=== PATIENT | male | born 1965 | race Hispanic/Latino ===

== ENCOUNTER 2020-02-21 11:25 | Observation (INO) | payer MEDICARE, OTHER ==
[~2020-02-21] VITALS: Ht 170.2 cm; Wt 97.1 kg
[2020-02-21 12:58] LABS: BASOPHILS % 0.6 % (0.0-1.0); EOSINOPHILS # (AUTO) 0.1 (0.0-0.4); EOSINOPHILS % 1.5 % (0.0-6.0); HEMATOCRIT 39.6 % (38.2-49.6); HEMOGLOBIN 12.9 g/dL (14.0-18.0); LYMPHOCYTES # (AUTO) 0.5 (1.0-3.2); LYMPHOCYTES % 9.6 % (18.0-39.1); MEAN CORPUSCULAR HEMOGLOBIN 29.3 pg (28-32); MEAN CORPUSCULAR HGB CONC 32.6 g/dL (31-35); MONOCYTES # (AUTO) 0.5 (0.2-0.8); MONOCYTES % 10.2 % (4.4-11.3); NEUTROPHILS # (AUTO) 3.8 (2.1-6.9); NEUTROPHILS % 78.1 % (38.7-80.0); PLATELET COUNT 93 x10e3/uL (140-360); RED CELL DISTRIBUTION WIDTH 13.7 % (11.7-14.4)
[2020-02-21 13:11] LABS: INR 1.02; PROTHROMBIN TIME 13.9 seconds (11.9-14.5)
[2020-02-21 13:12] LABS: PARTIAL THROMBOPLASTIN TIME 28.5 seconds (23.8-35.5)
[2020-02-21 13:19] LABS: ALBUMIN 4.1 g/dL (3.5-5.0); ALBUMIN/GLOBULIN RATIO 1.1 (0.8-2.0); ANION GAP 15.6 mmol/L (8-16); CALCIUM 9.2 mg/dL (8.4-10.2); CREATININE, SERUM 5.04 mg/dL (0.72-1.25); POTASSIUM 4.6 mmol/L (3.5-5.1)
[2020-02-21 13:27] LABS: CREATINE KINASE MB 2.2 ng/mL (0-5.0)
[2020-02-21] MEDS ORDERED: SODIUM CHLORIDE 0.9% 50ML 50 ML ONE (13:37)
[2020-02-21] MEDS ORDERED: IOPAMIDOL 370 MG/ML 200 ML INFUS..BTL INJ ONE (13:38)
--- NOTE | 2020-02-21 13:57 | Diagnostic Imaging Report ---
EXAMINATION: CHEST SINGLE (PORTABLE) INDICATION: Abdominal pain, vomiting COMPARISON: None FINDINGS: LINES/TUBES:Right IJ tunneled dialysis catheter terminates in the right atrium. LUNGS:The lung volumes are low. There is perihilar fullness and indistinctness of the pulmonary vasculature. PLEURA:No pleural effusion or pneumothorax. MEDIASTINUM:The cardiomediastinal silhouette appears normal in size and shape. Postoperative findings of prior CABG. BONES/SOFT TISSUES:No acute osseous injury. Sternotomy wires intact. ABDOMEN:No free air under the diaphragm. IMPRESSION: Low lung volumes, central pulmonary vascular congestion, and mild pulmonary interstitial edema. Signed by: Ezio Keating MD on 02/21/2020 1:54 PM
--- NOTE | 2020-02-21 14:39 | Diagnostic Imaging Report ---
EXAM: CT Abdomen and Pelvis WITH intravenous contrast INDICATION: Abdominal pain COMPARISON: Chest radiograph of the same day TECHNIQUE: Abdomen and pelvis were scanned utilizing a multidetector helical scanner from the lung base to the pubic symphysis after administration of IV contrast. Coronal and sagittal reformations were obtained. Routine protocol was performed. Scan was performed during portal venous phase. IV CONTRAST: 100mL of Isovue 370 ORAL CONTRAST: Water RADIATION DOSE: Total DLP: 745 mGy*cm Dose modulation, iterative reconstruction, and/or weight based adjustment of the mA/kV was utilized to reduce the radiation dose to as low as reasonably achievable. FINDINGS: LOWER THORAX: No focal consolidation. Small 3 to 4 mm right lower lobe nodules, mostly subpleural. HEPATOBILIARY: Cirrhotic liver contour. No focal liver lesion. No biliary ductal dilation. Unremarkable gallbladder. SPLEEN: No splenomegaly. PANCREAS: No focal masses or ductal dilatation. ADRENALS: No adrenal nodules. KIDNEYS/URETERS: No hydronephrosis, stones, or solid mass lesions. PELVIC ORGANS/BLADDER: Unremarkable. PERITONEUM / RETROPERITONEUM: Large volume ascites in the abdomen and pelvis. No free air. LYMPH NODES: No lymphadenopathy. VESSELS: Moderate atherosclerotic calcifications of the nonaneurysmal abdominal aorta and major branches. GI TRACT: Mild diverticulosis without CT evidence of diverticulitis. No abnormal bowel thickening. No bowel obstruction. Normal appendix. BONES AND SOFT TISSUES: No acute osseous injury. No suspicious lytic or blastic lesions. IMPRESSION: Hepatic cirrhosis and large volume abdominal and pelvic ascites. Small 3 to 4 mm right lower lobe pulmonary nodules. If the patient is high risk, follow-up chest CT in 12 months is optional. If the patient is low risk, no follow-up imaging is necessary. Mild diverticulosis without CT evidence of diverticulitis. Signed by: Ezio Keating MD on 02/21/2020 2:35 PM
[2020-02-21] MEDS ORDERED: ALBUMIN 25% 12.5GM 50ML 150 ML IV ONE (16:03)
--- NOTE | 2020-02-21 16:27 | Emergency Department Note ---
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 Historian: Patient Arrival Mode: Car Respiratory Therapy Technician Required: No Onset (how long ago): day(s) (2) Location: ABD Quality: DISTENSION, N/V Radiation: Reports non-radiation Severity: moderate Onset quality: gradual Timing of current episode: intermittent Progression: waxing and waning Chronicity: new Context: Denies recent illness Relieving factors: none Exacerbating factors: none Associated symptoms: Reports denies other symptoms Past Medical/Family History Physician Review I have reviewed the patient's past medical and family history. Any updates have been documented here. Past Medical History Recent Fever: No Clinical Suspicion of Infectio: No New/Unexplained Change in Ment: No Past Medical History: Hypertension, Diabetes, Hemodyalisis, Hyperlipedemia, Chronic Kidney Disease Other Medical History: dialysis MWF Social History Smoking Cessation: Never Smoker Counseling Performed: No Alcohol Use: None Any Illegal Drug Use: No TB Exposure/Symptoms: No Physically hurt or threatened: No Family History Family history of heart diseas: No Other Any Pre-Existing Lines (PICC,: No Review of Systems Review of Systems Constitutional: Reports no symptoms EENTM: Reports no symptoms Cardiovascular: Reports no symptoms Respiratory: Reports no symptoms Gastrointestinal: Reports as per HPI Genitourinary: Reports no symptoms Musculoskeletal: Reports no symptoms Integumentary: Reports no symptoms Neurological: Reports no symptoms Psychological: Reports no symptoms Endocrine: Reports no symptoms Hematological/Lymphatic: Reports no symptoms Physical Exam Related Data Allergies: Coded Allergies: No Known Allergies (Unverified , 02/21/20) Triage Vital Signs Vital Signs Date Time Temp Pulse Resp B/P (MAP) Pulse Ox O2 Delivery O2 Flow Rate FiO2 02/21/20 12:00 97.9 70 18 150/78 99 Room Air Vital signs reviewed: Yes Physical Exam CONSTITUTIONAL Constitutional: Present well-developed, Present well-nourished HENT HENT: Present normocephalic, Present atraumatic, Present oropharynx clear/moist, Present nose normal HENT L/R: Present left ext ear normal, Present right ext ear normal EYES Eyes: Reports PERRL, Reports conjunctivae normal NECK Neck: Present ROM normal PULMONARY Pulmonary: Present effort normal, Present breath sounds normal CARDIOVASCULAR Cardiovascular: Present regular rhythm, Present heart sounds normal, Present capillary refill normal, Present normal rate GASTROINTESTINAL Abdominal: Present soft, Present nontender, Present bowel sounds normal, Present distension (MASSIVE DISTENSION WITH FLUID WAVE, NO TENDERNESS) GENITOURINARY Genitourinary: Present exam deferred SKIN Skin: Present warm, Present dry MUSCULOSKELETAL Musculoskeletal: Present ROM normal, Present edema NEUROLOGICAL Neurological: Present alert, Present oriented x 3, Present no gross motor or sensory deficits PSYCHOLOGICAL Psychological: Present mood/affect normal, Present judgement normal Results Laboratory Result Diagram: 02/21/20 1242 02/21/20 1242 Laboratory Laboratory Tests Test 02/21/20 12:42 White Blood Count 4.81 x10e3/uL (4.8-10.8) Red Blood Count 4.40 x10e6/uL (4.3-5.7) Hemoglobin 12.9 g/dL (14.0-18.0) Hematocrit 39.6 % (38.2-49.6) Mean Corpuscular Volume 90.0 fL (81-99) Mean Corpuscular Hemoglobin 29.3 pg (28-32) Mean Corpuscular Hemoglobin Concent 32.6 g/dL (31-35) Red Cell Distribution Width 13.7 % (11.7-14.4) Platelet Count 93 x10e3/uL (140-360) Neutrophils (%) (Auto) 78.1 % (38.7-80.0) Lymphocytes (%) (Auto) 9.6 % (18.0-39.1) Monocytes (%) (Auto) 10.2 % (4.4-11.3) Eosinophils (%) (Auto) 1.5 % (0.0-6.0) Basophils (%) (Auto) 0.6 % (0.0-1.0) Neutrophils # (Auto) 3.8 (2.1-6.9) Lymphocytes # (Auto) 0.5 (1.0-3.2) Monocytes # (Auto) 0.5 (0.2-0.8) Eosinophils # (Auto) 0.1 (0.0-0.4) Basophils # (Auto) 0.0 (0.0-0.1) Absolute Immature Granulocyte (auto 0 x10e3/uL (0-0.1) Prothrombin Time 13.9 seconds (11.9-14.5) Prothromb Time International Ratio 1.02 Activated Partial Thromboplast Time 28.5 seconds (23.8-35.5) Sodium Level 138 mmol/L (136-145) Potassium Level 4.6 mmol/L (3.5-5.1) Chloride Level 102 mmol/L (98-107) Carbon Dioxide Level 25 mmol/L (22-29) Anion Gap 15.6 mmol/L (8-16) Blood Urea Nitrogen 27 mg/dL (7-26) Creatinine 5.04 mg/dL (0.72-1.25) Estimat Glomerular Filtration Rate 12 ML/MIN (60-) BUN/Creatinine Ratio 5 (6-25) Glucose Level 82 mg/dL (74-118) Calcium Level 9.2 mg/dL (8.4-10.2) Total Bilirubin 0.5 mg/dL (0.2-1.2) Aspartate Amino Transf (AST/SGOT) 24 IU/L (5-34) Alanine Aminotransferase (ALT/SGPT) 15 IU/L (0-55) Alkaline Phosphatase 271 IU/L (40-150) Creatine Kinase 63 IU/L (30-200) Creatine Kinase MB 2.20 ng/mL (0-5.0) Troponin I 0.033 ng/mL (0-0.300) B-Type Natriuretic Peptide 1818.1 pg/mL (0-100) Total Protein 8.0 g/dL (6.5-8.1) Albumin 4.1 g/dL (3.5-5.0) Globulin 3.9 g/dL (2.3-3.5) Albumin/Globulin Ratio 1.1 (0.8-2.0) Amylase Level 77 U/L (25-125) Lipase 38 U/L (8-78) Lab results reviewed: Yes Imaging Imaging results reviewed: Yes Assessment & Plan Medical Decision Making MDM H/O ESRD WITH N/V AND MASSIVE ABD DISTENSION - CHECK CBC, CHEM, LIPASE, CXR, CT ABD/PELVIS - R/O UREMIA, HYPOALBUMINEMIA, CIRRHOSIS, ASCITES, ELECTROLYTE ABNL Reassessment Reassessment ADMIT TO DR MANCUSO (JORY PT), RENAL CONSULTED ALSO (SPOKE WITH DR DAY) Assessment & Plan Final Impression: (1) Ascites (2) Cirrhosis (3) ESRD (end stage renal disease) Depart Disposition: ADMITTED Last Vital Signs Date Time Temp Pulse Resp B/P (MAP) Pulse Ox O2 Delivery O2 Flow Rate FiO2 02/21/20 12:12 98.1 68 18 173/85 99 02/21/20 12:00 Room Air Medications in the ED Sodium Chloride 50 ml @ ud STK-MED ONCE .ROUTE ; Start 02/21/20 at 13:37; Stop 02/21/20 at 13:31; Status DC Iopamidol 74,000 mg STK-MED ONCE INJ ; Start 02/21/20 at 13:38; Stop 02/21/20 at 13:31; Status DC ESCOBAR FREED MD Feb 21, 2020 16:27
[2020-02-21] MEDS ORDERED: ALBUMIN 25% 12.5GM 50ML 50 ML IV ONE ×3 (16:36→17:01)
[2020-02-21 16:45] LABS: BODY FLUID APPEARANCE CLOUDY; BODY FLUID COLOR STRAW; BODY FLUID TYPE PERITONEAL
--- NOTE | 2020-02-21 17:34 | Consultation ---
DATE OF CONSULTATION: Initial Nephrology Consultation REASON FOR CONSULTATION: End-stage renal disease. HISTORY OF PRESENT ILLNESS: Mr. Clinton Stone is a 54-year-old male who is well known to our practice. He gets dialysis three times a week at [facility] in [place]. The patient presented to the hospital today with some abdominal distention. The patient has no shortness of breath at this time. No fevers or chills. PAST MEDICAL HISTORY: The patient has history of end-stage renal disease. He has history of cirrhosis, history of hypertension. REVIEW OF SYSTEMS: As per HPI. MEDICATIONS: His medication list is not available at this time. PHYSICAL EXAMINATION: VITAL SIGNS: Blood pressure 150/78, pulse 70, respirations 18. GENERAL: The patient is in no acute distress. HEENT: No increased JVD. CARDIOVASCULAR: Regular rate and rhythm. LUNGS: Decreased breath sounds at the bases bilaterally. ABDOMEN: Distended. EXTREMITIES: No edema. LABORATORY RESULTS: White count 4.8, hemoglobin and hematocrit of 13 and 39 respectively. Sodium 138, potassium 4.6, chloride 102, bicarbonate 25. BUN and creatinine 27 and 5.0 respectively. BNP is 1818. IMPRESSION: 1. Chronic kidney disease, stage 5. 2. Cirrhosis. 3. Ascites. 4. Elevated BNP. PLAN: The patient will get dialysis tomorrow. He will probably also need therapeutic paracentesis while he is here. Electrolyte status is okay. Once the patient's medicine list is available, we can place him on his home medications. I will follow the patient with you. Thank you for allowing me to participate in the care of the patient with you. Ather MD ARLET Dial/ARYAN /[id number]
[2020-02-21 17:48] LABS: RBC,BODY FLUID 192 cells/uL; WBC,BODY FLUID 212 cells/uL
--- NOTE | 2020-02-21 17:59 | NUR ---
PATIENT INITIALLY REFUSING COVID SWAB DUE TO EPISTAXIS TO BOTH NOSTRILS
[2020-02-21] MEDS ORDERED: HYDRALAZINE HCL 20 MG/ML VIAL IV PRN (18:15)
[2020-02-21] MEDS ORDERED: ONDANSETRON HCL INJ 2MG/ML 2ML 2 MG/ML VIAL IV PRN (18:15)
[2020-02-21] MEDS ORDERED: PROPRANOLOL HCL 40 MG TAB PO SCH (18:15)
[2020-02-21 19:02] VITALS: BP 176/80
[2020-02-21 19:10] VITALS: BP 160/73
--- NOTE | 2020-02-21 19:10 | NUR ---
Report called from er to night RN. Pt is alert and oriented x3. Respirations are regular and unlabored. rt subclavian avinash cath intact- pt gets dialysis on m,w,f. Dialysis held - pt had parecentesis today - hx ascites,liver cirrhosis. Pt to get dialysis in am. Tele w pulse ox on. 20g rt fa 20 g sl. Dressing to abdomen dry and intact. Pt oriented to pmc and room. call light within reach. bed in low position. pt is legally blind. bed alarm on.
[2020-02-21 19:17] LABS: EOSINOPHILS,BODY FLUID 1 %; LYMPHOCYTES,BODY FLUID 16 %; MONO/MACROPHG,BODY FLUID 36 %; NEUTROPHILS,BODY FLUID 7 %; OTHER CELLS,BODY FLUID 40 %
[2020-02-21 21:07] VITALS: BP 170/78
[2020-02-22] VITALS: BP 150/73
--- NOTE | 2020-02-22 02:01 | History and Physical ---
CHIEF COMPLAINT: Abdominal distention. HISTORY OF PRESENT ILLNESS: This is a 54-year-old male, who is on dialysis, presented with abdominal distention for the past week or so. The patient denies any abdominal pain. No nausea or vomiting. The patient has no known liver disease and he does not drink. Denies fever. No chest pain. No shortness of breath. PAST MEDICAL/SURGICAL HISTORY: 1. Diabetes. 2. Hypertension. 3. Coronary artery disease, status post CABG. 4. End-stage renal disease due to diabetes. MEDICATIONS: Please see medication reconciliation form. ALLERGIES: NONE. SOCIAL HISTORY: He does not drink. FAMILY HISTORY: Diabetes. REVIEW OF SYSTEMS: A 10-point review of system obtained and nothing else is significant other than what is stated in HPI. PHYSICAL EXAMINATION: VITAL SIGNS: Temperature 98.1, pulse 72, respiratory rate 16, and blood pressure 171/88. GENERAL: In no acute distress. SKIN: No rash. HEENT: Anicteric. Oropharynx is clear. LUNGS: Clear. HEART: Regular rate and rhythm. Normal S1, S2. GI: Abdomen is soft, distended, and nontender. NEUROLOGIC: Alert and oriented x3. Cranial nerves II through XII grossly intact. PSYCHIATRIC: No hallucination. MUSCULOSKELETAL: Painless range of motion. LABORATORY DATA: White count 8.5, hemoglobin 13, platelet count 93. PT, PTT are normal. Creatinine 5. CT of the abdomen shows large volume ascites with cirrhosis. ASSESSMENT AND PLAN: 1. Newly diagnosed cirrhosis with ascites. The patient does have thrombocytopenia to support a diagnosis. However, no coagulopathy is supported. We will go ahead and do a liver ultrasound. We will consult GI. We will also check hepatitis panel. We will schedule for him to have a paracentesis. We will start him on propranolol, Aldactone, and Lasix. 2. End-stage renal disease due to diabetes. We will consult Nephrology for dialysis. 3. Coronary artery disease with previous coronary artery bypass grafting. We will check to see if he takes aspirin at home, so likely should resume that. 4. Diabetes. Currently, his sugar is stable. We will monitor. 5. Gastrointestinal and deep vein thrombosis prophylaxis. No chemical DVT prophylaxis due to planned procedure. MD MOLLY DavilaL/ARYAN /[id number]
[2020-02-22 04:00] VITALS: BP 176/78
[2020-02-22 05:59] LABS: BASOPHILS % 0.6 % (0.0-1.0); EOSINOPHILS # (AUTO) 0.1 (0.0-0.4); EOSINOPHILS % 1.4 % (0.0-6.0); HEMATOCRIT 35.9 % (38.2-49.6); HEMOGLOBIN 11.8 g/dL (14.0-18.0); LYMPHOCYTES # (AUTO) 0.4 (1.0-3.2); LYMPHOCYTES % 8.5 % (18.0-39.1); MEAN CORPUSCULAR HEMOGLOBIN 29.4 pg (28-32); MEAN CORPUSCULAR HGB CONC 32.9 g/dL (31-35); MEAN CORPUSCULAR VOLUME 89.3 fL (81-99); MONOCYTES # (AUTO) 0.5 (0.2-0.8); MONOCYTES % 9.8 % (4.4-11.3); NEUTROPHILS % 79.3 % (38.7-80.0); PLATELET COUNT 97 x10e3/uL (140-360); RED BLOOD COUNT 4.02 x10e6/uL (4.3-5.7); RED CELL DISTRIBUTION WIDTH 13.6 % (11.7-14.4)
[2020-02-22 06:02] LABS: ALBUMIN/GLOBULIN RATIO 1.4 (0.8-2.0); ANION GAP 14.7 mmol/L (8-16); CALCIUM 8.8 mg/dL (8.4-10.2); CREATININE, SERUM 5.38 mg/dL (0.72-1.25); POTASSIUM 4.7 mmol/L (3.5-5.1)
[2020-02-22] MEDS ORDERED: METFORMIN HCL850 MG PO (06:37)
[2020-02-22] MEDS ORDERED: METFORMIN HCL1000 MG PO (06:37)
--- NOTE | 2020-02-22 07:00 | NUR ---
RCD PT AT BED PT IS ALERT AND ORIENTED RESTING ON BED IV PATENT BED LOW AND LOCKED CALL LIGHT IN REACH
[2020-02-22 08:11] VITALS: BP 165/76
[2020-02-22 09:00] VITALS: BP 165/76
[2020-02-22] MEDS ORDERED: FUROSEMIDE 20 MG TAB PO SCH (09:00)
[2020-02-22] MEDS: PROPRANOLOL HCL 10 MG TAB PO SCH ×2 (09:00→16:35)
[2020-02-22] MEDS ORDERED: SPIRONOLACTONE 25 MG TAB PO SCH (09:00)
--- NOTE | 2020-02-22 11:16 | Diagnostic Imaging Report ---
EXAM: US ABDOMEN LIMITED DATE: 02/22/2020 9:55 AM INDICATION: ^[id number]. Cirrhosis COMPARISON: None TECHNIQUE: Transverse and longitudinal carbajal scale and color doppler sonographic images of the right upper quadrant were obtained. FINDINGS: LIVER 16.7 cm in the right midclavicular line. Liver is echogenic and heterogeneous with slightly nodular contours. Small volume ascites is noted. No suspicious hepatic mass GALLBLADDER No gallbladder wall thickening, distension, stone, or pericholecystic fluid. Negative reported sonographic Ohara's sign. BILE DUCTS No intra nor extra-hepatic biliary dilation. Common bile duct measures 0.5cm PANCREAS: Not well visualized. RIGHT KIDNEY: 13.0 cm Echogenicity: Normal Collecting System: No hydronephrosis Stones: None Cyst/Mass: None VESSELS: Aorta: Visualized portions are within normal size limits Inferior Vena Cava: Visualized portions are normal Main Portal Vein: 1.3 cm, normal size with hepatopetal flow. FREE FLUID: None IMPRESSION: 1. Cirrhotic liver morphology with small volume ascites. 2. Negative for biliary dilatation. Signed by: Rigoberto Carl MD on 02/22/2020 11:13 AM
[2020-02-22] MEDS ORDERED: OMEPRAZOLE40 MG PO (11:33)
[2020-02-22] MEDS ORDERED: FLOMAX0.4 MG PO (11:33)
[2020-02-22] MEDS ORDERED: FAMOTIDINE20 MG PO (11:33)
[2020-02-22] MEDS ORDERED: LISINOPRIL10 MG PO (11:33)
[2020-02-22] MEDS ORDERED: NIFEDIPINE ER30 M1 PO (11:33)
[2020-02-22] MEDS ORDERED: FUROSEMIDE40 MG PO (11:33)
[2020-02-22] MEDS ORDERED: CARVEDILOL12.5 MG PO (11:33)
[2020-02-22] MEDS ORDERED: ATORVASTATIN CA20 MG PO (11:33)
[2020-02-22 11:46] VITALS: BP 168/79
--- NOTE | 2020-02-22 13:30 | NUR ---
Pt unavailable at this time. Will follow up as able. BABITA MELENDEZ Cloth Inspector Spiritual Care Department O: [phone]
[2020-02-22] MEDS ORDERED: SODIUM CHLORIDE 0.9% 1000ML 2,000 ML ONE (14:16)
--- NOTE | 2020-02-22 15:00 | NUR ---
DIALYSIS STARTED FOR 3 HRS
[2020-02-22 16:16] VITALS: BP 169/85
[2020-02-22] MEDS ORDERED: HEPARIN SOD (PORCINE) 1000 UNIT/ML SDV IV PRN (17:00)
[2020-02-22] MEDS ORDERED: SODIUM CHLORIDE 0.9% 1000ML 2,000 ML IV PRN (17:00)
--- NOTE | 2020-02-22 18:00 | NUR ---
DIALYSIS DONE AND REMOVED 2 LTRS
[2020-02-22] MEDS ORDERED: ONDANSETRON HCL 4 MG ORAL DISINTEGRATING TAB PO PRN (18:15)
--- NOTE | 2020-02-22 18:27 | NUR ---
PATIENT WENT HOME IN SAFE CONDITION WITH HIS BROTHER
--- NOTE | 2020-02-22 22:28 | Discharge Summary ---
PRIMARY CARE DOCTOR: Dr. Rupesh Alcantara. FINAL DIAGNOSIS: Newly diagnosed cirrhosis with ascites. SECONDARY DIAGNOSES: 1. End-stage renal disease due to diabetes. 2. Coronary artery disease with previous coronary artery bypass grafting. 3. Hypertension. 4. Blind. CONSULTANTS: 1. Dr. Dial, Nephrology. 2. Dr. Fuller, GI. PROCEDURE/STUDIES PERFORMED: 1. Abdominal ultrasound, which showed cirrhotic liver morphology with small volume ascites after paracentesis and negative for biliary dilatation. 2. CT of the abdomen showed large volume ascites. 3. Paracentesis. HISTORY: Per dictated H and P. HOSPITAL COURSE: The patient was admitted and paracentesis was done. There was no evidence of spontaneous bacterial peritonitis. Overall propranolol, Lasix and Aldactone were started. Ultrasound was done. GI was consulted. However, at the time of dictation, the consult was not done yet. However, outpatient evaluation is appropriate as well. The patient was seen and examined today. The patient was dialyzed today. He will follow up with his primary care doctor and GI doctor in 2 weeks. CONDITION ON DISCHARGE: Improved. DISCHARGE MEDICATIONS: Please see medication reconciliation form. Yiching MD JOMAR Mccall/ARYAN /[id number] cc: Rupesh Alcantara
--- OUTSIDE RECORDS SUMMARY | 2020-02-25 15:38 | XMS REPORT | Clinical Summary ---
Demographics Home Phone Preferred Language Unknown Marital Status Unknown Oriental Orthodox Affiliation Unknown Race White Ethnic Group /Latin Author Author [facility] Address Unknown Phone Unavailable Care Team Providers Care Advertising Operations Coordinator Name Role Phone PCP Unavailable Allergies Not on File Medications Not on file Active Problems Not on file Encounters Care Team Description Date Type Specialty Amanda Pal Appointment (Mr. Ramey called in to s andreafski more info about transplant for his brother. Is worried about many factors and stated that brother also has cirrhosis and is blind. After speaking w him for 20min he decided to talk to his brother to see what he thinks. ) 12/27/2019 Telephone Transplant Amanda Pal Appointment (Cld patient's brother per h is request to complete referral to start the process for renal transplant for his brother. No answer. Left detailed voicemail msg and call back numbers in American.) 12/27/2019 Telephone Transplant Amanda Pal Kidney Transplant Pre-evaluation (Gentle man called in wanting to know more information about transplant for his brother that is on dialysis. Pt does not have all info or insurance handy. Asked if I could call him around 3pm.) 12/27/2019 Telephone Transplant after 02/20/2019 Social History Date Tobacco Use Types Packs/Day Years Used Never Assessed Sex Assigned at Date Recorded Not on file Industry Job Start Date Occupation Not on file Not on file Not on file Travel End Travel History Travel Start No recent travel history available. Last Filed Vital Signs Not on file Plan of Treatment Not on file Results Not on fileafter 02/20/2019
--- OUTSIDE RECORDS SUMMARY | 2020-02-25 15:41 | XMS REPORT | Continuity of Care Document ---
Author Author [facility] t Organization [facility] Address [address] [place] [address] Phone Unavailable Care Team Providers Care Physical Therapy Instructor Name Role Phone RUPESH ALCANTARA PCP Adam DIAZ Attphys Unavailable Amanda Pal Attphys Unavailable Elmer SCHULER Attphys Unavailable Shawanda ALCANTARA MD Attphys Unavailable NICOLE HURTADO Attphys Unavailable Adam DIAZ Admphys Unavailable Elmer SCHULER Admphys Unavailable NICOLE HURTADO Admphys Unavailable Payers Payer Name Policy Type Policy Number Effective Date Expiration Date María ortiz [facility] Medicare Complete [id number] 2019 00:00:00 [facility] [id number] [id number] 2018 00:00:00 [facility] Problems Condition Name Condition Details Condition Category Status Onset Date Resolution Date Last Treatment Date Treating Clinician Comments Source Abdominal ascites Problem Active [facility] Hepatic cirrhosis Problem Active [facility] End-stage renal disease Problem Active [facility] Epistaxis Problem Active [facility] Allergies, Adverse Reactions, Alerts Allergy Name Allergy Type Status Severity Reaction(s) Onset Date Inacti ve Date Treating Clinician Comments Source No Known Allergies DA Active U 2019-08-07 00:00:00 [facility] No Known Allergies DA Active U 2019-07-10 00:00:00 [facility] Social History Social Habit Start Date Stop Date Quantity Comments Source Sex Assigned At 1965 00:00:00 1965 00:00:00 Male [facility] Medications Ordered Medication Name Filled Medication Name Start Date Stop Da te Current Medication? Ordering Clinician Indication Dosage Frequency Signature (SIG) Comments Components Source Atorvastatin Calcium Atorvastatin Calcium Yes 20 Bedtime [facility] Carvedilol Carvedilol Yes 12.5 Daily [facility] Famotidine Famotidine Yes 40 Daily [facility] Furosemide Furosemide Yes 20 Twice A Day [facility] Lisinopril Lisinopril Yes 20 Daily [facility] Metformin Hcl Metformin Hcl Yes 500 Daily for Di abetes [facility] Nifedipine (Nifedipine Er) 30 Mg TAB.ER.24 Nifedipine (Nifedipine Er) 30 Mg TAB.ER.24 Yes Daily [facility] Omeprazole Omeprazole Yes Daily [facility] Tamsulosin Hcl (Flomax*) 0.4 Mg CAP Tamsulosin Hcl (Flomax*) 0.4 Mg C AP Yes .4 Daily [facility] Atorvastatin Calcium Atorvastatin Calcium Yes 20 Bedtime [facility] Carvedilol Carvedilol Yes 12.5 Twice A Day [facility] Cefdinir (Omnicef) 300 Mg CAPSULE Cefdinir (Omnicef) 300 Mg CAPSULE Yes 300 Every 12 Hours [facility] Furosemide Furosemide Yes 40 Daily [facility] Lisinopril Lisinopril Yes 20 Daily [facility] I [facility] Metformin Hcl Metformin Hcl Yes 1000 Bedtime [facility] Nifedipine (Nifedipine Er) 30 Mg TABLET.ER Nifedipine (Nifedipine Er) 30 Mg TABLET.ER Yes 30 Daily [facility] Tamsulosin Hcl (Flomax*) 0.4 Mg CAP Tamsulosin Hcl (Flomax*) 0.4 Mg C AP Yes .4 Daily@1700 [facility] Metformin Hcl Metformin Hcl 2020-02-22 00:00:00 No 1000 Bedtime [facility] Vital Signs Vital Name Observation Time Observation Value Comments Source Body Temperature 2020-02-22 16:16:00 97.9 [degF] [facility] BMI (Body Mass Index) 2020-02-21 19:10:00 33.5 kg/m2 [facility] Weight 2020-02-21 12:00:00 214 [lb_av] [facility] Weight 2019-11-17 22:02:00 193 [lb_av] [facility] BMI (Body Mass Index) 2019-11-17 22:02:00 27.7 kg/m2 [facility] Weight 2019-11-05 15:52:00 193 [lb_av] [facility] BMI (Body Mass Index) 2019-11-05 15:52:00 27.7 kg/m2 [facility] Body Temperature 2019-11-04 16:00:00 97.9 [degF] [facility] Weight 2019-11-03 15:28:00 193 [lb_av] [facility] BMI (Body Mass Index) 2019-11-03 15:28:00 27.7 kg/m2 [facility] Weight 2019-10-29 11:33:00 193 [lb_av] [facility] BMI (Body Mass Index) 2019-10-29 11:33:00 27.7 kg/m2 [facility] Weight 2019-10-26 08:25:00 193 [lb_av] [facility] BMI (Body Mass Index) 2019-10-26 08:25:00 27.7 kg/m2 [facility] Weight 2019-10-25 09:38:00 193 [lb_av] [facility] BMI (Body Mass Index) 2019-10-25 09:38:00 27.7 kg/m2 [facility] Weight 2019-10-23 10:48:00 193 [lb_av] [facility] BMI (Body Mass Index) 2019-10-23 10:48:00 27.7 kg/m2 [facility] Body Temperature 2019-08-23 12:00:00 97.6 [degF] [facility] Procedures Procedure Date / Time Performed Performing Clinician [facility] e US Abdomen limited 2020-02-22 00:00:00 [facility] Computed tomography of abdomen and pelvis with contrast 00:00:00 [facility] US guided paracentesis 2020-02-21 00:00:00 [facility] US abdomen complete 2019-11-04 00:00:00 [facility] CT of abdomen and pelvis without contrast 2019-11-03 00:00:00 [facility] BLOOD TRANSFUSION SERVICE 2019-11-03 00:00:00 [facility] HEMODIALYSIS ONE EVALUATION 2019-11-03 00:00:00 [facility] CONTROL OF NOSEBLEED 2019-10-29 00:00:00 [facility] US abdomen complete 2019-10-26 00:00:00 [facility] US Abdomen limited 2019-08-22 00:00:00 BLESSING BUCK[facility] TRANSFUSE NONAUT RED BLOOD CELLS IN PERIPH VEIN, PERC 2019-08-18 00:00:00 [facility] PERFORMANCE OF URINARY FILTRATION, <6 HRS/DAY 2019-08-18 00:00:0 0 [facility] CONTROL BLEEDING IN NASAL MUCOSA AND SOFT TISSUE, ENDO 2019-07-31 0 00:00:00 [facility] Computed tomography of chest without contrast 2019-05-12 00:00:0 0 NICOLE HURTADO [facility] PERFORMANCE OF URINARY FILTRATION, <6 HRS/DAY 2019-05-12 00:00:0 0 [facility] CT of abdomen and pelvis without contrast 2019-05-12 00:00:00 [facility] Plan of Care Planned Activity Planned Date Details Comments Source Instructions Abdominal Hernia [facility] Instructions Anemia [facility] Instructions Epistaxis - Adult [facility] Encounters Start Date/Time End Date/Time Encounter Type Admission Type Attendi [facility] Care Department Encounter ID Source 2020-01-02 08:33:29 Outpatient [facility] [id number] [facility] 2020-02-21 14:51:00 2020-02-22 18:27:00 Discharged Inpatient (obs) [address] [facility] [id number] [facility] 2019-11-17 21:54:00 2019-11-18 07:14:[address] [facility] [id number] [facility] Patients [facility] 2019-11-05 15:47:00 2019-11-05 18:13:[address] [facility] [id number] [facility] 2019-11-03 16:29:00 2019-11-04 19:06:00 Discharged Inpatient (obs) [address] [facility] [id number] [facility] 2019-10-29 10:51:00 2019-10-29 12:17:[address] [facility] [id number] [facility] 2019-10-26 08:15:00 2019-10-26 10:08:[address] [facility] [id number] [facility] Patients [facility] 2019-10-26 07:33:00 2019-10-26 07:33:00 Registered Clinic [address] [facility] [id number] [facility] 2019-10-25 09:16:00 2019-10-25 09:50:[address] [facility] Center [id number] [facility] 2019-10-23 10:09:00 2019-10-23 11:07:[address] [facility] [id number] [facility] 2019-08-18 22:29:00 2019-08-23 15:50:00 Discharged Inpatient [address] [facility] [id number] [facility] Patients [facility] 2019-07-25 15:47:00 2019-07-25 15:47:00 Outpatient [facility] GERARDO [address] [place] [address] 2019-06-07 07:54:00 2019-06-07 07:54:[address] [facility] [id number] [facility] 2019-05-12 08:43:00 2019-05-17 17:30:00 Discharged Inpatient [address] [facility] [id number] [facility] 2019-04-17 13:10:00 2019-04-17 16:32:[address] [facility] [id number] [facility] Results Test Description Test Time Test Comments Results Result Comments Source US ABDOMEN LIMITED 2020-02-22 11:11:00 [facility] [place] [id number] Patient Name: WARD VILLA MR #: [id number] : 1965 Age/Sex: 54/M Req #: [id number] Adm Physician: GERALD DIAZ MD Ordered by: GERALD DIAZ MD Report #: [id number] Location: MED/SURG2 Room/Bed: [facility][note 2] Procedure: [id number] US/US ABDOMEN LIMITED Exam Date: 02/22/20 Exam Time: 954 REPORT STATUS: Signed EXAM: US ABDOMEN LIMITED DATE: 02/22/2020 9:55 AM INDICATION: [id number]. Cirrhosis COMPARISON: None TECHNIQUE: Transverse and longitudinal carbajal scale and color doppler sonographic images of the right upper quadrant were obtained. FINDINGS: LIVER 16.7 cm in the right midclavicular line. Liver is echogenic and heterogeneous with slightly nodular contours. Small volume ascites is noted. No suspicious hepatic mass GALLBLADDER No gallbladder wall thickening, distension, stone, or pericholecystic fluid. Negative reported sonographic Ohara's sign. BILE DUCTS No intra nor extra-hepatic biliary dilation. Common bile duct measures 0.5cm PANCREAS: Not well visualized. RIGHT KIDNEY: 13.0 cm Echogenicity: Normal Collecting System: No hydronephrosis Stones: None Cyst/Mass: None VESSELS: Aorta: Visualized portions are within normal size limits Inferior Vena Cava: Visualized portions are normal Main Portal Vein: 1.3 cm, normal size with hepatopetal flow. FREE FLUID: None IMPRESSION: 1. Cirrhotic liver morphology with small volume ascites. 2. Negative for biliary dilatation. Signed by: Rigoberto Carl MD on 02/22/2020 11:13 AM Dictated By: RIGOBERTO CARL MD 12 Transcribed By: ASHLEY on 02/22/201112 COPY TO: GERALD DIAZ MD Capillary blood glucose measurement by glucometer (mas s/volume) 2020-02-22 07:25:00 Test Item Bedside Glucose (test code = 27486-7) 85 70-120 Meter ID: [id number]ennialBlood leukocytes automated count (number/volume)2020-02-22 05:10:00* Test Item Value Reference Range Interpretation Comments White Blood Count (test code = 6690-2) 5.08 4.8-10.8 [facility]Bl[facility] erythrocytes automated count (number/volume)2020-02-22 05:10:00* Test Item Value Reference Range Interpretation Comments Red Blood Count (test code = 789-8) 4.02 4.3-5.7 [facility]ennial[facility] hemoglobin measurement (moles/volume)2020-02-22 05:10:00* Test Item Value Reference Range Interpretation Comments Hemoglobin (test code = 01907-8) 11.8 14.0-18.0 [facility]ennialAutomated blood hematocrit (volume fraction)2020-02-22 05:10:00* Test Item Value Reference Range Interpretation Comments Hematocrit (test code = 4544-3) 35.9 38.2-49.6 [facility]ennialAutomated erythrocyte mean corpuscular gnwurf5652-00-11 05:10:00* Test Item Value Reference Range Interpretation Comments Mean Corpuscular Volume (test code = 787-2) 89.3 81-99 [facility]ennial[facility]ated erythrocyte mean corpuscular hemoglobin (mass per erythrocyte)2020-02-22 05:10:00* Test Item Value Reference Range Interpretation Comments Mean Corpuscular Hemoglobin (test code = 785-6) 29.4 28-32 [facility]ennialAutomated erythrocyte mean corpuscular hemoglobin concentration measurement (mass/volume)2020-02-22 05:10:00* Test Item Value Reference Range Interpretation Comments Mean Corpuscular Hemoglobin Concent (test code = 786-4) 32.9 31-35 [facility] CentennialRDW KdtWc-Edr6841-00-24 05:10:00* Test Item Value Reference Range Interpretation Comments Red Cell Distribution Width (test code = 21105-9) 13.6 11.7 -14.4 [facility]ennialAutomated blood platelet count (count/volume)2020-02-22 05:10:00* Test Item Value Reference Range Interpretation Comments Platelet Count (test code = 777-3) 97 140-360 [facility]ennialAutomated blood segmented neutrophil count as percentage of total eimvrmyfxq1629-04-74 05:10:00* Test Item Value Reference Range Interpretation Comments Neutrophils (%) (Auto) (test code = 90534-2) 79.3 38.7-80.0 [facility]ennialAutomated blood lymphocyte count as percentage ot total hiwpgaklvz6909-45-88 05:10:00* Test Item Value Reference Range Interpretation Comments Lymphocytes (%) (Auto) (test code = 736-9) 8.5 18.0-39.1 [facility]ennialAutomated blood monocyte count as percentage of total bkqgqlvgot9035-51-45 05:10:00* Test Item Value Reference Range Interpretation Comments Monocytes (%) (Auto) (test code = 5905-5) 9.8 4.4-11.3 [facility] eosinophil count as percentage of total canlgnafkb7543-60-10 05:10:00* Test Item Value Reference Range Interpretation Comments Eosinophils (%) (Auto) (test code = 713-8) 1.4 0.0-6.0 [facility]ennialAutomated blood basophil count as percentage of total twhylnmzcm3135-16-83 05:10:00* Test Item Value Reference Range Interpretation Comments Basophils (%) (Auto) (test code = 706-2) 0.6 0.0-1.0 [facility] CentennialFluoroscopic procedure less than one hour bqkuvicb5779-12-16 05:10:00* Test Item Value Reference Range Interpretation Comments IM GRANULOCYTES % (test code = IM GRANULOCYTES %) 0.4 0.0- 1.0 [facility]ennialAutomated blood neutrophil count 2020-02-22 05:10:00* Test Item Value Reference Range Interpretation Comments Neutrophils # (Auto) (test code = 751-8) 4.0 2.1-6.9 [facility]ennialBlood lymphocytes count (number/volume) 2020-02-22 05:10:00* Test Item Value Reference Range Interpretation Comments Lymphocytes # (Auto) (test code = 21729-2) 0.4 1.0-3.2 [facility]ennialBlood monocytes automated count (number/volume)2020-02-22 05:10:00* Test Item Value Reference Range Interpretation Comments Monocytes # (Auto) (test code = 742-7) 0.5 0.2-0.8 [facility]ennialAutomated blood eosinophil count 2020-02-22 05:10:00* Test Item Value Reference Range Interpretation Comments Eosinophils # (Auto) (test code = 711-2) 0.1 0.0-0.4 [facility]ennialAutomated blood basophil count (count/volume)2020-02-22 05:10:00* Test Item Value Reference Range Interpretation Comments Basophils # (Auto) (test code = 704-7) 0.0 0.0-0.1 [facility] CentennialFluoroscopic procedure less than one hour xvchowrz0254-03-89 05:10:00* Test Item Value Reference Range Interpretation Comments Absolute Immature Granulocyte (auto (omi t code = Absolute Immature Granulocyte (auto) 0.02 0-0.1 [facility] sodium measurement (moles/volume)2020-02-22 05:10:00* Test Item Value Reference Range Interpretation Comments Sodium Level (test code = 2951-2) 137 136-145 [facility] potassium measurement (moles/volume)2020-02-22 05:10:00* Test Item Value Reference Range Interpretation Comments Potassium Level (test code = 2823-3) 4.7 3.5-5.1 [facility] chloride measurement (moles/volume)2020-02-22 05:10:00* Test Item Value Reference Range Interpretation Comments Chloride Level (test code = 2075-0) 102 98-107 [facility] plasma carbon dioxide, total measurement (moles/volume)2020-02-22 05:10:00* Test Item Value Reference Range Interpretation Comments Carbon Dioxide Level (test code = 2028-9) 25 22-29 [facility] or plasma anion vjb4126-60-71 05:10:00* Test Item Value Reference Range Interpretation Comments Anion Gap (test code = 01390-2) 14.7 8-16 [facility] plasma urea nitrogen measurement (mass/volume)2020-02-22 05:10:00* Test Item Value Reference Range Interpretation Comments Blood Urea Nitrogen (test code = 3094-0) 34 7-26 [facility] plasma creatinine measurement (mass/volume)2020-02-22 05:10:00* Test Item Value Reference Range Interpretation Comments Creatinine (test code = 2160-0) 5.38 0.72-1.25 [facility] or plasma urea nitrogen/creatinine mass ineld6412-72-86 05:10:00* Test Item Value Reference Range Interpretation Comments BUN/Creatinine Ratio (test code = 3097-3) 6 6-25 [facility] CentennialEstimated glomerular filtration rate (GFR) uzxzajyxapehu4230-37-25 05:10:00* Test Item Value Reference Range Interpretation Comments Estimat Glomerular Filtration Rate (test code = 072523402) 11 >60 Ranges were taken from the National Kidney Disease Education Program and the [facility] [employer] literature.Reference ranges:60 or greater: Aokefh17-73 ( for 3 consecutive months): Chronic kidney disease 15 or less: Kidney failureBaylor Scott & White Medical Center – CentennialGlucose saxjgfyxbtv5147-26-22 05:10:00* Test Item Value Reference Range Interpretation Comments Glucose Level (test code = GGK0625) 102 74-118 [facility] or plasma calcium measurement (mass/volume)2020-02-22 05:10:00* Test Item Value Reference Range Interpretation Comments Calcium Level (test code = 14482-7) 8.8 8.4-10.2 [facility] Hospitaler[facility] or plasma total bilirubin measurement (mass/volume)2020-02-22 05:10:00* Test Item Value Reference Range Interpretation Comments Total Bilirubin (test code = 1975-2) 0.5 0.2-1.2 [facility] CentennialFluoroscopic procedure less than one hour ppnnqtom8102-22-26 05:10:00* Test Item Value Reference Range Interpretation Comments Aspartate Amino Transf (AST/SGOT) (test code = Aspartate Amino Transf (AST/SGOT)) 17 5-34 [facility] Hospitalerum or plasma alanine aminotransferase measurement (enzymatic activity/volume)2020-02-22 05:10:00* Test Item Value Reference Range Interpretation Comments Alanine Aminotransferase (ALT/SGPT) (test code = 1742-6) 11 0-55 [facility] or plasma protein measurement (mass/volume)2020-02-22 05:10:00* Test Item Value Reference Range Interpretation Comments Total Protein (test code = 2885-2) 6.9 6.5-8.1 [facility] Hospitaler[facility] or plasma albumin measurement (mass/volume)2020-02-22 05:10:00* Test Item Value Reference Range Interpretation Comments Albumin (test code = 1751-7) 4.0 3.5-5.0 [facility] CentennialPlasma globulin measurement (mass/volume) 2020-02-22 05:10:00* Test Item Value Reference Range Interpretation Comments Globulin (test code = 98427-2) 2.9 2.3-3.5 [facility] Hospital[facility] or plasma albumin/globulin mass dcfak6893-20-79 05:10:00* Test Item Value Reference Range Interpretation Comments Albumin/Globulin Ratio (test code = 1759-0) 1.4 0.8-2.0 [facility] Hospitaler[facility] or plasma alkaline phosphatase measurement (enzymatic activity/volume)2020-02-22 05:10:00* Test Item Value Reference Range Interpretation Comments Alkaline Phosphatase (test code = 6768-6) 220 40-150 [facility] Hospitalpecimen source identification of body rjabb4993-74-01 16:07:00* Test Item Value Reference Range Interpretation Comments Body Fluid Type (test code = 25558-0) PERITONEAL [facility] CentennialEvaluation of color of body fluid 2020-02-21 16:07:00* Test Item Value Reference Range Interpretation Comments Body Fluid Color (test code = 6824-7) STRAW [facility] CentennialDetermination of appearance of body fluid 2020-02-21 16:07:00* Test Item Value Reference Range Interpretation Comments Body Fluid Appearance (test code = 9335-1) CLOUDY [facility] body fluid leukocytes count (number/volume)2020-02-21 16:07:00* Test Item Value Reference Range Interpretation Comments Body Fluid WBC (test code = 6743-9) 212 [facility] body fluid erythrocytes count (number/volume)2020-02-21 16:07:00* Test Item Value Reference Range Interpretation Comments Body Fluid RBC (test code = 6741-3) 192 [facility] body fluid neutrophils/100 iwzhfncnej7253-79-16 16:07:00* Test Item Value Reference Range Interpretation Comments Body Fluid Neutrophils (test code = 82655-7) 7 [facility] CentennialBody fluid lymphocyte clugk3666-31-21 16:07:00* Test Item Value Reference Range Interpretation Comments Body Fluid Lymphocytes (test code = 86992044) 16 [facility] CentennialBody fluid monocyte wwdnx1629-05-60 16:07:00* Test Item Value Reference Range Interpretation Comments Body Fluid Monocytes (test code = 08668-2) 36 [facility] eosinophil percentage 2020-02-21 16:07:00* Test Item Value Reference Range Interpretation Comments Body Fluid Eosinophils (test code = 76958-8) 1 [facility] fluid other cells manual count 2020-02-21 16:07:00* Test Item Value Reference Range Interpretation Comments Body Fluid Other Cells (test code = 100755056) 40 MACROPHAGES [facility]ennialTotal cell tyfvx5359-45-55 16:07:00* Test Item Value Reference Range Interpretation Comments Body Fluid Total Cells Counted (test code = 97030-6) 100 [facility]ennialCT ABDOMEN/PELVIS [id number] 14:30:00 [facility] [address] [address] Patient Name: MARI VILLA MR #: [id number] : [birth year] Age/Sex: 54/M Req #: [id number] Adm Physician: Ordered by: ESCOBAR FREED MD Report #: [id number] Location: ER Room/Bed: Procedure: [id number] CT/C T ABDOMEN/PELVIS W Exam Date: 02/21/20 Exam Time: 13 56 REPORT STATUS: Signed EXAM: C T Abdomen and Pelvis WITH intravenous contrast INDICATION: Abdominal pain COMPARISON: Chest radiograph of the same day TECHNIQUE: Abdomen and p kimberly were scanned utilizing a multidetector helical scanner from the lung bas e to the pubic symphysis after administration of IV contrast. Coronal and sagi ttal reformations were obtained. Routine protocol was performed. Scan was perf ormed during portal venous phase. IV CONTRAST: 100mL of Isovue 370 O RAL CONTRAST: Water RADIATION DOSE: Total DLP: 745 mGy*cm Dose modu lation, iterative reconstruction, and/or weight based adjustment of the mA/kV was utilized to reduce the radiation dose to as low as reasonably achievable. FINDINGS: LOWER THORAX: No focal consolidation. Small 3 to 4 mm right lo wer lobe nodules, mostly subpleural. HEPATOBILIARY: Cirrhotic liver conto ur. No focal liver lesion. No biliary ductal dilation. Unremarkable gallbladde r. SPLEEN: No splenomegaly. PANCREAS: No focal masses or ductal dilata tion. ADRENALS: No adrenal nodules. KIDNEYS/URETERS: No hydronephrosis, s tones, or solid mass lesions. PELVIC ORGANS/BLADDER: Unremarkable. PERITO NEUM / RETROPERITONEUM: Large volume ascites in the abdomen and pelvis. No viviane e air. LYMPH NODES: No lymphadenopathy. VESSELS: Moderate atherosclerotic ca lcifications of the nonaneurysmal abdominal aorta and major branches. GI TRACT: Mild diverticulosis without CT evidence of diverticulitis. No abnormal bowel thickening. No bowel obstruction. Normal appendix. BONES AND SOFT TIS SUES: No acute osseous injury. No suspicious lytic or blastic lesions. IM PRESSION: Hepatic cirrhosis and large volume abdominal and pelvic ascites. Small 3 to 4 mm right lower lobe pulmonary nodules. If the patient is high risk, follow-up chest CT in 12 months is optional. If the patient is low risk, no follow-up imaging is necessary. Mild diverticulosis without CT evidence of diverticulitis. Signed by: Berry Cameron MD on 02/21/2020 2:35 PM D ictated By: BERRY CAMERON MD 1 435 Transcribed By: ASHLEY on 02/21/20 4435 COPY TO: ESCOBAR FREED MD CHEST SINGLE (PORTABLE)2020-02-21 13:52:[address] [address] Patient Name: WARD VILLA MR #: [id number] : 1965 Age/Sex: 54/M Req #: [id number] Adm Physician: Ordered by: ESCOBAR FREED MD Report #: [id number] Location: ER Room/Bed: Procedure: [id number] DX/C HEST SINGLE (PORTABLE) Exam Date: 02/21/20 Exam Time : 1304 REPORT STATUS: Signed EXA MINATION: CHEST SINGLE (PORTABLE) INDICATION: Abdominal pain, vomiting COMPARISON: None FINDINGS: LINES/TUBES:Right IJ tunneled di alysis catheter terminates in the right atrium. LUNGS:The lung volumes are low. There is perihilar fullness and indistinctness of the pulmonary vasculatu re. PLEURA:No pleural effusion or pneumothorax. MEDIASTINUM:The cardio mediastinal silhouette appears normal in size and shape. Postoperative finding s of prior CABG. BONES/SOFT TISSUES:No acute osseous injury. Sternotomy wir es intact. ABDOMEN:No free air under the diaphragm. IMPRESSION: Low lung volumes, central pulmonary vascular congestion, and mild pulmonary in terstitial edema. Signed by: Berry Cameron MD on 02/21/2020 1:54 PM Dic tated By: BERRY CAMERON MD 135 4 Transcribed By: ASHLEY on 02/21/20 1354 COPY TO: ESCOBAR FREED MD Prothrombin time (PT) in platelet poor plasma by coagulation assay 2020-02-21 12:42:00* Test Item Value Reference Range Interpretation Comments Prothrombin Time (test code = 5902-2) 13.9 11.9-14.5 [facility]ennialINR in Platelet poor plasma by Coagulation givsp8879-00-68 12:42:00* Test Item Value Reference Range Interpretation Comments Prothromb Time International Ratio (test code = 6301-6) 1.02 Oral Anticoagulant Therapy INR Values:1. Low Intensity Therapy 1.5 - 2.02 . Moderate Intensity Therapy 2.0 - 3.03. High Intensity Therapy(1) 2.5 - 3. 54. High Intensity Therapy(2) 3.0 - 4.05. Panic Value INR > 5.0 [facility]ennialActivated partial thromboplastin time (aPTT) in platelet poor plasma by coagulation lmidu3867-01-63 12:42:00* Test Item Value Reference Range Interpretation Comments Activated Partial Thromboplast Time (test code = 73481-4) 28.5 23.8-35.5 [facility]ennialBNP Hhn-iRch7961-19-23 12:42:00* Test Item Value Reference Range Interpretation Comments B-Type Natriuretic Peptide (test code = 55823-3) 1818.1 0-100 [facility]ine kinase measurement (enzymatic activity/volume)2020-02-21 12:42:00* Test Item Value Reference Range Interpretation Comments Creatine Kinase (test code = 2157-6) 63 30-200 [facility] plasma creatine kinase MB measurement (mass/volume)2020-02-21 12:42:00* Test Item Value Reference Range Interpretation Comments Creatine Kinase MB (test code = 33805-5) 2.20 0-5.0 [facility]ennialTroponin I measurement by highly sensitive enzyme ybdfryvfhdq6739-86-34 12:42:00* Test Item Value Reference Range Interpretation Comments Troponin I (test code = 61495-6) 0.033 0-0.300 [facility] amylase measurement (enzymatic activity/volume)2020-02-21 12:42:00* Test Item Value Reference Range Interpretation Comments Amylase Level (test code = 1798-8) 77 25-125 [facility] lipase measurement (enzymatic activity/volume)2020-02-21 12:42:00* Test Item Value Reference Range Interpretation Comments Lipase (test code = 3040-3) 38 8-78 [facility]ennialBlood leukocytes automated count (number/volume)2019-11-17 22:33:00* Test Item Value Reference Range Interpretation Comments White Blood Count (test code = 6690-2) 5.45 4.8-10.8 [facility] erythrocytes automated count (number/volume)2019-11-17 22:33:00* Test Item Value Reference Range Interpretation Comments Red Blood Count (test code = 789-8) 2.13 4.3-5.7 [facility] hemoglobin measurement (moles/volume)2019-11-17 22:33:00* Test Item Value Reference Range Interpretation Comments Hemoglobin (test code = 52750-4) 6.6 14.0-18.0 Results called to alex Payne at 2257 on 11/17/19 by Jag Henriquez. RB [place].[facility]ennialAutomated blood hematocrit (volume fraction) 2019-11-17 22:33:00* Test Item Value Reference Range Interpretation Comments Hematocrit (test code = 4544-3) 20.5 38.2-49.6 [facility]ennialAutomated erythrocyte mean corpuscular fwmivn9164-96-26 22:33:00* Test Item Value Reference Range Interpretation Comments Mean Corpuscular Volume (test code = 787-2) 96.2 81-99 [facility]ennialAutomated erythrocyte mean corpuscular hemoglobin (mass per erythrocyte)2019-11-17 22:33:00* Test Item Value Reference Range Interpretation Comments Mean Corpuscular Hemoglobin (test code = 785-6) 31.0 28-32 [facility]ennialAutomated erythrocyte mean corpuscular hemoglobin concentration measurement (mass/volume)2019-11-17 22:33:00* Test Item Value Reference Range Interpretation Comments Mean Corpuscular Hemoglobin Concent (test code = 786-4) 32.2 31-35 [facility] CentennialRDW AkbDh-Svj7737-99-19 22:33:00* Test Item Value Reference Range Interpretation Comments Red Cell Distribution Width (test code = 04421-5) 14.8 11.7 -14.4 [facility]ennialAutomated blood platelet count (count/volume)2019-11-17 22:33:00* Test Item Value Reference Range Interpretation Comments Platelet Count (test code = 777-3) 188 140-360 [facility] CentennialAutomated blood segmented neutrophil count as percentage of total xpphctysuv1705-53-67 22:33:00* Test Item Value Reference Range Interpretation Comments Neutrophils (%) (Auto) (test code = 83697-1) 80.4 38.7-80.0 [facility]ennialAutomated blood lymphocyte count as percentage ot total kfzwxfuhhs0207-71-04 22:33:00* Test Item Value Reference Range Interpretation Comments Lymphocytes (%) (Auto) (test code = 736-9) 7.9 18.0-39.1 [facility]ennialAutomated blood monocyte count as percentage of total anbrsjbvpf6758-31-75 22:33:00* Test Item Value Reference Range Interpretation Comments Monocytes (%) (Auto) (test code = 5905-5) 9.4 4.4-11.3 [facility]ennialAutomated blood eosinophil count as percentage of total jvyjtoscug0301-95-85 22:33:00* Test Item Value Reference Range Interpretation Comments Eosinophils (%) (Auto) (test code = 713-8) 1.3 0.0-6.0 [facility]ennialAutomated blood basophil count as percentage of total ufsbmtliez8263-49-07 22:33:00* Test Item Value Reference Range Interpretation Comments Basophils (%) (Auto) (test code = 706-2) 0.6 0.0-1.0 [facility] CentennialFluoroscopic procedure less than one hour mmvrsiuw2737-20-12 22:33:00* Test Item Value Reference Range Interpretation Comments IM GRANULOCYTES % (test code = IM GRANULOCYTES %) 0.4 0.0- 1.0 [facility]ennialAutomated blood neutrophil count 2019-11-17 22:33:00* Test Item Value Reference Range Interpretation Comments Neutrophils # (Auto) (test code = 751-8) 4.4 2.1-6.9 [facility]ennialBlood lymphocytes count (number/volume) 2019-11-17 22:33:00* Test Item Value Reference Range Interpretation Comments Lymphocytes # (Auto) (test code = 61106-4) 0.4 1.0-3.2 [facility]ennialBlood monocytes automated count (number/volume)2019-11-17 22:33:00* Test Item Value Reference Range Interpretation Comments Monocytes # (Auto) (test code = 742-7) 0.5 0.2-0.8 [facility]ennialAutomated blood eosinophil count 2019-11-17 22:33:00* Test Item Value Reference Range Interpretation Comments Eosinophils # (Auto) (test code = 711-2) 0.1 0.0-0.4 [facility]ennialAutomated blood basophil count (count/volume)2019-11-17 22:33:00* Test Item Value Reference Range Interpretation Comments Basophils # (Auto) (test code = 704-7) 0.0 0.0-0.1 [facility] CentennialFluoroscopic procedure less than one hour wvykcbcf7582-83-42 22:33:00* Test Item Value Reference Range Interpretation Comments Absolute Immature Granulocyte (auto (omi t code = Absolute Immature Granulocyte (auto) 0.02 0-0.1 [facility] sodium measurement (moles/volume)2019-11-17 22:33:00* Test Item Value Reference Range Interpretation Comments Sodium Level (test code = 2951-2) 137 136-145 [facility]er[facility] plasma potassium measurement (moles/volume)2019-11-17 22:33:00* Test Item Value Reference Range Interpretation Comments Potassium Level (test code = 2823-3) 4.0 3.5-5.1 [facility]er[facility] or plasma chloride measurement (moles/volume)2019-11-17 22:33:00* Test Item Value Reference Range Interpretation Comments Chloride Level (test code = 2075-0) 101 98-107 [facility]er[facility] or plasma carbon dioxide, total measurement (moles/volume)2019-11-17 22:33:00* Test Item Value Reference Range Interpretation Comments Carbon Dioxide Level (test code = 2028-9) 27 22-29 [facility]er[facility] or plasma anion mvx9572-37-65 22:33:00* Test Item Value Reference Range Interpretation Comments Anion Gap (test code = 81887-8) 13.0 8-16 [facility]er[facility] plasma urea nitrogen measurement (mass/volume)2019-11-17 22:33:00* Test Item Value Reference Range Interpretation Comments Blood Urea Nitrogen (test code = 3094-0) 17 7-26 [facility]er[facility] or plasma creatinine measurement (mass/volume)2019-11-17 22:33:00* Test Item Value Reference Range Interpretation Comments Creatinine (test code = 2160-0) 2.90 0.72-1.25 [facility] Hospitaler[facility] or plasma urea nitrogen/creatinine mass empok3713-25-57 22:33:00* Test Item Value Reference Range Interpretation Comments BUN/Creatinine Ratio (test code = 3097-3) 6 6-25 [facility]ennialEstimated glomerular filtration rate (GFR) xdvemsicgwxwp9305-32-68 22:33:00* Test Item Value Reference Range Interpretation Comments Estimat Glomerular Filtration Rate (test code = 742417448) 23 >60 Ranges were taken from the National Kidney Disease Education Program and the [facility] literature.Reference ranges:60 or greater: Hwbzst66-06 ( for 3 consecutive months): Chronic kidney disease 15 or less: Kidney failureBaylor Scott & [facility] Medical Center – CentennialGlucose ewsiunjpbib1961-66-90 22:33:00* Test Item Value Reference Range Interpretation Comments Glucose Level (test code = CMZ3111) 164 74-118 [facility]er[facility] or plasma calcium measurement (mass/volume)2019-11-17 22:33:00* Test Item Value Reference Range Interpretation Comments Calcium Level (test code = 22486-9) 8.5 8.4-10.2 [facility] Hospitaler[facility] or plasma total bilirubin measurement (mass/volume)2019-11-17 22:33:00* Test Item Value Reference Range Interpretation Comments Total Bilirubin (test code = 1975-2) 0.8 0.2-1.2 [facility] CentennialFluoroscopic procedure less than one hour drhhrjdc2703-58-79 22:33:00* Test Item Value Reference Range Interpretation Comments Aspartate Amino Transf (AST/SGOT) (test code = Aspartate Amino Transf (AST/SGOT)) 21 5-34 [facility]er[facility] or plasma alanine aminotransferase measurement (enzymatic activity/volume)2019-11-17 22:33:00* Test Item Value Reference Range Interpretation Comments Alanine Aminotransferase (ALT/SGPT) (test code = 1742-6) 23 0-55 [facility]er[facility] or plasma protein measurement (mass/volume)2019-11-17 22:33:00* Test Item Value Reference Range Interpretation Comments Total Protein (test code = 2885-2) 7.4 6.5-8.1 [facility] Hospitaler[facility] or plasma albumin measurement (mass/volume)2019-11-17 22:33:00* Test Item Value Reference Range Interpretation Comments Albumin (test code = 1751-7) 2.8 3.5-5.0 [facility]ennialPlasma globulin measurement (mass/volume) 2019-11-17 22:33:00* Test Item Value Reference Range Interpretation Comments Globulin (test code = 50026-9) 4.6 2.3-3.5 [facility]er[facility] or plasma albumin/globulin mass fdjre4482-70-43 22:33:00* Test Item Value Reference Range Interpretation Comments Albumin/Globulin Ratio (test code = 1759-0) 0.6 0.8-2.0 [facility]er[facility] or plasma alkaline phosphatase measurement (enzymatic activity/volume)2019-11-17 22:33:00* Test Item Value Reference Range Interpretation Comments Alkaline Phosphatase (test code = 6768-6) 679 40-150 [facility]ennialBlood leukocytes automated count (number/volume)2019-11-05 16:17:00* Test Item Value Reference Range Interpretation Comments White Blood Count (test code = 6690-2) 7.84 4.8-10.8 [facility]ennialBlood erythrocytes automated count (number/volume)2019-11-05 16:17:00* Test Item Value Reference Range Interpretation Comments Red Blood Count (test code = 789-8) 2.49 4.3-5.7 [facility]ennialBlood hemoglobin measurement (moles/volume)2019-11-05 16:17:00* Test Item Value Reference Range Interpretation Comments Hemoglobin (test code = 23267-4) 7.7 14.0-18.0 [facility]ennialAutomated blood hematocrit (volume fraction)2019-11-05 16:17:00* Test Item Value Reference Range Interpretation Comments Hematocrit (test code = 4544-3) 24.0 38.2-49.6 [facility]ennialAutomated erythrocyte mean corpuscular okltmm7258-85-43 16:17:00* Test Item Value Reference Range Interpretation Comments Mean Corpuscular Volume (test code = 787-2) 96.4 81-99 [facility]ennialAutomated erythrocyte mean corpuscular hemoglobin (mass per erythrocyte)2019-11-05 16:17:00* Test Item Value Reference Range Interpretation Comments Mean Corpuscular Hemoglobin (test code = 785-6) 30.9 28-32 [facility]ennialAutomated erythrocyte mean corpuscular hemoglobin concentration measurement (mass/volume)2019-11-05 16:17:00* Test Item Value Reference Range Interpretation Comments Mean Corpuscular Hemoglobin Concent (test code = 786-4) 32.1 31-35 [facility] CentennialRDW NkwHc-Lcq7914-03-07 16:17:00* Test Item Value Reference Range Interpretation Comments Red Cell Distribution Width (test code = 82167-8) 16.1 11.7 -14.4 [facility]ennialAutomated blood platelet count (count/volume)2019-11-05 16:17:00* Test Item Value Reference Range Interpretation Comments Platelet Count (test code = 777-3) 214 140-360 [facility] CentennialAutomated blood segmented neutrophil count as percentage of total gbqgimfnzm8009-75-50 16:17:00* Test Item Value Reference Range Interpretation Comments Neutrophils (%) (Auto) (test code = 72695-2) 84.7 38.7-80.0 [facility]ennialAutomated blood lymphocyte count as percentage ot total zebqqesjlv5787-09-03 16:17:00* Test Item Value Reference Range Interpretation Comments Lymphocytes (%) (Auto) (test code = 736-9) 5.2 18.0-39.1 [facility]ennialAutomated blood monocyte count as percentage of total leiosbccld1381-32-32 16:17:00* Test Item Value Reference Range Interpretation Comments Monocytes (%) (Auto) (test code = 5905-5) 8.3 4.4-11.3 [facility]ennialAutomated blood eosinophil count as percentage of total ypqnagborq4175-68-18 16:17:00* Test Item Value Reference Range Interpretation Comments Eosinophils (%) (Auto) (test code = 713-8) 0.9 0.0-6.0 [facility]ennialAutomated blood basophil count as percentage of total ubgtxsritt7145-32-34 16:17:00* Test Item Value Reference Range Interpretation Comments Basophils (%) (Auto) (test code = 706-2) 0.4 0.0-1.0 [facility]ennialFluoroscopic procedure less than one hour byoxtpik2706-01-09 16:17:00* Test Item Value Reference Range Interpretation Comments IM GRANULOCYTES % (test code = IM GRANULOCYTES %) 0.5 0.0- 1.0 [facility]ennialAutomated blood neutrophil count 2019-11-05 16:17:00* Test Item Value Reference Range Interpretation Comments Neutrophils # (Auto) (test code = 751-8) 6.6 2.1-6.9 [facility]ennialBlood lymphocytes count (number/volume) 2019-11-05 16:17:00* Test Item Value Reference Range Interpretation Comments Lymphocytes # (Auto) (test code = 39655-7) 0.4 1.0-3.2 [facility]ennialBlood monocytes automated count (number/volume)2019-11-05 16:17:00* Test Item Value Reference Range Interpretation Comments Monocytes # (Auto) (test code = 742-7) 0.7 0.2-0.8 [facility]ennialAutomated blood eosinophil count 2019-11-05 16:17:00* Test Item Value Reference Range Interpretation Comments Eosinophils # (Auto) (test code = 711-2) 0.1 0.0-0.4 [facility]ennialAutomated blood basophil count (count/volume)2019-11-05 16:17:00* Test Item Value Reference Range Interpretation Comments Basophils # (Auto) (test code = 704-7) 0.0 0.0-0.1 [facility]ennialFluoroscopic procedure less than one hour vgonbzwg5475-96-17 16:17:00* Test Item Value Reference Range Interpretation Comments Absolute Immature Granulocyte (auto (omi t code = Absolute Immature Granulocyte (auto) 0.04 0-0.1 [facility]ennialProthrombin time (PT) in platelet poor plasma by coagulation jmfwc9944-68-33 16:17:00* Test Item Value Reference Range Interpretation Comments Prothrombin Time (test code = 5902-2) 14.4 11.9-14.5 [facility]ennialINR in Platelet poor plasma by Coagulation vclnl6770-11-95 16:17:00* Test Item Value Reference Range Interpretation Comments Prothromb Time International Ratio (test code = 6301-6) 1.05 Oral Anticoagulant Therapy INR Values:1. Low Intensity Therapy 1.5 - 2.02 . Moderate Intensity Therapy 2.0 - 3.03. High Intensity Therapy(1) 2.5 - 3. 54. High Intensity Therapy(2) 3.0 - 4.05. Panic Value INR > 5.0 [facility]ennialActivated partial thromboplastin time (aPTT) in platelet poor plasma by coagulation kbxcz3544-73-04 16:17:00* Test Item Value Reference Range Interpretation Comments Activated Partial Thromboplast Time (test code = 43111-0) 32.2 23.8-35.5 [facility]er[facility] plasma sodium measurement (moles/volume)2019-11-05 16:17:00* Test Item Value Reference Range Interpretation Comments Sodium Level (test code = 2951-2) 137 136-145 [facility]er[facility] or plasma potassium measurement (moles/volume)2019-11-05 16:17:00* Test Item Value Reference Range Interpretation Comments Potassium Level (test code = 2823-3) 4.5 3.5-5.1 [facility]er[facility] or plasma chloride measurement (moles/volume)2019-11-05 16:17:00* Test Item Value Reference Range Interpretation Comments Chloride Level (test code = 2075-0) 101 98-107 [facility]er[facility] or plasma carbon dioxide, total measurement (moles/volume)2019-11-05 16:17:00* Test Item Value Reference Range Interpretation Comments Carbon Dioxide Level (test code = 2028-9) 27 22-29 [facility]er[facility] or plasma anion cxo0907-84-61 16:17:00* Test Item Value Reference Range Interpretation Comments Anion Gap (test code = 33800-6) 13.5 8-16 [facility]er[facility] or plasma urea nitrogen measurement (mass/volume)2019-11-05 16:17:00* Test Item Value Reference Range Interpretation Comments Blood Urea Nitrogen (test code = 3094-0) 30 7-26 [facility]er[facility] or plasma creatinine measurement (mass/volume)2019-11-05 16:17:00* Test Item Value Reference Range Interpretation Comments Creatinine (test code = 2160-0) 3.45 0.72-1.25 [facility] Hospitalerum or plasma urea nitrogen/creatinine mass azgtc0388-16-94 16:17:00* Test Item Value Reference Range Interpretation Comments BUN/Creatinine Ratio (test code = 3097-3) 9 6-25 [facility]ennialEstimated glomerular filtration rate (GFR) erkbllerntiom6767-66-84 16:17:00* Test Item Value Reference Range Interpretation Comments Estimat Glomerular Filtration Rate (test code = 529132484) 19 >60 Ranges were taken from the National Kidney Disease Education Program and the [facility] Kidney Foundation literature.Reference ranges:60 or greater: Nogdyk82-62 ( for 3 consecutive months): Chronic kidney disease 15 or less: Kidney failureB[facility] & [facility] CentennialGlucose hoakvplasgm0771-69-90 16:17:00* Test Item Value Reference Range Interpretation Comments Glucose Level (test code = DUQ4031) 171 74-118 [facility] Hospitaler[facility] or plasma calcium measurement (mass/volume)2019-11-05 16:17:00* Test Item Value Reference Range Interpretation Comments Calcium Level (test code = 46701-8) 8.3 8.4-10.2 [facility] total bilirubin measurement (mass/volume)2019-11-05 16:17:00* Test Item Value Reference Range Interpretation Comments Total Bilirubin (test code = 1975-2) 1.0 0.2-1.2 [facility] CentennialFluoroscopic procedure less than one hour trdngjfk4270-43-22 16:17:00* Test Item Value Reference Range Interpretation Comments Aspartate Amino Transf (AST/SGOT) (test code = Aspartate Amino Transf (AST/SGOT)) 15 5-34 [facility] alanine aminotransferase measurement (enzymatic activity/volume)2019-11-05 16:17:00* Test Item Value Reference Range Interpretation Comments Alanine Aminotransferase (ALT/SGPT) (test code = 1742-6) 14 0-55 [facility] protein measurement (mass/volume)2019-11-05 16:17:00* Test Item Value Reference Range Interpretation Comments Total Protein (test code = 2885-2) 6.5 6.5-8.1 [facility] albumin measurement (mass/volume)2019-11-05 16:17:00* Test Item Value Reference Range Interpretation Comments Albumin (test code = 1751-7) 2.5 3.5-5.0 [facility] CentennialPlasma globulin measurement (mass/volume) 2019-11-05 16:17:00* Test Item Value Reference Range Interpretation Comments Globulin (test code = 58883-5) 4.0 2.3-3.5 [facility] albumin/globulin mass dgzou1032-45-01 16:17:00* Test Item Value Reference Range Interpretation Comments Albumin/Globulin Ratio (test code = 1759-0) 0.6 0.8-2.0 [facility] alkaline phosphatase measurement (enzymatic activity/volume)2019-11-05 16:17:00* Test Item Value Reference Range Interpretation Comments Alkaline Phosphatase (test code = 6768-6) 542 40-150 [facility] CentennialProthrombin time (PT) in platelet poor plasma by coagulation szthy6114-81-12 16:17:00* Test Item Value Reference Range Interpretation Comments Prothrombin Time (test code = 5902-2) 14.4 11.9-14.5 [facility] CentennialINR in Platelet poor plasma by Coagulation bmaff1658-25-23 16:17:00* Test Item Value Reference Range Interpretation Comments Prothromb Time International Ratio (test code = 6301-6) 1.05 Oral Anticoagulant Therapy INR Values:1. Low Intensity Therapy 1.5 - 2.02 . Moderate Intensity Therapy 2.0 - 3.03. High Intensity Therapy(1) 2.5 - 3. 54. High Intensity Therapy(2) 3.0 - 4.05. Panic Value INR > 5.0 [facility] CentennialActivated partial thromboplastin time (aPTT) in platelet poor plasma by coagulation vzxjd2810-79-04 16:17:00* Test Item Value Reference Range Interpretation Comments Activated Partial Thromboplast Time (test code = 34849-6) 32.2 23.8-35.5 [facility] CentennialCapillary blood glucose measurement by glucometer (mass/volume)2019-11-04 16:13:00* Test Item Value Reference Range Interpretation Comments Bedside Glucose (test code = 81802-8) 185 70-120 Meter ID: [id number] [facility] TaylorCapillary blood glucose measurement by glucometer (mass/volume)2019-11-04 16:13:00* Test Item Value Reference Range Interpretation Comments Bedside Glucose (test code = 80206-0) 185 70-120 Meter ID: [id number] [facility] TaylorCapillary blood glucose measurement by glucometer (mass/volume)2019-11-04 16:13:00* Test Item Value Reference Range Interpretation Comments Bedside Glucose (test code = 03255-5) 185 70-120 Meter ID: [id number] [facility] TaylorUS ABDOMEN COMPLETE 2019-11-04 15:03:00 [place] [address] Patient Name: WARD VILLA MR #: [id number] : 1965 Age/Sex: 54/M Req #: [id number] Adm Physician: WARD SCHULER MD Ordered by: BLESSING BUCKLEY MD Report #: [id number] Location: [facility] Room/Bed: [facility] Procedure: [id number] US/US ABDOMEN COMPLETE Exam Date: 11/04/19 Exam Time : 1416 REPORT STATUS: Signed EXA M: US ABDOMEN COMPLETE DATE: 11/04/2019 2:16 PM INDICATION: Ascites. COMPARISON: CT abdomen/pelvis 11/03/2019. TECHNIQUE: Transverse and adriane gitudinal carbajal scale and color doppler sonographic images of the abdomen were obtained. FINDINGS: LIVER 20.1 cm in the right midclavicular line. Normal echogenicity of the liver with normal contour, no masses. SPLEEN 1 3.3 cm in maximum diameter. Normal echogenicity, no masses. GALLBLADDER Partially decompressed. No gallbladder distention, stone, or pericholecystic fluid. Mild wall thickening measuring 0.4 cm. Minimal sludge. Negative reported sonographic Ohara's sign. BILE DUCTS No intra nor extra-hepatic biliar y dilation. Common bile duct measures 0.4 cm PANCREAS: Not visualized due to overlying bowel gas. RIGHT KIDNEY: cm Echogenicity: Normal Nico ecting System: No hydronephrosis Stones: None Cyst/Mass: None LEFT KI DNEY: cm Echogenicity: Normal Collecting System: No hydronephrosis St ones: None Cyst/Mass: None VESSELS: Aorta: Not visualized due to overl rosemary bowel gas. Inferior Vena Cava: Visualized portions are normal Main Port al Vein: 1.4 cm, normal size with hepatopetal flow. FREE FLUID: Small volum e right upper quadrant ascites. IMPRESSION: Hepatosplenomegaly with small volume right upper quadrant ascites. Mild gallbladder wall thickening with minimal sludge. No specific evidence of cholecystitis. Suggest clinical corre lation. Signed by: Dr. June Lieberman MD on 11/04/2019 3:06 PM Dictated B y: JUNE LIEBERMAN MD 1506 [address] scribed By: ASHLEY on 11/04/19 1506 COPY TO: BLESSING BUCKLEY MD Blood leukocytes automated count (number/volume)2019-11-04 14:30:00* Test Item Value Reference Range Interpretation Comments White Blood Count (test code = 6690-2) 7.45 4.8-10.8 [facility] CentennialBlood erythrocytes automated count (number/volume)2019-11-04 14:30:00* Test Item Value Reference Range Interpretation Comments Red Blood Count (test code = 789-8) 2.64 4.3-5.7 [facility] CentennialBlood hemoglobin measurement (moles/volume)2019-11-04 14:30:00* Test Item Value Reference Range Interpretation Comments Hemoglobin (test code = 61393-8) 8.4 14.0-18.0 [facility] CentennialAutomated blood hematocrit (volume fraction)2019-11-04 14:30:00* Test Item Value Reference Range Interpretation Comments Hematocrit (test code = 4544-3) 25.8 38.2-49.6 [facility] CentennialAutomated erythrocyte mean corpuscular qhqwia8850-27-10 14:30:00* Test Item Value Reference Range Interpretation Comments Mean Corpuscular Volume (test code = 787-2) 97.7 81-99 [facility] CentennialAutomated erythrocyte mean corpuscular hemoglobin (mass per erythrocyte)2019-11-04 14:30:00* Test Item Value Reference Range Interpretation Comments Mean Corpuscular Hemoglobin (test code = 785-6) 31.8 28-32 [facility] CentennialAutpending sale to [facility] erythrocyte mean corpuscular hemoglobin concentration measurement (mass/volume)2019-11-04 14:30:00* Test Item Value Reference Range Interpretation Comments Mean Corpuscular Hemoglobin Concent (test code = 786-4) 32.6 31-35 [facility] CentennialRDW WvdSl-Adk8504-91-06 14:30:00* Test Item Value Reference Range Interpretation Comments Red Cell Distribution Width (test code = 85032-3) 16.1 11.7 -14.4 [facility] CentennialAutmission hospitaled blood platelet count (count/volume)2019-11-04 14:30:00* Test Item Value Reference Range Interpretation Comments Platelet Count (test code = 777-3) 210 140-360 [facility] CentennialAutmission hospitaled blood segmented neutrophil count as percentage of total ojdzshprpx0494-25-14 14:30:00* Test Item Value Reference Range Interpretation Comments Neutrophils (%) (Auto) (test code = 04841-4) 81.4 38.7-80.0 [facility] CentennialAutomated blood lymphocyte count as percentage ot total bcfrrzfvsm9932-74-28 14:30:00* Test Item Value Reference Range Interpretation Comments Lymphocytes (%) (Auto) (test code = 736-9) 6.7 18.0-39.1 [facility] CentennialAutomated blood monocyte count as percentage of total kdowxyguvu3567-90-28 14:30:00* Test Item Value Reference Range Interpretation Comments Monocytes (%) (Auto) (test code = 5905-5) 9.3 4.4-11.3 [facility] CentennialAutomated blood eosinophil count as percentage of total meiiuhmfqq3217-45-35 14:30:00* Test Item Value Reference Range Interpretation Comments Eosinophils (%) (Auto) (test code = 713-8) 1.6 0.0-6.0 [facility] CentennialAutomated blood basophil count as percentage of total afhwpjbapn8614-76-40 14:30:00* Test Item Value Reference Range Interpretation Comments Basophils (%) (Auto) (test code = 706-2) 0.5 0.0-1.0 [facility] CentennialFluoroscopic procedure less than one hour fgxsixbe5967-61-11 14:30:00* Test Item Value Reference Range Interpretation Comments IM GRANULOCYTES % (test code = IM GRANULOCYTES %) 0.5 0.0- 1.0 [facility] CentennialAutomated blood neutrophil count 2019-11-04 14:30:00* Test Item Value Reference Range Interpretation Comments Neutrophils # (Auto) (test code = 751-8) 6.1 2.1-6.9 [facility] CentennialBlood lymphocytes count (number/volume) 2019-11-04 14:30:00* Test Item Value Reference Range Interpretation Comments Lymphocytes # (Auto) (test code = 30588-3) 0.5 1.0-3.2 [facility] CentennialBlood monocytes automated count (number/volume)2019-11-04 14:30:00* Test Item Value Reference Range Interpretation Comments Monocytes # (Auto) (test code = 742-7) 0.7 0.2-0.8 [facility] CentennialAutomated blood eosinophil count 2019-11-04 14:30:00* Test Item Value Reference Range Interpretation Comments Eosinophils # (Auto) (test code = 711-2) 0.1 0.0-0.4 [facility] CentennialAutomated blood basophil count (count/volume)2019-11-04 14:30:00* Test Item Value Reference Range Interpretation Comments Basophils # (Auto) (test code = 704-7) 0.0 0.0-0.1 [facility] CentennialFluoroscopic procedure less than one hour wkxwtujp4951-70-48 14:30:00* Test Item Value Reference Range Interpretation Comments Absolute Immature Granulocyte (auto (omi t code = Absolute Immature Granulocyte (auto) 0.04 0-0.1 [facility] CentennialFluoroscopic procedure less than one hour gkvzljua0452-97-96 14:30:00* Test Item Value Reference Range Interpretation Comments Differential Total Cells Counted (test code = Differen tial Total Cells Counted) 100 [facility] CentennialManual blood neutrophils/100 leukocytes 2019-11-04 14:30:00* Test Item Value Reference Range Interpretation Comments Neutrophils % (Manual) (test code = 32392-5) 88 40-74 [facility] blood lymphocytes/100 leukocytes 2019-11-04 14:30:00* Test Item Value Reference Range Interpretation Comments Lymphocytes % (Manual) (test code = 737-7) 6 19-48 [facility] blood monocytes/100 leukocytes 2019-11-04 14:30:00* Test Item Value Reference Range Interpretation Comments Monocytes % (Manual) (test code = 744-3) 6 3.4-9.0 [facility] CentennialBlood platelets count by estimate (number/volume)2019-11-04 14:30:00* Test Item Value Reference Range Interpretation Comments Platelet Estimate (test code = 93490-7) ADEQUATE [facility] CentennialPlatelet yxungfzfgk6853-78-83 14:30:00* Test Item Value Reference Range Interpretation Comments Platelet Morphology Comment (test code = 94841-4) NORMAL [facility] CentennialRBC hxpqxbrjsi6779-21-56 14:30:00* Test Item Value Reference Range Interpretation Comments Red Cell Morphology Comment (test code = 6742-1) NORMAL [facility] CentennialFluoroscopic procedure less than one hour myzgweco2030-41-22 14:30:00* Test Item Value Reference Range Interpretation Comments Differential Total Cells Counted (test code = Differen tial Total Cells Counted) 100 [facility] blood neutrophils/100 leukocytes 2019-11-04 14:30:00* Test Item Value Reference Range Interpretation Comments Neutrophils % (Manual) (test code = 30202-3) 88 40-74 [facility] blood lymphocytes/100 leukocytes 2019-11-04 14:30:00* Test Item Value Reference Range Interpretation Comments Lymphocytes % (Manual) (test code = 737-7) 6 19-48 [facility] blood monocytes/100 leukocytes 2019-11-04 14:30:00* Test Item Value Reference Range Interpretation Comments Monocytes % (Manual) (test code = 744-3) 6 3.4-9.0 [facility] CentennialBlood platelets count by estimate (number/volume)2019-11-04 14:30:00* Test Item Value Reference Range Interpretation Comments Platelet Estimate (test code = 31482-6) ADEQUATE [facility] CentennialPlatelet hsbfbiehbr1658-27-51 14:30:00* Test Item Value Reference Range Interpretation Comments Platelet Morphology Comment (test code = 82156-7) NORMAL [facility] CentennialRB ndwonulyxs7782-17-06 14:30:00* Test Item Value Reference Range Interpretation Comments Red Cell Morphology Comment (test code = 6742-1) NORMAL [facility] CentennialFluoroscopic procedure less than one hour baeiybon1942-34-00 14:30:00* Test Item Value Reference Range Interpretation Comments Differential Total Cells Counted (test code = Differweston tial Total Cells Counted) 100 [facility] blood neutrophils/100 leukocytes 2019-11-04 14:30:00* Test Item Value Reference Range Interpretation Comments Neutrophils % (Manual) (test code = 76310-1) 88 40-74 [facility] blood lymphocytes/100 leukocytes 2019-11-04 14:30:00* Test Item Value Reference Range Interpretation Comments Lymphocytes % (Manual) (test code = 737-7) 6 19-48 [facility] blood monocytes/100 leukocytes 2019-11-04 14:30:00* Test Item Value Reference Range Interpretation Comments Monocytes % (Manual) (test code = 744-3) 6 3.4-9.0 [facility] CentennialBlood platelets count by estimate (number/volume)2019-11-04 14:30:00* Test Item Value Reference Range Interpretation Comments Platelet Estimate (test code = 66777-4) ADEQUATE [facility] CentennialPlatelet rxirptogvc5761-04-23 14:30:00* Test Item Value Reference Range Interpretation Comments Platelet Morphology Comment (test code = 91323-0) NORMAL [facility] CentennialRBC tzkgcrinfr2937-46-84 14:30:00* Test Item Value Reference Range Interpretation Comments Red Cell Morphology Comment (test code = 6742-1) NORMAL [facility] CentennialAutomated reticulocyte count as percentage of total eqldrtjbuatw1501-28-40 06:15:00* Test Item Value Reference Range Interpretation Comments Percent Reticulocyte Count (test code = 20838-0) 3.3 0.8-2 .2 [facility] sodium measurement (moles/volume)2019-11-04 06:15:00* Test Item Value Reference Range Interpretation Comments Sodium Level (test code = 2951-2) 138 136-145 [facility] plasma potassium measurement (moles/volume)2019-11-04 06:15:00* Test Item Value Reference Range Interpretation Comments Potassium Level (test code = 2823-3) 4.1 3.5-5.1 [facility] plasma chloride measurement (moles/volume)2019-11-04 06:15:00* Test Item Value Reference Range Interpretation Comments Chloride Level (test code = 2075-0) 100 98-107 [facility] plasma carbon dioxide, total measurement (moles/volume)2019-11-04 06:15:00* Test Item Value Reference Range Interpretation Comments Carbon Dioxide Level (test code = 2028-9) 27 22-29 [facility] plasma anion kpi9788-36-32 06:15:00* Test Item Value Reference Range Interpretation Comments Anion Gap (test code = 11030-6) 15.1 8-16 [facility] plasma urea nitrogen measurement (mass/volume)2019-11-04 06:15:00* Test Item Value Reference Range Interpretation Comments Blood Urea Nitrogen (test code = 3094-0) 24 7-26 [facility] plasma creatinine measurement (mass/volume)2019-11-04 06:15:00* Test Item Value Reference Range Interpretation Comments Creatinine (test code = 2160-0) 3.17 0.72-1.25 [facility]er[facility] or plasma urea nitrogen/creatinine mass hlueb6663-34-77 06:15:00* Test Item Value Reference Range Interpretation Comments BUN/Creatinine Ratio (test code = 3097-3) 8 6-25 [facility] CentennialEstimated glomerular filtration rate (GFR) vcbltxpvutjwi8207-67-30 06:15:00* Test Item Value Reference Range Interpretation Comments Estimat Glomerular Filtration Rate (test code = 689534789) 20 >60 Ranges were taken from the National Kidney Disease Education Program and the [facility] [employer] literature.Reference ranges:60 or greater: Rtjtqo85-34 ( for 3 consecutive months): Chronic kidney disease 15 or less: Kidney failureBaylor Scott & White Medical Center – CentennialGlucose dfwclmrdrkf4998-16-36 06:15:00* Test Item Value Reference Range Interpretation Comments Glucose Level (test code = UVI6486) 109 74-118 [facility] plasma calcium measurement (mass/volume)2019-11-04 06:15:00* Test Item Value Reference Range Interpretation Comments Calcium Level (test code = 43175-0) 8.6 8.4-10.2 [facility] or plasma ferritin measurement (mass/volume)2019-11-04 06:15:00* Test Item Value Reference Range Interpretation Comments Ferritin (test code = 2276-4) 846.33 21.81-274.66 [facility] plasma total bilirubin measurement (mass/volume)2019-11-04 06:15:00* Test Item Value Reference Range Interpretation Comments Total Bilirubin (test code = 1975-2) 1.0 0.2-1.2 [facility] CentennialFluoroscopic procedure less than one hour lkshzvxk1532-01-41 06:15:00* Test Item Value Reference Range Interpretation Comments Aspartate Amino Transf (AST/SGOT) (test code = Aspartate Amino Transf (AST/SGOT)) 15 5-34 [facility] plasma alanine aminotransferase measurement (enzymatic activity/volume)2019-11-04 06:15:00* Test Item Value Reference Range Interpretation Comments Alanine Aminotransferase (ALT/SGPT) (test code = 1742-6) 17 0-55 [facility] plasma protein measurement (mass/volume)2019-11-04 06:15:00* Test Item Value Reference Range Interpretation Comments Total Protein (test code = 2885-2) 6.9 6.5-8.1 [facility] plasma albumin measurement (mass/volume)2019-11-04 06:15:00* Test Item Value Reference Range Interpretation Comments Albumin (test code = 1751-7) 2.7 3.5-5.0 [facility] CentennialPlasma globulin measurement (mass/volume) 2019-11-04 06:15:00* Test Item Value Reference Range Interpretation Comments Globulin (test code = 94769-4) 4.2 2.3-3.5 [facility] plasma albumin/globulin mass cybzb3577-56-93 06:15:00* Test Item Value Reference Range Interpretation Comments Albumin/Globulin Ratio (test code = 1759-0) 0.6 0.8-2.0 [facility] plasma alkaline phosphatase measurement (enzymatic activity/volume)2019-11-04 06:15:00* Test Item Value Reference Range Interpretation Comments Alkaline Phosphatase (test code = 6768-6) 616 40-150 [facility] CentennialBlood cobalamin (vitamin B12) measurement (mass/volume)2019-11-04 06:15:00* Test Item Value Reference Range Interpretation Comments Vitamin B12 Level (test code = 13984-0) 139 024-132 [facility] CentennialAutomated reticulocyte count as percentage of total rpcfmsdtcuuy5312-16-50 06:15:00* Test Item Value Reference Range Interpretation Comments Percent Reticulocyte Count (test code = 11436-9) 3.3 0.8-2 .2 [facility] plasma ferritin measurement (mass/volume)2019-11-04 06:15:00* Test Item Value Reference Range Interpretation Comments Ferritin (test code = 2276-4) 846.33 21.81-274.66 [facility] CentennialBlood cobalamin (vitamin B12) measurement (mass/volume)2019-11-04 06:15:00* Test Item Value Reference Range Interpretation Comments Vitamin B12 Level (test code = 25389-6) 879 213816 [facility] plasma folate measurement (mass/volume)2019-11-04 06:15:00* Test Item Value Reference Range Interpretation Comments Folate (test code = 2284-8) 6.0 >3.0 A serum folate concentration of less than 3.1 ng/mL isconsidered to represent cl inical deficiency.Performed at: [facility] [address] [id number] Director: Blake Sheffield MD, Phone: [phone] Scott & White Medical Center – CentennialAutomated reticulocyte count as percentage of total ntdmdpbondip9250-05-28 06:15:00* Test Item Value Reference Range Interpretation Comments Percent Reticulocyte Count (test code = 18512-3) 3.3 0.8-2 .2 [facility] plasma ferritin measurement (mass/volume)2019-11-04 06:15:00* Test Item Value Reference Range Interpretation Comments Ferritin (test code = 2276-4) 846.33 21.81-274.66 [facility] CentennialBlood cobalamin (vitamin B12) measurement (mass/volume)2019-11-04 06:15:00* Test Item Value Reference Range Interpretation Comments Vitamin B12 Level (test code = 73385-9) 769 213816 [facility] plasma alkaline phosphatase measurement (enzymatic activity/volume)2019-11-04 06:15:00* Test Item Value Reference Range Interpretation Comments Alkaline Phosphatase (test code = 6768-6) 598 39-117 [facility]er[facility] or plasma intestinal alkaline phosphatase/total alkaline phosphatase kbedz3327-87-00 06:15:00* Test Item Value Reference Range Interpretation Comments Alkaline Phosphatase Iso-Intestine (test code = 36328-7) 0 0-18 Performed at: [facility] [id number] Director: Blake Sheffield MD, Phone: [phone] at: [facility] [address] [place], [place] [id number] Director: Bozena Berg MD, Ph one: [phone] Children's Hospitalerum or plasma bone alkaline phosphatase/alkaline phosphatase.bcjiv7326-26-17 06:15:00* Test Item Value Reference Range Interpretation Comments Alkaline Phosphatase Iso-Bone (test code = 42342-7) 18 12 - [facility] plasma liver alkaline phosphatase/total alkaline phosphatase wprxp1141-83-75 06:15:00* Test Item Value Reference Range Interpretation Comments Alkaline Phosphatase Iso-Liver (test code = 55280-9) 82 1 3-88 [facility] or plasma folate measurement (mass/volume)2019-11-04 06:15:00* Test Item Value Reference Range Interpretation Comments Folate (test code = 2284-8) 6.0 >3.0 A serum folate concentration of less than 3.1 ng/mL isconsidered to represent cl inical deficiency.Performed at: [address] [id number] Director: Blake Sheffield MD, Phone: [phone] Scott & White Medical Center – CentennialCT ABDOMEN/PELVIS IP2148-77-95 21:17:00 [place] [address] Patient Name: WARD VILLA MR #: [id number] : [birth year] Age/Sex: 54/M Req #: [id number] Adm Physician: WARD SCHULER Ordered by: GIOVANNA TAMAYO, RUDY TAMAYO Report #: [id number] Location: MED/SURG3 Room/Bed: 293 Procedure: [id number] CT/CT ABDOMEN/PELVIS WO Exam Date: 11/03/19 Exam Dontae e: 1940 REPORT STATUS: Signed EX AM: CT Abdomen and Pelvis WITHOUT contrast INDICATION: Gastrointestinal blee ding. COMPARISON: 05/12/2019. TECHNIQUE: Abdomen and pelvis were scanned uti lizing a multidetector helical scanner from the lung base to the pubic symphys is without administration of IV contrast. Absence of intravenous contrast decr eases sensitivity for detection of focal lesions and vascular pathology. Coron al and sagittal reformations were obtained. Routine protocol was performed. IV CONTRAST: None. ORAL CONTRAST: Water RADIATION DOSE: Total DLP: ... mGy*cm Estimated effective dose: (DLP x 0.015 x size factor) mSv COMPLICATIONS: None FINDINGS: LINES and TUBES: Distal tip of a central venous catheter is identified in the high right atrium. LOWER THORAX: Bilateral trace pleural effusions a ppear decreases the prior exam. Bibasilar subsegmental atelectasis. 7.5 mm donald undglass nodule in the lung base laterally on image 80 series 2, previously me asured 5 mm. The heart is mildly enlarged. Multi vessel coronary artery calcif ications. HEPATOBILIARY: No focal hepatic lesions. No biliary ductal d ilation. GALLBLADDER: No radio-opaque stones or sludge. No wall thickenin g. SPLEEN: Enlarged measuring 14.9 cm in craniocaudal dimension. PANCR EAS: No focal masses or ductal dilatation. ADRENALS: No adrenal nodules KIDNEYS/URETERS: No hydronephrosis. No cystic or solid mass lesions. N o stones. GI TRACT: No abnormal distention, wall thickening, or evidence of bowel obstruction. Appendix is normal. PELVIC ORGANS/BLADDER: Th e prostate is mildly enlarged measuring 5.0 cm in transverse dimension. L YMPH NODES: Mildly prominent bilateral inguinal lymph nodes again observed, th e largest on the right measuring 1.4 cm in short axis. VESSELS: There is mo derate atherosclerotic disease in the aorta and major arterial branches. PERITONEUM / RETROPERITONEUM: Mild interval increase in volume of moderate asc ites. BONES: Unremarkable. SOFT TISSUES: Bilateral small fat-containin g inguinal hernias. Previously present anasarca has resolved. IMPRESSION: 1. Mild interval increase in moderate volume ascites. 2. Mild splenomega ly again observed. 3. Interval resolution of anasarca. 4. Bilateral small pleural effusions appear decreased. Signed by: Haim Stearns on 11/03/2019 9:48 PM Dictated By: NAVA GRANADO MD, MD 47 Transcribed By: ASHLEY on 10/17 COPY TO: RUDY HEREDIA Fluoroscopic procedure less than one hour eopqnuds3071-03-33 16:45:00* Test Item Value Reference Range Interpretation Comments Coronavirus (PCR) (test code = Coronavirus (PCR)) NOT DETECTED NOTD ETECTED SARS-COV-2 (COVID19), HIGHRISK, RT-PCRNegative results do not preclude SARS-CoV- 2 infection and should not be used as the sole basis for patient management deci sions. Negative results must be combined with clinical observations, patient his tory, and epidemiological information. Optimum specimen types and timing for pea k viral levels during infections caused by SARS-CoV-2 have not been determined. Collection of multiple specimens ot types of specimens may be necessary to detec t virus. Improper specimen collection and handling, sequence variability under p rimers/probes, or organism present below the limit of detection may lead to fals e negative results. Positive and negative predictive values of testing are highl y dependent on prevalance. False negative test results are more likely when prev alence is high.The expected result is negative (not detected).The SARS-CoV-2 omi t is intended for the qualitative detection of nucleic acid from SARS-CoV-2 in n asopharyngeal and oropharyngeal swab samples from patients who meet COVID-19 cli nical and or epidemiological criteria. For lower respiratory tract specimens, th e assay is submitted for authoriztion by FDA under an Emergency Use Authorizatio n (EUA). Testing methodology is real time RT-PCR. If received as separate collec tion devices, nasopharygeal and oropharyngeal specimens are combined for analysi s. Additional specimens may be split to a separate accession for analysi and rep orting as this test includes a single unit of service.Test results must be corre lated with clinical presentation and evaluated in the context of other laborator y and epidemiologic data. Test performance can be affected because the epidemiol ogy and clinical spectrum of infection caused by SARS-CoV-2 is not fully known. For example, the optimum types of specimens to collect and when during the cours e of infection these specimens are most likely to contain detectable viral RNA m ay not be known.This test has not been Food and Drug Administration (FDA) cleare d or approved and has been authorized by FDA under an Emergency Use Authorizatio n (EUA). The test is only authorized for the duration of the declaration that ci rcumstances exist justifying the authorization of emergency use of in vitro diag nostic tests for detection and/or diagnosis of SARS-CoV-2 under section 564(b) o f the Act, 21 U.S.C. section 360bbb-3(b)(1), unless the authorization is termina hans or revoked sooner. [facility] are certified under the C linical Laboratory Improvement Amendments of 1988 (CLIA), 42 U.S.C. section 263a , to perform high complexity tests.Testing performed by [facility] [id number] [phone] Director: Roberto Brown M.D.CLIA # [id number] [facility] Fluoroscopic procedure less than one hour dzqzsrdo5717-31-05 16:45:00* Test Item Value Reference Range Interpretation Comments Coronavirus (PCR) (test code = Coronavirus (PCR)) NOT DETECTED NOTD ETECTED SARS-COV-2 (COVID19), HIGHRISK, RT-PCRNegative results do not preclude SARS-CoV- 2 infection and should not be used as the sole basis for patient management deci sions. Negative results must be combined with clinical observations, patient his tory, and epidemiological information. Optimum specimen types and timing for pea k viral levels during infections caused by SARS-CoV-2 have not been determined. Collection of multiple specimens ot types of specimens may be necessary to detec t virus. Improper specimen collection and handling, sequence variability under p rimers/probes, or organism present below the limit of detection may lead to fals e negative results. Positive and negative predictive values of testing are highl y dependent on prevalance. False negative test results are more likely when prev alence is high.The expected result is negative (not detected).The SARS-CoV-2 omi t is intended for the qualitative detection of nucleic acid from SARS-CoV-2 in n asopharyngeal and oropharyngeal swab samples from patients who meet COVID-19 cli nical and or epidemiological criteria. For lower respiratory tract specimens, th e assay is submitted for authoriztion by FDA under an Emergency Use Authorizatio n (EUA). Testing methodology is real time RT-PCR. If received as separate collec tion devices, nasopharygeal and oropharyngeal specimens are combined for analysi s. Additional specimens may be split to a separate accession for analysi and rep orting as this test includes a single unit of service.Test results must be corre lated with clinical presentation and evaluated in the context of other laborator y and epidemiologic data. Test performance can be affected because the epidemiol ogy and clinical spectrum of infection caused by SARS-CoV-2 is not fully known. For example, the optimum types of specimens to collect and when during the cours e of infection these specimens are most likely to contain detectable viral RNA m ay not be known.This test has not been Food and Drug Administration (FDA) cleare d or approved and has been authorized by FDA under an Emergency Use Authorizatio n (EUA). The test is only authorized for the duration of the declaration that ci rcumstances exist justifying the authorization of emergency use of in vitro diag nostic tests for detection and/or diagnosis of SARS-CoV-2 under section 564(b) o f the Act, 21 U.S.C. section 360bbb-3(b)(1), unless the authorization is termina hans or revoked sooner. [facility] are certified under the C linical Laboratory Improvement Amendments of 1988 (CLIA), 42 U.S.C. section 263a , to perform high complexity tests.Testing performed by [facility] [id number] [place] [address] [phone] Director: Roberto Brown M.D.[facility] # [id number] [facility] [id number] 09:40:00 [facility] [address] [address] Patient Name: WARD VILLA MR #: [id number] : 1965 Age/Sex: 54/M Req #: [id number] Adm Physician: Ordered by: JORY TAMAYO, RUPESH Mayberry MD Report #: [id number] Location: US Room/Bed: Procedure: 0528-000 2 US/US ABDOMEN COMPLETE Exam Date: 10/26/19 Exam Ti me: 0801 REPORT STATUS: Signed E XAM: US ABDOMEN COMPLETE DATE: 10/26/2019 8:01 AM INDICATION: Liver cirrh osis COMPARISON: Chest CT 05/12/2019 TECHNIQUE: Transverse and longitudinal carbajal scale and color doppler sonographic images of the upper abdomen were obt ained. FINDINGS: LIVER 18.1 cm in the right midclavicular line . Normal echogenicity of the liver with normal contour, no masses. SPLEEN 15.0 cm in maximum diameter. Normal echogenicity, no masses. GALLBLADD ER 3 mm gallbladder polyp. No gallbladder wall thickening, distension, stone, or pericholecystic fluid. Negative reported sonographic Ohara's sign. The g allbladder wall measures 4mm BILE DUCTS No intra nor extra-hepatic biliar y dilation. Common bile duct measures 4mm PANCREAS: Visualized portions a re normal. RIGHT KIDNEY: 13.3 cm Echogenicity: Normal Collecting System : No hydronephrosis Stones: None Cyst/Mass: None LEFT KIDNEY: 12.9 cm Echogenicity: Normal Collecting System: No hydronephrosis Stones: None Cyst/Mass: None VESSELS: Aorta: Visualized portions are within normal s ize limits Inferior Vena Cava: Visualized portions are normal Main Portal Ve in: 1.2 cm, normal size with hepatopetal flow. FREE FLUID: Trace ascites. IMPRESSION: Hepatomegaly and splenomegaly. No definite cirrhotic live r morphology. 3 mm gallbladder polyp. Signed by: Berry Cameron MD on 09/29 9:42 AM Dictated By: BERRY CAMERON MD 1 Transcribed By: ASHLEY on 10/26/19941 COPY TO: RUPESH ALCANTARA Blood leukocytes automated count (number/volume) 2019-10-26 08:45:00* Test Item Value Reference Range Interpretation Comments White Blood Count (test code = 6690-2) 6.56 4.8-10.8 [facility]ennial[facility] erythrocytes automated count (number/volume)2019-10-26 08:45:00* Test Item Value Reference Range Interpretation Comments Red Blood Count (test code = 789-8) 2.51 4.3-5.7 [facility]ennialBlood hemoglobin measurement (moles/volume)2019-10-26 08:45:00* Test Item Value Reference Range Interpretation Comments Hemoglobin (test code = 84893-2) 8.2 14.0-18.0 [facility] CentennialAutomated blood hematocrit (volume fraction)2019-10-26 08:45:00* Test Item Value Reference Range Interpretation Comments Hematocrit (test code = 4544-3) 24.8 38.2-49.6 [facility] CentennialAutomated erythrocyte mean corpuscular ighevd1772-12-36 08:45:00* Test Item Value Reference Range Interpretation Comments Mean Corpuscular Volume (test code = 787-2) 98.8 81-99 [facility]ennialAutomated erythrocyte mean corpuscular hemoglobin (mass per erythrocyte)2019-10-26 08:45:00* Test Item Value Reference Range Interpretation Comments Mean Corpuscular Hemoglobin (test code = 785-6) 32.7 28-32 [facility]ennialAutomated erythrocyte mean corpuscular hemoglobin concentration measurement (mass/volume)2019-10-26 08:45:00* Test Item Value Reference Range Interpretation Comments Mean Corpuscular Hemoglobin Concent (test code = 786-4) 33.1 31-35 [facility] CentennialRDW EhjQu-Aji3980-18-28 08:45:00* Test Item Value Reference Range Interpretation Comments Red Cell Distribution Width (test code = 54450-0) 13.9 11.7 -14.4 [facility] CentennialAutomated blood platelet count (count/volume)2019-10-26 08:45:00* Test Item Value Reference Range Interpretation Comments Platelet Count (test code = 777-3) 136 140-360 [facility] CentennialAutomated blood segmented neutrophil count as percentage of total mbcdztbedz3492-68-29 08:45:00* Test Item Value Reference Range Interpretation Comments Neutrophils (%) (Auto) (test code = 07124-0) 78.9 38.7-80.0 [facility] CentennialAutomated blood lymphocyte count as percentage ot total nslncrvbvs9279-75-12 08:45:00* Test Item Value Reference Range Interpretation Comments Lymphocytes (%) (Auto) (test code = 736-9) 8.2 18.0-39.1 [facility] CentennialAutomated blood monocyte count as percentage of total mphvdizbdp0501-55-52 08:45:00* Test Item Value Reference Range Interpretation Comments Monocytes (%) (Auto) (test code = 5905-5) 9.8 4.4-11.3 [facility] CentennialAutomated blood eosinophil count as percentage of total alsonvwrkv1923-33-35 08:45:00* Test Item Value Reference Range Interpretation Comments Eosinophils (%) (Auto) (test code = 713-8) 2.3 0.0-6.0 [facility]ennialAutomated blood basophil count as percentage of total iszptyhpdw8239-82-42 08:45:00* Test Item Value Reference Range Interpretation Comments Basophils (%) (Auto) (test code = 706-2) 0.5 0.0-1.0 [facility] CentennialFluoroscopic procedure less than one hour qttessbc5050-43-43 08:45:00* Test Item Value Reference Range Interpretation Comments IM GRANULOCYTES % (test code = IM GRANULOCYTES %) 0.3 0.0- 1.0 [facility] CentennialAutomated blood neutrophil count 2019-10-26 08:45:00* Test Item Value Reference Range Interpretation Comments Neutrophils # (Auto) (test code = 751-8) 5.2 2.1-6.9 [facility]ennialBlood lymphocytes count (number/volume) 2019-10-26 08:45:00* Test Item Value Reference Range Interpretation Comments Lymphocytes # (Auto) (test code = 75965-9) 0.5 1.0-3.2 [facility]ennialBlpay[facility] monocytes automated count (number/volume)2019-10-26 08:45:00* Test Item Value Reference Range Interpretation Comments Monocytes # (Auto) (test code = 742-7) 0.6 0.2-0.8 [facility]ennialAutomated blood eosinophil count 2019-10-26 08:45:00* Test Item Value Reference Range Interpretation Comments Eosinophils # (Auto) (test code = 711-2) 0.2 0.0-0.4 [facility]ennialAutomated blood basophil count (count/volume)2019-10-26 08:45:00* Test Item Value Reference Range Interpretation Comments Basophils # (Auto) (test code = 704-7) 0.0 0.0-0.1 [facility] CentennialFluoroscopic procedure less than one hour qnirmela8267-23-39 08:45:00* Test Item Value Reference Range Interpretation Comments Absolute Immature Granulocyte (auto (omi t code = Absolute Immature Granulocyte (auto) 0.02 0-0.1 [facility] CentennialProthrombin time (PT) in platelet poor plasma by coagulation oejnk7924-74-39 08:45:00* Test Item Value Reference Range Interpretation Comments Prothrombin Time (test code = 5902-2) 14.1 11.9-14.5 [facility] CentennialINR in Platelet poor plasma by Coagulation gnpvp0289-68-46 08:45:00* Test Item Value Reference Range Interpretation Comments Prothromb Time International Ratio (test code = 6301-6) 1.03 Oral Anticoagulant Therapy INR Values:1. Low Intensity Therapy 1.5 - 2.02 . Moderate Intensity Therapy 2.0 - 3.03. High Intensity Therapy(1) 2.5 - 3. 54. High Intensity Therapy(2) 3.0 - 4.05. Panic Value INR > 5.0 [facility] CentennialActivated partial thromboplastin time (aPTT) in platelet poor plasma by coagulation jqsob9103-70-01 08:45:00* Test Item Value Reference Range Interpretation Comments Activated Partial Thromboplast Time (test code = 67460-7) 31.2 23.8-35.5 [facility] CentennialBlood leukocytes automated count (number/volume)2019-10-26 08:45:00* Test Item Value Reference Range Interpretation Comments White Blood Count (test code = 6690-2) 6.56 4.8-10.8 [facility] CentennialBlood erythrocytes automated count (number/volume)2019-10-26 08:45:00* Test Item Value Reference Range Interpretation Comments Red Blood Count (test code = 789-8) 2.51 4.3-5.7 [facility]ennialBlood hemoglobin measurement (moles/volume)2019-10-26 08:45:00* Test Item Value Reference Range Interpretation Comments Hemoglobin (test code = 88550-0) 8.2 14.0-18.0 [facility] CentennialAutomated blood hematocrit (volume fraction)2019-10-26 08:45:00* Test Item Value Reference Range Interpretation Comments Hematocrit (test code = 4544-3) 24.8 38.2-49.6 [facility] CentennialAutomated erythrocyte mean corpuscular msazoq9772-26-33 08:45:00* Test Item Value Reference Range Interpretation Comments Mean Corpuscular Volume (test code = 787-2) 98.8 81-99 [facility] CentennialAutomated erythrocyte mean corpuscular hemoglobin (mass per erythrocyte)2019-10-26 08:45:00* Test Item Value Reference Range Interpretation Comments Mean Corpuscular Hemoglobin (test code = 785-6) 32.7 28-32 [facility] CentennialAutomated erythrocyte mean corpuscular hemoglobin concentration measurement (mass/volume)2019-10-26 08:45:00* Test Item Value Reference Range Interpretation Comments Mean Corpuscular Hemoglobin Concent (test code = 786-4) 33.1 31-35 [facility] CentennialRDW MxaCc-Zof3496-63-28 08:45:00* Test Item Value Reference Range Interpretation Comments Red Cell Distribution Width (test code = 35459-0) 13.9 11.7 -14.4 [facility] CentennialAutomated blood platelet count (count/volume)2019-10-26 08:45:00* Test Item Value Reference Range Interpretation Comments Platelet Count (test code = 777-3) 136 140-360 [facility] CentennialAutomated blood segmented neutrophil count as percentage of total pdcwzcuqsq8036-63-59 08:45:00* Test Item Value Reference Range Interpretation Comments Neutrophils (%) (Auto) (test code = 47915-6) 78.9 38.7-80.0 [facility] CentennialAutomated blood lymphocyte count as percentage ot total uzzzqwpyvs0021-30-15 08:45:00* Test Item Value Reference Range Interpretation Comments Lymphocytes (%) (Auto) (test code = 736-9) 8.2 18.0-39.1 [facility] CentennialAutomated blood monocyte count as percentage of total hbgwsercxu4775-95-21 08:45:00* Test Item Value Reference Range Interpretation Comments Monocytes (%) (Auto) (test code = 5905-5) 9.8 4.4-11.3 [facility] CentennialAutomated blood eosinophil count as percentage of total oxlodpzuse6028-95-89 08:45:00* Test Item Value Reference Range Interpretation Comments Eosinophils (%) (Auto) (test code = 713-8) 2.3 0.0-6.0 [facility] CentennialAutomated blood basophil count as percentage of total eamzhoxyvn5220-24-50 08:45:00* Test Item Value Reference Range Interpretation Comments Basophils (%) (Auto) (test code = 706-2) 0.5 0.0-1.0 [facility] CentennialFluoroscopic procedure less than one hour eecpirxa7748-29-50 08:45:00* Test Item Value Reference Range Interpretation Comments IM GRANULOCYTES % (test code = IM GRANULOCYTES %) 0.3 0.0- 1.0 [facility] CentennialAutomated blood neutrophil count 2019-10-26 08:45:00* Test Item Value Reference Range Interpretation Comments Neutrophils # (Auto) (test code = 751-8) 5.2 2.1-6.9 [facility] CentennialBlood lymphocytes count (number/volume) 2019-10-26 08:45:00* Test Item Value Reference Range Interpretation Comments Lymphocytes # (Auto) (test code = 74940-8) 0.5 1.0-3.2 [facility]ennialBlpaynesville hospital monocytes automated count (number/volume)2019-10-26 08:45:00* Test Item Value Reference Range Interpretation Comments Monocytes # (Auto) (test code = 742-7) 0.6 0.2-0.8 [facility] CentennialAutomated blood eosinophil count 2019-10-26 08:45:00* Test Item Value Reference Range Interpretation Comments Eosinophils # (Auto) (test code = 711-2) 0.2 0.0-0.4 [facility] CentennialAutomated blood basophil count (count/volume)2019-10-26 08:45:00* Test Item Value Reference Range Interpretation Comments Basophils # (Auto) (test code = 704-7) 0.0 0.0-0.1 [facility] CentennialFluoroscopic procedure less than one hour anznwhuk5177-79-91 08:45:00* Test Item Value Reference Range Interpretation Comments Absolute Immature Granulocyte (auto (omi t code = Absolute Immature Granulocyte (auto) 0.02 0-0.1 [facility] CentennialProthrombin time (PT) in platelet poor plasma by coagulation pnvvq9624-40-04 08:45:00* Test Item Value Reference Range Interpretation Comments Prothrombin Time (test code = 5902-2) 14.1 11.9-14.5 [facility] CentennialINR in Platelet poor plasma by Coagulation vqrkl3725-32-91 08:45:00* Test Item Value Reference Range Interpretation Comments Prothromb Time International Ratio (test code = 6301-6) 1.03 Oral Anticoagulant Therapy INR Values:1. Low Intensity Therapy 1.5 - 2.02 . Moderate Intensity Therapy 2.0 - 3.03. High Intensity Therapy(1) 2.5 - 3. 54. High Intensity Therapy(2) 3.0 - 4.05. Panic Value INR > 5.0 [facility] CentennialActivated partial thromboplastin time (aPTT) in platelet poor plasma by coagulation jptym6144-70-94 08:45:00* Test Item Value Reference Range Interpretation Comments Activated Partial Thromboplast Time (test code = 04544-6) 31.2 23.8-35.5 [facility] CentennialProthrombin time (PT) in platelet poor plasma by coagulation oyuwy0029-61-74 08:45:00* Test Item Value Reference Range Interpretation Comments Prothrombin Time (test code = 5902-2) 14.1 11.9-14.5 [facility] CentennialINR in Platelet poor plasma by Coagulation xyfcr7055-42-54 08:45:00* Test Item Value Reference Range Interpretation Comments Prothromb Time International Ratio (test code = 6301-6) 1.03 Oral Anticoagulant Therapy INR Values:1. Low Intensity Therapy 1.5 - 2.02 . Moderate Intensity Therapy 2.0 - 3.03. High Intensity Therapy(1) 2.5 - 3. 54. High Intensity Therapy(2) 3.0 - 4.05. Panic Value INR > 5.0 [facility] CentennialActivated partial thromboplastin time (aPTT) in platelet poor plasma by coagulation carnm0115-68-69 08:45:00* Test Item Value Reference Range Interpretation Comments Activated Partial Thromboplast Time (test code = 63167-7) 31.2 23.8-35.5 [facility] CentennialBlood Cjzcqmh4667-28-93 11:35:00* Test Item Value Reference Range Interpretation Comments Blood Culture (test code = 60347922) NO GROWTH AFTER 5 DAYS, FINAL REPORT [facility] CentennialBedside Kisolfu7999-98-75 11:41:00* Test Item Value Reference Range Interpretation Comments Bedside Glucose (test code = 41023-5) 131 70-120 H Meter ID: [id number] Scott & [facility] – TemplePlatelet Morphology Xcaxcyb8580-88-79 11:02:00* Test Item Value Reference Range Interpretation Comments Platelet Morphology Comment (test code = 84021-0) NO EDTA PLT CLUMP S SEEN [facility] CentennialCapillary blood glucose measurement by glucometer (mass/volume)2019-08-23 10:59:00* Test Item Value Reference Range Interpretation Comments Bedside Glucose (test code = 45960-3) 131 70-120 Meter ID: [id number] [facility] TaylorCapillary blood glucose measurement by glucometer (mass/volume)2019-08-23 10:59:00* Test Item Value Reference Range Interpretation Comments Bedside Glucose (test code = 88477-3) 131 70-120 Meter ID: [id number] Scott & [facility] – TempleCapillary blood glucose measurement by glucometer (mass/volume)2019-08-23 10:59:00* Test Item Value Reference Range Interpretation Comments Bedside Glucose (test code = 38789-7) 131 70-120 Meter ID: [id number] Scott & [facility] – TempleCapillary blood glucose measurement by glucometer (mass/volume)2019-08-23 10:59:00* Test Item Value Reference Range Interpretation Comments Bedside Glucose (test code = 55641-5) 131 70-120 Meter ID: [id number] [facility] 06:43:00* Test Item Value Reference Range Interpretation Comments Sodium Level (test code = 2951-2) 133 136-145 L [facility] CentennialPotassium Vmayv5047-04-77 06:43:00* Test Item Value Reference Range Interpretation Comments Potassium Level (test code = 2823-3) 3.9 3.5-5.1 [facility] CentennialChloride Uemsl3042-38-83 06:43:00* Test Item Value Reference Range Interpretation Comments Chloride Level (test code = 2075-0) 100 98-107 [facility] CentennialCarbon Dioxide Hyvlz5496-49-55 06:43:00* Test Item Value Reference Range Interpretation Comments Carbon Dioxide Level (test code = 2028-9) 24 22-29 [facility] CentennialAnion Zso4029-83-29 06:43:00* Test Item Value Reference Range Interpretation Comments Anion Gap (test code = 80014-4) 12.9 8-16 [facility] CentennialBlood Urea Jafwbhaz1243-21-57 06:43:00* Test Item Value Reference Range Interpretation Comments Blood Urea Nitrogen (test code = 3094-0) 54 7-26 H [facility] CentennialCreatinine2020-03-25 06:43:00* Test Item Value Reference Range Interpretation Comments Creatinine (test code = 2160-0) 4.25 0.72-1.25 H [facility] CentennialBUN/Creatinine Lgnoq7898-53-60 06:43:00* Test Item Value Reference Range Interpretation Comments BUN/Creatinine Ratio (test code = 3097-3) 13 11-22 [facility] CentennialEstimat Glomerular Filtration Rate 2019-08-23 06:43:00* Test Item Value Reference Range Interpretation Comments Estimat Glomerular Filtration Rate (test code = 622983284) 15 >60 L Ranges were taken from the National Kidney Disease Education Program and the [facility] literature.Reference ranges:60 or greater: Gltlvv80-61 ( for 3 consecutive months): Chronic kidney disease 15 or less: Kidney failureBaylor Scott & White Medical Center – CentennialGlucose Lptku7159-45-23 06:43:00* Test Item Value Reference Range Interpretation Comments Glucose Level (test code = OEE8169) 158 74-118 H [facility] CentennialCalcium Psnjy7060-45-80 06:43:00* Test Item Value Reference Range Interpretation Comments Calcium Level (test code = 34836-1) 7.8 8.4-10.2 L [facility] CentennialTotal Sfyzihvzf8686-87-65 06:43:00* Test Item Value Reference Range Interpretation Comments Total Bilirubin (test code = 1975-2) 5.3 0.2-1.2 H [facility] CentennialAspartate Amino Transf (AST/SGOT) 2019-08-23 06:43:00* Test Item Value Reference Range Interpretation Comments Aspartate Amino Transf (AST/SGOT) (test code = Aspartate Amino Transf (AST/SGOT)) 31 5-34 [facility] CentennialAlanine Aminotransferase (ALT/SGPT) 2019-08-23 06:43:00* Test Item Value Reference Range Interpretation Comments Alanine Aminotransferase (ALT/SGPT) (test code = 1742-6) 36 0-55 [facility] CentennialTotal Wssgtlz9243-43-08 06:43:00* Test Item Value Reference Range Interpretation Comments Total Protein (test code = 2885-2) 5.8 6.5-8.1 L [facility] CentennialAlbumin2020-03-25 06:43:00* Test Item Value Reference Range Interpretation Comments Albumin (test code = 1751-7) 2.2 3.5-5.0 L [facility] CentennialGlobulin2020-03-25 06:43:00* Test Item Value Reference Range Interpretation Comments Globulin (test code = 24051-5) 3.6 2.3-3.5 H [facility] CentennialAlbumin/Globulin Amuol4232-70-91 06:43:00 * Test Item Value Reference Range Interpretation Comments Albumin/Globulin Ratio (test code = 1759-0) 0.6 0.8-2.0 L [facility] CentennialAlkaline Feqyshcvnub2683-26-83 06:43:00* Test Item Value Reference Range Interpretation Comments Alkaline Phosphatase (test code = 6768-6) 630 40-150 H [facility] CentennialWhite Blood Upqcv4246-60-05 06:07:00* Test Item Value Reference Range Interpretation Comments White Blood Count (test code = 6690-2) 4.19 4.8-10.8 L [facility] CentennialRed Blood Tdubv8244-17-53 06:07:00* Test Item Value Reference Range Interpretation Comments Red Blood Count (test code = 789-8) 2.55 4.3-5.7 L [facility] CentennialHemoglobin2020-03-25 06:07:00* Test Item Value Reference Range Interpretation Comments Hemoglobin (test code = 95217-8) 8.3 14.0-18.0 L [facility] CentennialHematocrit2020-03-25 06:07:00* Test Item Value Reference Range Interpretation Comments Hematocrit (test code = 4544-3) 25.0 38.2-49.6 L [facility] CentennialMean Corpuscular Ucbrku3539-10-68 06:07:00* Test Item Value Reference Range Interpretation Comments Mean Corpuscular Volume (test code = 787-2) 98.0 81-99 [facility] CentennialMean Corpuscular Kgdmbbpvkm0141-58-31 06:07:00* Test Item Value Reference Range Interpretation Comments Mean Corpuscular Hemoglobin (test code = 785-6) 32.5 28-32 H [facility] CentennialMean Corpuscular Hemoglobin Concent 2019-08-23 06:07:00* Test Item Value Reference Range Interpretation Comments Mean Corpuscular Hemoglobin Concent (test code = 786-4) 33.2 31-35 [facility] CentennialRed Cell Distribution Wgshm4762-48-24 06:07:00* Test Item Value Reference Range Interpretation Comments Red Cell Distribution Width (test code = 93230-8) 17.8 11.7 -14.4 H [facility] CentennialPlatelet Lwito4216-66-28 06:07:00* Test Item Value Reference Range Interpretation Comments Platelet Count (test code = 777-3) 86 140-360 L [facility] CentennialNeutrophils (%) (Auto)2019-08-23 06:07:00 * Test Item Value Reference Range Interpretation Comments Neutrophils (%) (Auto) (test code = 32372-6) 76.2 38.7-80.0 [facility] CentennialLymphocytes (%) (Auto)2019-08-23 06:07:00 * Test Item Value Reference Range Interpretation Comments Lymphocytes (%) (Auto) (test code = 736-9) 12.6 18.0-39.1 L [facility] CentennialMonocytes (%) (Auto)2019-08-23 06:07:00* Test Item Value Reference Range Interpretation Comments Monocytes (%) (Auto) (test code = 5905-5) 8.6 4.4-11.3 [facility] CentennialEosinophils (%) (Auto)2019-08-23 06:07:00 * Test Item Value Reference Range Interpretation Comments Eosinophils (%) (Auto) (test code = 713-8) 2.1 0.0-6.0 [facility] CentennialBasophils (%) (Auto)2019-08-23 06:07:00* Test Item Value Reference Range Interpretation Comments Basophils (%) (Auto) (test code = 706-2) 0.0 0.0-1.0 [facility] CentennialIM GRANULOCYTES %2019-08-23 06:07:00* Test Item Value Reference Range Interpretation Comments IM GRANULOCYTES % (test code = IM GRANULOCYTES %) 0.5 0.0- 1.0 [facility] CentennialNeutrophils # (Auto)2019-08-23 06:07:00* Test Item Value Reference Range Interpretation Comments Neutrophils # (Auto) (test code = 751-8) 3.2 2.1-6.9 [facility] CentennialLymphocytes # (Auto)2019-08-23 06:07:00* Test Item Value Reference Range Interpretation Comments Lymphocytes # (Auto) (test code = 24410-1) 0.5 1.0-3.2 L [facility] CentennialMonocytes # (Auto)2019-08-23 06:07:00* Test Item Value Reference Range Interpretation Comments Monocytes # (Auto) (test code = 742-7) 0.4 0.2-0.8 [facility] CentennialEosinophils # (Auto)2019-08-23 06:07:00* Test Item Value Reference Range Interpretation Comments Eosinophils # (Auto) (test code = 711-2) 0.1 0.0-0.4 [facility] CentennialBasophils # (Auto)2019-08-23 06:07:00* Test Item Value Reference Range Interpretation Comments Basophils # (Auto) (test code = 704-7) 0.0 0.0-0.1 [facility] CentennialAbsolute Immature Granulocyte (auto 2019-08-23 06:07:00* Test Item Value Reference Range Interpretation Comments Absolute Immature Granulocyte (auto (omi t code = Absolute Immature Granulocyte (auto) 0.02 0-0.1 [facility]ennialBlpaynes[facility] leukocytes automated count (number/volume)2019-08-23 05:20:00* Test Item Value Reference Range Interpretation Comments White Blood Count (test code = 6690-2) 4.19 4.8-10.8 [facility]ennialBlpaynesville hospital erythrocytes automated count (number/volume)2019-08-23 05:20:00* Test Item Value Reference Range Interpretation Comments Red Blood Count (test code = 789-8) 2.55 4.3-5.7 [facility] CentennialBlood hemoglobin measurement (moles/volume)2019-08-23 05:20:00* Test Item Value Reference Range Interpretation Comments Hemoglobin (test code = 17034-1) 8.3 14.0-18.0 [facility] CentennialAutomated blood hematocrit (volume fraction)2019-08-23 05:20:00* Test Item Value Reference Range Interpretation Comments Hematocrit (test code = 4544-3) 25.0 38.2-49.6 [facility] CentennialAutomated erythrocyte mean corpuscular pfqztr7479-88-57 05:20:00* Test Item Value Reference Range Interpretation Comments Mean Corpuscular Volume (test code = 787-2) 98.0 81-99 [facility] CentennialAutomated erythrocyte mean corpuscular hemoglobin (mass per erythrocyte)2019-08-23 05:20:00* Test Item Value Reference Range Interpretation Comments Mean Corpuscular Hemoglobin (test code = 785-6) 32.5 28-32 [facility] CentennialAutomated erythrocyte mean corpuscular hemoglobin concentration measurement (mass/volume)2019-08-23 05:20:00* Test Item Value Reference Range Interpretation Comments Mean Corpuscular Hemoglobin Concent (test code = 786-4) 33.2 31-35 [facility] CentennialRDW WouVk-Jlu2570-15-25 05:20:00* Test Item Value Reference Range Interpretation Comments Red Cell Distribution Width (test code = 44066-6) 17.8 11.7 -14.4 [facility] CentennialAutomated blood platelet count (count/volume)2019-08-23 05:20:00* Test Item Value Reference Range Interpretation Comments Platelet Count (test code = 777-3) 86 140-360 [facility] CentennialAutomated blood segmented neutrophil count as percentage of total slbwuwmfaj9244-92-68 05:20:00* Test Item Value Reference Range Interpretation Comments Neutrophils (%) (Auto) (test code = 33667-3) 76.2 38.7-80.0 [facility] blood lymphocyte count as percentage ot total npqalpcnyl8928-74-54 05:20:00* Test Item Value Reference Range Interpretation Comments Lymphocytes (%) (Auto) (test code = 736-9) 12.6 18.0-39.1 [facility] CentennialAutomated blood monocyte count as percentage of total luwpdlvtun0715-00-65 05:20:00* Test Item Value Reference Range Interpretation Comments Monocytes (%) (Auto) (test code = 5905-5) 8.6 4.4-11.3 [facility]ennialAutmission hospitaled blood eosinophil count as percentage of total kxckjpcndy5751-78-10 05:20:00* Test Item Value Reference Range Interpretation Comments Eosinophils (%) (Auto) (test code = 713-8) 2.1 0.0-6.0 [facility] CentennialAutomated blood basophil count as percentage of total kcoqqfhjae6761-76-87 05:20:00* Test Item Value Reference Range Interpretation Comments Basophils (%) (Auto) (test code = 706-2) 0.0 0.0-1.0 [facility] CentennialFluoroscopic procedure less than one hour mfjaseod1690-47-52 05:20:00* Test Item Value Reference Range Interpretation Comments IM GRANULOCYTES % (test code = IM GRANULOCYTES %) 0.5 0.0- 1.0 [facility] CentennialAutomated blood neutrophil count 2019-08-23 05:20:00* Test Item Value Reference Range Interpretation Comments Neutrophils # (Auto) (test code = 751-8) 3.2 2.1-6.9 [facility] CentennialBlood lymphocytes count (number/volume) 2019-08-23 05:20:00* Test Item Value Reference Range Interpretation Comments Lymphocytes # (Auto) (test code = 25157-7) 0.5 1.0-3.2 [facility] CentennialBlood monocytes automated count (number/volume)2019-08-23 05:20:00* Test Item Value Reference Range Interpretation Comments Monocytes # (Auto) (test code = 742-7) 0.4 0.2-0.8 [facility] CentennialAutomated blood eosinophil count 2019-08-23 05:20:00* Test Item Value Reference Range Interpretation Comments Eosinophils # (Auto) (test code = 711-2) 0.1 0.0-0.4 [facility] CentennialAutomated blood basophil count (count/volume)2019-08-23 05:20:00* Test Item Value Reference Range Interpretation Comments Basophils # (Auto) (test code = 704-7) 0.0 0.0-0.1 [facility] CentennialFluoroscopic procedure less than one hour cvmpwkpo9122-91-56 05:20:00* Test Item Value Reference Range Interpretation Comments Absolute Immature Granulocyte (auto (omi t code = Absolute Immature Granulocyte (auto) 0.02 0-0.1 [facility] CentennialPlatelet ategfqcfkw5131-32-84 05:20:00* Test Item Value Reference Range Interpretation Comments Platelet Morphology Comment (test code = 79614-7) See Comment NO EDTA PLT CLUMPS SEENMethodist Children's Hospitalerum or plasma sodium measurement (moles/volume)2019-08-23 05:20:00* Test Item Value Reference Range Interpretation Comments Sodium Level (test code = 2951-2) 133 136-145 [facility]er[facility] plasma potassium measurement (moles/volume)2019-08-23 05:20:00* Test Item Value Reference Range Interpretation Comments Potassium Level (test code = 2823-3) 3.9 3.5-5.1 [facility] Hospitaler[facility] or plasma chloride measurement (moles/volume)2019-08-23 05:20:00* Test Item Value Reference Range Interpretation Comments Chloride Level (test code = 2075-0) 100 98-107 [facility] Hospitalerum or plasma carbon dioxide, total measurement (moles/volume)2019-08-23 05:20:00* Test Item Value Reference Range Interpretation Comments Carbon Dioxide Level (test code = 2028-9) 24 22-29 [facility] Hospitalerum or plasma anion bfd8794-04-20 05:20:00* Test Item Value Reference Range Interpretation Comments Anion Gap (test code = 72303-0) 12.9 8-16 [facility] Hospitaler[facility] or plasma urea nitrogen measurement (mass/volume)2019-08-23 05:20:00* Test Item Value Reference Range Interpretation Comments Blood Urea Nitrogen (test code = 3094-0) 54 7-26 [facility] Hospitaler[facility] or plasma creatinine measurement (mass/volume)2019-08-23 05:20:00* Test Item Value Reference Range Interpretation Comments Creatinine (test code = 2160-0) 4.25 0.72-1.25 [facility] Hospitalerum or plasma urea nitrogen/creatinine mass qroxe4053-19-71 05:20:00* Test Item Value Reference Range Interpretation Comments BUN/Creatinine Ratio (test code = 3097-3) 13 6-25 [facility] CentennialEstimated glomerular filtration rate (GFR) tzbvphpwjjirt8089-02-89 05:20:00* Test Item Value Reference Range Interpretation Comments Estimat Glomerular Filtration Rate (test code = 400878206) 15 >60 Ranges were taken from the National Kidney Disease Education Program and the [facility] Kid[facility] Foundation literature.Reference ranges:60 or greater: Ugbqbp63-24 ( for 3 consecutive months): Chronic kidney disease 15 or less: Kidney failureBaylor Scott & [facility] Center – CentennialGlucose mumqhnuinsp7745-05-08 05:20:00* Test Item Value Reference Range Interpretation Comments Glucose Level (test code = XEQ8229) 158 74-118 [facility]er[facility] plasma calcium measurement (mass/volume)2019-08-23 05:20:00* Test Item Value Reference Range Interpretation Comments Calcium Level (test code = 90849-0) 7.8 8.4-10.2 [facility] Hospitaler[facility] or plasma total bilirubin measurement (mass/volume)2019-08-23 05:20:00* Test Item Value Reference Range Interpretation Comments Total Bilirubin (test code = 1975-2) 5.3 0.2-1.2 [facility] CentennialFluoroscopic procedure less than one hour jbyjozra4534-29-14 05:20:00* Test Item Value Reference Range Interpretation Comments Aspartate Amino Transf (AST/SGOT) (test code = Aspartate Amino Transf (AST/SGOT)) 31 5-34 [facility] Hospitaler[facility] or plasma alanine aminotransferase measurement (enzymatic activity/volume)2019-08-23 05:20:00* Test Item Value Reference Range Interpretation Comments Alanine Aminotransferase (ALT/SGPT) (test code = 1742-6) 36 0-55 [facility] Hospitaler[facility] or plasma protein measurement (mass/volume)2019-08-23 05:20:00* Test Item Value Reference Range Interpretation Comments Total Protein (test code = 2885-2) 5.8 6.5-8.1 [facility] Hospitaler[facility] or plasma albumin measurement (mass/volume)2019-08-23 05:20:00* Test Item Value Reference Range Interpretation Comments Albumin (test code = 1751-7) 2.2 3.5-5.0 [facility] CentennialPlasma globulin measurement (mass/volume) 2019-08-23 05:20:00* Test Item Value Reference Range Interpretation Comments Globulin (test code = 00435-0) 3.6 2.3-3.5 [facility]er[facility] or plasma albumin/globulin mass zponv2345-72-07 05:20:00* Test Item Value Reference Range Interpretation Comments Albumin/Globulin Ratio (test code = 1759-0) 0.6 0.8-2.0 [facility] Hospitaler[facility] or plasma alkaline phosphatase measurement (enzymatic activity/volume)2019-08-23 05:20:00* Test Item Value Reference Range Interpretation Comments Alkaline Phosphatase (test code = 6768-6) 630 40-150 [facility] CentennialBlood leukocytes automated count (number/volume)2019-08-23 05:20:00* Test Item Value Reference Range Interpretation Comments White Blood Count (test code = 6690-2) 4.19 4.8-10.8 [facility] CentennialBlpaynesville hospital erythrocytes automated count (number/volume)2019-08-23 05:20:00* Test Item Value Reference Range Interpretation Comments Red Blood Count (test code = 789-8) 2.55 4.3-5.7 [facility] ([facility]/volume)2019-08-23 05:20:00* Test Item Value Reference Range Interpretation Comments Hemoglobin (test code = 65302-3) 8.3 14.0-18.0 [facility] CentennialAutomated blood hematocrit (volume fraction)2019-08-23 05:20:00* Test Item Value Reference Range Interpretation Comments Hematocrit (test code = 4544-3) 25.0 38.2-49.6 [facility] CentennialAutomated erythrocyte mean corpuscular nopohn7197-64-48 05:20:00* Test Item Value Reference Range Interpretation Comments Mean Corpuscular Volume (test code = 787-2) 98.0 81-99 [facility] CentennialAutomated erythrocyte mean corpuscular hemoglobin (mass per erythrocyte)2019-08-23 05:20:00* Test Item Value Reference Range Interpretation Comments Mean Corpuscular Hemoglobin (test code = 785-6) 32.5 28-32 [facility] CentennialAutomated erythrocyte mean corpuscular hemoglobin concentration measurement (mass/volume)2019-08-23 05:20:00* Test Item Value Reference Range Interpretation Comments Mean Corpuscular Hemoglobin Concent (test code = 786-4) 33.2 31-35 [facility] CentennialRDW ByjFh-Ppo2847-85-25 05:20:00* Test Item Value Reference Range Interpretation Comments Red Cell Distribution Width (test code = 05339-7) 17.8 11.7 -14.4 [facility] CentennialAutomated blood platelet count (count/volume)2019-08-23 05:20:00* Test Item Value Reference Range Interpretation Comments Platelet Count (test code = 777-3) 86 140-360 [facility] CentennialAutomated blood segmented neutrophil count as percentage of total bdjqrlulfu6064-88-68 05:20:00* Test Item Value Reference Range Interpretation Comments Neutrophils (%) (Auto) (test code = 39112-5) 76.2 38.7-80.0 [facility] CentennialAutomated blood lymphocyte count as percentage ot total tlkegpjdkg0725-62-84 05:20:00* Test Item Value Reference Range Interpretation Comments Lymphocytes (%) (Auto) (test code = 736-9) 12.6 18.0-39.1 [facility] CentennialAutomated blood monocyte count as percentage of total wyheyycdxx3014-53-88 05:20:00* Test Item Value Reference Range Interpretation Comments Monocytes (%) (Auto) (test code = 5905-5) 8.6 4.4-11.3 [facility] CentennialAutmission hospitaled blood eosinophil count as percentage of total uqpxqwcxxz1336-11-55 05:20:00* Test Item Value Reference Range Interpretation Comments Eosinophils (%) (Auto) (test code = 713-8) 2.1 0.0-6.0 [facility] CentennialAutomated blood basophil count as percentage of total nkkjtsnyva7979-32-36 05:20:00* Test Item Value Reference Range Interpretation Comments Basophils (%) (Auto) (test code = 706-2) 0.0 0.0-1.0 [facility] CentennialFluoroscopic procedure less than one hour dfcgmjkw7012-00-89 05:20:00* Test Item Value Reference Range Interpretation Comments IM GRANULOCYTES % (test code = IM GRANULOCYTES %) 0.5 0.0- 1.0 [facility] CentennialAutomated blood neutrophil count 2019-08-23 05:20:00* Test Item Value Reference Range Interpretation Comments Neutrophils # (Auto) (test code = 751-8) 3.2 2.1-6.9 [facility] CentennialBlood lymphocytes count (number/volume) 2019-08-23 05:20:00* Test Item Value Reference Range Interpretation Comments Lymphocytes # (Auto) (test code = 34452-1) 0.5 1.0-3.2 [facility] CentennialBlood monocytes automated count (number/volume)2019-08-23 05:20:00* Test Item Value Reference Range Interpretation Comments Monocytes # (Auto) (test code = 742-7) 0.4 0.2-0.8 [facility] CentennialAutomated blood eosinophil count 2019-08-23 05:20:00* Test Item Value Reference Range Interpretation Comments Eosinophils # (Auto) (test code = 711-2) 0.1 0.0-0.4 [facility] CentennialAutomated blood basophil count (count/volume)2019-08-23 05:20:00* Test Item Value Reference Range Interpretation Comments Basophils # (Auto) (test code = 704-7) 0.0 0.0-0.1 [facility] CentennialFluoroscopic procedure less than one hour ifqxghbs1586-12-93 05:20:00* Test Item Value Reference Range Interpretation Comments Absolute Immature Granulocyte (auto (omi t code = Absolute Immature Granulocyte (auto) 0.02 0-0.1 [facility] CentennialPlatelet jkebjpzymq0348-94-67 05:20:00* Test Item Value Reference Range Interpretation Comments Platelet Morphology Comment (test code = 30847-9) See Comment NO EDTA PLT CLUMPS SEENMethodist Children's Hospitalerum or plasma sodium measurement (moles/volume)2019-08-23 05:20:00* Test Item Value Reference Range Interpretation Comments Sodium Level (test code = 2951-2) 133 136-145 [facility]er[facility] potassium measurement (moles/volume)2019-08-23 05:20:00* Test Item Value Reference Range Interpretation Comments Potassium Level (test code = 2823-3) 3.9 3.5-5.1 [facility]er[facility] plasma chloride measurement (moles/volume)2019-08-23 05:20:00* Test Item Value Reference Range Interpretation Comments Chloride Level (test code = 2075-0) 100 98-107 [facility] carbon dioxide, total measurement (moles/volume)2019-08-23 05:20:00* Test Item Value Reference Range Interpretation Comments Carbon Dioxide Level (test code = 2028-9) 24 22-29 [facility] anion [id number] 05:20:00* Test Item Value Reference Range Interpretation Comments Anion Gap (test code = 91800-6) 12.9 8-16 [facility] urea nitrogen measurement (mass/volume)2019-08-23 05:20:00* Test Item Value Reference Range Interpretation Comments Blood Urea Nitrogen (test code = 3094-0) 54 7-26 [facility] creatinine measurement (mass/volume)2019-08-23 05:20:00* Test Item Value Reference Range Interpretation Comments Creatinine (test code = 2160-0) 4.25 0.72-1.25 [facility] urea nitrogen/creatinine mass jejat7137-42-89 05:20:00* Test Item Value Reference Range Interpretation Comments BUN/Creatinine Ratio (test code = 3097-3) 13 6-25 [facility] CentennialEstimated glomerular filtration rate (GFR) jgqolpgwhmxkb0161-54-82 05:20:00* Test Item Value Reference Range Interpretation Comments Estimat Glomerular Filtration Rate (test code = 587787413) 15 >60 Ranges were taken from the National Kidney Disease Education Program and the [facility] Kidney Foundation literature.Reference ranges:60 or greater: Zztywg08-20 ( for 3 consecutive months): Chronic kidney disease 15 or less: Kidney failureBaylor Scott & White Medical Center – CentennialGlucose jiwvxsstlkz0303-65-79 05:20:00* Test Item Value Reference Range Interpretation Comments Glucose Level (test code = UNP5062) 158 74-118 [facility] calcium measurement (mass/volume)2019-08-23 05:20:00* Test Item Value Reference Range Interpretation Comments Calcium Level (test code = 75125-7) 7.8 8.4-10.2 [facility] total bilirubin measurement (mass/volume)2019-08-23 05:20:00* Test Item Value Reference Range Interpretation Comments Total Bilirubin (test code = 1975-2) 5.3 0.2-1.2 [facility] CentennialFluoroscopic procedure less than one hour rrtnnigy2867-55-04 05:20:00* Test Item Value Reference Range Interpretation Comments Aspartate Amino Transf (AST/SGOT) (test code = Aspartate Amino Transf (AST/SGOT)) 31 5-34 [facility] plasma alanine aminotransferase measurement (enzymatic activity/volume)2019-08-23 05:20:00* Test Item Value Reference Range Interpretation Comments Alanine Aminotransferase (ALT/SGPT) (test code = 1742-6) 36 0-55 [facility] protein measurement (mass/volume)2019-08-23 05:20:00* Test Item Value Reference Range Interpretation Comments Total Protein (test code = 2885-2) 5.8 6.5-8.1 [facility] albumin measurement (mass/volume)2019-08-23 05:20:00* Test Item Value Reference Range Interpretation Comments Albumin (test code = 1751-7) 2.2 3.5-5.0 [facility] CentennialPlasma globulin measurement (mass/volume) 2019-08-23 05:20:00* Test Item Value Reference Range Interpretation Comments Globulin (test code = 62883-1) 3.6 2.3-3.5 [facility] albumin/globulin mass cpnkh8078-61-70 05:20:00* Test Item Value Reference Range Interpretation Comments Albumin/Globulin Ratio (test code = 1759-0) 0.6 0.8-2.0 [facility] plasma alkaline phosphatase measurement (enzymatic activity/volume)2019-08-23 05:20:00* Test Item Value Reference Range Interpretation Comments Alkaline Phosphatase (test code = 6768-6) 630 40-150 [facility] CentennialPlatelet mvgpmzheci0325-95-84 05:20:00* Test Item Value Reference Range Interpretation Comments Platelet Morphology Comment (test code = 94270-8) See Comment NO EDTA PLT CLUMPS SEENMethodist Children's Hospitalerum or plasma sodium measurement (moles/volume)2019-08-23 05:20:00* Test Item Value Reference Range Interpretation Comments Sodium Level (test code = 2951-2) 133 136-145 [facility] potassium measurement (moles/volume)2019-08-23 05:20:00* Test Item Value Reference Range Interpretation Comments Potassium Level (test code = 2823-3) 3.9 3.5-5.1 [facility] chloride measurement (moles/volume)2019-08-23 05:20:00* Test Item Value Reference Range Interpretation Comments Chloride Level (test code = 2075-0) 100 98-107 [facility] plasma carbon dioxide, total measurement (moles/volume)2019-08-23 05:20:00* Test Item Value Reference Range Interpretation Comments Carbon Dioxide Level (test code = 2028-9) 24 22-29 [facility] anion kra1910-92-34 05:20:00* Test Item Value Reference Range Interpretation Comments Anion Gap (test code = 32206-6) 12.9 8-16 [facility] urea nitrogen measurement (mass/volume)2019-08-23 05:20:00* Test Item Value Reference Range Interpretation Comments Blood Urea Nitrogen (test code = 3094-0) 54 7-26 [facility] creatinine measurement (mass/volume)2019-08-23 05:20:00* Test Item Value Reference Range Interpretation Comments Creatinine (test code = 2160-0) 4.25 0.72-1.25 [facility] urea nitrogen/creatinine mass khhpt6912-55-02 05:20:00* Test Item Value Reference Range Interpretation Comments BUN/Creatinine Ratio (test code = 3097-3) 13 6-25 [facility] CentennialEstimated glomerular filtration rate (GFR) wimeecrygwhwh6028-71-70 05:20:00* Test Item Value Reference Range Interpretation Comments Estimat Glomerular Filtration Rate (test code = 805417673) 15 >60 Ranges were taken from the National Kidney Disease Education Program and the [facility] Kid[facility] Foundation literature.Reference ranges:60 or greater: Bcyugw37-52 ( for 3 consecutive months): Chronic kidney disease 15 or less: Kidney failureBaylor Scott & White Medical Center – CentennialGlucose jmxuldllkkz5726-37-16 05:20:00* Test Item Value Reference Range Interpretation Comments Glucose Level (test code = QZE4681) 158 74-118 [facility]er[facility] plasma calcium measurement (mass/volume)2019-08-23 05:20:00* Test Item Value Reference Range Interpretation Comments Calcium Level (test code = 97855-1) 7.8 8.4-10.2 [facility] plasma total bilirubin measurement (mass/volume)2019-08-23 05:20:00* Test Item Value Reference Range Interpretation Comments Total Bilirubin (test code = 1975-2) 5.3 0.2-1.2 [facility] CentennialFluoroscopic procedure less than one hour uadmsmmf3736-78-96 05:20:00* Test Item Value Reference Range Interpretation Comments Aspartate Amino Transf (AST/SGOT) (test code = Aspartate Amino Transf (AST/SGOT)) 31 5-34 [facility]er[facility] plasma alanine aminotransferase measurement (enzymatic activity/volume)2019-08-23 05:20:00* Test Item Value Reference Range Interpretation Comments Alanine Aminotransferase (ALT/SGPT) (test code = 1742-6) 36 0-55 [facility] plasma protein measurement (mass/volume)2019-08-23 05:20:00* Test Item Value Reference Range Interpretation Comments Total Protein (test code = 2885-2) 5.8 6.5-8.1 [facility]er[facility] plasma albumin measurement (mass/volume)2019-08-23 05:20:00* Test Item Value Reference Range Interpretation Comments Albumin (test code = 1751-7) 2.2 3.5-5.0 [facility] CentennialPlasma globulin measurement (mass/volume) 2019-08-23 05:20:00* Test Item Value Reference Range Interpretation Comments Globulin (test code = 61507-4) 3.6 2.3-3.5 [facility]er[facility] plasma albumin/globulin mass doqiz0565-02-36 05:20:00* Test Item Value Reference Range Interpretation Comments Albumin/Globulin Ratio (test code = 1759-0) 0.6 0.8-2.0 [facility]er[facility] plasma alkaline phosphatase measurement (enzymatic activity/volume)2019-08-23 05:20:00* Test Item Value Reference Range Interpretation Comments Alkaline Phosphatase (test code = 6768-6) 630 40-150 [facility] CentennialPlatelet zfnvnecojn9994-78-65 05:20:00* Test Item Value Reference Range Interpretation Comments Platelet Morphology Comment (test code = 71324-6) See Comment NO EDTA PLT CLUMPS SEENMethodist Children's Hospitalerum or plasma sodium measurement (moles/volume)2019-08-23 05:20:00* Test Item Value Reference Range Interpretation Comments Sodium Level (test code = 2951-2) 133 136-145 [facility]er[facility] plasma potassium measurement (moles/volume)2019-08-23 05:20:00* Test Item Value Reference Range Interpretation Comments Potassium Level (test code = 2823-3) 3.9 3.5-5.1 [facility]er[facility] plasma chloride measurement (moles/volume)2019-08-23 05:20:00* Test Item Value Reference Range Interpretation Comments Chloride Level (test code = 2075-0) 100 98-107 [facility]er[facility] or plasma carbon dioxide, total measurement (moles/volume)2019-08-23 05:20:00* Test Item Value Reference Range Interpretation Comments Carbon Dioxide Level (test code = 2028-9) 24 22-29 [facility]er[facility] or plasma anion nhm9034-89-36 05:20:00* Test Item Value Reference Range Interpretation Comments Anion Gap (test code = 64435-8) 12.9 8-16 [facility]er[facility] plasma urea nitrogen measurement (mass/volume)2019-08-23 05:20:00* Test Item Value Reference Range Interpretation Comments Blood Urea Nitrogen (test code = 3094-0) 54 7-26 [facility]er[facility] plasma creatinine measurement (mass/volume)2019-08-23 05:20:00* Test Item Value Reference Range Interpretation Comments Creatinine (test code = 2160-0) 4.25 0.72-1.25 [facility]erum or plasma urea nitrogen/creatinine mass cjtne3890-72-74 05:20:00* Test Item Value Reference Range Interpretation Comments BUN/Creatinine Ratio (test code = 3097-3) 13 6-25 [facility] CentennialEstimated glomerular filtration rate (GFR) fogqewydrdodn0634-45-21 05:20:00* Test Item Value Reference Range Interpretation Comments Estimat Glomerular Filtration Rate (test code = 502891982) 15 >60 Ranges were taken from the National Kidney Disease Education Program and the [facility] Kidney Foundation literature.Reference ranges:60 or greater: Rijrih39-01 ( for 3 consecutive months): Chronic kidney disease 15 or less: Kidney failureBaylor Scott & White Medical Center – CentennialGlucose asnwqkvoqpy9165-40-68 05:20:00* Test Item Value Reference Range Interpretation Comments Glucose Level (test code = ORO2945) 158 74-118 [facility]er[facility] plasma calcium measurement (mass/volume)2019-08-23 05:20:00* Test Item Value Reference Range Interpretation Comments Calcium Level (test code = 83249-6) 7.8 8.4-10.2 [facility]er[facility] plasma total bilirubin measurement (mass/volume)2019-08-23 05:20:00* Test Item Value Reference Range Interpretation Comments Total Bilirubin (test code = 1975-2) 5.3 0.2-1.2 [facility] CentennialFluoroscopic procedure less than one hour uxhsdgom1022-71-58 05:20:00* Test Item Value Reference Range Interpretation Comments Aspartate Amino Transf (AST/SGOT) (test code = Aspartate Amino Transf (AST/SGOT)) 31 5-34 [facility]er[facility] plasma alanine aminotransferase measurement (enzymatic activity/volume)2019-08-23 05:20:00* Test Item Value Reference Range Interpretation Comments Alanine Aminotransferase (ALT/SGPT) (test code = 1742-6) 36 0-55 [facility]er[facility] protein measurement (mass/volume)2019-08-23 05:20:00* Test Item Value Reference Range Interpretation Comments Total Protein (test code = 2885-2) 5.8 6.5-8.1 [facility]er[facility] plasma albumin measurement (mass/volume)2019-08-23 05:20:00* Test Item Value Reference Range Interpretation Comments Albumin (test code = 1751-7) 2.2 3.5-5.0 [facility] CentennialPlasma globulin measurement (mass/volume) 2019-08-23 05:20:00* Test Item Value Reference Range Interpretation Comments Globulin (test code = 99583-7) 3.6 2.3-3.5 [facility]er[facility] albumin/globulin mass tpavn1364-15-65 05:20:00* Test Item Value Reference Range Interpretation Comments Albumin/Globulin Ratio (test code = 1759-0) 0.6 0.8-2.0 [facility]er[facility] plasma alkaline phosphatase measurement (enzymatic activity/volume)2019-08-23 05:20:00* Test Item Value Reference Range Interpretation Comments Alkaline Phosphatase (test code = 6768-6) 630 40-150 [facility] CentennialAlkaline Wplpsuuidbm2777-69-52 03:42:00* Test Item Value Reference Range Interpretation Comments Alkaline Phosphatase (test code = 6768-6) 865 39-117 H [facility] CentennialAlkaline Phosphatase Iso-Intestine 2019-08-23 03:42:00* Test Item Value Reference Range Interpretation Comments Alkaline Phosphatase Iso-Intestine (test code = 82176-0) 0 0-18 Performed at: - [facility] [address] [id number] Director: Blake Sheffield MD, Phone: [phone] at: - [facility] [id number] [place] [id number] Director: Bozena Berg MD, Ph one: [phone] Scott & White Medical Center – CentennialAlkaline Phosphatase Ufk-Mmru2967-54-25 03:42:00* Test Item Value Reference Range Interpretation Comments Alkaline Phosphatase Iso-Bone (test code = 74777-9) 21 12 -68 [facility] CentennialAlkaline Phosphatase Whj-Wvjkn4673-07-25 03:42:00* Test Item Value Reference Range Interpretation Comments Alkaline Phosphatase Iso-Liver (test code = 40996-9) 79 1 3-88 [facility] CentennialHepatitis Be Jcxemsix7126-20-43 22:13:00 * Test Item Value Reference Range Interpretation Comments Hepatitis Be Antibody (test code = 71854-5) Negative Negative Performed at: [facility] Lab[address] [id number] Commodity Supervisor: Bozena Berg MD, Phone: [phone] Scott & White Medical Center – CentennialHepatitis B Core Total Chyvdmck2318-22-70 22:13:00* Test Item Value Reference Range Interpretation Comments Hepatitis B Core Total Antibody (test code = 43441-6) Negative Negative [facility] B Surface Hgekuke0421-85-41 22:13:00* Test Item Value Reference Range Interpretation Comments Hepatitis B Surface Antigen (test code = 5196-1) Negative Negat lydia [facility] B Core IgM Kogjaplk8911-91-27 22:13:00* Test Item Value Reference Range Interpretation Comments Hepatitis B Core IgM Antibody (test code = 98639-9) Negative Ne gative Performed at: - [address] [id number] Director: Blake Sheffield MD, Phone: [phone] Scott & White Medical Center – CentennialAnti-Mitochondrial Lvchteod2641-34-65 22:13:00* Test Item Value Reference Range Interpretation Comments Anti-Mitochondrial Antibody (test code = 75216-6) <20.0 0.0- 20.0 Negative 0.0 - 20.0 Equivocal 20.1 - 24.9 Positive > 24.9Mitochondrial (M2) Antibodies are found in 90-96% ofpatients with primary bi liary cirrhosis.Performed at: [facility] [address] [id number] Director: Bozena Berg MD, Phone: [phone] Scott & White Medical Center – CentennialUS ABDOMEN PDKRPFA6054-60-16 08:51:00 [place] [address] Patient Name: WARD VILLA MR #: [id number] : 1965 Age/Sex: 54/M Req #: [id number] [facility] Physician: GERALD DIAZ MD Ordered by: BLESSING BUCKLEY MD Report #: [id number] Location: [facility]/SURG2 Room/Bed: [facility] Procedure: 032 4-0001 US/US ABDOMEN LIMITED Exam Date: 08/22/19 Exadam marshall Time: 0745 REPORT STATUS: Signed TECHNIQUE: Grayscale ultrasound of the right abdomen. INDICATION: 54-yea r-old man with jaundice. COMPARISON: Chest, abdomen, and pelvis CT 05/12/20. FINDINGS: MIDLINE VASCULATURE: The visualized inferior vena cav a is patent. Portal vein is patent. The maximum visualized aortic diameter is 2.1 cm. LIVER: The liver is normal in echogenicity with smooth contour. No focal lesions. BILIARY: Gallbladder: Small amount of sludge in the gall bladder. Gallbladder wall is thickened and measures 0.5 cm. No pericholecystic fluid or distention. Negative sonographic Ohara sign. Common bile duct rachel sures 0.4 cm, within normal limits. No intrahepatic biliary ductal dilatation. PANCREAS: Visualized portions of the pancreas are unremarkable. PERIT ONEUM: Trace ascites. RIGHT KIDNEY: The right kidney is normal in size. No hydronephrosis. No sonographically evident solid mass lesion. IMPRESSI ON: No biliary ductal dilatation. Small amount of gallbladder sludge. Non specific thickened gallbladder wall. Trace ascites. Signed by: Emili Casarez MD on 08/22/2019 8:58 AM Dictated By: EMILI CASAREZ MD Electron ically Signed By: EMILI CASAREZ MD on 08/22/19857 Transcribed By: ASHLEY on 08/22/19857 COPY TO: BLESSING BUCKLEY MD Mlwvi-9-Kdirauebexn 2019-08-21 15:56:00* Test Item Value Reference Range Interpretation Comments Yakli-3-Vpzruqtgvnp (test code = 1825-9) 171 101-187 Performed at: [facility] [facility] [address], [place], [place] [id number] 4Lab Director: MOLLY Sierra MD, Phone: [phone] Scott & White Medical Center – CentennialCeruloplasmin2020-03-23 15:56:00* Test Item Value Reference Range Interpretation Comments Ceruloplasmin (test code = 2064-4) 41.0 16.0-31.0 H [facility] CentennialDirect Jrhgbscdd5516-49-37 06:00:00* Test Item Value Reference Range Interpretation Comments Direct Bilirubin (test code = 63384-5) 6.8 0.0-0.5 H [facility] conjugated bilirubin measurement (mass/volume)2019-08-21 05:15:00* Test Item Value Reference Range Interpretation Comments Direct Bilirubin (test code = 63935-4) 6.8 0.0-0.5 [facility] plasma conjugated bilirubin measurement (mass/volume)2019-08-21 05:15:00* Test Item Value Reference Range Interpretation Comments Direct Bilirubin (test code = 07196-4) 6.8 0.0-0.5 [facility] plasma conjugated bilirubin measurement (mass/volume)2019-08-21 05:15:00* Test Item Value Reference Range Interpretation Comments Direct Bilirubin (test code = 07870-4) 6.8 0.0-0.5 [facility]er[facility] plasma conjugated bilirubin measurement (mass/volume)2019-08-21 05:15:00* Test Item Value Reference Range Interpretation Comments Direct Bilirubin (test code = 41671-3) 6.8 0.0-0.5 [facility] plasma conjugated bilirubin measurement (mass/volume)2019-08-21 05:15:00* Test Item Value Reference Range Interpretation Comments Direct Bilirubin (test code = 32192-0) 6.8 0.0-0.5 [facility] plasma conjugated bilirubin measurement (mass/volume)2019-08-21 05:15:00* Test Item Value Reference Range Interpretation Comments Direct Bilirubin (test code = 26659-5) 6.8 0.0-0.5 [facility] plasma conjugated bilirubin measurement (mass/volume)2019-08-21 05:15:00* Test Item Value Reference Range Interpretation Comments Direct Bilirubin (test code = 45226-3) 6.8 0.0-0.5 [facility] erusmmk8356-73-65 11:35:00* Test Item Value Reference Range Interpretation Comments Blood Culture (test code = 74089489) NO GROWTH AFTER 5 DAYS, FINAL REPORT [facility]2020-03-22 11:35:00* Test Item Value Reference Range Interpretation Comments Blood Culture (test code = 69040770) NO GROWTH AFTER 5 DAYS, FINAL REPORT [facility] avwkegq9106-93-57 11:35:00* Test Item Value Reference Range Interpretation Comments Blood Culture (test code = 80506300) NO GROWTH AFTER 5 DAYS, FINAL REPORT [facility] eyjwbfn9535-62-05 11:35:00* Test Item Value Reference Range Interpretation Comments Blood Culture (test code = 58896008) NO GROWTH AFTER 5 DAYS, FINAL REPORT [facility]2020-03-22 11:35:00* Test Item Value Reference Range Interpretation Comments Blood Culture (test code = 81297819) NO GROWTH AFTER 5 DAYS, FINAL REPORT [facility] druorpq2327-65-82 11:35:00* Test Item Value Reference Range Interpretation Comments Blood Culture (test code = 28328176) NO GROWTH AFTER 5 DAYS, FINAL REPORT [facility] mfolatz5421-57-96 11:35:00* Test Item Value Reference Range Interpretation Comments Blood Culture (test code = 94744676) NO GROWTH AFTER 5 DAYS, FINAL REPORT [facility] CentennialChlamydia pneumoniae DNA (PCR)2019-08-20 05:32:00* Test Item Value Reference Range Interpretation Comments Chlamydia pneumoniae DNA (PCR) (test code = Chlamydia pneumoniae DNA (PCR)) NOT DETECTED NOT DETECT [facility] TaylorInfluenza Type A (RT-PCR)2019-08-20 05:32:00* Test Item Value Reference Range Interpretation Comments Influenza Type A (RT-PCR) (test code = 257745569) NOT DETECTED NOT DETECT [facility] pneumoniae (PCR)2019-08-20 05:32:00* Test Item Value Reference Range Interpretation Comments Mycoplasma pneumoniae (PCR) (test code = Mycoplasma pn eumoniae (PCR)) NOT DETECTED NOT DETECT [facility] TaylorInfluenza Type B (RT-PCR)2019-08-20 05:32:00* Test Item Value Reference Range Interpretation Comments Influenza Type B (RT-PCR) (test code = 192586088) NOT DETECTED NOT DETECT [facility] CentennialRespiratory Syncytial Virus (PCR) 2019-08-20 05:32:00* Test Item Value Reference Range Interpretation Comments Respiratory Syncytial Virus (PCR) (test code = 219961035) NO T DETECTED NOT DETECT [facility] TaylorBordetella pertussis DNA (PCR)2019-08-20 05:32:00* Test Item Value Reference Range Interpretation Comments Bordetella pertussis DNA (PCR) (test code = 913601178) NOT DETEC HANS NOT DETECT [facility])2019-08-20 05:32:00* Test Item Value Reference Range Interpretation Comments Parainfluenza Type 1 (PCR) (test code = 150377111) NOT DETECTED NOT DETECT [facility]neParainfluenza Type 2 (PCR)2019-08-20 05:32:00* Test Item Value Reference Range Interpretation Comments Parainfluenza Type 2 (PCR) (test code = 294517777) NOT DETECTED NOT DETECT [facility]neParainfluenza Type 3 (PCR)2019-08-20 05:32:00* Test Item Value Reference Range Interpretation Comments Parainfluenza Type 3 (PCR) (test code = 082554345) NOT DETECTED NOT DETECT [facility]flu[facility] Type 4 (PCR)2019-08-20 05:32:00* Test Item Value Reference Range Interpretation Comments Parainfluenza Type 4 (PCR) (test code = Parainfluenza Type 4 (PCR)) NOT DETECTED NOT DETECT [facility]ennialRhinovirus (PCR)2019-08-20 05:32:00* Test Item Value Reference Range Interpretation Comments Rhinovirus (PCR) (test code = 834396820) NOT DETECTED NOT DETECT [facility] CentennialHuman Metapneumovirus (PCR)2019-08-20 05:32:00* Test Item Value Reference Range Interpretation Comments Human Metapneumovirus (PCR) (test code = 041993343) DETECTED NO T DETECT ABNORMALBaylor Scott & [facility] – CentennialAdenovirus (PCR)2019-08-20 05:32:00* Test Item Value Reference Range Interpretation Comments Adenovirus (PCR) (test code = 229402409) NOT DETECTED NOT DETECT [facility]ennialCoronavirus Type HKU1 (PCR)2019-08-20 05:32:00* Test Item Value Reference Range Interpretation Comments Coronavirus Type HKU1 (PCR) (test code = Coronavirus T ype HKU1 (PCR)) NOT DETECTED NOT DETECT [facility] CentennialCoronavirus Type NL63 (PCR)2019-08-20 05:32:00* Test Item Value Reference Range Interpretation Comments Coronavirus Type NL63 (PCR) (test code = Coronavirus T ype NL63 (PCR)) NOT DETECTED NOT DETECT [facility] Type OC43 (PCR)2019-08-20 05:32:00* Test Item Value Reference Range Interpretation Comments Coronavirus Type OC43 (PCR) (test code = Coronavirus T ype OC43 (PCR)) NOT DETECTED NOT DETECT [facility] Type 229E (PCR)2019-08-20 05:32:00* Test Item Value Reference Range Interpretation Comments Coronavirus Type 229E (PCR) (test code = Coronavirus T ype 229E (PCR)) NOT DETECTED NOT DETECT Test performed at [place] [address] 3[address]RESULTS HAVE BEEN CALLED TO THE PHYSICIANCHI [facility] TaylorCH[facility] SINGLE (PORTABLE)2019-08-19 10:26:00 [facility] [address] [place] [address] Patient Name: WARD VILLA MR #: [id number] : 1965 Age/Sex: 54/M Req #: [id number] Adm Physician: GERALD DIAZ MD Ordered by: GERALD DIAZ MD Report #: [id number] Location: [facility] Room/Bed: [place] [address] Procedure: [id number] DX/CHEST SINGLE (PORTABLE) Exam Date: 08/19/19 Exam Time: 1000 REPORT STATUS: Sig chloe EXAMINATION: CHEST SINGLE (PORTABLE) INDICATION: Cough, fever. COMPARISON: Chest radiograph 08/19/2019. FINDINGS: TUBES and LI JACKELINE: Right IJ tunneled hemodialysis catheter with tip terminating at the cavo atrial junction. LUNGS: Low lung volumes with central vascular congestion. Patchy bibasilar opacities. Mild interstitial opacities. PLEURA: No pleu ral effusion or pneumothorax. HEART AND MEDIASTINUM: The cardiomediastina l silhouette is mildly enlarged, likely accentuated by portable technique. BONES AND SOFT TISSUES: No acute osseous abnormality. Status post median st ernotomy. UPPER ABDOMEN: No free air under the diaphragm. IMPRESSI ON: Low lung volumes with central vascular congestion. Patchy bibasilar opaci ties, which may represent atelectasis or infection in the appropriate clinical setting. Signed by: Dr. June Lieberman MD on 08/19/2019 10:28 AM Dict ated By: JUNE LIEBERMAN MD 1028 Transcribed By: ASHLEY on 08/19/19 1028 COPY TO: GERALD DIAZ MD Influenza Virus Types A,B Jsbhukj9632-76-21 09:17:00* Test Item Value Reference Range Interpretation Comments Influenza Virus Types A,B Antigen (test code = 55970-4) NEGATIVE NEGATIVE [facility]ennialInfluenza virus A and B antigen identification by rdujpmbmzfvnucsbtz3197-90-43 08:45:00* Test Item Value Reference Range Interpretation Comments Influenza Virus Types A,B Antigen (test code = 00667-6) NEGATIVE NEGATIVE [facility]ennialFluoroscopic procedure less than one hour tbmyemqj1815-04-74 08:45:00* Test Item Value Reference Range Interpretation Comments Chlamydia pneumoniae DNA (PCR) (test code = Chlamydia pneumoniae DNA (PCR)) NOT DETECTED NOT DETECT [facility]ennialRespiratory virus pinob6416-18-88 08:45:00* Test Item Value Reference Range Interpretation Comments Influenza Type A (RT-PCR) (test code = 788078782) NOT DETECTED NOT DETECT [facility]ennialFluoroscopic procedure less than one hour qthxwmsx0992-39-11 08:45:00* Test Item Value Reference Range Interpretation Comments Mycoplasma pneumoniae (PCR) (test code = Mycoplasma pn eumoniae (PCR)) NOT DETECTED NOT DETECT [facility]ennialRespiratory virus qxual6672-76-59 08:45:00* Test Item Value Reference Range Interpretation Comments Influenza Type B (RT-PCR) (test code = 113362983) NOT DETECTED NOT DETECT [facility]ennialRespiratory virus nfrwa1375-83-34 08:45:00* Test Item Value Reference Range Interpretation Comments Respiratory Syncytial Virus (PCR) (test code = 136420910) NO T DETECTED NOT DETECT [facility]ennialRespiratory virus zrtaz2528-21-86 08:45:00* Test Item Value Reference Range Interpretation Comments Bordetella pertussis DNA (PCR) (test code = 241650175) NOT DETEC HANS NOT DETECT [facility]ennialRespiratory virus szuft1315-95-02 08:45:00* Test Item Value Reference Range Interpretation Comments Parainfluenza Type 1 (PCR) (test code = 887859907) NOT DETECTED NOT DETECT [facility]ennialRespiratory virus dtxdi2586-28-81 08:45:00* Test Item Value Reference Range Interpretation Comments Parainfluenza Type 2 (PCR) (test code = 844654454) NOT DETECTED NOT DETECT [facility]ennial[facility]piratory virus iqoor0742-71-28 08:45:00* Test Item Value Reference Range Interpretation Comments Parainfluenza Type 3 (PCR) (test code = 974989338) NOT DETECTED NOT DETECT [facility]ennialFluoroscopic procedure less than one hour kmdubujl0436-22-58 08:45:00* Test Item Value Reference Range Interpretation Comments Parainfluenza Type 4 (PCR) (test code = Parainfluenza Type 4 (PCR)) NOT DETECTED NOT DETECT [facility]ennialRespiratory virus efhvd0359-95-82 08:45:00* Test Item Value Reference Range Interpretation Comments Rhinovirus (PCR) (test code = 110874116) NOT DETECTED NOT DETECT [facility]ennialRespiratory virus kghkd0406-20-88 08:45:00* Test Item Value Reference Range Interpretation Comments Human Metapneumovirus (PCR) (test code = 504046815) DETECTED NO T DETECT ABNORMALB[facility] CentennialRespiratory virus rjreq7340-16-15 08:45:00* Test Item Value Reference Range Interpretation Comments Adenovirus (PCR) (test code = 633278807) NOT DETECTED NOT DETECT [facility]ennialFluoroscopic procedure less than one hour ernfzyrp4849-94-57 08:45:00* Test Item Value Reference Range Interpretation Comments Coronavirus Type 229E (PCR) (test code = Coronavirus T ype 229E (PCR)) NOT DETECTED NOT DETECT Test performed at [facility] [place] [address]RESULTS HAVE BEEN CALLED TO THE PHYSICIANB[facility] CentennialFluoroscopic procedure less than one hour tuibrmnk2946-45-98 08:45:00* Test Item Value Reference Range Interpretation Comments Coronavirus Type HKU1 (PCR) (test code = Coronavirus T ype HKU1 (PCR)) NOT DETECTED NOT DETECT [facility]ennialFluoroscopic procedure less than one hour pbyvmxvw3274-44-15 08:45:00* Test Item Value Reference Range Interpretation Comments Coronavirus Type NL63 (PCR) (test code = Coronavirus T ype NL63 (PCR)) NOT DETECTED NOT DETECT [facility]ennialFluoroscopic procedure less than one hour dhhtlpsd8318-11-96 08:45:00* Test Item Value Reference Range Interpretation Comments Coronavirus Type OC43 (PCR) (test code = Coronavirus T ype OC43 (PCR)) NOT DETECTED NOT DETECT [facility]ennialInfluenza virus A and B antigen identification by wmtkejpbopstorggmx8565-88-07 08:45:00* Test Item Value Reference Range Interpretation Comments Influenza Virus Types A,B Antigen (test code = 24634-4) NEGATIVE NEGATIVE [facility]ennialFluoroscopic procedure less than one hour jrsqtjfe9069-10-05 08:45:00* Test Item Value Reference Range Interpretation Comments Chlamydia pneumoniae DNA (PCR) (test code = Chlamydia pneumoniae DNA (PCR)) NOT DETECTED NOT DETECT [facility]ennialRespiratory virus bluvl9964-68-71 08:45:00* Test Item Value Reference Range Interpretation Comments Influenza Type A (RT-PCR) (test code = 916861397) NOT DETECTED NOT DETECT [facility]ennialFluoroscopic procedure less than one hour zlfuswmw3503-50-20 08:45:00* Test Item Value Reference Range Interpretation Comments Mycoplasma pneumoniae (PCR) (test code = Mycoplasma pn eumoniae (PCR)) NOT DETECTED NOT DETECT [facility]ennialRespiratory virus hwzph0559-81-03 08:45:00* Test Item Value Reference Range Interpretation Comments Influenza Type B (RT-PCR) (test code = 796901932) NOT DETECTED NOT DETECT [facility]ennialRespiratory virus yetts3038-79-04 08:45:00* Test Item Value Reference Range Interpretation Comments Respiratory Syncytial Virus (PCR) (test code = 172682147) NO T DETECTED NOT DETECT [facility]ennialRespiratory virus izcrf3971-14-22 08:45:00* Test Item Value Reference Range Interpretation Comments Bordetella pertussis DNA (PCR) (test code = 552578152) NOT DETEC HANS NOT DETECT [facility]ennialRespiratory virus pldxl7989-95-63 08:45:00* Test Item Value Reference Range Interpretation Comments Parainfluenza Type 1 (PCR) (test code = 904113185) NOT DETECTED NOT DETECT [facility]ennialRespiratory virus fxnjd5132-22-40 08:45:00* Test Item Value Reference Range Interpretation Comments Parainfluenza Type 2 (PCR) (test code = 722441496) NOT DETECTED NOT DETECT [facility]Respiratory virus hdwpu4323-81-59 08:45:00* Test Item Value Reference Range Interpretation Comments Parainfluenza Type 3 (PCR) (test code = 152084461) NOT DETECTED NOT DETECT [facility]ennialFluoroscopic procedure less than one hour okqeqzlm4504-58-45 08:45:00* Test Item Value Reference Range Interpretation Comments Parainfluenza Type 4 (PCR) (test code = Parainfluenza Type 4 (PCR)) NOT DETECTED NOT DETECT [facility]ennialRespiratory virus kcjwb0206-33-98 08:45:00* Test Item Value Reference Range Interpretation Comments Rhinovirus (PCR) (test code = 870329673) NOT DETECTED NOT DETECT [facility] aeyfu0818-80-69 08:45:00* Test Item Value Reference Range Interpretation Comments Human Metapneumovirus (PCR) (test code = 006367789) DETECTED NO T DETECT ABNORMALB[facility]ennialRespiratory virus ywuna8720-58-53 08:45:00* Test Item Value Reference Range Interpretation Comments Adenovirus (PCR) (test code = 300262736) NOT DETECTED NOT DETECT [facility]ennialFluoroscopic procedure less than one hour dfcstyde0924-46-30 08:45:00* Test Item Value Reference Range Interpretation Comments Coronavirus Type 229E (PCR) (test code = Coronavirus T ype 229E (PCR)) NOT DETECTED NOT DETECT Test performed at [address] [address]RESULTS HAVE BEEN CALLED TO THE PHYSICIANB[facility]ennialFluoroscopic procedure less than one hour rfgqsalz0276-55-90 08:45:00* Test Item Value Reference Range Interpretation Comments Coronavirus Type HKU1 (PCR) (test code = Coronavirus T ype HKU1 (PCR)) NOT DETECTED NOT DETECT [facility]ennialFluoroscopic procedure less than one hour wxramjne1585-12-65 08:45:00* Test Item Value Reference Range Interpretation Comments Coronavirus Type NL63 (PCR) (test code = Coronavirus T ype NL63 (PCR)) NOT DETECTED NOT DETECT [facility]ennialFluoroscopic procedure less than one hour foeqnrqq9828-02-71 08:45:00* Test Item Value Reference Range Interpretation Comments Coronavirus Type OC43 (PCR) (test code = Coronavirus T ype OC43 (PCR)) NOT DETECTED NOT DETECT [facility]ennialInfluenza virus A and B antigen identification by fdodagqjwiqpfukrib7280-73-04 08:45:00* Test Item Value Reference Range Interpretation Comments Influenza Virus Types A,B Antigen (test code = 19407-4) NEGATIVE NEGATIVE [facility]ennialFluoroscopic procedure less than one hour mxcrbhqh3959-85-58 08:45:00* Test Item Value Reference Range Interpretation Comments Chlamydia pneumoniae DNA (PCR) (test code = Chlamydia pneumoniae DNA (PCR)) NOT DETECTED NOT DETECT [facility]ennialRespiratory virus peywj2228-71-86 08:45:00* Test Item Value Reference Range Interpretation Comments Influenza Type A (RT-PCR) (test code = 916826171) NOT DETECTED NOT DETECT [facility]ennialFluoroscopic procedure less than one hour kcapghyi1096-65-77 08:45:00* Test Item Value Reference Range Interpretation Comments Mycoplasma pneumoniae (PCR) (test code = Mycoplasma pn eumoniae (PCR)) NOT DETECTED NOT DETECT [facility]ennialRespiratory virus ywhrs3765-37-83 08:45:00* Test Item Value Reference Range Interpretation Comments Influenza Type B (RT-PCR) (test code = 701764172) NOT DETECTED NOT DETECT [facility]ennialRespiratory virus oaude0526-58-74 08:45:00* Test Item Value Reference Range Interpretation Comments Respiratory Syncytial Virus (PCR) (test code = 736808297) NO T DETECTED NOT DETECT [facility]ennialRespiratory virus lmyhl8936-58-82 08:45:00* Test Item Value Reference Range Interpretation Comments Bordetella pertussis DNA (PCR) (test code = 457255911) NOT DETEC HANS NOT DETECT [facility] wmjxm6536-94-23 08:45:00* Test Item Value Reference Range Interpretation Comments Parainfluenza Type 1 (PCR) (test code = 305723610) NOT DETECTED NOT DETECT [facility] Taylor[facility] virus emdht7725-98-74 08:45:00* Test Item Value Reference Range Interpretation Comments Parainfluenza Type 2 (PCR) (test code = 547688662) NOT DETECTED NOT DETECT [facility] xdbqi0464-45-80 08:45:00* Test Item Value Reference Range Interpretation Comments Parainfluenza Type 3 (PCR) (test code = 658272028) NOT DETECTED NOT DETECT [facility] TaylorFluoroscopic procedure less than one hour idiqiuhx1533-55-27 08:45:00* Test Item Value Reference Range Interpretation Comments Parainfluenza Type 4 (PCR) (test code = Parainfluenza Type 4 (PCR)) NOT DETECTED NOT DETECT [facility] Taylor[facility] virus vhhie6206-22-34 08:45:00* Test Item Value Reference Range Interpretation Comments Rhinovirus (PCR) (test code = 009009639) NOT DETECTED NOT DETECT [facility] TaylorRespiratory virus dkhnn3740-46-30 08:45:00* Test Item Value Reference Range Interpretation Comments Human Metapneumovirus (PCR) (test code = 139465451) DETECTED NO T DETECT ABNORMALCHI [facility] TaylorRespiratory virus gcdus1069-10-93 08:45:00* Test Item Value Reference Range Interpretation Comments Adenovirus (PCR) (test code = 041916206) NOT DETECTED NOT DETECT [facility] TaylorFluoroscopic procedure less than one hour nizqvmvi7176-68-42 08:45:00* Test Item Value Reference Range Interpretation Comments Coronavirus Type 229E (PCR) (test code = Coronavirus T ype 229E (PCR)) NOT DETECTED NOT DETECT Test performed at [facility] [place], [place] [address]RESULTS HAVE BEEN CALLED TO THE PHYSICIANCHI [facility] TaylorFluoroscopic procedure less than one hour dsxjpzqf5937-54-12 08:45:00* Test Item Value Reference Range Interpretation Comments Coronavirus Type HKU1 (PCR) (test code = Coronavirus T ype HKU1 (PCR)) NOT DETECTED NOT DETECT [facility]ennialFluoroscopic procedure less than one hour kzdemnds1073-79-05 08:45:00* Test Item Value Reference Range Interpretation Comments Coronavirus Type NL63 (PCR) (test code = Coronavirus T ype NL63 (PCR)) NOT DETECTED NOT DETECT [facility]ennialFluoroscopic procedure less than one hour rafvkxpe0751-47-95 08:45:00* Test Item Value Reference Range Interpretation Comments Coronavirus Type OC43 (PCR) (test code = Coronavirus T ype OC43 (PCR)) NOT DETECTED NOT DETECT [facility]ennialInfluenza virus A and B antigen identification by inmanyqclfsgqdeufg9546-75-46 08:45:00* Test Item Value Reference Range Interpretation Comments Influenza Virus Types A,B Antigen (test code = 76131-7) NEGATIVE NEGATIVE [facility]ennialFluoroscopic procedure less than one hour havciqga7027-91-10 08:45:00* Test Item Value Reference Range Interpretation Comments Chlamydia pneumoniae DNA (PCR) (test code = Chlamydia pneumoniae DNA (PCR)) NOT DETECTED NOT DETECT [facility]ennialRespiratory virus xlzkt7532-36-95 08:45:00* Test Item Value Reference Range Interpretation Comments Influenza Type A (RT-PCR) (test code = 592730097) NOT DETECTED NOT DETECT [facility]ennialFluoroscopic procedure less than one hour nibrjulp8266-39-87 08:45:00* Test Item Value Reference Range Interpretation Comments Mycoplasma pneumoniae (PCR) (test code = Mycoplasma pn eumoniae (PCR)) NOT DETECTED NOT DETECT [facility]ennialRespiratory virus apbta0657-89-37 08:45:00* Test Item Value Reference Range Interpretation Comments Influenza Type B (RT-PCR) (test code = 416699665) NOT DETECTED NOT DETECT [facility]ennialRespiratory virus eipsf6206-05-71 08:45:00* Test Item Value Reference Range Interpretation Comments Respiratory Syncytial Virus (PCR) (test code = 730961871) NO T DETECTED NOT DETECT [facility] triel6021-49-91 08:45:00* Test Item Value Reference Range Interpretation Comments Bordetella pertussis DNA (PCR) (test code = 623964236) NOT DETEC HANS NOT DETECT [facility] qxvig1408-95-91 08:45:00* Test Item Value Reference Range Interpretation Comments Parainfluenza Type 1 (PCR) (test code = 154181866) NOT DETECTED NOT DETECT [facility] gxltn9873-26-49 08:45:00* Test Item Value Reference Range Interpretation Comments Parainfluenza Type 2 (PCR) (test code = 620186025) NOT DETECTED NOT DETECT [facility] tiwrw2938-35-99 08:45:00* Test Item Value Reference Range Interpretation Comments Parainfluenza Type 3 (PCR) (test code = 778983447) NOT DETECTED NOT DETECT [facility]ennialFluoroscopic procedure less than one hour fyngcvpb9452-57-44 08:45:00* Test Item Value Reference Range Interpretation Comments Parainfluenza Type 4 (PCR) (test code = Parainfluenza Type 4 (PCR)) NOT DETECTED NOT DETECT [facility]Res[facility] virus hlltc7165-88-93 08:45:00* Test Item Value Reference Range Interpretation Comments Rhinovirus (PCR) (test code = 863624587) NOT DETECTED NOT DETECT [facility]ennialRes[facility] virus rguff0336-52-71 08:45:00* Test Item Value Reference Range Interpretation Comments Human Metapneumovirus (PCR) (test code = 411243874) DETECTED NO T DETECT ABNORMALCHI [facility] TaylorRespiratory virus rlxya8505-25-77 08:45:00* Test Item Value Reference Range Interpretation Comments Adenovirus (PCR) (test code = 122514245) NOT DETECTED NOT DETECT [facility]ennialFluoroscopic procedure less than one hour tlojxjit3852-18-13 08:45:00* Test Item Value Reference Range Interpretation Comments Coronavirus Type 229E (PCR) (test code = Coronavirus T ype 229E (PCR)) NOT DETECTED NOT DETECT Test performed at [facility] [place] [address]RESULTS HAVE BEEN CALLED TO THE PHYSICIANCHI [facility] TaylorFluoroscopic procedure less than one hour hzsguajn9067-79-21 08:45:00* Test Item Value Reference Range Interpretation Comments Coronavirus Type HKU1 (PCR) (test code = Coronavirus T ype HKU1 (PCR)) NOT DETECTED NOT DETECT [facility]ennialFluoroscopic procedure less than one hour mdohiwza0445-13-43 08:45:00* Test Item Value Reference Range Interpretation Comments Coronavirus Type NL63 (PCR) (test code = Coronavirus T ype NL63 (PCR)) NOT DETECTED NOT DETECT [facility]ennialFluoroscopic procedure less than one hour nutlwgsk5011-57-59 08:45:00* Test Item Value Reference Range Interpretation Comments Coronavirus Type OC43 (PCR) (test code = Coronavirus T ype OC43 (PCR)) NOT DETECTED NOT DETECT [facility]ennialInfluenza virus A and B antigen identification by daokbjqsddmswrogca2166-91-22 08:45:00* Test Item Value Reference Range Interpretation Comments Influenza Virus Types A,B Antigen (test code = 61722-1) NEGATIVE NEGATIVE [facility]ennialFluoroscopic procedure less than one hour aqhrykwi1764-13-15 08:45:00* Test Item Value Reference Range Interpretation Comments Chlamydia pneumoniae DNA (PCR) (test code = Chlamydia pneumoniae DNA (PCR)) NOT DETECTED NOT DETECT [facility] virus jdpna2827-24-24 08:45:00* Test Item Value Reference Range Interpretation Comments Influenza Type A (RT-PCR) (test code = 167351821) NOT DETECTED NOT DETECT [facility]ennialFluoroscopic procedure less than one hour nlsjrnmt0464-91-84 08:45:00* Test Item Value Reference Range Interpretation Comments Mycoplasma pneumoniae (PCR) (test code = Mycoplasma pn eumoniae (PCR)) NOT DETECTED NOT DETECT [facility] Taylor[facility] virus onknz8864-81-68 08:45:00* Test Item Value Reference Range Interpretation Comments Influenza Type B (RT-PCR) (test code = 973674775) NOT DETECTED NOT DETECT [facility] virus mxzsw9869-93-06 08:45:00* Test Item Value Reference Range Interpretation Comments Respiratory Syncytial Virus (PCR) (test code = 907817126) NO T DETECTED NOT DETECT [facility]ennial[facility]piratory virus ibknr6235-38-74 08:45:00* Test Item Value Reference Range Interpretation Comments Bordetella pertussis DNA (PCR) (test code = 160753829) NOT DETEC HANS NOT DETECT [facility]ennial[facility] virus vovxf1015-94-42 08:45:00* Test Item Value Reference Range Interpretation Comments Parainfluenza Type 1 (PCR) (test code = 410541687) NOT DETECTED NOT DETECT [facility] virus rxyzh2267-50-68 08:45:00* Test Item Value Reference Range Interpretation Comments Parainfluenza Type 2 (PCR) (test code = 595473510) NOT DETECTED NOT DETECT [facility]piratory virus ucfbk5094-59-13 08:45:00* Test Item Value Reference Range Interpretation Comments Parainfluenza Type 3 (PCR) (test code = 334414046) NOT DETECTED NOT DETECT [facility]ennialFluoroscopic procedure less than one hour dorbeqba5215-46-44 08:45:00* Test Item Value Reference Range Interpretation Comments Parainfluenza Type 4 (PCR) (test code = Parainfluenza Type 4 (PCR)) NOT DETECTED NOT DETECT [facility] virus tjfel5900-41-57 08:45:00* Test Item Value Reference Range Interpretation Comments Rhinovirus (PCR) (test code = 900165490) NOT DETECTED NOT DETECT [facility] virus zvynf2676-98-91 08:45:00* Test Item Value Reference Range Interpretation Comments Human Metapneumovirus (PCR) (test code = 278476476) DETECTED NO T DETECT ABNORMALCHI [facility] TaylorRespiratory virus plcnj9684-04-92 08:45:00* Test Item Value Reference Range Interpretation Comments Adenovirus (PCR) (test code = 964649218) NOT DETECTED NOT DETECT [facility]ennialFluoroscopic procedure less than one hour trhjvoes0576-45-49 08:45:00* Test Item Value Reference Range Interpretation Comments Coronavirus Type 229E (PCR) (test code = Coronavirus T ype 229E (PCR)) NOT DETECTED NOT DETECT Test performed [address] [address] [id number] HAVE BEEN CALLED TO THE PHYSICIANCHI [facility] TaylorFluoroscopic procedure less than one hour shhusdiz3333-93-93 08:45:00* Test Item Value Reference Range Interpretation Comments Coronavirus Type HKU1 (PCR) (test code = Coronavirus T ype HKU1 (PCR)) NOT DETECTED NOT DETECT [facility]ennialFluoroscopic procedure less than one hour qrmjinbp5449-43-93 08:45:00* Test Item Value Reference Range Interpretation Comments Coronavirus Type NL63 (PCR) (test code = Coronavirus T ype NL63 (PCR)) NOT DETECTED NOT DETECT [facility]ennialFluoroscopic procedure less than one hour bzhayqlp3071-33-62 08:45:00* Test Item Value Reference Range Interpretation Comments Coronavirus Type OC43 (PCR) (test code = Coronavirus T ype OC43 (PCR)) NOT DETECTED NOT DETECT [facility] CentennialInfluenza virus A and B antigen identification by mmppkdnoxyjfblwveh2833-74-56 08:45:00* Test Item Value Reference Range Interpretation Comments Influenza Virus Types A,B Antigen (test code = 34303-7) NEGATIVE NEGATIVE [facility]ennialFluoroscopic procedure less than one hour ztpnmrny4285-73-53 08:45:00* Test Item Value Reference Range Interpretation Comments Chlamydia pneumoniae DNA (PCR) (test code = Chlamydia pneumoniae DNA (PCR)) NOT DETECTED NOT DETECT [facility]ennialRespiratory virus lxtnv2346-54-64 08:45:00* Test Item Value Reference Range Interpretation Comments Influenza Type A (RT-PCR) (test code = 950687112) NOT DETECTED NOT DETECT [facility]ennialFluoroscopic procedure less than one hour qpoiekye0520-17-77 08:45:00* Test Item Value Reference Range Interpretation Comments Mycoplasma pneumoniae (PCR) (test code = Mycoplasma pn eumoniae (PCR)) NOT DETECTED NOT DETECT [facility] TaylorRespiratory virus hwfmz8065-89-05 08:45:00* Test Item Value Reference Range Interpretation Comments Influenza Type B (RT-PCR) (test code = 405853036) NOT DETECTED NOT DETECT [facility] TaylorRespiratory virus rjmcx4753-08-56 08:45:00* Test Item Value Reference Range Interpretation Comments Respiratory Syncytial Virus (PCR) (test code = 256142424) NO T DETECTED NOT [facility]ECT [facility] voxvf5197-35-76 08:45:00* Test Item Value Reference Range Interpretation Comments Bordetella pertussis DNA (PCR) (test code = 782748821) NOT DETEC HANS NOT DETECT [facility]ennialRespiratory virus ztotd9973-29-68 08:45:00* Test Item Value Reference Range Interpretation Comments Parainfluenza Type 1 (PCR) (test code = 649354175) NOT DETECTED NOT DETECT [facility]ennialRespiratory virus dggpi4604-61-79 08:45:00* Test Item Value Reference Range Interpretation Comments Parainfluenza Type 2 (PCR) (test code = 138210219) NOT DETECTED NOT DETECT [facility]ennialRespiratory virus bdawe3625-73-66 08:45:00* Test Item Value Reference Range Interpretation Comments Parainfluenza Type 3 (PCR) (test code = 932180479) NOT DETECTED NOT DETECT [facility] TaylorFluoroscopic procedure less than one hour sibshsoz1510-94-21 08:45:00* Test Item Value Reference Range Interpretation Comments Parainfluenza Type 4 (PCR) (test code = Parainfluenza Type 4 (PCR)) NOT DETECTED NOT DETECT [facility] virus bnmqj3978-81-95 08:45:00* Test Item Value Reference Range Interpretation Comments Rhinovirus (PCR) (test code = 420036818) NOT DETECTED NOT DETECT [facility] Taylor[facility] virus accag8270-27-46 08:45:00* Test Item Value Reference Range Interpretation Comments Human Metapneumovirus (PCR) (test code = 627660971) DETECTED NO T DETECT [facility]AL[facility]ennialRespiratory virus sewgg4094-34-30 08:45:00* Test Item Value Reference Range Interpretation Comments Adenovirus (PCR) (test code = 424654238) NOT DETECTED NOT DETECT [facility]ennialFluoroscopic procedure less than one hour iremiwhc5367-75-12 08:45:00* Test Item Value Reference Range Interpretation Comments Coronavirus Type 229E (PCR) (test code = Coronavirus T ype 229E (PCR)) NOT DETECTED NOT DETECT Test performed at [place] [address]RESULTS [facility] nfcjlobf5017-99-61 08:45:00* Test Item Value Reference Range Interpretation Comments Coronavirus Type HKU1 (PCR) (test code = Coronavirus T ype HKU1 (PCR)) NOT DETECTED NOT DETECT [facility]ennialFluoroscopic procedure less than one hour qguwstyo7351-37-30 08:45:00* Test Item Value Reference Range Interpretation Comments Coronavirus Type NL63 (PCR) (test code = Coronavirus T ype NL63 (PCR)) NOT DETECTED NOT DETECT [facility]ennialFlu[facility] procedure less than one hour ecukjxkc0922-54-18 08:45:00* Test Item Value Reference Range Interpretation Comments Coronavirus Type OC43 (PCR) (test code = Coronavirus T ype OC43 (PCR)) NOT DETECTED NOT DETECT [facility]ennialInfluenza virus A and B antigen identification by zbawadxgmuipskpjwo8152-59-34 08:45:00* Test Item Value Reference Range Interpretation Comments Influenza Virus Types A,B Antigen (test code = 56105-5) NEGATIVE NEGATIVE [facility]ennialFlu[facility]oscopic procedure less than one hour hscmvbtd9971-16-11 08:45:00* Test Item Value Reference Range Interpretation Comments Chlamydia pneumoniae DNA (PCR) (test code = Chlamydia pneumoniae DNA (PCR)) NOT DETECTED NOT DETECT [facility]ennialRespiratory virus ytiin2267-46-40 08:45:00* Test Item Value Reference Range Interpretation Comments Influenza Type A (RT-PCR) (test code = 750757509) NOT DETECTED NOT DETECT [facility] TaylorFluoroscopic procedure less than one hour aubajcfb4172-99-41 08:45:00* Test Item Value Reference Range Interpretation Comments Mycoplasma pneumoniae (PCR) (test code = Mycoplasma pn eumoniae (PCR)) NOT DETECTED NOT DETECT [facility] TaylorRes[facility] virus sqiwl3458-69-03 08:45:00* Test Item Value Reference Range Interpretation Comments Influenza Type B (RT-PCR) (test code = 340787261) NOT DETECTED NOT DETECT [facility] TaylorRes[facility] virus nvwoa5552-11-55 08:45:00* Test Item Value Reference Range Interpretation Comments Respiratory Syncytial Virus (PCR) (test code = 560846182) NO T DETECTED NOT DETECT [facility] Taylor[facility] virus xrmih7560-51-36 08:45:00* Test Item Value Reference Range Interpretation Comments Bordetella pertussis DNA (PCR) (test code = 547663449) NOT DETEC HANS NOT DETECT [facility] TaylorRes[facility] virus qmqbd7946-41-45 08:45:00* Test Item Value Reference Range Interpretation Comments Parainfluenza Type 1 (PCR) (test code = 728755063) NOT DETECTED NOT DETECT [facility] TaylorRespiratory virus mbekg7806-81-96 08:45:00* Test Item Value Reference Range Interpretation Comments Parainfluenza Type 2 (PCR) (test code = 415022864) NOT DETECTED NOT DETECT [facility] TaylorRes[facility] virus xpvrb9979-95-04 08:45:00* Test Item Value Reference Range Interpretation Comments Parainfluenza Type 3 (PCR) (test code = 042192106) NOT DETECTED NOT DETECT [facility] TaylorFluoroscopic procedure less than one hour cchcywki8179-70-17 08:45:00* Test Item Value Reference Range Interpretation Comments Parainfluenza Type 4 (PCR) (test code = Parainfluenza Type 4 (PCR)) NOT DETECTED NOT DETECT [facility] bbhhp1265-96-53 08:45:00* Test Item Value Reference Range Interpretation Comments Rhinovirus (PCR) (test code = 523307020) NOT DETECTED NOT DETECT [facility]ennialRespiratory virus fuexh2954-04-55 08:45:00* Test Item Value Reference Range Interpretation Comments Human Metapneumovirus (PCR) (test code = 459069337) DETECTED NO T DETECT ABNORMALB[facility]ennialRespiratory virus ufpni1943-36-14 08:45:00* Test Item Value Reference Range Interpretation Comments Adenovirus (PCR) (test code = 836145965) NOT DETECTED NOT DETECT [facility]ennialFluoroscopic procedure less than one hour pwbzjnof1614-33-45 08:45:00* Test Item Value Reference Range Interpretation Comments Coronavirus Type 229E (PCR) (test code = Coronavirus T ype 229E (PCR)) NOT DETECTED NOT DETECT Test performed at [place] [address]RESULTS HAVE BEEN CALLED TO THE [facility]IANB[facility]ennialFluoroscopic procedure less than one hour hczecajs3410-94-11 08:45:00* Test Item Value Reference Range Interpretation Comments Coronavirus Type HKU1 (PCR) (test code = Coronavirus T ype HKU1 (PCR)) NOT DETECTED NOT DETECT [facility]ennialFluoroscopic procedure less than one hour zvzebxmd6997-24-21 08:45:00* Test Item Value Reference Range Interpretation Comments Coronavirus Type NL63 (PCR) (test code = Coronavirus T ype NL63 (PCR)) NOT DETECTED NOT DETECT [facility]ennialFluoroscopic procedure less than one hour yraoisww7548-11-93 08:45:00* Test Item Value Reference Range Interpretation Comments Coronavirus Type OC43 (PCR) (test code = Coronavirus T ype OC43 (PCR)) NOT DETECTED NOT DETECT [facility] CentennialDifferential Total Cells Counted 2019-08-19 08:02:00* Test Item Value Reference Range Interpretation Comments Differential Total Cells Counted (test code = Differen tial Total Cells Counted) 100 [facility] CentennialNeutrophils % (Manual)2019-08-19 08:02:00 * Test Item Value Reference Range Interpretation Comments Neutrophils % (Manual) (test code = 42609-9) 83 40-74 H [facility] CentennialLymphocytes % (Manual)2019-08-19 08:02:00 * Test Item Value Reference Range Interpretation Comments Lymphocytes % (Manual) (test code = 737-7) 6 19-48 L [facility] CentennialMonocytes % (Manual)2019-08-19 08:02:00* Test Item Value Reference Range Interpretation Comments Monocytes % (Manual) (test code = 744-3) 6 3.4-9.0 [facility]ennialEosinophils % (Manual)2019-08-19 08:02:00 * Test Item Value Reference Range Interpretation Comments Eosinophils % (Manual) (test code = 714-6) 3 0-7 [facility]ennialBasophils % (Manual)2019-08-19 08:02:00* Test Item Value Reference Range Interpretation Comments Basophils % (Manual) (test code = 43600-8) 1 0-1.5 [facility] CentennialMyelocytes %2019-08-19 08:02:00* Test Item Value Reference Range Interpretation Comments Myelocytes % (test code = 749-2) 1 0-0 H [facility] CentennialPlatelet Xzhgqrbz6644-16-97 08:02:00* Test Item Value Reference Range Interpretation Comments Platelet Estimate (test code = 37976-2) MODERATELY DECREASED [facility] CentennialAnisocytosis2020-03-21 08:02:00* Test Item Value Reference Range Interpretation Comments Anisocytosis (test code = 702-1) MODE [facility] CentennialMacrocytosis2020-03-21 08:02:00* Test Item Value Reference Range Interpretation Comments Macrocytosis (test code = 738-5) SLIGHT [facility] CentennialRed Cell Morphology Icbugwe6797-09-90 08:02:00* Test Item Value Reference Range Interpretation Comments Red Cell Morphology Comment (test code = 6742-1) ABNORMAL [facility] CentennialProthrombin Moeu9349-77-24 06:23:00* Test Item Value Reference Range Interpretation Comments Prothrombin Time (test code = 5902-2) 13.8 11.9-14.5 [facility] CentennialProthromb Time International Ratio 2019-08-19 06:23:00* Test Item Value Reference Range Interpretation Comments Prothromb Time International Ratio (test code = 6301-6) 1.00 Oral Anticoagulant Therapy INR Values:1. Low Intensity Therapy 1.5 - 2.02 . Moderate Intensity Therapy 2.0 - 3.03. High Intensity Therapy(1) 2.5 - 3. 54. High Intensity Therapy(2) 3.0 - 4.05. Panic Value INR > 5.0 [facility] CentennialCHEST SINGLE (PORTABLE)2019-08-19 06:04:00 [facility] [address] [place] [address] Patient Name: WARD VILLA MR #: [id number] : 1965 Age/Sex: 54/M Req #: [id number] Adm Physician: GERALD DIAZ MD Ordered by: GERALD DIAZ MD Report #: [id number] Location: MED/SURG Room/Bed: [facility] Procedure: [id number] DX/CHEST SINGLE (PORTABLE) Exam Date: 08/19/19 Exam Time: 0530 REPORT STATUS: Sig chloe EXAMINATION: Chest AP portable INDICATION: Pulmonary edema. CO MPARISON: 08/18/19 FINDINGS: TUBES and LINES: Tiny old right IJ porsha lysis catheter is unchanged in position. LUNGS: There is mild prominence o f the central pulmonary vasculature, consistent with pulmonary venous congesti on. Bibasilar subsegmental atelectasis. PLEURA: No pleural effusion or p neumothorax. HEART AND MEDIASTINUM: Cardiac size is mildly enlarged. BONES AND SOFT TISSUES: No acute osseous lesion. Median sternotomy wires. UPPER ABDOMEN: No free air under the diaphragm. Metallic wire project ed on the superior left hemithorax, likely outside the patient. IMPRESSIO N: Bilateral pulmonary venous congestion, unchanged. Signed by: Dr. Alfie Granado M.D. on 08/19/2019 6:10 AM Dictated By: NAVA Payne MD, MD 9 Transc ribed By: ASHLEY on 08/19/19609 COPY TO: GERALD DIAZ MD Fluoroscopic procedure less than one hour srbgcplj7872-59-32 05:30:00* Test Item Value Reference Range Interpretation Comments Differential Total Cells Counted (test code = Differweston tial Total Cells Counted) 100 [facility] blood neutrophils/100 leukocytes 2019-08-19 05:30:00* Test Item Value Reference Range Interpretation Comments Neutrophils % (Manual) (test code = 37778-8) 83 40-74 [facility] blood lymphocytes/100 leukocytes 2019-08-19 05:30:00* Test Item Value Reference Range Interpretation Comments Lymphocytes % (Manual) (test code = 737-7) 6 19-48 [facility] blood monocytes/100 leukocytes 2019-08-19 05:30:00* Test Item Value Reference Range Interpretation Comments Monocytes % (Manual) (test code = 744-3) 6 3.4-9.0 [facility] blood eosinophil count as percentage of total ctffdglqzr1891-79-76 05:30:00* Test Item Value Reference Range Interpretation Comments Eosinophils % (Manual) (test code = 714-6) 3 0-7 [facility] basophil brskndflhx6898-17-44 05:30:00* Test Item Value Reference Range Interpretation Comments Basophils % (Manual) (test code = 10940-4) 1 0-1.5 [facility] blood myelocytes/100 leukocytes 2019-08-19 05:30:00* Test Item Value Reference Range Interpretation Comments Myelocytes % (test code = 749-2) 1 0-0 [facility] platelets count by estimate (number/volume)2019-08-19 05:30:00* Test Item Value Reference Range Interpretation Comments Platelet Estimate (test code = 14009-9) MODERATELY DECREASED [facility] anisocytosis detection by light uoopqqkfuu4452-23-16 05:30:00* Test Item Value Reference Range Interpretation Comments Anisocytosis (test code = 702-1) MODE [facility] macrocytes detection by light kpmztgsmct3199-93-52 05:30:00* Test Item Value Reference Range Interpretation Comments Macrocytosis (test code = 738-5) SLIGHT [facility] CentennialRB jcxoyueccd7876-66-29 05:30:00* Test Item Value Reference Range Interpretation Comments Red Cell Morphology Comment (test code = 6742-1) ABNORMAL [facility] CentennialFluoroscopic procedure less than one hour awguoufk1727-82-97 05:30:00* Test Item Value Reference Range Interpretation Comments Differential Total Cells Counted (test code = Differweston tial Total Cells Counted) 100 [facility] blood neutrophils/100 leukocytes 2019-08-19 05:30:00* Test Item Value Reference Range Interpretation Comments Neutrophils % (Manual) (test code = 64269-9) 83 40-74 [facility] blood lymphocytes/100 leukocytes 2019-08-19 05:30:00* Test Item Value Reference Range Interpretation Comments Lymphocytes % (Manual) (test code = 737-7) 6 19-48 [facility] blood monocytes/100 leukocytes 2019-08-19 05:30:00* Test Item Value Reference Range Interpretation Comments Monocytes % (Manual) (test code = 744-3) 6 3.4-9.0 [facility] blood eosinophil count as percentage of total ecuduwqccc2536-57-33 05:30:00* Test Item Value Reference Range Interpretation Comments Eosinophils % (Manual) (test code = 714-6) 3 0-7 [facility] basophil xzfstlyqeu9005-90-95 05:30:00* Test Item Value Reference Range Interpretation Comments Basophils % (Manual) (test code = 42597-0) 1 0-1.5 [facility] blood myelocytes/100 leukocytes 2019-08-19 05:30:00* Test Item Value Reference Range Interpretation Comments Myelocytes % (test code = 749-2) 1 0-0 [facility] platelets count by estimate (number/volume)2019-08-19 05:30:00* Test Item Value Reference Range Interpretation Comments Platelet Estimate (test code = 95291-2) MODERATELY DECREASED [facility] anisocytosis detection by light xgwlutuvrj6739-75-12 05:30:00* Test Item Value Reference Range Interpretation Comments Anisocytosis (test code = 702-1) MODE [facility] macrocytes detection by light sdnpnszxzw5121-04-99 05:30:00* Test Item Value Reference Range Interpretation Comments Macrocytosis (test code = 738-5) SLIGHT [facility] CentennialRBC rjsdzzjhhu9512-99-03 05:30:00* Test Item Value Reference Range Interpretation Comments Red Cell Morphology Comment (test code = 6742-1) ABNORMAL [facility] CentennialFluoroscopic procedure less than one hour bsenpzmb6891-38-14 05:30:00* Test Item Value Reference Range Interpretation Comments Differential Total Cells Counted (test code = Differen tial Total Cells Counted) 100 [facility] blood neutrophils/100 leukocytes 2019-08-19 05:30:00* Test Item Value Reference Range Interpretation Comments Neutrophils % (Manual) (test code = 93225-4) 83 40-74 [facility] blood lymphocytes/100 leukocytes 2019-08-19 05:30:00* Test Item Value Reference Range Interpretation Comments Lymphocytes % (Manual) (test code = 737-7) 6 19-48 [facility] blood monocytes/100 leukocytes 2019-08-19 05:30:00* Test Item Value Reference Range Interpretation Comments Monocytes % (Manual) (test code = 744-3) 6 3.4-9.0 [facility] blood eosinophil count as percentage of total pzzhgeumui0581-84-02 05:30:00* Test Item Value Reference Range Interpretation Comments Eosinophils % (Manual) (test code = 714-6) 3 0-7 [facility] tjliznlrwf1537-45-09 05:30:00* Test Item Value Reference Range Interpretation Comments Basophils % (Manual) (test code = 92961-3) 1 0-1.5 [facility] blood myelocytes/100 leukocytes 2019-08-19 05:30:00* Test Item Value Reference Range Interpretation Comments Myelocytes % (test code = 749-2) 1 0-0 [facility] platelets count by estimate (number/volume)2019-08-19 05:30:00* Test Item Value Reference Range Interpretation Comments Platelet Estimate (test code = 68164-5) MODERATELY DECREASED [facility] anisocytosis detection by light zyhmyrdmpy2330-41-29 05:30:00* Test Item Value Reference Range Interpretation Comments Anisocytosis (test code = 702-1) MODE [facility] macrocytes detection by light huemdlsuop1890-52-17 05:30:00* Test Item Value Reference Range Interpretation Comments Macrocytosis (test code = 738-5) SLIGHT [facility]ennialRB gkafzudiae4668-29-67 05:30:00* Test Item Value Reference Range Interpretation Comments Red Cell Morphology Comment (test code = 6742-1) ABNORMAL [facility]ennialFluoroscopic procedure less than one hour gkkibogf5830-57-21 05:30:00* Test Item Value Reference Range Interpretation Comments Differential Total Cells Counted (test code = Differen tial Total Cells Counted) 100 [facility] blood neutrophils/100 leukocytes 2019-08-19 05:30:00* Test Item Value Reference Range Interpretation Comments Neutrophils % (Manual) (test code = 80903-2) 83 40-74 [facility] blood lymphocytes/100 leukocytes 2019-08-19 05:30:00* Test Item Value Reference Range Interpretation Comments Lymphocytes % (Manual) (test code = 737-7) 6 19-48 [facility] blood monocytes/100 leukocytes 2019-08-19 05:30:00* Test Item Value Reference Range Interpretation Comments Monocytes % (Manual) (test code = 744-3) 6 3.4-9.0 [facility] blood eosinophil count as percentage of total heqjosoaiu6467-32-36 05:30:00* Test Item Value Reference Range Interpretation Comments Eosinophils % (Manual) (test code = 714-6) 3 0-7 [facility] wxuyrjlxvq1349-07-51 05:30:00* Test Item Value Reference Range Interpretation Comments Basophils % (Manual) (test code = 35445-4) 1 0-1.5 [facility] blood myelocytes/100 leukocytes 2019-08-19 05:30:00* Test Item Value Reference Range Interpretation Comments Myelocytes % (test code = 749-2) 1 0-0 [facility] platelets count by estimate (number/volume)2019-08-19 05:30:00* Test Item Value Reference Range Interpretation Comments Platelet Estimate (test code = 69267-7) MODERATELY DECREASED [facility] anisocytosis detection by light ydazyldcng1176-46-02 05:30:00* Test Item Value Reference Range Interpretation Comments Anisocytosis (test code = 702-1) MODE [facility] macrocytes detection by light hkzhrobfvs2507-99-34 05:30:00* Test Item Value Reference Range Interpretation Comments Macrocytosis (test code = 738-5) SLIGHT [facility]RB erklhqvjsx4606-56-63 05:30:00* Test Item Value Reference Range Interpretation Comments Red Cell Morphology Comment (test code = 6742-1) ABNORMAL [facility] blood eosinophil count as percentage of total duvgrmfucx6999-28-34 05:30:00* Test Item Value Reference Range Interpretation Comments Eosinophils % (Manual) (test code = 714-6) 3 0-7 [facility] basophil trhvildijp0586-34-34 05:30:00* Test Item Value Reference Range Interpretation Comments Basophils % (Manual) (test code = 73360-1) 1 0-1.5 [facility] blood myelocytes/100 leukocytes 2019-08-19 05:30:00* Test Item Value Reference Range Interpretation Comments Myelocytes % (test code = 749-2) 1 0-0 [facility] anisocytosis detection by light tdqowveefy6367-81-94 05:30:00* Test Item Value Reference Range Interpretation Comments Anisocytosis (test code = 702-1) MODE [facility] macrocytes detection by light tesypnbcpo1102-14-16 05:30:00* Test Item Value Reference Range Interpretation Comments Macrocytosis (test code = 738-5) SLIGHT [facility] blood eosinophil count as percentage of total vxsrjiztzq3834-13-78 05:30:00* Test Item Value Reference Range Interpretation Comments Eosinophils % (Manual) (test code = 714-6) 3 0-7 [facility] [facility]ennial[facility]ual basophil vephumpyjq1197-60-14 05:30:00* Test Item Value Reference Range Interpretation Comments Basophils % (Manual) (test code = 57193-2) 1 0-1.5 [facility] blood myelocytes/100 leukocytes 2019-08-19 05:30:00* Test Item Value Reference Range Interpretation Comments Myelocytes % (test code = 749-2) 1 0-0 [facility] anisocytosis detection by light rldrnujond7970-26-86 05:30:00* Test Item Value Reference Range Interpretation Comments Anisocytosis (test code = 702-1) MODE [facility] macrocytes detection by light ankvtefcsg0173-52-47 05:30:00* Test Item Value Reference Range Interpretation Comments Macrocytosis (test code = 738-5) SLIGHT [facility] blood eosinophil count as percentage of total vhwzcequiy1514-46-09 05:30:00* Test Item Value Reference Range Interpretation Comments Eosinophils % (Manual) (test code = 714-6) 3 0-7 [facility] fbysyrjlrw1339-40-63 05:30:00* Test Item Value Reference Range Interpretation Comments Basophils % (Manual) (test code = 43926-9) 1 0-1.5 [facility] myelocytes/100 leukocytes 2019-08-19 05:30:00* Test Item Value Reference Range Interpretation Comments Myelocytes % (test code = 749-2) 1 0-0 [facility]Blood anisocytosis detection by light vewktdusav1005-24-94 05:30:00* Test Item Value Reference Range Interpretation Comments Anisocytosis (test code = 702-1) MODE [facility] macrocytes detection by light whaemsiaqi4855-21-51 05:30:00* Test Item Value Reference Range Interpretation Comments Macrocytosis (test code = 738-5) SLIGHT [facility] CentennialProthrombin time (PT) in platelet poor plasma by coagulation aldtk7927-20-31 05:25:00* Test Item Value Reference Range Interpretation Comments Prothrombin Time (test code = 5902-2) 13.8 11.9-14.5 [facility]ennialINR in Platelet poor plasma by Coagulation mobjq8053-75-55 05:25:00* Test Item Value Reference Range Interpretation Comments Prothromb Time International Ratio (test code = 6301-6) 1.00 Oral Anticoagulant Therapy INR Values:1. Low Intensity Therapy 1.5 - 2.02 . Moderate Intensity Therapy 2.0 - 3.03. High Intensity Therapy(1) 2.5 - 3. 54. High Intensity Therapy(2) 3.0 - 4.05. Panic Value INR > 5.0 [facility]ennialProthrombin time (PT) in platelet poor plasma by coagulation nzkyo8547-36-31 05:25:00* Test Item Value Reference Range Interpretation Comments Prothrombin Time (test code = 5902-2) 13.8 11.9-14.5 [facility]ennialINR in Platelet poor plasma by Coagulation nvipu5141-35-87 05:25:00* Test Item Value Reference Range Interpretation Comments Prothromb Time International Ratio (test code = 6301-6) 1.00 Oral Anticoagulant Therapy INR Values:1. Low Intensity Therapy 1.5 - 2.02 . Moderate Intensity Therapy 2.0 - 3.03. High Intensity Therapy(1) 2.5 - 3. 54. High Intensity Therapy(2) 3.0 - 4.05. Panic Value INR > 5.0 [facility]ennialIndirect Vzyqpxdka0567-68-32 03:39:00* Test Item Value Reference Range Interpretation Comments Indirect Bilirubin (test code = 1971-1) 2.9 0.3-1.2 H [facility] CentennialFerritin2020-03-20 23:10:00* Test Item Value Reference Range Interpretation Comments Ferritin (test code = 2276-4) > 2000.00 21.81-274.66 H [facility] CentennialVitamin B12 Jdlla3566-90-32 23:09:00* Test Item Value Reference Range Interpretation Comments Vitamin B12 Level (test code = 52395-0) 401 213-816 [facility] CentennialFolate2020-03-20 23:09:00* Test Item Value Reference Range Interpretation Comments Folate (test code = 2284-8) 9.5 7.0-15.4 [facility] CentennialPercent Reticulocyte Jdelp9652-24-13 22:26:00* Test Item Value Reference Range Interpretation Comments Percent Reticulocyte Count (test code = 81876-3) 5.5 0.8-2 .2 H [facility] CentennialIron Vjjpu1369-68-35 22:25:00* Test Item Value Reference Range Interpretation Comments Iron Level (test code = 2498-4) 47 65-175 L [facility] CentennialTotal Iron Binding Ozbywcqu2705-30-14 22:25:00* Test Item Value Reference Range Interpretation Comments Total Iron Binding Capacity (test code = 2500-7) 223 261-4 78 L [facility] CentennialPercent Iron Rkkekbbyuy1842-16-64 22:25:00* Test Item Value Reference Range Interpretation Comments Percent Iron Saturation (test code = 2502-3) 21 15-50 [facility] CentennialTransferrin2020-03-20 22:25:00* Test Item Value Reference Range Interpretation Comments Transferrin (test code = 3034-6) 159 174-364 L [facility] CentennialQualitative serum or plasma hepatitis B virus e antibody by enzyme twdxyxgvkhy5494-89-13 21:30:00* Test Item Value Reference Range Interpretation Comments Hepatitis Be Antibody (test code = 99521-7) Negative Negative Performed at: - cafegiveCo[address] [id number] Commodity Supervisor: Bozena Berg MD, Phone: [phone] Children's Hospitalerum or plasma alpha 1 antitrypsin measurement (mass/volume) 2019-08-18 21:30:00* Test Item Value Reference Range Interpretation Comments Xqyqa-1-Lhpnjtbjptf (test code = 1825-9) 171 101-187 Performed at: - [facility] [id number] 4Lab Director: MOLLY Sierra MD, Phone: [phone] Children's Hospitalerum or plasma ceruloplasmin measurement (mass/volume)2019-08-18 21:30:00* Test Item Value Reference Range Interpretation Comments Ceruloplasmin (test code = 2064-4) 41.0 16.0-31.0 [facility] hepatitis B virus core antibody detection by dtmzgyxizpi4193-22-82 21:30:00* Test Item Value Reference Range Interpretation Comments Hepatitis B Core Total Antibody (test code = 90253-2) Negative Negative [facility] or plasma hepatitis A virus IgM antibody detection by sfaekvmdtjf7277-78-17 21:30:00* Test Item Value Reference Range Interpretation Comments Hepatitis A IgM Antibody (test code = 01725-4) Negative [facility] or plasma hepatitis B virus surface antigen detection by hqisnarxotu7585-56-05 21:30:00* Test Item Value Reference Range Interpretation Comments Hepatitis B Surface Antigen (test code = 5196-1) Negative [facility] or plasma hepatitis B virus core IgM antibody detection by uzeksntmphm3747-64-65 21:30:00* Test Item Value Reference Range Interpretation Comments Hepatitis B Core IgM Antibody (test code = 76962-9) Negative [facility] hepatitis C virus antibody tkhakftso1191-47-50 21:30:00* Test Item Value Reference Range Interpretation Comments Hepatitis C Antibody (test code = 06224-7) <0.1 Reference Range: 0.0 - 0.9 s/co ratioNegative: < 0.8Indeterminate: 0.8 - 0.9Positive: > 0.9The CDC recommends that a positive HCV antibody resultbe followed up with a HCV Nucleic Acid Amplificationtest (165516).Testing performed by:[employer] [address] [phone]: Blake Sheffield [facility] mitochondria M2 IgG antibody assay (units/volume)2019-08-18 21:30:00* Test Item Value Reference Range Interpretation Comments Anti-Mitochondrial Antibody (test code = 75150-7) <20.0 0.0- 20.0 Negative 0.0 - 20.0 Equivocal 20.1 - 24.9 Positive > 24.9Mitochondrial (M2) Antibodies are found in 90-96% ofpatients with primary bi liary cirrhosis.Performed at: [facility] cafegive[address] [id number] Director: Bozena Berg MD, Phone: [phone] Children's Hospitalerum nuclear antibody titer by aygmhccipieuxhbgfb5009-78-73 21:30:00* Test Item Value Reference Range Interpretation Comments Anti-Nuclear Antibody Screen (test code = 5048-4) Negative [facility] or plasma alkaline phosphatase measurement (enzymatic activity/volume)2019-08-18 21:30:00* Test Item Value Reference Range Interpretation Comments Alkaline Phosphatase (test code = 6768-6) 865 39-117 [facility] or plasma intestinal alkaline phosphatase/total alkaline phosphatase uvcfp0109-72-19 21:30:00* Test Item Value Reference Range Interpretation Comments Alkaline Phosphatase Iso-Intestine (test code = 28342-5) 0 0-18 Performed at: [facility] cafegive[address] [id number] Director: Blake Sheffield MD, Phone: [phone] at: [facility]giveM[facility] [address] [place] [id number] Director: Bozena Berg MD, Ph one: [phone] Children's Hospitalerum or plasma bone alkaline phosphatase/alkaline phosphatase.pkapv7403-29-07 21:30:00* Test Item Value Reference Range Interpretation Comments Alkaline Phosphatase Iso-Bone (test code = 21737-3) 21 12 - [facility] or plasma liver alkaline phosphatase/total alkaline phosphatase mthjo7974-56-31 21:30:00* Test Item Value Reference Range Interpretation Comments Alkaline Phosphatase Iso-Liver (test code = 43987-2) 79 1 3-88 [facility] CentennialQualitative serum or plasma hepatitis B virus e antibody by enzyme duvxiwoonij5579-94-02 21:30:00* Test Item Value Reference Range Interpretation Comments Hepatitis Be Antibody (test code = 99949-8) Negative Negative Performed at: [employer] [id number] Commodity Supervisor: Bozena Berg MD, Phone: [phone] Children's Hospitalerum or plasma alpha 1 antitrypsin measurement (mass/volume) 2019-08-18 21:30:00* Test Item Value Reference Range Interpretation Comments Ianvi-9-Dgsrrglifoo (test code = 1825-9) 171 101-187 Performed at: [employer] [id number] 4Lab Director: MOLLY Sierra MD, Phone: [phone] Children's Hospitalerum or plasma ceruloplasmin measurement (mass/volume)2019-08-18 21:30:00* Test Item Value Reference Range Interpretation Comments Ceruloplasmin (test code = 2064-4) 41.0 16.0-31.0 [facility] or plasma hepatitis B virus core antibody detection by pfnqnzmelkm6843-62-78 21:30:00* Test Item Value Reference Range Interpretation Comments Hepatitis B Core Total Antibody (test code = 78481-5) Negative Negative [facility] or plasma hepatitis A virus IgM antibody detection by tccjknmvnew6936-83-38 21:30:00* Test Item Value Reference Range Interpretation Comments Hepatitis A IgM Antibody (test code = 02360-3) Negative [facility] or plasma hepatitis B virus surface antigen detection by qxnuywlobtk1565-54-64 21:30:00* Test Item Value Reference Range Interpretation Comments Hepatitis B Surface Antigen (test code = 5196-1) Negative [facility] or plasma hepatitis B virus core IgM antibody detection by bmildztnncv1340-67-29 21:30:00* Test Item Value Reference Range Interpretation Comments Hepatitis B Core IgM Antibody (test code = 46348-9) Negative [facility] hepatitis C virus antibody rdqdnoizn4420-07-31 21:30:00* Test Item Value Reference Range Interpretation Comments Hepatitis C Antibody (test code = 21597-8) <0.1 Reference Range: 0.0 - 0.9 s/co ratioNegative: < 0.8Indeterminate: 0.8 - 0.9Positive: > 0.9The CDC recommends that a positive HCV antibody resultbe followed up with a HCV Nucleic Acid Amplificationtest (311956).Testing performed by:[employer] [address] [phone]: Blake Sheffield [facility] mitochondria M2 IgG antibody assay (units/volume)2019-08-18 21:30:00* Test Item Value Reference Range Interpretation Comments Anti-Mitochondrial Antibody (test code = 42369-9) <20.0 0.0- 20.0 Negative 0.0 - 20.0 Equivocal 20.1 - 24.9 Positive > 24.9Mitochondrial (M2) Antibodies are found in 90-96% ofpatients with primary bi liary cirrhosis.Performed at: - [address] [id number] Director: Bozena Berg MD, Phone: [phone] Children's Hospitalerum nuclear antibody titer by kaxmofbfcxeupumcxh9487-61-46 21:30:00* Test Item Value Reference Range Interpretation Comments Anti-Nuclear Antibody Screen (test code = 5048-4) Negative [facility] or plasma alkaline phosphatase measurement (enzymatic activity/volume)2019-08-18 21:30:00* Test Item Value Reference Range Interpretation Comments Alkaline Phosphatase (test code = 6768-6) 865 39-117 [facility] or plasma intestinal alkaline phosphatase/total alkaline phosphatase hutxw1154-11-08 21:30:00* Test Item Value Reference Range Interpretation Comments Alkaline Phosphatase Iso-Intestine (test code = 54176-8) 0 0-18 Performed at: [address] [id number] Director: Blake Sheffield MD, Phone: [phone] at: [address] [id number] Director: Bozena Berg MD, Ph one: [phone] Children's Hospitalerum or plasma bone alkaline phosphatase/alkaline phosphatase.ruwxj5477-99-85 21:30:00* Test Item Value Reference Range Interpretation Comments Alkaline Phosphatase Iso-Bone (test code = 44791-3) 21 12 -68 [facility] or plasma liver alkaline phosphatase/total alkaline phosphatase exiyi0302-78-04 21:30:00* Test Item Value Reference Range Interpretation Comments Alkaline Phosphatase Iso-Liver (test code = 67166-3) 79 1 3-88 [facility]ennialQualitative serum or plasma hepatitis B virus e antibody by enzyme ntqspbnhbpe7105-03-96 21:30:00* Test Item Value Reference Range Interpretation Comments Hepatitis Be Antibody (test code = 37306-5) Negative Negative Performed at: [address] [id number] Commodity Supervisor: Bozena Berg MD, Phone: [phone] Children's Hospitalerum or plasma alpha 1 antitrypsin measurement (mass/volume) 2019-08-18 21:30:00* Test Item Value Reference Range Interpretation Comments Zihzd-8-Vnmuwtnbysf (test code = 1825-9) 171 101-187 Performed at: [facility] [facility] [address], [place] [id number] 4Lab Director: MOLLY Sierra MD, Phone: [phone] Children's Hospitalerum or plasma ceruloplasmin measurement (mass/volume)2019-08-18 21:30:00* Test Item Value Reference Range Interpretation Comments Ceruloplasmin (test code = 2064-4) 41.0 16.0-31.0 [facility] or plasma hepatitis B virus core antibody detection by hwizuxngowx2760-11-97 21:30:00* Test Item Value Reference Range Interpretation Comments Hepatitis B Core Total Antibody (test code = 91193-6) Negative Negative [facility] or plasma hepatitis A virus IgM antibody detection by sdsrzjajxft2968-96-88 21:30:00* Test Item Value Reference Range Interpretation Comments Hepatitis A IgM Antibody (test code = 40520-2) Negative [facility] or plasma hepatitis B virus surface antigen detection by rkfqdwgnobd6488-15-74 21:30:00* Test Item Value Reference Range Interpretation Comments Hepatitis B Surface Antigen (test code = 5196-1) Negative [facility] or plasma hepatitis B virus core IgM antibody detection by duytonkmjmn2750-00-28 21:30:00* Test Item Value Reference Range Interpretation Comments Hepatitis B Core IgM Antibody (test code = 42607-6) Negative [facility] hepatitis C virus antibody hehyltowy9333-58-40 21:30:00* Test Item Value Reference Range Interpretation Comments Hepatitis C Antibody (test code = 02543-5) <0.1 Reference Range: 0.0 - 0.9 s/co ratioNegative: < 0.8Indeterminate: 0.8 - 0.9Positive: > 0.9The CDC recommends that a positive HCV antibody resultbe followed up with a HCV Nucleic Acid Amplificationtest (262883).Testing performed by:[employer] [phone]: Blake Sheffield [facility] mitochondria M2 IgG antibody assay (units/volume)2019-08-18 21:30:00* Test Item Value Reference Range Interpretation Comments Anti-Mitochondrial Antibody (test code = 40984-9) <20.0 0.0- 20.0 Negative 0.0 - 20.0 Equivocal 20.1 - 24.9 Positive > 24.9Mitochondrial (M2) Antibodies are found in 90-96% ofpatients with primary bi liary cirrhosis.Performed at: [address] [id number] Director: Bozena Berg MD, Phone: [phone] Children's Hospitalerum nuclear antibody titer by ecplojlynxbtcpdxct1021-66-78 21:30:00* Test Item Value Reference Range Interpretation Comments Anti-Nuclear Antibody Screen (test code = 5048-4) Negative [facility] or plasma alkaline phosphatase measurement (enzymatic activity/volume)2019-08-18 21:30:00* Test Item Value Reference Range Interpretation Comments Alkaline Phosphatase (test code = 6768-6) 865 39-117 [facility] or plasma intestinal alkaline phosphatase/total alkaline phosphatase omaaj8410-76-87 21:30:00* Test Item Value Reference Range Interpretation Comments Alkaline Phosphatase Iso-Intestine (test code = 81145-9) 0 0-18 Performed at: [address] [id number] Director: Blake Sheffield MD, Phone: [phone] at: [address] [id number] Director: Bozena Berg MD, Ph one: [phone] Children's Hospitalerum or plasma bone alkaline phosphatase/alkaline phosphatase.zgbrg5565-74-00 21:30:00* Test Item Value Reference Range Interpretation Comments Alkaline Phosphatase Iso-Bone (test code = 62798-6) 21 12 -68 [facility] or plasma liver alkaline phosphatase/total alkaline phosphatase eacea4686-48-23 21:30:00* Test Item Value Reference Range Interpretation Comments Alkaline Phosphatase Iso-Liver (test code = 89864-3) 79 1 3-88 [facility]ennialQual[facility] serum or plasma hepatitis B virus e antibody by enzyme mfpbfzesbca2681-21-80 21:30:00* Test Item Value Reference Range Interpretation Comments Hepatitis Be Antibody (test code = 83481-8) Negative Negative Performed at: [address] [id number] Commodity Supervisor: Bozena Berg MD, Phone: [phone] Children's Hospitalerum or plasma alpha 1 antitrypsin measurement (mass/volume) 2019-08-18 21:30:00* Test Item Value Reference Range Interpretation Comments Jqhri-6-Lpwifbpismv (test code = 1825-9) 171 101-187 Performed at: [facility] X[address]cnsh[address] [facility] [address], [place], [place] [id number] 4Lab Director: MOLLY Sierra MD, Phone: [phone] Children's Hospitalerum or plasma ceruloplasmin measurement (mass/volume)2019-08-18 21:30:00* Test Item Value Reference Range Interpretation Comments Ceruloplasmin (test code = 2064-4) 41.0 16.0-31.0 [facility] or plasma hepatitis B virus core antibody detection by xyhknaepxwf2339-87-70 21:30:00* Test Item Value Reference Range Interpretation Comments Hepatitis B Core Total Antibody (test code = 64321-2) Negative Negative [facility] or plasma hepatitis A virus IgM antibody detection by nuubksmzzeg2321-61-16 21:30:00* Test Item Value Reference Range Interpretation Comments Hepatitis A IgM Antibody (test code = 29536-1) Negative [facility] or plasma hepatitis B virus surface antigen detection by bdsorftrgcb3477-46-41 21:30:00* Test Item Value Reference Range Interpretation Comments Hepatitis B Surface Antigen (test code = 5196-1) Negative [facility] or plasma hepatitis B virus core IgM antibody detection by axzzfahkpef7710-72-10 21:30:00* Test Item Value Reference Range Interpretation Comments Hepatitis B Core IgM Antibody (test code = 84118-0) Negative [facility] hepatitis C virus antibody vcgcbcmaq8630-61-68 21:30:00* Test Item Value Reference Range Interpretation Comments Hepatitis C Antibody (test code = 42071-3) <0.1 Reference Range: 0.0 - 0.9 s/co ratioNegative: < 0.8Indeterminate: 0.8 - 0.9Positive: > 0.9The CDC recommends that a positive HCV antibody resultbe followed up with a HCV Nucleic Acid Amplificationtest (647481).Testing performed by:[employer] [phone]: Blake Sheffield [facility] mitochondria M2 IgG antibody assay (units/volume)2019-08-18 21:30:00* Test Item Value Reference Range Interpretation Comments Anti-Mitochondrial Antibody (test code = 57388-5) <20.0 0.0- 20.0 Negative 0.0 - 20.0 Equivocal 20.1 - 24.9 Positive > 24.9Mitochondrial (M2) Antibodies are found in 90-96% ofpatients with primary bi liary cirrhosis.Performed at: [employer] [facility] [id number] Director: Bozena Berg MD, Phone: [phone] Children's Hospitalerum nuclear antibody titer by clpufltlpzyedlpcqt2606-53-61 21:30:00* Test Item Value Reference Range Interpretation Comments Anti-Nuclear Antibody Screen (test code = 5048-4) Negative [facility] or plasma alkaline phosphatase measurement (enzymatic activity/volume)2019-08-18 21:30:00* Test Item Value Reference Range Interpretation Comments Alkaline Phosphatase (test code = 6768-6) 865 39-117 [facility] or plasma intestinal alkaline phosphatase/total alkaline phosphatase zjvpd6615-96-28 21:30:00* Test Item Value Reference Range Interpretation Comments Alkaline Phosphatase Iso-Intestine (test code = 82301-5) 0 0-18 Performed at: - [address] [id number] Director: Blake Sheffield MD, Phone: [phone] at: [facility] Lab[facility] [address] [place], [place] [id number] Director: Bozena Berg MD, Ph one: [phone] Children's Hospitalerum or plasma bone alkaline phosphatase/alkaline phosphatase.fifub8363-80-80 21:30:00* Test Item Value Reference Range Interpretation Comments Alkaline Phosphatase Iso-Bone (test code = 71480-7) 21 12 -68 [facility] or plasma liver alkaline phosphatase/total alkaline phosphatase fpqqr8786-01-64 21:30:00* Test Item Value Reference Range Interpretation Comments Alkaline Phosphatase Iso-Liver (test code = 59256-5) 79 1 3-88 [facility]ennialQual[facility] serum or plasma hepatitis B virus e antibody by enzyme yosxeplhjra4018-18-19 21:30:00* Test Item Value Reference Range Interpretation Comments Hepatitis Be Antibody (test code = 74705-1) Negative Negative Performed at: - [facility] [id number] Commodity Supervisor: Bozena Berg MD, Phone: [phone] Children's Hospitalerum or plasma alpha 1 antitrypsin measurement (mass/volume) 2019-08-18 21:30:00* Test Item Value Reference Range Interpretation Comments Vcmek-2-Eghyayhhbio (test code = 1825-9) 171 101-187 Performed at: DA - [facility] [address], [place] [address] 4Lab Director: MOLLY Sierra MD, Phone: [phone] Children's Hospitalerum or plasma ceruloplasmin measurement (mass/volume)2019-08-18 21:30:00* Test Item Value Reference Range Interpretation Comments Ceruloplasmin (test code = 2064-4) 41.0 16.0-31.0 [facility] or plasma hepatitis B virus core antibody detection by qrbqyarwvfj3197-85-80 21:30:00* Test Item Value Reference Range Interpretation Comments Hepatitis B Core Total Antibody (test code = 04799-8) Negative Negative [facility] or plasma hepatitis A virus IgM antibody detection by kkdwgddpgym6635-25-51 21:30:00* Test Item Value Reference Range Interpretation Comments Hepatitis A IgM Antibody (test code = 04638-1) Negative [facility] or plasma hepatitis B virus surface antigen detection by ehujrxzttsp7768-00-19 21:30:00* Test Item Value Reference Range Interpretation Comments Hepatitis B Surface Antigen (test code = 5196-1) Negative [facility] or plasma hepatitis B virus core IgM antibody detection by dnkrclgjfpd2151-52-07 21:30:00* Test Item Value Reference Range Interpretation Comments Hepatitis B Core IgM Antibody (test code = 33101-0) Negative [facility] antibody jxrflhbov0191-79-52 21:30:00* Test Item Value Reference Range Interpretation Comments Hepatitis C Antibody (test code = 56868-7) <0.1 Reference Range: 0.0 - 0.9 s/co ratioNegative: < 0.8Indeterminate: 0.8 - 0.9Positive: > 0.9The CDC recommends that a positive HCV antibody resultbe followed up with a HCV Nucleic Acid Amplificationtest (019298).Testing performed by:[employer] [address] [id number]: Blake Sheffield [facility] M2 IgG antibody assay (units/volume)2019-08-18 21:30:00* Test Item Value Reference Range Interpretation Comments Anti-Mitochondrial Antibody (test code = 97550-6) <20.0 0.0- 20.0 Negative 0.0 - 20.0 Equivocal 20.1 - 24.9 Positive > 24.9Mitochondrial (M2) Antibodies are found in 90-96% ofpatients with primary bi liary cirrhosis.Performed at: - cafegive[address] [id number] Director: Bozena Berg MD, Phone: [phone] Children's Hospitalerum nuclear antibody titer by nzmflfciutnekpvsyq7721-46-33 21:30:00* Test Item Value Reference Range Interpretation Comments Anti-Nuclear Antibody Screen (test code = 5048-4) Negative [facility] or plasma alkaline phosphatase measurement (enzymatic activity/volume)2019-08-18 21:30:00* Test Item Value Reference Range Interpretation Comments Alkaline Phosphatase (test code = 6768-6) 865 39-117 [facility] or plasma intestinal alkaline phosphatase/total alkaline phosphatase tnoqq6922-90-40 21:30:00* Test Item Value Reference Range Interpretation Comments Alkaline Phosphatase Iso-Intestine (test code = 57617-6) 0 0-18 Performed at: - [facility] [id number] Director: Blake Sheffield MD, Phone: [phone] at: [facility] [place], [place] [id number] Director: Bozena Berg MD, Ph one: [phone] Children's Hospitalerum or plasma bone alkaline phosphatase/alkaline phosphatase.imwlx0586-56-49 21:30:00* Test Item Value Reference Range Interpretation Comments Alkaline Phosphatase Iso-Bone (test code = 47346-4) 21 12 - [facility] or plasma liver alkaline phosphatase/total alkaline phosphatase ytrby1289-31-73 21:30:00* Test Item Value Reference Range Interpretation Comments Alkaline Phosphatase Iso-Liver (test code = 87620-5) 79 1 3-88 [facility] serum or plasma hepatitis B virus e antibody by enzyme jlqlbufeuik0871-76-57 21:30:00* Test Item Value Reference Range Interpretation Comments Hepatitis Be Antibody (test code = 29864-5) Negative Negative Performed at: [facility] [id number] Commodity Supervisor: Bozena Berg MD, Phone: [phone] Children's Hospitalerum or plasma alpha 1 antitrypsin measurement (mass/volume) 2019-08-18 21:30:00* Test Item Value Reference Range Interpretation Comments Mxwge-1-Wjfisxvxvsc (test code = 1825-9) 171 101-187 Performed at: [facility] [address] [place] [id number] 4Lab Director: MOLLY Sierra MD, Phone: [phone] Children's Hospitalerum or plasma ceruloplasmin measurement (mass/volume)2019-08-18 21:30:00* Test Item Value Reference Range Interpretation Comments Ceruloplasmin (test code = 2064-4) 41.0 16.0-31.0 [facility] or plasma hepatitis B virus core antibody detection by oryirpjqauj9223-52-23 21:30:00* Test Item Value Reference Range Interpretation Comments Hepatitis B Core Total Antibody (test code = 09347-0) Negative Negative [facility] or plasma hepatitis A virus IgM antibody detection by oeswlnfcoyn6795-25-53 21:30:00* Test Item Value Reference Range Interpretation Comments Hepatitis A IgM Antibody (test code = 48618-4) Negative [facility] or plasma hepatitis B virus surface antigen detection by kyoghyetmfb7265-62-60 21:30:00* Test Item Value Reference Range Interpretation Comments Hepatitis B Surface Antigen (test code = 5196-1) Negative [facility] or plasma hepatitis B virus core IgM antibody detection by crmppbvakci1697-42-03 21:30:00* Test Item Value Reference Range Interpretation Comments Hepatitis B Core IgM Antibody (test code = 88496-5) Negative [facility] hepatitis C virus antibody nyffouink7942-68-27 21:30:00* Test Item Value Reference Range Interpretation Comments Hepatitis C Antibody (test code = 47175-3) <0.1 Reference Range: 0.0 - 0.9 s/co ratioNegative: < 0.8Indeterminate: 0.8 - 0.9Positive: > 0.9The CDC recommends that a positive HCV antibody resultbe followed up with a HCV Nucleic Acid Amplificationtest (314022).Testing performed by:[employer] [address] [phone]: Blake Sheffield [facility] mitochondria M2 IgG antibody assay (units/volume)2019-08-18 21:30:00* Test Item Value Reference Range Interpretation Comments Anti-Mitochondrial Antibody (test code = 68109-7) <20.0 0.0- 20.0 Negative 0.0 - 20.0 Equivocal 20.1 - 24.9 Positive > 24.9Mitochondrial (M2) Antibodies are found in 90-96% ofpatients with primary bi liary cirrhosis.Performed at: - [address] [id number] Director: Bozena Berg MD, Phone: [phone] Children's Hospitalerum nuclear antibody titer by yhssrvjcomdnezegix8473-16-96 21:30:00* Test Item Value Reference Range Interpretation Comments Anti-Nuclear Antibody Screen (test code = 5048-4) Negative [facility] or plasma alkaline phosphatase measurement (enzymatic activity/volume)2019-08-18 21:30:00* Test Item Value Reference Range Interpretation Comments Alkaline Phosphatase (test code = 6768-6) 865 39-117 [facility] or plasma intestinal alkaline phosphatase/total alkaline phosphatase dknkl4630-94-21 21:30:00* Test Item Value Reference Range Interpretation Comments Alkaline Phosphatase Iso-Intestine (test code = 00841-2) 0 0-18 Performed at: [facility] cafegive[address] [id number] Director: Blake Sheffield MD, Phone: [phone] at: [address] [id number] Director: Bozena Berg MD, Ph one: [phone] Children's Hospitalerum or plasma bone alkaline phosphatase/alkaline phosphatase.lpgcw4605-37-43 21:30:00* Test Item Value Reference Range Interpretation Comments Alkaline Phosphatase Iso-Bone (test code = 38902-0) 21 12 -68 [facility] or plasma liver alkaline phosphatase/total alkaline phosphatase knpwn8879-50-88 21:30:00* Test Item Value Reference Range Interpretation Comments Alkaline Phosphatase Iso-Liver (test code = 52870-4) 79 1 3-88 [facility] serum or plasma hepatitis B virus e antibody by enzyme cclwoolfcrb8904-18-65 21:30:00* Test Item Value Reference Range Interpretation Comments Hepatitis Be Antibody (test code = 77407-8) Negative Negative Performed at: [facility] cafegive[address] [id number] Commod[employer] Supervisor: Bozena Berg MD, Phone: [phone] Children's Hospitalerum or plasma alpha 1 antitrypsin measurement (mass/volume) 2019-08-18 21:30:00* Test Item Value Reference Range Interpretation Comments Nesvl-9-Miswwpgeuqz (test code = 1825-9) 171 101-187 Performed at: [facility]give[facility] [facility] [address], [place], [place] [id number] 4Lab Director: MOLLY Sierra MD, Phone: [phone] Children[facility] Hospitalerum or plasma ceruloplasmin measurement (mass/volume)2019-08-18 21:30:00* Test Item Value Reference Range Interpretation Comments Ceruloplasmin (test code = 2064-4) 41.0 16.0-31.0 [facility] or plasma hepatitis B virus core antibody detection by mdniwstoafx0113-57-51 21:30:00* Test Item Value Reference Range Interpretation Comments Hepatitis B Core Total Antibody (test code = 70154-1) Negative Negative [facility] or plasma hepatitis A virus IgM antibody detection by dstzyfrhbks0232-44-22 21:30:00* Test Item Value Reference Range Interpretation Comments Hepatitis A IgM Antibody (test code = 76636-7) Negative [facility] or plasma hepatitis B virus surface antigen detection by shevevfqrmq5852-75-66 21:30:00* Test Item Value Reference Range Interpretation Comments Hepatitis B Surface Antigen (test code = 5196-1) Negative [facility] or plasma hepatitis B virus core IgM antibody detection by dqmlbzvvsfo1047-34-87 21:30:00* Test Item Value Reference Range Interpretation Comments Hepatitis B Core IgM Antibody (test code = 04116-2) Negative [facility] hepatitis C virus antibody yofpbmgsq8241-38-24 21:30:00* Test Item Value Reference Range Interpretation Comments Hepatitis C Antibody (test code = 18482-7) <0.1 Reference Range: 0.0 - 0.9 s/co ratioNegative: < 0.8Indeterminate: 0.8 - 0.9Positive: > 0.9The CDC recommends that a positive HCV antibody resultbe followed up with a HCV Nucleic Acid Amplificationtest (165119).Testing performed by:[facility] [phone]: Blake Sheffield [facility] mitochondria M2 IgG antibody assay (units/volume)2019-08-18 21:30:00* Test Item Value Reference Range Interpretation Comments Anti-Mitochondrial Antibody (test code = 69792-0) <20.0 0.0- 20.0 Negative 0.0 - 20.0 Equivocal 20.1 - 24.9 Positive > 24.9Mitochondrial (M2) Antibodies are found in 90-96% ofpatients with primary bi liary cirrhosis.Performed at: [place] [address] rafaelFR[place], [place] [id number] Director: Bozena Berg MD, Phone: [phone] Children's Hospitalerum nuclear antibody titer by ymegrvnyoutvxapimj5689-17-22 21:30:00* Test Item Value Reference Range Interpretation Comments Anti-Nuclear Antibody Screen (test code = 5048-4) Negative [facility]2019-08-18 21:01:00 [facility] [address] [place] [address] Patient Name: WARD VILLA MR #: [id number] : 1965 Age/Sex: 54/M Req #: [id number] Adm Physician: GERALD DIAZ MD Ordered by: GERALD DIAZ MD Report #: [id number] Location: MED/SURG Room/Bed: [facility] Procedure: [id number] DX/CHEST SINGLE (PORTABLE) Exam Date: 08/18/19 Exam Time: 2034 REPORT STATUS: Sig chloe EXAM: CHEST SINGLE (PORTABLE) DATE: 08/18/2019 7:48 PM INDICA TION: FEVER [id number] COMPARISON: Chest x-ray, 2018 FINDINGS: Lines and tubes: Stable appearance of tunneled right IJ dialysis catheter. Wire sternotomy sutures are again noted. There is mil d enlargement of the cardiac silhouette, stable from last exam. There is mi ld central pulmonary vascular prominence which appears increased. No periphera l consolidation or large pleural effusion. No pneumothorax. Upper abdomen u nremarkable. No acute bony abnormality. IMPRESSION: Cardiomegaly with blaire tral pulmonary vascular prominence appears increased since last exam. Likely i nterstitial edema asymmetrically prominent in the right lung. Signed by: Dr. Emanuel Viveros M.D. on 08/18/2019 9:03 PM Dictated By: EMANUEL VIVEROS MD 02 Transcribed By: ASHLEY on 08/18/192102 COPY TO: GERALD DIAZ MD Creatine Geezbg9630-12-71 14:56:00* Test Item Value Reference Range Interpretation Comments Creatine Kinase (test code = 2157-6) 38 30-200 [facility]ennial[facility]ine Kinase [id number] 14:56:00* Test Item Value Reference Range Interpretation Comments Creatine Kinase MB (test code = 30839-6) 1.20 0-5.0 [facility] CentennialTroponin Q4258-33-09 14:56:00* Test Item Value Reference Range Interpretation Comments Troponin I (test code = PLF7358) 0.059 0-0.300 [facility]ennialActivated Partial Thromboplast Time 2019-08-18 13:15:00* Test Item Value Reference Range Interpretation Comments Activated Partial Thromboplast Time (test code = 20885-3) 30.1 23.8-35.5 [facility]ennialAutomated reticulocyte count as percentage of total jnglrwwfzmtq9070-41-07 12:40:00* Test Item Value Reference Range Interpretation Comments Percent Reticulocyte Count (test code = 96485-8) 5.5 0.8-2 .2 [facility]ennialActivated partial thromboplastin time (aPTT) in platelet poor plasma by coagulation izmvu7632-03-82 12:40:00* Test Item Value Reference Range Interpretation Comments Activated Partial Thromboplast Time (test code = 44782-4) 30.1 23.8-35.5 [facility] iron measurement (mass/volume)2019-08-18 12:40:00* Test Item Value Reference Range Interpretation Comments Iron Level (test code = 2498-4) 47 65-175 [facility] or plasma iron binding capacity measurement (mass/volume)2019-08-18 12:40:00* Test Item Value Reference Range Interpretation Comments Total Iron Binding Capacity (test code = 2500-7) 223 261-4 78 [facility] plasma iron saturation measurement (mass fraction)2019-08-18 12:40:00* Test Item Value Reference Range Interpretation Comments Percent Iron Saturation (test code = 2502-3) 21 15-50 [facility] plasma transferrin measurement (mass/volume)2019-08-18 12:40:00* Test Item Value Reference Range Interpretation Comments Transferrin (test code = 3034-6) 159 174-364 [facility] plasma ferritin measurement (mass/volume)2019-08-18 12:40:00* Test Item Value Reference Range Interpretation Comments Ferritin (test code = 2276-4) > 2000.00 21.81-274.66 [facility] plasma indirect bilirubin measurement (mass/volume)2019-08-18 12:40:00* Test Item Value Reference Range Interpretation Comments Indirect Bilirubin (test code = 1971-1) 2.9 0.3-1.2 [facility] plasma creatine kinase measurement (enzymatic activity/volume)2019-08-18 12:40:00* Test Item Value Reference Range Interpretation Comments Creatine Kinase (test code = 2157-6) 38 30-200 [facility] or plasma creatine kinase MB measurement (mass/volume)2019-08-18 12:40:00* Test Item Value Reference Range Interpretation Comments Creatine Kinase MB (test code = 15044-6) 1.20 0-5.0 [facility]ennialTroponin I measurement by highly sensitive enzyme imnyctpdpee3985-99-29 12:40:00* Test Item Value Reference Range Interpretation Comments Troponin I (test code = 15559-5) 0.059 0-0.300 [facility]ennialBlood cobalamin (vitamin B12) measurement (mass/volume)2019-08-18 12:40:00* Test Item Value Reference Range Interpretation Comments Vitamin B12 Level (test code = 68072-9) 401 213-816 [facility] plasma folate measurement (mass/volume)2019-08-18 12:40:00* Test Item Value Reference Range Interpretation Comments Folate (test code = 2284-8) 9.5 7.0-15.4 [facility]ennialAutomated reticulocyte count as percentage of total iovnlnjkvtld8989-06-32 12:40:00* Test Item Value Reference Range Interpretation Comments Percent Reticulocyte Count (test code = 83593-9) 5.5 0.8-2 .2 [facility]ennialActivated partial thromboplastin time (aPTT) in platelet poor plasma by coagulation sicvz2049-54-68 12:40:00* Test Item Value Reference Range Interpretation Comments Activated Partial Thromboplast Time (test code = 82400-1) 30.1 23.8-35.5 [facility] or plasma iron measurement (mass/volume)2019-08-18 12:40:00* Test Item Value Reference Range Interpretation Comments Iron Level (test code = 2498-4) 47 65-175 [facility] plasma iron binding capacity measurement (mass/volume)2019-08-18 12:40:00* Test Item Value Reference Range Interpretation Comments Total Iron Binding Capacity (test code = 2500-7) 223 261-4 78 [facility] or plasma iron saturation measurement (mass fraction)2019-08-18 12:40:00* Test Item Value Reference Range Interpretation Comments Percent Iron Saturation (test code = 2502-3) 21 15-50 [facility] or plasma transferrin measurement (mass/volume)2019-08-18 12:40:00* Test Item Value Reference Range Interpretation Comments Transferrin (test code = 3034-6) 159 174-364 [facility] plasma ferritin measurement (mass/volume)2019-08-18 12:40:00* Test Item Value Reference Range Interpretation Comments Ferritin (test code = 2276-4) > 2000.00 21.81-274.66 [facility] plasma indirect bilirubin measurement (mass/volume)2019-08-18 12:40:00* Test Item Value Reference Range Interpretation Comments Indirect Bilirubin (test code = 1971-1) 2.9 0.3-1.2 [facility] plasma creatine kinase measurement (enzymatic activity/volume)2019-08-18 12:40:00* Test Item Value Reference Range Interpretation Comments Creatine Kinase (test code = 2157-6) 38 30-200 [facility] or plasma creatine kinase MB measurement (mass/volume)2019-08-18 12:40:00* Test Item Value Reference Range Interpretation Comments Creatine Kinase MB (test code = 79379-8) 1.20 0-5.0 [facility] CentennialTroponin I measurement by highly sensitive enzyme sejpwzjcnqg1842-73-57 12:40:00* Test Item Value Reference Range Interpretation Comments Troponin I (test code = 71797-8) 0.059 0-0.300 [facility]ennialBlood cobalamin (vitamin B12) measurement (mass/volume)2019-08-18 12:40:00* Test Item Value Reference Range Interpretation Comments Vitamin B12 Level (test code = 32854-4) 401 213-816 [facility] plasma folate measurement (mass/volume)2019-08-18 12:40:00* Test Item Value Reference Range Interpretation Comments Folate (test code = 2284-8) 9.5 7.0-15.4 [facility]ennialAutomated reticulocyte count as percentage of total pvddofpjreyc4304-99-83 12:40:00* Test Item Value Reference Range Interpretation Comments Percent Reticulocyte Count (test code = 96485-0) 5.5 0.8-2 .2 [facility] plasma iron measurement (mass/volume)2019-08-18 12:40:00* Test Item Value Reference Range Interpretation Comments Iron Level (test code = 2498-4) 47 65-175 [facility] plasma iron binding capacity measurement (mass/volume)2019-08-18 12:40:00* Test Item Value Reference Range Interpretation Comments Total Iron Binding Capacity (test code = 2500-7) 223 261-4 78 [facility] plasma iron saturation measurement (mass fraction)2019-08-18 12:40:00* Test Item Value Reference Range Interpretation Comments Percent Iron Saturation (test code = 2502-3) 21 15-50 [facility] plasma transferrin measurement (mass/volume)2019-08-18 12:40:00* Test Item Value Reference Range Interpretation Comments Transferrin (test code = 3034-6) 159 174-364 [facility] plasma ferritin measurement (mass/volume)2019-08-18 12:40:00* Test Item Value Reference Range Interpretation Comments Ferritin (test code = 2276-4) > 2000.00 21.81-274.66 [facility] plasma indirect bilirubin measurement (mass/volume)2019-08-18 12:40:00* Test Item Value Reference Range Interpretation Comments Indirect Bilirubin (test code = 1971-1) 2.9 0.3-1.2 [facility] plasma creatine kinase measurement (enzymatic activity/volume)2019-08-18 12:40:00* Test Item Value Reference Range Interpretation Comments Creatine Kinase (test code = 2157-6) 38 30-200 [facility] or plasma creatine kinase MB measurement (mass/volume)2019-08-18 12:40:00* Test Item Value Reference Range Interpretation Comments Creatine Kinase MB (test code = 00272-9) 1.20 0-5.0 [facility]ennialTroponin I measurement by highly sensitive enzyme mlrnkeksrzw9837-68-20 12:40:00* Test Item Value Reference Range Interpretation Comments Troponin I (test code = 27146-7) 0.059 0-0.300 [facility]ennialBlood cobalamin (vitamin B12) measurement (mass/volume)2019-08-18 12:40:00* Test Item Value Reference Range Interpretation Comments Vitamin B12 Level (test code = 47648-3) 401 213-816 [facility] plasma folate measurement (mass/volume)2019-08-18 12:40:00* Test Item Value Reference Range Interpretation Comments Folate (test code = 2284-8) 9.5 7.0-15.4 [facility]ennialAutomated reticulocyte count as percentage of total hkfczdqcuxti2735-87-81 12:40:00* Test Item Value Reference Range Interpretation Comments Percent Reticulocyte Count (test code = 42645-9) 5.5 0.8-2 .2 [facility] plasma iron measurement (mass/volume)2019-08-18 12:40:00* Test Item Value Reference Range Interpretation Comments Iron Level (test code = 2498-4) 47 65-175 [facility] plasma iron binding capacity measurement (mass/volume)2019-08-18 12:40:00* Test Item Value Reference Range Interpretation Comments Total Iron Binding Capacity (test code = 2500-7) 223 261-4 78 [facility] plasma iron saturation measurement (mass fraction)2019-08-18 12:40:00* Test Item Value Reference Range Interpretation Comments Percent Iron Saturation (test code = 2502-3) 21 15-50 [facility] plasma transferrin measurement (mass/volume)2019-08-18 12:40:00* Test Item Value Reference Range Interpretation Comments Transferrin (test code = 3034-6) 159 174-364 [facility] plasma ferritin measurement (mass/volume)2019-08-18 12:40:00* Test Item Value Reference Range Interpretation Comments Ferritin (test code = 2276-4) > 2000.00 21.81-274.66 [facility] plasma indirect bilirubin measurement (mass/volume)2019-08-18 12:40:00* Test Item Value Reference Range Interpretation Comments Indirect Bilirubin (test code = 1971-1) 2.9 0.3-1.2 [facility] plasma creatine kinase measurement (enzymatic activity/volume)2019-08-18 12:40:00* Test Item Value Reference Range Interpretation Comments Creatine Kinase (test code = 2157-6) 38 30-200 [facility] plasma creatine kinase MB measurement (mass/volume)2019-08-18 12:40:00* Test Item Value Reference Range Interpretation Comments Creatine Kinase MB (test code = 38045-0) 1.20 0-5.0 [facility]ennialTroponin I measurement by highly sensitive enzyme drunglugavm3327-19-26 12:40:00* Test Item Value Reference Range Interpretation Comments Troponin I (test code = 66252-1) 0.059 0-0.300 [facility]ennialBlood cobalamin (vitamin B12) measurement (mass/volume)2019-08-18 12:40:00* Test Item Value Reference Range Interpretation Comments Vitamin B12 Level (test code = 45861-4) 401 213-816 [facility] plasma folate measurement (mass/volume)2019-08-18 12:40:00* Test Item Value Reference Range Interpretation Comments Folate (test code = 2284-8) 9.5 7.0-15.4 [facility] plasma iron measurement (mass/volume)2019-08-18 12:40:00* Test Item Value Reference Range Interpretation Comments Iron Level (test code = 2498-4) 47 65-175 [facility] plasma iron binding capacity measurement (mass/volume)2019-08-18 12:40:00* Test Item Value Reference Range Interpretation Comments Total Iron Binding Capacity (test code = 2500-7) 223 261-4 78 [facility] plasma iron saturation measurement (mass fraction)2019-08-18 12:40:00* Test Item Value Reference Range Interpretation Comments Percent Iron Saturation (test code = 2502-3) 21 15-50 [facility] plasma transferrin measurement (mass/volume)2019-08-18 12:40:00* Test Item Value Reference Range Interpretation Comments Transferrin (test code = 3034-6) 159 174-364 [facility] [facility] indirect bilirubin measurement (mass/volume)2019-08-18 12:40:00* Test Item Value Reference Range Interpretation Comments Indirect Bilirubin (test code = 1971-1) 2.9 0.3-1.2 [facility] (enzymatic activity/volume)2019-08-18 12:40:00* Test Item Value Reference Range Interpretation Comments Creatine Kinase (test code = 2157-6) 38 30-200 [facility] creatine kinase MB measurement (mass/volume)2019-08-18 12:40:00* Test Item Value Reference Range Interpretation Comments Creatine Kinase MB (test code = 16586-9) 1.20 0-5.0 [facility] by highly sensitive enzyme [id number] 12:40:00* Test Item Value Reference Range Interpretation Comments Troponin I (test code = 89842-7) 0.059 0-0.300 [facility] folate [facility] (mass/volume)2019-08-18 12:40:00* Test Item Value Reference Range Interpretation Comments Folate (test code = 2284-8) 9.5 7.0-15.4 [facility] iron [facility] (mass/volume)2019-08-18 12:40:00* Test Item Value Reference Range Interpretation Comments Iron Level (test code = 2498-4) 47 65-175 [facility] iron binding capacity measurement (mass/volume)2019-08-18 12:40:00* Test Item Value Reference Range Interpretation Comments Total Iron Binding Capacity (test code = 2500-7) 223 261-4 78 [facility] iron saturation measurement (mass fraction)2019-08-18 12:40:00* Test Item Value Reference Range Interpretation Comments Percent Iron Saturation (test code = 2502-3) 21 15-50 [facility] transferrin measurement (mass/volume)2019-08-18 12:40:00* Test Item Value Reference Range Interpretation Comments Transferrin (test code = 3034-6) 159 174-364 [facility] bil[facility] measurement (mass/volume)2019-08-18 12:40:00* Test Item Value Reference Range Interpretation Comments Indirect Bilirubin (test code = 1971-1) 2.9 0.3-1.2 [facility] creatine kinase measurement (enzymatic activity/volume)2019-08-18 12:40:00* Test Item Value Reference Range Interpretation Comments Creatine Kinase (test code = 2157-6) 38 30-200 [facility] creatine kinase MB measurement (mass/volume)2019-08-18 12:40:00* Test Item Value Reference Range Interpretation Comments Creatine Kinase MB (test code = 01825-9) 1.20 0-5.0 [facility] by highly sensitive enzyme [id number] 12:40:00* Test Item Value Reference Range Interpretation Comments Troponin I (test code = 91047-3) 0.059 0-0.300 [facility] folate [facility] (mass/volume)2019-08-18 12:40:00* Test Item Value Reference Range Interpretation Comments Folate (test code = 2284-8) 9.5 7.0-15.4 [facility] iron measurement (mass/volume)2019-08-18 12:40:00* Test Item Value Reference Range Interpretation Comments Iron Level (test code = 2498-4) 47 65-175 [facility] iron binding capacity measurement (mass/volume)2019-08-18 12:40:00* Test Item Value Reference Range Interpretation Comments Total Iron Binding Capacity (test code = 2500-7) 223 261-4 78 [facility] iron saturation measurement (mass fraction)2019-08-18 12:40:00* Test Item Value Reference Range Interpretation Comments Percent Iron Saturation (test code = 2502-3) 21 15-50 [facility] transferrin measurement (mass/volume)2019-08-18 12:40:00* Test Item Value Reference Range Interpretation Comments Transferrin (test code = 3034-6) 159 174-364 [facility] indirect bilirubin measurement (mass/volume)2019-08-18 12:40:00* Test Item Value Reference Range Interpretation Comments Indirect Bilirubin (test code = 1971-1) 2.9 0.3-1.2 [facility] creatine kinase measurement (enzymatic activity/volume)2019-08-18 12:40:00* Test Item Value Reference Range Interpretation Comments Creatine Kinase (test code = 2157-6) 38 30-200 [facility] creatine kinase MB measurement (mass/volume)2019-08-18 12:40:00* Test Item Value Reference Range Interpretation Comments Creatine Kinase MB (test code = 25772-1) 1.20 0-5.0 [facility] by highly sensitive enzyme [id number] 12:40:00* Test Item Value Reference Range Interpretation Comments Troponin I (test code = 91078-8) 0.059 0-0.300 [facility] folate measurement (mass/volume)2019-08-18 12:40:00* Test Item Value Reference Range Interpretation Comments Folate (test code = 2284-8) 9.5 7.0-15.4 [facility]2020-[facility]-14 20:09:00* Test Item Value Reference Range Interpretation Comments GLUBED (test code = GLUBED) 118 mg/dL 74-106 H Performed by certified communications equipment operator at [facility] ANTINUCLEAR ANTIBODIES [id number] 18:07:00* Test Item Value Reference Range Interpretation Comments MARCELO SCREEN (test code = ANASCR) Negative Negative Performed At: [facility] [address] [id number] Kyle L MD Ph:[phone] REFAB [id number] 18:07:00* Test Item Value Reference Range Interpretation Comments AB MITOCHONDRIAL (test code = MITOCHAB) <20.0 Units 0.0-20.0 Negative 0.0 - 20.0 Equivocal 20.1 - 24.9 Positive >24.9Mitochondrial (M2) Antibodies are found in 90-96% ofpatients with primary biliary cirrhosis.Performed At: [facility] [address] [id number] Seals MD Ph:[phone] [id number] 11:29:00* Test Item Value Reference Range Interpretation Comments GLUBED (test code = GLUBED) 133 mg/dL 74-106 H Performed by certified communications equipment operator at [facility] [id number] 11:02:00* Test Item Value Reference Range Interpretation Comments GLUBED (test code = GLUBED) 146 mg/dL 74-106 H Performed by certified communications equipment operator at [facility] AB HIV 1 09:51:00* Test Item Value Reference Range Interpretation Comments AB HIV 1 2 (test code = GDU05MX) Nonreactive NonReactive It is recognized that currently available assays for thedetection of antibodies to HIV-1 and/or HIV-2 may notdetect all infected individuals. A negative test result doesnot exclude the possibility of exposure to or infection withHIV. HIV antibodies may be undetectable in some stages ofthe infection and in some clinical conditions. AB HEPATITIS B [id number] 07:12:00* Test Item Value Reference Range Interpretation Comments AB HEPATITIS B SURFACE (test code = HBSAB) Reactive () Non Reactive: Inconsistent with immunity, less than 10 mIU/mL Reactive: Consistent with immunity, greater than 9.9 mIU/mLPerformed At: [facility] [address] [id number] Judge MD Ph:[phone] HEPATITIS B CORE ANTIBODY,[id number] 07:12:00* Test Item Value Reference Range Interpretation Comments HEPATITIS B CORE ANTIBODY,TOT (test code = HBCAB) Negative Nega tive Performed At: [facility] [address] [id number] Judge MD Ph:[phone] [id number] 05:31:00* Test Item Value Reference Range Interpretation Comments HEMOGLOBIN (test code = HGB) 8.0 gram/dL 13.0-17.5 L [id number] 20:08:00* Test Item Value Reference Range Interpretation Comments GLUBED (test code = GLUBED) 135 mg/dL 74-106 H Performed by certified communications equipment operator at [facility] [id number] 17:42:00* Test Item Value Reference Range Interpretation Comments GLUBED (test code = GLUBED) 237 mg/dL 74-106 H Performed by certified communications equipment operator at [facility] BASIC METABOLIC [id number] 13:54:00* Test Item Value Reference Range Interpretation Comments SODIUM (test code = NA) 134 mmol/L 136-145 L POTASSIUM (test code = K) 4.3 mmol/L 3.5-5.1 N CHLORIDE (test code = CL) 101.0 mmol/L 98-107 N CARBON DIOXIDE (test code = CO2) 27.0 mmol/L 21-32 N ANION GAP (test code = GAP) 10.3 10-20 N GLUCOSE (test code = GLU) 147 mg/dL 74-106 H BLOOD UREA NITROGEN (test code = BUN) 66 mg/dL 7-18 H GLOMERULAR FILTRATION RATE (test code = GFR) 12 mL/min >=60 Estimated GFR by using Modified MDRD formula.Chronic kidney disease is defined as either kidney damageor GFR <60 mL/min/1.73 m2 for >3 months. CREATININE (test code = CREAT) 5.10 mg/dL 0.7-1.3 H BUN/CREATININE RATIO (test code = BUN/CREA) 12.9 10-20 N CALCIUM (test code = CA) 8.7 mg/dL 8.5-10.1 N BASIC METABOLIC [id number] 13:49:00* Test Item Value Reference Range Interpretation Comments SODIUM (test code = NA) 134 mmol/L 136-145 L POTASSIUM (test code = K) 4.3 mmol/L 3.5-5.1 N CHLORIDE (test code = CL) 101.0 mmol/L 98-107 N CARBON DIOXIDE (test code = CO2) mmol/L 21-32 ANION GAP (test code = GAP) 10-20 GLUCOSE (test code = GLU) mg/dL 74-106 BLOOD UREA NITROGEN (test code = BUN) mg/dL 7-18 GLOMERULAR FILTRATION RATE (test code = GFR) mL/min >=60 CREATININE (test code = CREAT) mg/dL 0.7-1.3 BUN/CREATININE RATIO (test code = BUN/CREA) 10-20 CALCIUM (test code = CA) mg/dL 8.5-10.1 CBC W/AUTO [id number] 12:42:00* Test Item Value Reference Range Interpretation Comments WHITE BLOOD CELL (test code = WBC) 5.5 K/mm3 4.5-12.5 N RED BLOOD CELL (test code = RBC) 2.55 mill/mm3 4.0-5.8 L HEMOGLOBIN (test code = HGB) 8.0 gram/dL 13.0-17.5 L HEMATOCRIT (test code = HCT) 23.8 % 42.0-52.0 L MEAN CELL VOLUME (test code = MCV) 93.3 fL 80-98 N MEAN CELL HGB (test code = MCH) 31.4 picogram 27.0-33.0 N MEAN CELL HGB CONCETRATION (test code = MCHC) 33.6 gram/dL 33.0-36. 0 N RED CELL DISTRIBUTION WIDTH (test code = RDW) 21.2 % 11.6-16. 2 H RED CELL DISTRIBUTION WIDTH SD (test code = RDW-SD) 71.8 fL 37 .0-51.0 H PLATELET COUNT (test code = PLT) 101 K/mm3 150-450 L MEAN PLATELET VOLUME (test code = MPV) 12.1 fL 6.7-11.0 H NEUTROPHIL % (test code = NT%) 78.1 % 39.0-69.0 H IMMATURE GRANULOCYTE % (test code = IG%) 0.5 % 0.0-5.0 N LYMPHOCYTE % (test code = LY%) 6.7 % 25.0-55.0 L MONOCYTE % (test code = MO%) 10.4 % 0.0-10.0 H EOSINOPHIL % (test code = EO%) 3.6 % 0.0-5.0 N BASOPHIL % (test code = BA%) 0.7 % 0.0-1.0 N NUCLEATED RBC % (test code = NRBC%) 0.0 % 0-0 N NEUTROPHIL # (test code = NT#) 4.29 K/mm3 1.8-7.7 N IMMATURE GRANULOCYTE # (test code = IG#) 0.03 x10 3/uL 0-0.03 N LYMPHOCYTE # (test code = LY#) 0.37 K/mm3 1.0-5.0 L MONOCYTE # (test code = MO#) 0.57 K/mm3 0-0.8 N EOSINOPHIL # (test code = EO#) 0.20 K/mm3 0.0-0.5 N BASOPHIL # (test code = BA#) 0.04 K/mm3 0.0-0.2 N NUCLEATED RBC # (test code = NRBC#) 0.00 K/mm3 0.0-0.1 N MANUAL DIFF REQUIRED (test code = MDIFF) NO, ONLY SCAN NEEDED DIFFERENTIAL [id number] 12:42:00* Test Item Value Reference Range Interpretation Comments STAIN ACCEPTABILITY (test code = STN ACCEPTABLE) STAIN ACCEPTABLE POLYCHROMASIA (test code = POLC) 1+ ANISOCYTOSIS (test code = ANISO) 3+ MACROCYTOSIS (test code = MACR) 3+ PLATELET ESTIMATE (test code = PLTEST) SLIGHTLY DECREASED PLATELET MORPHOLOGY (test code = PLTMORPH) NORMAL [id number] 12:13:00* Test Item Value Reference Range Interpretation Comments GLUBED (test code = GLUBED) 142 mg/dL 74-106 H Performed by certified communications equipment operator at [facility] CBC W/AUTO [id number] 11:55:00* Test Item Value Reference Range Interpretation Comments WHITE BLOOD CELL (test code = WBC) 5.5 K/mm3 4.5-12.5 N RED BLOOD CELL (test code = RBC) 2.55 mill/mm3 4.0-5.8 L HEMOGLOBIN (test code = HGB) 8.0 gram/dL 13.0-17.5 L HEMATOCRIT (test code = HCT) 23.8 % 42.0-52.0 L MEAN CELL VOLUME (test code = MCV) 93.3 fL 80-98 N MEAN CELL HGB (test code = MCH) 31.4 picogram 27.0-33.0 N MEAN CELL HGB CONCETRATION (test code = MCHC) 33.6 gram/dL 33.0-36. 0 N RED CELL DISTRIBUTION WIDTH (test code = RDW) 21.2 % 11.6-16. 2 H RED CELL DISTRIBUTION WIDTH SD (test code = RDW-SD) 71.8 fL 37 .0-51.0 H PLATELET COUNT (test code = PLT) 101 K/mm3 150-450 L MEAN PLATELET VOLUME (test code = MPV) 12.1 fL 6.7-11.0 H NEUTROPHIL % (test code = NT%) 78.1 % 39.0-69.0 H IMMATURE GRANULOCYTE % (test code = IG%) 0.5 % 0.0-5.0 N LYMPHOCYTE % (test code = LY%) 6.7 % 25.0-55.0 L MONOCYTE % (test code = MO%) 10.4 % 0.0-10.0 H EOSINOPHIL % (test code = EO%) 3.6 % 0.0-5.0 N BASOPHIL % (test code = BA%) 0.7 % 0.0-1.0 N NUCLEATED RBC % (test code = NRBC%) 0.0 % 0-0 N NEUTROPHIL # (test code = NT#) 4.29 K/mm3 1.8-7.7 N IMMATURE GRANULOCYTE # (test code = IG#) 0.03 x10 3/uL 0-0.03 N LYMPHOCYTE # (test code = LY#) 0.37 K/mm3 1.0-5.0 L MONOCYTE # (test code = MO#) 0.57 K/mm3 0-0.8 N EOSINOPHIL # (test code = EO#) 0.20 K/mm3 0.0-0.5 N BASOPHIL # (test code = BA#) 0.04 K/mm3 0.0-0.2 N NUCLEATED RBC # (test code = NRBC#) 0.00 K/mm3 0.0-0.1 N MANUAL DIFF REQUIRED (test code = MDIFF) NO, ONLY SCAN NEEDED DIFFERENTIAL [id number] 11:55:00* Test Item Value Reference Range Interpretation Comments STAIN ACCEPTABILITY (test code = STN ACCEPTABLE) CABOT RINGS (test code = CAB) MORPHOLOGY COMMENT (test code = MOC) PLATELET ESTIMATE (test code = PLTEST) PLATELET MORPHOLOGY (test code = PLTMORPH) CBC W/AUTO [id number] 11:55:00* Test Item Value Reference Range Interpretation Comments WHITE BLOOD CELL (test code = WBC) 5.5 K/mm3 4.5-12.5 N RED BLOOD CELL (test code = RBC) 2.55 mill/mm3 4.0-5.8 L HEMOGLOBIN (test code = HGB) 8.0 gram/dL 13.0-17.5 L HEMATOCRIT (test code = HCT) 23.8 % 42.0-52.0 L MEAN CELL VOLUME (test code = MCV) 93.3 fL 80-98 N MEAN CELL HGB (test code = MCH) 31.4 picogram 27.0-33.0 N MEAN CELL HGB CONCETRATION (test code = MCHC) 33.6 gram/dL 33.0-36. 0 N RED CELL DISTRIBUTION WIDTH (test code = RDW) 21.2 % 11.6-16. 2 H RED CELL DISTRIBUTION WIDTH SD (test code = RDW-SD) 71.8 fL 37 .0-51.0 H PLATELET COUNT (test code = PLT) 101 K/mm3 150-450 L MEAN PLATELET VOLUME (test code = MPV) 12.1 fL 6.7-11.0 H NEUTROPHIL % (test code = NT%) 78.1 % 39.0-69.0 H IMMATURE GRANULOCYTE % (test code = IG%) 0.5 % 0.0-5.0 N LYMPHOCYTE % (test code = LY%) 6.7 % 25.0-55.0 L MONOCYTE % (test code = MO%) 10.4 % 0.0-10.0 H EOSINOPHIL % (test code = EO%) 3.6 % 0.0-5.0 N BASOPHIL % (test code = BA%) 0.7 % 0.0-1.0 N NUCLEATED RBC % (test code = NRBC%) 0.0 % 0-0 N NEUTROPHIL # (test code = NT#) 4.29 K/mm3 1.8-7.7 N IMMATURE GRANULOCYTE # (test code = IG#) 0.03 x10 3/uL 0-0.03 N LYMPHOCYTE # (test code = LY#) 0.37 K/mm3 1.0-5.0 L MONOCYTE # (test code = MO#) 0.57 K/mm3 0-0.8 N EOSINOPHIL # (test code = EO#) 0.20 K/mm3 0.0-0.5 N BASOPHIL # (test code = BA#) 0.04 K/mm3 0.0-0.2 N NUCLEATED RBC # (test code = NRBC#) 0.00 K/mm3 0.0-0.1 N MANUAL DIFF REQUIRED (test code = MDIFF) NO, ONLY SCAN NEEDED DIFFERENTIAL [id number] 11:55:00* Test Item Value Reference Range Interpretation Comments STAIN ACCEPTABILITY (test code = STN ACCEPTABLE) CABOT RINGS (test code = CAB) MORPHOLOGY COMMENT (test code = MOC) PLATELET ESTIMATE (test code = PLTEST) PLATELET MORPHOLOGY (test code = PLTMORPH) CBC W/AUTO [id number] 11:55:00* Test Item Value Reference Range Interpretation Comments WHITE BLOOD CELL (test code = WBC) 5.5 K/mm3 4.5-12.5 N RED BLOOD CELL (test code = RBC) 2.55 mill/mm3 4.0-5.8 L HEMOGLOBIN (test code = HGB) 8.0 gram/dL 13.0-17.5 L HEMATOCRIT (test code = HCT) 23.8 % 42.0-52.0 L MEAN CELL VOLUME (test code = MCV) 93.3 fL 80-98 N MEAN CELL HGB (test code = MCH) 31.4 picogram 27.0-33.0 N MEAN CELL HGB CONCETRATION (test code = MCHC) 33.6 gram/dL 33.0-36. 0 N RED CELL DISTRIBUTION WIDTH (test code = RDW) 21.2 % 11.6-16. 2 H RED CELL DISTRIBUTION WIDTH SD (test code = RDW-SD) 71.8 fL 37 .0-51.0 H PLATELET COUNT (test code = PLT) 101 K/mm3 150-450 L MEAN PLATELET VOLUME (test code = MPV) 12.1 fL 6.7-11.0 H NEUTROPHIL % (test code = NT%) 78.1 % 39.0-69.0 H IMMATURE GRANULOCYTE % (test code = IG%) 0.5 % 0.0-5.0 N LYMPHOCYTE % (test code = LY%) 6.7 % 25.0-55.0 L MONOCYTE % (test code = MO%) 10.4 % 0.0-10.0 H EOSINOPHIL % (test code = EO%) 3.6 % 0.0-5.0 N BASOPHIL % (test code = BA%) 0.7 % 0.0-1.0 N NUCLEATED RBC % (test code = NRBC%) 0.0 % 0-0 N NEUTROPHIL # (test code = NT#) 4.29 K/mm3 1.8-7.7 N IMMATURE GRANULOCYTE # (test code = IG#) 0.03 x10 3/uL 0-0.03 N LYMPHOCYTE # (test code = LY#) 0.37 K/mm3 1.0-5.0 L MONOCYTE # (test code = MO#) 0.57 K/mm3 0-0.8 N EOSINOPHIL # (test code = EO#) 0.20 K/mm3 0.0-0.5 N BASOPHIL # (test code = BA#) 0.04 K/mm3 0.0-0.2 N NUCLEATED RBC # (test code = NRBC#) 0.00 K/mm3 0.0-0.1 N MANUAL DIFF REQUIRED (test code = MDIFF) NO, ONLY SCAN NEEDED DIFFERENTIAL [id number] 11:55:00* Test Item Value Reference Range Interpretation Comments STAIN ACCEPTABILITY (test code = STN ACCEPTABLE) MORPHOLOGY COMMENT (test code = MOC) PLATELET ESTIMATE (test code = PLTEST) PLATELET MORPHOLOGY (test code = PLTMORPH) CBC W/AUTO [id number] 11:55:00* Test Item Value Reference Range Interpretation Comments WHITE BLOOD CELL (test code = WBC) 5.5 K/mm3 4.5-12.5 N RED BLOOD CELL (test code = RBC) 2.55 mill/mm3 4.0-5.8 L HEMOGLOBIN (test code = HGB) 8.0 gram/dL 13.0-17.5 L HEMATOCRIT (test code = HCT) 23.8 % 42.0-52.0 L MEAN CELL VOLUME (test code = MCV) 93.3 fL 80-98 N MEAN CELL HGB (test code = MCH) 31.4 picogram 27.0-33.0 N MEAN CELL HGB CONCETRATION (test code = MCHC) 33.6 gram/dL 33.0-36. 0 N RED CELL DISTRIBUTION WIDTH (test code = RDW) 21.2 % 11.6-16. 2 H RED CELL DISTRIBUTION WIDTH SD (test code = RDW-SD) 71.8 fL 37 .0-51.0 H PLATELET COUNT (test code = PLT) 101 K/mm3 150-450 L MEAN PLATELET VOLUME (test code = MPV) 12.1 fL 6.7-11.0 H NEUTROPHIL % (test code = NT%) 78.1 % 39.0-69.0 H IMMATURE GRANULOCYTE % (test code = IG%) 0.5 % 0.0-5.0 N LYMPHOCYTE % (test code = LY%) 6.7 % 25.0-55.0 L MONOCYTE % (test code = MO%) 10.4 % 0.0-10.0 H EOSINOPHIL % (test code = EO%) 3.6 % 0.0-5.0 N BASOPHIL % (test code = BA%) 0.7 % 0.0-1.0 N NUCLEATED RBC % (test code = NRBC%) 0.0 % 0-0 N NEUTROPHIL # (test code = NT#) 4.29 K/mm3 1.8-7.7 N IMMATURE GRANULOCYTE # (test code = IG#) 0.03 x10 3/uL 0-0.03 N LYMPHOCYTE # (test code = LY#) 0.37 K/mm3 1.0-5.0 L MONOCYTE # (test code = MO#) 0.57 K/mm3 0-0.8 N EOSINOPHIL # (test code = EO#) 0.20 K/mm3 0.0-0.5 N BASOPHIL # (test code = BA#) 0.04 K/mm3 0.0-0.2 N NUCLEATED RBC # (test code = NRBC#) 0.00 K/mm3 0.0-0.1 N MANUAL DIFF REQUIRED (test code = MDIFF) NO, ONLY SCAN NEEDED DIFFERENTIAL [id number] 11:55:00* Test Item Value Reference Range Interpretation Comments STAIN ACCEPTABILITY (test code = STN ACCEPTABLE) CABOT RINGS (test code = CAB) MORPHOLOGY COMMENT (test code = MOC) PLATELET ESTIMATE (test code = PLTEST) PLATELET MORPHOLOGY (test code = PLTMORPH) CBC W/AUTO [id number] 07:58:00* Test Item Value Reference Range Interpretation Comments WHITE BLOOD CELL (test code = WBC) 5.2 K/mm3 4.5-12.5 N RED BLOOD CELL (test code = RBC) 2.63 mill/mm3 4.0-5.8 L HEMOGLOBIN (test code = HGB) 8.3 gram/dL 13.0-17.5 L HEMATOCRIT (test code = HCT) 24.5 % 42.0-52.0 L MEAN CELL VOLUME (test code = MCV) 93.2 fL 80-98 N MEAN CELL HGB (test code = MCH) 31.6 picogram 27.0-33.0 N MEAN CELL HGB CONCETRATION (test code = MCHC) 33.9 gram/dL 33.0-36. 0 N RED CELL DISTRIBUTION WIDTH (test code = RDW) 21.1 % 11.6-16. 2 H RED CELL DISTRIBUTION WIDTH SD (test code = RDW-SD) 71.3 fL 37 .0-51.0 H PLATELET COUNT (test code = PLT) 104 K/mm3 150-450 L MEAN PLATELET VOLUME (test code = MPV) 12.6 fL 6.7-11.0 H NEUTROPHIL % (test code = NT%) 74.7 % 39.0-69.0 H IMMATURE GRANULOCYTE % (test code = IG%) 0.6 % 0.0-5.0 N LYMPHOCYTE % (test code = LY%) 8.8 % 25.0-55.0 L MONOCYTE % (test code = MO%) 11.1 % 0.0-10.0 H EOSINOPHIL % (test code = EO%) 4.0 % 0.0-5.0 N BASOPHIL % (test code = BA%) 0.8 % 0.0-1.0 N NUCLEATED RBC % (test code = NRBC%) 0.0 % 0-0 N NEUTROPHIL # (test code = NT#) 3.92 K/mm3 1.8-7.7 N IMMATURE GRANULOCYTE # (test code = IG#) 0.03 x10 3/uL 0-0.03 N LYMPHOCYTE # (test code = LY#) 0.46 K/mm3 1.0-5.0 L MONOCYTE # (test code = MO#) 0.58 K/mm3 0-0.8 N EOSINOPHIL # (test code = EO#) 0.21 K/mm3 0.0-0.5 N BASOPHIL # (test code = BA#) 0.04 K/mm3 0.0-0.2 N NUCLEATED RBC # (test code = NRBC#) 0.00 K/mm3 0.0-0.1 N MANUAL DIFF REQUIRED (test code = MDIFF) NO, ONLY SCAN NEEDED DIFFERENTIAL [id number] 07:58:00* Test Item Value Reference Range Interpretation Comments STAIN ACCEPTABILITY (test code = STN ACCEPTABLE) STAIN ACCEPTABLE POLYCHROMASIA (test code = POLC) 1+ ANISOCYTOSIS (test code = ANISO) 3+ MACROCYTOSIS (test code = MACR) 3+ PLATELET ESTIMATE (test code = PLTEST) SLIGHTLY DECREASED PLATELET MORPHOLOGY (test code = PLTMORPH) NORMAL CBC W/AUTO [id number] 07:44:00* Test Item Value Reference Range Interpretation Comments WHITE BLOOD CELL (test code = WBC) 5.2 K/mm3 4.5-12.5 N RED BLOOD CELL (test code = RBC) 2.63 mill/mm3 4.0-5.8 L HEMOGLOBIN (test code = HGB) 8.3 gram/dL 13.0-17.5 L HEMATOCRIT (test code = HCT) 24.5 % 42.0-52.0 L MEAN CELL VOLUME (test code = MCV) 93.2 fL 80-98 N MEAN CELL HGB (test code = MCH) 31.6 picogram 27.0-33.0 N MEAN CELL HGB CONCETRATION (test code = MCHC) 33.9 gram/dL 33.0-36. 0 N RED CELL DISTRIBUTION WIDTH (test code = RDW) 21.1 % 11.6-16. 2 H RED CELL DISTRIBUTION WIDTH SD (test code = RDW-SD) 71.3 fL 37 .0-51.0 H PLATELET COUNT (test code = PLT) 104 K/mm3 150-450 L MEAN PLATELET VOLUME (test code = MPV) 12.6 fL 6.7-11.0 H NEUTROPHIL % (test code = NT%) 74.7 % 39.0-69.0 H IMMATURE GRANULOCYTE % (test code = IG%) 0.6 % 0.0-5.0 N LYMPHOCYTE % (test code = LY%) 8.8 % 25.0-55.0 L MONOCYTE % (test code = MO%) 11.1 % 0.0-10.0 H EOSINOPHIL % (test code = EO%) 4.0 % 0.0-5.0 N BASOPHIL % (test code = BA%) 0.8 % 0.0-1.0 N NUCLEATED RBC % (test code = NRBC%) 0.0 % 0-0 N NEUTROPHIL # (test code = NT#) 3.92 K/mm3 1.8-7.7 N IMMATURE GRANULOCYTE # (test code = IG#) 0.03 x10 3/uL 0-0.03 N LYMPHOCYTE # (test code = LY#) 0.46 K/mm3 1.0-5.0 L MONOCYTE # (test code = MO#) 0.58 K/mm3 0-0.8 N EOSINOPHIL # (test code = EO#) 0.21 K/mm3 0.0-0.5 N BASOPHIL # (test code = BA#) 0.04 K/mm3 0.0-0.2 N NUCLEATED RBC # (test code = NRBC#) 0.00 K/mm3 0.0-0.1 N MANUAL DIFF REQUIRED (test code = MDIFF) NO, ONLY SCAN NEEDED DIFFERENTIAL [id number] 07:44:00* Test Item Value Reference Range Interpretation Comments STAIN ACCEPTABILITY (test code = STN ACCEPTABLE) CABOT RINGS (test code = CAB) MORPHOLOGY COMMENT (test code = MOC) PLATELET ESTIMATE (test code = PLTEST) PLATELET MORPHOLOGY (test code = PLTMORPH) CBC W/AUTO [id number] 07:44:00* Test Item Value Reference Range Interpretation Comments WHITE BLOOD CELL (test code = WBC) 5.2 K/mm3 4.5-12.5 N RED BLOOD CELL (test code = RBC) 2.63 mill/mm3 4.0-5.8 L HEMOGLOBIN (test code = HGB) 8.3 gram/dL 13.0-17.5 L HEMATOCRIT (test code = HCT) 24.5 % 42.0-52.0 L MEAN CELL VOLUME (test code = MCV) 93.2 fL 80-98 N MEAN CELL HGB (test code = MCH) 31.6 picogram 27.0-33.0 N MEAN CELL HGB CONCETRATION (test code = MCHC) 33.9 gram/dL 33.0-36. 0 N RED CELL DISTRIBUTION WIDTH (test code = RDW) 21.1 % 11.6-16. 2 H RED CELL DISTRIBUTION WIDTH SD (test code = RDW-SD) 71.3 fL 37 .0-51.0 H PLATELET COUNT (test code = PLT) 104 K/mm3 150-450 L MEAN PLATELET VOLUME (test code = MPV) 12.6 fL 6.7-11.0 H NEUTROPHIL % (test code = NT%) 74.7 % 39.0-69.0 H IMMATURE GRANULOCYTE % (test code = IG%) 0.6 % 0.0-5.0 N LYMPHOCYTE % (test code = LY%) 8.8 % 25.0-55.0 L MONOCYTE % (test code = MO%) 11.1 % 0.0-10.0 H EOSINOPHIL % (test code = EO%) 4.0 % 0.0-5.0 N BASOPHIL % (test code = BA%) 0.8 % 0.0-1.0 N NUCLEATED RBC % (test code = NRBC%) 0.0 % 0-0 N NEUTROPHIL # (test code = NT#) 3.92 K/mm3 1.8-7.7 N IMMATURE GRANULOCYTE # (test code = IG#) 0.03 x10 3/uL 0-0.03 N LYMPHOCYTE # (test code = LY#) 0.46 K/mm3 1.0-5.0 L MONOCYTE # (test code = MO#) 0.58 K/mm3 0-0.8 N EOSINOPHIL # (test code = EO#) 0.21 K/mm3 0.0-0.5 N BASOPHIL # (test code = BA#) 0.04 K/mm3 0.0-0.2 N NUCLEATED RBC # (test code = NRBC#) 0.00 K/mm3 0.0-0.1 N MANUAL DIFF REQUIRED (test code = MDIFF) NO, ONLY SCAN NEEDED DIFFERENTIAL [id number] 07:44:00* Test Item Value Reference Range Interpretation Comments STAIN ACCEPTABILITY (test code = STN ACCEPTABLE) CABOT RINGS (test code = CAB) MORPHOLOGY COMMENT (test code = MOC) PLATELET ESTIMATE (test code = PLTEST) PLATELET MORPHOLOGY (test code = PLTMORPH) CBC W/AUTO [id number] 07:44:00* Test Item Value Reference Range Interpretation Comments WHITE BLOOD CELL (test code = WBC) 5.2 K/mm3 4.5-12.5 N RED BLOOD CELL (test code = RBC) 2.63 mill/mm3 4.0-5.8 L HEMOGLOBIN (test code = HGB) 8.3 gram/dL 13.0-17.5 L HEMATOCRIT (test code = HCT) 24.5 % 42.0-52.0 L MEAN CELL VOLUME (test code = MCV) 93.2 fL 80-98 N MEAN CELL HGB (test code = MCH) 31.6 picogram 27.0-33.0 N MEAN CELL HGB CONCETRATION (test code = MCHC) 33.9 gram/dL 33.0-36. 0 N RED CELL DISTRIBUTION WIDTH (test code = RDW) 21.1 % 11.6-16. 2 H RED CELL DISTRIBUTION WIDTH SD (test code = RDW-SD) 71.3 fL 37 .0-51.0 H PLATELET COUNT (test code = PLT) 104 K/mm3 150-450 L MEAN PLATELET VOLUME (test code = MPV) 12.6 fL 6.7-11.0 H NEUTROPHIL % (test code = NT%) 74.7 % 39.0-69.0 H IMMATURE GRANULOCYTE % (test code = IG%) 0.6 % 0.0-5.0 N LYMPHOCYTE % (test code = LY%) 8.8 % 25.0-55.0 L MONOCYTE % (test code = MO%) 11.1 % 0.0-10.0 H EOSINOPHIL % (test code = EO%) 4.0 % 0.0-5.0 N BASOPHIL % (test code = BA%) 0.8 % 0.0-1.0 N NUCLEATED RBC % (test code = NRBC%) 0.0 % 0-0 N NEUTROPHIL # (test code = NT#) 3.92 K/mm3 1.8-7.7 N IMMATURE GRANULOCYTE # (test code = IG#) 0.03 x10 3/uL 0-0.03 N LYMPHOCYTE # (test code = LY#) 0.46 K/mm3 1.0-5.0 L MONOCYTE # (test code = MO#) 0.58 K/mm3 0-0.8 N EOSINOPHIL # (test code = EO#) 0.21 K/mm3 0.0-0.5 N BASOPHIL # (test code = BA#) 0.04 K/mm3 0.0-0.2 N NUCLEATED RBC # (test code = NRBC#) 0.00 K/mm3 0.0-0.1 N MANUAL DIFF REQUIRED (test code = MDIFF) NO, ONLY SCAN NEEDED DIFFERENTIAL [id number] 07:44:00* Test Item Value Reference Range Interpretation Comments STAIN ACCEPTABILITY (test code = STN ACCEPTABLE) MORPHOLOGY COMMENT (test code = MOC) PLATELET ESTIMATE (test code = PLTEST) PLATELET MORPHOLOGY (test code = PLTMORPH) CBC W/AUTO [id number] 07:44:00* Test Item Value Reference Range Interpretation Comments WHITE BLOOD CELL (test code = WBC) 5.2 K/mm3 4.5-12.5 N RED BLOOD CELL (test code = RBC) 2.63 mill/mm3 4.0-5.8 L HEMOGLOBIN (test code = HGB) 8.3 gram/dL 13.0-17.5 L HEMATOCRIT (test code = HCT) 24.5 % 42.0-52.0 L MEAN CELL VOLUME (test code = MCV) 93.2 fL 80-98 N MEAN CELL HGB (test code = MCH) 31.6 picogram 27.0-33.0 N MEAN CELL HGB CONCETRATION (test code = MCHC) 33.9 gram/dL 33.0-36. 0 N RED CELL DISTRIBUTION WIDTH (test code = RDW) 21.1 % 11.6-16. 2 H RED CELL DISTRIBUTION WIDTH SD (test code = RDW-SD) 71.3 fL 37 .0-51.0 H PLATELET COUNT (test code = PLT) 104 K/mm3 150-450 L MEAN PLATELET VOLUME (test code = MPV) 12.6 fL 6.7-11.0 H NEUTROPHIL % (test code = NT%) 74.7 % 39.0-69.0 H IMMATURE GRANULOCYTE % (test code = IG%) 0.6 % 0.0-5.0 N LYMPHOCYTE % (test code = LY%) 8.8 % 25.0-55.0 L MONOCYTE % (test code = MO%) 11.1 % 0.0-10.0 H EOSINOPHIL % (test code = EO%) 4.0 % 0.0-5.0 N BASOPHIL % (test code = BA%) 0.8 % 0.0-1.0 N NUCLEATED RBC % (test code = NRBC%) 0.0 % 0-0 N NEUTROPHIL # (test code = NT#) 3.92 K/mm3 1.8-7.7 N IMMATURE GRANULOCYTE # (test code = IG#) 0.03 x10 3/uL 0-0.03 N LYMPHOCYTE # (test code = LY#) 0.46 K/mm3 1.0-5.0 L MONOCYTE # (test code = MO#) 0.58 K/mm3 0-0.8 N EOSINOPHIL # (test code = EO#) 0.21 K/mm3 0.0-0.5 N BASOPHIL # (test code = BA#) 0.04 K/mm3 0.0-0.2 N NUCLEATED RBC # (test code = NRBC#) 0.00 K/mm3 0.0-0.1 N MANUAL DIFF REQUIRED (test code = MDIFF) NO, ONLY SCAN NEEDED DIFFERENTIAL [id number] 07:44:00* Test Item Value Reference Range Interpretation Comments STAIN ACCEPTABILITY (test code = STN ACCEPTABLE) CABOT RINGS (test code = CAB) MORPHOLOGY COMMENT (test code = MOC) PLATELET ESTIMATE (test code = PLTEST) PLATELET MORPHOLOGY (test code = PLTMORPH) [id number] 07:34:00* Test Item Value Reference Range Interpretation Comments GLUBED (test code = GLUBED) 204 mg/dL 74-106 H Performed by certified communications equipment operator at [facility] [id number] 20:20:00* Test Item Value Reference Range Interpretation Comments GLUBED (test code = GLUBED) 234 mg/dL 74-106 H Performed by certified communications equipment operator at [facility] PROTHROMBIN [id number] 17:59:00* Test Item Value Reference Range Interpretation Comments PROTHROMBIN TIME PATIENT (test code = PTP) 12.9 seconds 9.0-14.0 N INTERNATIONAL NORMAL RATIO (test code = INR) 1.1 0.8-1.2 N The therapeutic range for oral anticoagulant therapy formost indications is an international normalized ratio (INR)of between 2.0 and 3.0. The recommended therapeutic INRrange for various clinical situations is listed below: Clinical Situation INR range Pulmonary e mbolism treatment (2.0-3.0)Venous thrombosis treatmentVenous thrombosis prophylaxis (high risk surgery)Prevention of systemic embolism from: Acute myocardial infarction Valvular heart disease Atrial fibrillation Mechanical prosthetic heart valves (2.5-3.5) IS PATIENT ON ANTICOAGULANTS? NCBC W/O [id number] 17:49:00* Test Item Value Reference Range Interpretation Comments WHITE BLOOD CELL (test code = WBC) 5.3 K/mm3 4.5-12.5 N RED BLOOD CELL (test code = RBC) 2.67 mill/mm3 4.0-5.8 L HEMOGLOBIN (test code = HGB) 8.4 gram/dL 13.0-17.5 L HEMATOCRIT (test code = HCT) 25.0 % 42.0-52.0 L MEAN CELL VOLUME (test code = MCV) 93.6 fL 80-98 N MEAN CELL HGB (test code = MCH) 31.5 picogram 27.0-33.0 N MEAN CELL HGB CONCETRATION (test code = MCHC) 33.6 gram/dL 33.0-36. 0 N RED CELL DISTRIBUTION WIDTH (test code = RDW) 22.0 % 11.6-16. 2 H PLATELET COUNT (test code = PLT) 100 K/mm3 150-450 L MEAN PLATELET VOLUME (test code = MPV) 12.2 fL 6.7-11.0 H [id number] 17:21:00* Test Item Value Reference Range Interpretation Comments GLUBED (test code = GLUBED) 146 mg/dL 74-106 H Performed by certified communications equipment operator at [facility] [id number] 12:20:00* Test Item Value Reference Range Interpretation Comments GLUBED (test code = GLUBED) 194 mg/dL 74-106 H Performed by certified communications equipment operator at [facility] ANTINUCLEAR ANTIBODIES [id number] 11:09:00* Test Item Value Reference Range Interpretation Comments MARCELO SCREEN (test code = ANASCR) Negative Negative Performed At: [facility] [id number] Kyle L MD Ph:[phone] REFAB [id number] 11:09:00* Test Item Value Reference Range Interpretation Comments AB MITOCHONDRIAL (test code = MITOCHAB) EIA <1.0 [id number] 08:13:00* Test Item Value Reference Range Interpretation Comments GLUBED (test code = GLUBED) 188 mg/dL 74-106 H Performed by certified communications equipment operator at [facility] ALPHA FETOPROTEIN TUMOR [id number] 08:10:00* Test Item Value Reference Range Interpretation Comments ALPHA FETOPROTEIN TUMOR MARKER (test code = AFPTM) 3.9 ng/mL 0.0 -8.3 [facility] Electrochemiluminescence Immunoassay(ECLIA)Values obtained with different assay methods or kits cannotbe used interchangeably. Results cannot be interpreted asabsolute evidence of the presence or absence of malignantdisease.This test is not interpretable in females.Performed At: [facility] [address] [place], [place] [id number] Judge MD Ph:[phone] [id number] 08:07:00* Test Item Value Reference Range Interpretation Comments HEMOGLOBIN (test code = HGB) 8.3 gram/dL 13.0-17.5 L [id number] 20:38:00* Test Item Value Reference Range Interpretation Comments GLUBED (test code = GLUBED) 168 mg/dL 74-106 H Performed by certified communications equipment operator at [facility] [id number] 17:29:00* Test Item Value Reference Range Interpretation Comments GLUBED (test code = GLUBED) 192 mg/dL 74-106 H Performed by certified communications equipment operator at [facility] HGB [id number] 16:55:00* Test Item Value Reference Range Interpretation Comments HEMOGLOBIN (test code = HGB) 8.6 gram/dL 13.0-17.5 L RESULT VERIFIED BY REPEAT ANALYSIS HEMATOCRIT (test code = HCT) 25.4 % 42.0-52.0 L [id number] 13:43:00* Test Item Value Reference Range Interpretation Comments GLUBED (test code = GLUBED) 224 mg/dL 74-106 H Performed by certified communications equipment operator at [facility] ACUTE HEPATITIS [id number] 08:10:00* Test Item Value Reference Range Interpretation Comments AB HEPATITIS A IGM (test code = HAVMAB) Negative Negative AG HEPAT B SURF (test code = HBSAG) Negative Negative HEPATITIS B CORE ANTIBODY,IGM (test code = HBCMAB) Negative Neg ative AB HEPATITIS C (test code = HCVAB) <0.1 0.0-0.9 INFCE Result Units: s/co ratio Negative: < 0.8 Indeterminate: 0.8 - 0.9 Positive: > 0.9 The CDC recommends that a positive HCV antibody result be followed up with a HCV Nucleic Acid Amplification test ([id number]).Performed At: [facility] [address] [place], [place] [id number] Judge MD Ph:[phone] [id number] 08:02:00* Test Item Value Reference Range Interpretation Comments GLUBED (test code = GLUBED) 197 mg/dL 74-106 H Performed by certified communications equipment operator at [facility] AG HEPAT B [id number] 07:41:00* Test Item Value Reference Range Interpretation Comments AG HEPAT B SURF (test code = HBSAG) Nonreactive Index Nonreactive BASIC METABOLIC [id number] 03:15:00* Test Item Value Reference Range Interpretation Comments SODIUM (test code = NA) 138 mmol/L 136-145 N POTASSIUM (test code = K) 4.1 mmol/L 3.5-5.1 N CHLORIDE (test code = CL) 102.0 mmol/L 98-107 N CARBON DIOXIDE (test code = CO2) 29.0 mmol/L 21-32 N ANION GAP (test code = GAP) 11.1 10-20 N GLUCOSE (test code = GLU) 206 mg/dL 74-106 H BLOOD UREA NITROGEN (test code = BUN) 53 mg/dL 7-18 H RESULT VERIFIED BY REPEAT ANALYSIS GLOMERULAR FILTRATION RATE (test code = GFR) 14 mL/min >=60 Estimated GFR by using Modified MDRD formula.Chronic kidney disease is defined as either kidney damageor GFR <60 mL/min/1.73 m2 for >3 months. CREATININE (test code = CREAT) 4.50 mg/dL 0.7-1.3 H BUN/CREATININE RATIO (test code = BUN/CREA) 11.8 10-20 N CALCIUM (test code = CA) 8.8 mg/dL 8.5-10.1 N HEPATIC FUNCTION [id number] 03:15:00* Test Item Value Reference Range Interpretation Comments TOTAL PROTEIN (test code = PROT) 7.0 gram/dL 6.4-8.2 N ALBUMIN (test code = ALB) 2.7 g/dL 3.4-5.0 L GLOBULIN (test code = GLOB) 4.3 gram/dL 2.7-4.2 H ALBUMIN/GLOBULIN RATIO (test code = A/G) 0.6 0.75-1.50 L BILIRUBIN TOTAL (test code = BILT) 10.30 mg/dL 0.0-1.0 H BILIRUBIN DIRECT (test code = BILD) 8.92 mg/dL 0.0-0.20 H SGOT/AST (test code = AST) 41 IUnit/L 15-37 H SGPT/ALT (test code = ALT) 54 IUnit/L 12-78 N ALKALINE PHOSPHATASE TOTAL (test code = ALKP) 817 IUnit/L 45-117 H Note change in reference range due to change in reagent. CBC W/AUTO [id number] 02:51:00* Test Item Value Reference Range Interpretation Comments WHITE BLOOD CELL (test code = WBC) 5.2 K/mm3 4.5-12.5 N RED BLOOD CELL (test code = RBC) 2.04 mill/mm3 4.0-5.8 L HEMOGLOBIN (test code = HGB) 6.6 gram/dL 13.0-17.5 L HEMATOCRIT (test code = HCT) 19.9 % 42.0-52.0 LL Results called to [id number] by [email or web address] 08/09/19 0220Critical results verified and read back by Nurse? YES MEAN CELL VOLUME (test code = MCV) 97.5 fL 80-98 N MEAN CELL HGB (test code = MCH) 32.4 picogram 27.0-33.0 N MEAN CELL HGB CONCETRATION (test code = MCHC) 33.2 gram/dL 33.0-36. 0 N RED CELL DISTRIBUTION WIDTH (test code = RDW) 21.9 % 11.6-16. 2 H RED CELL DISTRIBUTION WIDTH SD (test code = RDW-SD) 77.4 fL 37 .0-51.0 H PLATELET COUNT (test code = PLT) 91 K/mm3 150-450 L MEAN PLATELET VOLUME (test code = MPV) 12.6 fL 6.7-11.0 H NEUTROPHIL % (test code = NT%) 79.1 % 39.0-69.0 H IMMATURE GRANULOCYTE % (test code = IG%) 1.0 % 0.0-5.0 N LYMPHOCYTE % (test code = LY%) 6.6 % 25.0-55.0 L MONOCYTE % (test code = MO%) 10.4 % 0.0-10.0 H EOSINOPHIL % (test code = EO%) 2.3 % 0.0-5.0 N BASOPHIL % (test code = BA%) 0.6 % 0.0-1.0 N NUCLEATED RBC % (test code = NRBC%) 0.0 % 0-0 N NEUTROPHIL # (test code = NT#) 4.10 K/mm3 1.8-7.7 N IMMATURE GRANULOCYTE # (test code = IG#) 0.05 x10 3/uL 0-0.03 H LYMPHOCYTE # (test code = LY#) 0.34 K/mm3 1.0-5.0 L MONOCYTE # (test code = MO#) 0.54 K/mm3 0-0.8 N EOSINOPHIL # (test code = EO#) 0.12 K/mm3 0.0-0.5 N BASOPHIL # (test code = BA#) 0.03 K/mm3 0.0-0.2 N NUCLEATED RBC # (test code = NRBC#) 0.00 K/mm3 0.0-0.1 N MANUAL DIFF REQUIRED (test code = MDIFF) NO, ONLY SCAN NEEDED DIFFERENTIAL [id number] 02:51:00* Test Item Value Reference Range Interpretation Comments STAIN ACCEPTABILITY (test code = STN ACCEPTABLE) STAIN ACCEPTABLE POLYCHROMASIA (test code = POLC) 1+ HYPOCHROMIA (test code = HYPO) 2+ POIKILOCYTOSIS (test code = POIK) 1+ ANISOCYTOSIS (test code = ANISO) 3+ MICROCYTOSIS (test code = MICR) 1+ MACROCYTOSIS (test code = MACR) 2+ TARGET CELLS (test code = TGT) 2+ STOMATOCYTES (test code = STO) 1+ PLATELET ESTIMATE (test code = PLTEST) DECREASED PLATELET MORPHOLOGY (test code = PLTMORPH) NORMAL BASIC METABOLIC [id number] 02:50:00* Test Item Value Reference Range Interpretation Comments SODIUM (test code = NA) 138 mmol/L 136-145 N POTASSIUM (test code = K) 4.1 mmol/L 3.5-5.1 N CHLORIDE (test code = CL) 102.0 mmol/L 98-107 N CARBON DIOXIDE (test code = CO2) mmol/L 21-32 ANION GAP (test code = GAP) 10-20 GLUCOSE (test code = GLU) mg/dL 74-106 BLOOD UREA NITROGEN (test code = BUN) mg/dL 7-18 GLOMERULAR FILTRATION RATE (test code = GFR) mL/min >=60 CREATININE (test code = CREAT) mg/dL 0.7-1.3 BUN/CREATININE RATIO (test code = BUN/CREA) 10-20 CALCIUM (test code = CA) mg/dL 8.5-10.1 HEPATIC FUNCTION [id number] 02:50:00* Test Item Value Reference Range Interpretation Comments TOTAL PROTEIN (test code = PROT) gram/dL 6.4-8.2 ALBUMIN (test code = ALB) g/dL 3.4-5.0 GLOBULIN (test code = GLOB) gram/dL 2.7-4.2 ALBUMIN/GLOBULIN RATIO (test code = A/G) 0.75-1.50 BILIRUBIN TOTAL (test code = BILT) mg/dL 0.0-1.0 BILIRUBIN DIRECT (test code = BILD) mg/dL 0.0-0.20 SGOT/AST (test code = AST) IUnit/L 15-37 SGPT/ALT (test code = ALT) IUnit/L 12-78 ALKALINE PHOSPHATASE TOTAL (test code = ALKP) IUnit/L 45-117 CBC W/AUTO [id number] 02:20:00* Test Item Value Reference Range Interpretation Comments WHITE BLOOD CELL (test code = WBC) 5.2 K/mm3 4.5-12.5 N RED BLOOD CELL (test code = RBC) 2.04 mill/mm3 4.0-5.8 L HEMOGLOBIN (test code = HGB) 6.6 gram/dL 13.0-17.5 L HEMATOCRIT (test code = HCT) 19.9 % 42.0-52.0 LL Results called to [id number] by [email or web address] 08/09/19 0220Critical results verified and read back by Nurse? YES MEAN CELL VOLUME (test code = MCV) 97.5 fL 80-98 N MEAN CELL HGB (test code = MCH) 32.4 picogram 27.0-33.0 N MEAN CELL HGB CONCETRATION (test code = MCHC) 33.2 gram/dL 33.0-36. 0 N RED CELL DISTRIBUTION WIDTH (test code = RDW) 21.9 % 11.6-16. 2 H RED CELL DISTRIBUTION WIDTH SD (test code = RDW-SD) 77.4 fL 37 .0-51.0 H PLATELET COUNT (test code = PLT) 91 K/mm3 150-450 L MEAN PLATELET VOLUME (test code = MPV) 12.6 fL 6.7-11.0 H NEUTROPHIL % (test code = NT%) 79.1 % 39.0-69.0 H IMMATURE GRANULOCYTE % (test code = IG%) 1.0 % 0.0-5.0 N LYMPHOCYTE % (test code = LY%) 6.6 % 25.0-55.0 L MONOCYTE % (test code = MO%) 10.4 % 0.0-10.0 H EOSINOPHIL % (test code = EO%) 2.3 % 0.0-5.0 N BASOPHIL % (test code = BA%) 0.6 % 0.0-1.0 N NUCLEATED RBC % (test code = NRBC%) 0.0 % 0-0 N NEUTROPHIL # (test code = NT#) 4.10 K/mm3 1.8-7.7 N IMMATURE GRANULOCYTE # (test code = IG#) 0.05 x10 3/uL 0-0.03 H LYMPHOCYTE # (test code = LY#) 0.34 K/mm3 1.0-5.0 L MONOCYTE # (test code = MO#) 0.54 K/mm3 0-0.8 N EOSINOPHIL # (test code = EO#) 0.12 K/mm3 0.0-0.5 N BASOPHIL # (test code = BA#) 0.03 K/mm3 0.0-0.2 N NUCLEATED RBC # (test code = NRBC#) 0.00 K/mm3 0.0-0.1 N MANUAL DIFF REQUIRED (test code = MDIFF) NO, ONLY SCAN NEEDED DIFFERENTIAL [id number] 02:20:00* Test Item Value Reference Range Interpretation Comments STAIN ACCEPTABILITY (test code = STN ACCEPTABLE) CABOT RINGS (test code = CAB) MORPHOLOGY COMMENT (test code = MOC) PLATELET ESTIMATE (test code = PLTEST) PLATELET MORPHOLOGY (test code = PLTMORPH) CBC W/AUTO [id number] 02:20:00* Test Item Value Reference Range Interpretation Comments WHITE BLOOD CELL (test code = WBC) 5.2 K/mm3 4.5-12.5 N RED BLOOD CELL (test code = RBC) 2.04 mill/mm3 4.0-5.8 L HEMOGLOBIN (test code = HGB) 6.6 gram/dL 13.0-17.5 L HEMATOCRIT (test code = HCT) 19.9 % 42.0-52.0 LL Results called to [id number] by ANKIT 08/09/19 0220Critical results verified and read back by Nurse? YES MEAN CELL VOLUME (test code = MCV) 97.5 fL 80-98 N MEAN CELL HGB (test code = MCH) 32.4 picogram 27.0-33.0 N MEAN CELL HGB CONCETRATION (test code = MCHC) 33.2 gram/dL 33.0-36. 0 N RED CELL DISTRIBUTION WIDTH (test code = RDW) 21.9 % 11.6-16. 2 H RED CELL DISTRIBUTION WIDTH SD (test code = RDW-SD) 77.4 fL 37 .0-51.0 H PLATELET COUNT (test code = PLT) 91 K/mm3 150-450 L MEAN PLATELET VOLUME (test code = MPV) 12.6 fL 6.7-11.0 H NEUTROPHIL % (test code = NT%) 79.1 % 39.0-69.0 H IMMATURE GRANULOCYTE % (test code = IG%) 1.0 % 0.0-5.0 N LYMPHOCYTE % (test code = LY%) 6.6 % 25.0-55.0 L MONOCYTE % (test code = MO%) 10.4 % 0.0-10.0 H EOSINOPHIL % (test code = EO%) 2.3 % 0.0-5.0 N BASOPHIL % (test code = BA%) 0.6 % 0.0-1.0 N NUCLEATED RBC % (test code = NRBC%) 0.0 % 0-0 N NEUTROPHIL # (test code = NT#) 4.10 K/mm3 1.8-7.7 N IMMATURE GRANULOCYTE # (test code = IG#) 0.05 x10 3/uL 0-0.03 H LYMPHOCYTE # (test code = LY#) 0.34 K/mm3 1.0-5.0 L MONOCYTE # (test code = MO#) 0.54 K/mm3 0-0.8 N EOSINOPHIL # (test code = EO#) 0.12 K/mm3 0.0-0.5 N BASOPHIL # (test code = BA#) 0.03 K/mm3 0.0-0.2 N NUCLEATED RBC # (test code = NRBC#) 0.00 K/mm3 0.0-0.1 N MANUAL DIFF REQUIRED (test code = MDIFF) NO, ONLY SCAN NEEDED DIFFERENTIAL [id number] 02:20:00* Test Item Value Reference Range Interpretation Comments STAIN ACCEPTABILITY (test code = STN ACCEPTABLE) CABOT RINGS (test code = CAB) MORPHOLOGY COMMENT (test code = MOC) PLATELET ESTIMATE (test code = PLTEST) PLATELET MORPHOLOGY (test code = PLTMORPH) CBC W/AUTO [id number] 02:20:00* Test Item Value Reference Range Interpretation Comments WHITE BLOOD CELL (test code = WBC) 5.2 K/mm3 4.5-12.5 N RED BLOOD CELL (test code = RBC) 2.04 mill/mm3 4.0-5.8 L HEMOGLOBIN (test code = HGB) 6.6 gram/dL 13.0-17.5 L HEMATOCRIT (test code = HCT) 19.9 % 42.0-52.0 LL Results called to [id number] by ANKIT 08/09/19 0220Critical results verified and read back by Nurse? YES MEAN CELL VOLUME (test code = MCV) 97.5 fL 80-98 N MEAN CELL HGB (test code = MCH) 32.4 picogram 27.0-33.0 N MEAN CELL HGB CONCETRATION (test code = MCHC) 33.2 gram/dL 33.0-36. 0 N RED CELL DISTRIBUTION WIDTH (test code = RDW) 21.9 % 11.6-16. 2 H RED CELL DISTRIBUTION WIDTH SD (test code = RDW-SD) 77.4 fL 37 .0-51.0 H PLATELET COUNT (test code = PLT) 91 K/mm3 150-450 L MEAN PLATELET VOLUME (test code = MPV) 12.6 fL 6.7-11.0 H NEUTROPHIL % (test code = NT%) 79.1 % 39.0-69.0 H IMMATURE GRANULOCYTE % (test code = IG%) 1.0 % 0.0-5.0 N LYMPHOCYTE % (test code = LY%) 6.6 % 25.0-55.0 L MONOCYTE % (test code = MO%) 10.4 % 0.0-10.0 H EOSINOPHIL % (test code = EO%) 2.3 % 0.0-5.0 N BASOPHIL % (test code = BA%) 0.6 % 0.0-1.0 N NUCLEATED RBC % (test code = NRBC%) 0.0 % 0-0 N NEUTROPHIL # (test code = NT#) 4.10 K/mm3 1.8-7.7 N IMMATURE GRANULOCYTE # (test code = IG#) 0.05 x10 3/uL 0-0.03 H LYMPHOCYTE # (test code = LY#) 0.34 K/mm3 1.0-5.0 L MONOCYTE # (test code = MO#) 0.54 K/mm3 0-0.8 N EOSINOPHIL # (test code = EO#) 0.12 K/mm3 0.0-0.5 N BASOPHIL # (test code = BA#) 0.03 K/mm3 0.0-0.2 N NUCLEATED RBC # (test code = NRBC#) 0.00 K/mm3 0.0-0.1 N MANUAL DIFF REQUIRED (test code = MDIFF) NO, ONLY SCAN NEEDED DIFFERENTIAL [id number] 02:20:00* Test Item Value Reference Range Interpretation Comments STAIN ACCEPTABILITY (test code = STN ACCEPTABLE) MORPHOLOGY COMMENT (test code = MOC) PLATELET ESTIMATE (test code = PLTEST) PLATELET MORPHOLOGY (test code = PLTMORPH) CBC W/AUTO [id number] 02:20:00* Test Item Value Reference Range Interpretation Comments WHITE BLOOD CELL (test code = WBC) 5.2 K/mm3 4.5-12.5 N RED BLOOD CELL (test code = RBC) 2.04 mill/mm3 4.0-5.8 L HEMOGLOBIN (test code = HGB) 6.6 gram/dL 13.0-17.5 L HEMATOCRIT (test code = HCT) 19.9 % 42.0-52.0 Results called to [id number] by ANKIT 08/09/19 0220Critical results verified and read back by Nurse? YES MEAN CELL VOLUME (test code = MCV) 97.5 fL 80-98 N MEAN CELL HGB (test code = MCH) 32.4 picogram 27.0-33.0 N MEAN CELL HGB CONCETRATION (test code = MCHC) 33.2 gram/dL 33.0-36. 0 N RED CELL DISTRIBUTION WIDTH (test code = RDW) 21.9 % 11.6-16. 2 H RED CELL DISTRIBUTION WIDTH SD (test code = RDW-SD) 77.4 fL 37 .0-51.0 H PLATELET COUNT (test code = PLT) 91 K/mm3 150-450 L MEAN PLATELET VOLUME (test code = MPV) 12.6 fL 6.7-11.0 H NEUTROPHIL % (test code = NT%) 79.1 % 39.0-69.0 H IMMATURE GRANULOCYTE % (test code = IG%) 1.0 % 0.0-5.0 N LYMPHOCYTE % (test code = LY%) 6.6 % 25.0-55.0 L MONOCYTE % (test code = MO%) 10.4 % 0.0-10.0 H EOSINOPHIL % (test code = EO%) 2.3 % 0.0-5.0 N BASOPHIL % (test code = BA%) 0.6 % 0.0-1.0 N NUCLEATED RBC % (test code = NRBC%) 0.0 % 0-0 N NEUTROPHIL # (test code = NT#) 4.10 K/mm3 1.8-7.7 N IMMATURE GRANULOCYTE # (test code = IG#) 0.05 x10 3/uL 0-0.03 H LYMPHOCYTE # (test code = LY#) 0.34 K/mm3 1.0-5.0 L MONOCYTE # (test code = MO#) 0.54 K/mm3 0-0.8 N EOSINOPHIL # (test code = EO#) 0.12 K/mm3 0.0-0.5 N BASOPHIL # (test code = BA#) 0.03 K/mm3 0.0-0.2 N NUCLEATED RBC # (test code = NRBC#) 0.00 K/mm3 0.0-0.1 N MANUAL DIFF REQUIRED (test code = MDIFF) NO, ONLY SCAN NEEDED DIFFERENTIAL [id number] 02:20:00* Test Item Value Reference Range Interpretation Comments STAIN ACCEPTABILITY (test code = STN ACCEPTABLE) CABOT RINGS (test code = CAB) MORPHOLOGY COMMENT (test code = MOC) PLATELET ESTIMATE (test code = PLTEST) PLATELET MORPHOLOGY (test code = PLTMORPH) [id number] 20:19:00* Test Item Value Reference Range Interpretation Comments GLUBED (test code = GLUBED) 252 mg/dL 74-106 H Performed by certified communications equipment operator at [facility] [id number] 16:04:00* Test Item Value Reference Range Interpretation Comments GLUBED (test code = GLUBED) 216 mg/dL 74-106 H Performed by certified communications equipment operator at [facility] HGB [id number] 14:10:00* Test Item Value Reference Range Interpretation Comments HEMOGLOBIN (test code = HGB) 6.8 gram/dL 13.0-17.5 L HEMATOCRIT (test code = HCT) 20.7 % 42.0-52.0 LL Results called to [id number] by V.LAB.JQ 08/08/19 1410Critical results verified and read back by Nurse? Y [id number] 11:49:00* Test Item Value Reference Range Interpretation Comments GLUBED (test code = GLUBED) 197 mg/dL 74-106 H Performed by certified communications equipment operator at [facility] [id number] 08:14:00* Test Item Value Reference Range Interpretation Comments GLUBED (test code = GLUBED) 222 mg/dL 74-106 H Performed by certified communications equipment operator at [facility] CBC W/AUTO [id number] 08:14:00* Test Item Value Reference Range Interpretation Comments WHITE BLOOD CELL (test code = WBC) 5.4 K/mm3 4.5-12.5 N RED BLOOD CELL (test code = RBC) 2.02 mill/mm3 4.0-5.8 L HEMOGLOBIN (test code = HGB) 6.6 gram/dL 13.0-17.5 L HEMATOCRIT (test code = HCT) 19.4 % 42.0-52.0 LL Results called to [id number] by V.LAB.JQ 08/08/19 0701Critical results verified and read back by Nurse? Y MEAN CELL VOLUME (test code = MCV) 96.0 fL 80-98 N MEAN CELL HGB (test code = MCH) 32.7 picogram 27.0-33.0 N MEAN CELL HGB CONCETRATION (test code = MCHC) 34.0 gram/dL 33.0-36. 0 N RED CELL DISTRIBUTION WIDTH (test code = RDW) 21.6 % 11.6-16. 2 H RED CELL DISTRIBUTION WIDTH SD (test code = RDW-SD) 77.2 fL 37 .0-51.0 H PLATELET COUNT (test code = PLT) 91 K/mm3 150-450 L MEAN PLATELET VOLUME (test code = MPV) 12.3 fL 6.7-11.0 H NEUTROPHIL % (test code = NT%) 80.5 % 39.0-69.0 H IMMATURE GRANULOCYTE % (test code = IG%) 1.1 % 0.0-5.0 N LYMPHOCYTE % (test code = LY%) 5.8 % 25.0-55.0 L MONOCYTE % (test code = MO%) 9.6 % 0.0-10.0 N EOSINOPHIL % (test code = EO%) 2.4 % 0.0-5.0 N BASOPHIL % (test code = BA%) 0.6 % 0.0-1.0 N NUCLEATED RBC % (test code = NRBC%) 0.0 % 0-0 N NEUTROPHIL # (test code = NT#) 4.34 K/mm3 1.8-7.7 N IMMATURE GRANULOCYTE # (test code = IG#) 0.06 x10 3/uL 0-0.03 H LYMPHOCYTE # (test code = LY#) 0.31 K/mm3 1.0-5.0 L MONOCYTE # (test code = MO#) 0.52 K/mm3 0-0.8 N EOSINOPHIL # (test code = EO#) 0.13 K/mm3 0.0-0.5 N BASOPHIL # (test code = BA#) 0.03 K/mm3 0.0-0.2 N NUCLEATED RBC # (test code = NRBC#) 0.00 K/mm3 0.0-0.1 N MANUAL DIFF REQUIRED (test code = MDIFF) NO, ONLY SCAN NEEDED DIFFERENTIAL [id number] 08:14:00* Test Item Value Reference Range Interpretation Comments STAIN ACCEPTABILITY (test code = STN ACCEPTABLE) STAIN ACCEPTABLE POLYCHROMASIA (test code = POLC) 2+ HYPOCHROMIA (test code = HYPO) 2+ POIKILOCYTOSIS (test code = POIK) 2+ ANISOCYTOSIS (test code = ANISO) 2+ TARGET CELLS (test code = TGT) 2+ PLATELET ESTIMATE (test code = PLTEST) DECREASED PLATELET MORPHOLOGY (test code = PLTMORPH) NORMAL BASIC METABOLIC [id number] 07:45:00* Test Item Value Reference Range Interpretation Comments SODIUM (test code = NA) 139 mmol/L 136-145 N POTASSIUM (test code = K) 3.8 mmol/L 3.5-5.1 N CHLORIDE (test code = CL) 103.0 mmol/L 98-107 N CARBON DIOXIDE (test code = CO2) 29.0 mmol/L 21-32 N ANION GAP (test code = GAP) 10.8 10-20 N GLUCOSE (test code = GLU) 246 mg/dL 74-106 H BLOOD UREA NITROGEN (test code = BUN) 43 mg/dL 7-18 H RESULT VERIFIED BY REPEAT ANALYSIS GLOMERULAR FILTRATION RATE (test code = GFR) 16 mL/min >=60 Estimated GFR by using Modified MDRD formula.Chronic kidney disease is defined as either kidney damageor GFR <60 mL/min/1.73 m2 for >3 months. CREATININE (test code = CREAT) 4.00 mg/dL 0.7-1.3 H BUN/CREATININE RATIO (test code = BUN/CREA) 10.8 10-20 N CALCIUM (test code = CA) 8.4 mg/dL 8.5-10.1 L HEPATIC FUNCTION [id number] 07:45:00* Test Item Value Reference Range Interpretation Comments TOTAL PROTEIN (test code = PROT) 6.7 gram/dL 6.4-8.2 N ALBUMIN (test code = ALB) 2.6 g/dL 3.4-5.0 L GLOBULIN (test code = GLOB) 4.1 gram/dL 2.7-4.2 N ALBUMIN/GLOBULIN RATIO (test code = A/G) 0.6 0.75-1.50 L BILIRUBIN TOTAL (test code = BILT) 9.30 mg/dL 0.0-1.0 H BILIRUBIN DIRECT (test code = BILD) 7.99 mg/dL 0.0-0.20 H SGOT/AST (test code = AST) 39 IUnit/L 15-37 H SGPT/ALT (test code = ALT) 53 IUnit/L 12-78 N ALKALINE PHOSPHATASE TOTAL (test code = ALKP) 795 IUnit/L 45-117 H Note change in reference range due to change in reagent. BASIC METABOLIC [id number] 07:37:00* Test Item Value Reference Range Interpretation Comments SODIUM (test code = NA) 139 mmol/L 136-145 N POTASSIUM (test code = K) 3.8 mmol/L 3.5-5.1 N CHLORIDE (test code = CL) 103.0 mmol/L 98-107 N CARBON DIOXIDE (test code = CO2) mmol/L 21-32 ANION GAP (test code = GAP) 10-20 GLUCOSE (test code = GLU) mg/dL 74-106 BLOOD UREA NITROGEN (test code = BUN) mg/dL 7-18 GLOMERULAR FILTRATION RATE (test code = GFR) mL/min >=60 CREATININE (test code = CREAT) mg/dL 0.7-1.3 BUN/CREATININE RATIO (test code = BUN/CREA) 10-20 CALCIUM (test code = CA) mg/dL 8.5-10.1 HEPATIC FUNCTION [id number] 07:37:00* Test Item Value Reference Range Interpretation Comments TOTAL PROTEIN (test code = PROT) gram/dL 6.4-8.2 ALBUMIN (test code = ALB) g/dL 3.4-5.0 GLOBULIN (test code = GLOB) gram/dL 2.7-4.2 ALBUMIN/GLOBULIN RATIO (test code = A/G) 0.75-1.50 BILIRUBIN TOTAL (test code = BILT) mg/dL 0.0-1.0 BILIRUBIN DIRECT (test code = BILD) mg/dL 0.0-0.20 SGOT/AST (test code = AST) IUnit/L 15-37 SGPT/ALT (test code = ALT) IUnit/L 12-78 ALKALINE PHOSPHATASE TOTAL (test code = ALKP) IUnit/L 45-117 CBC W/AUTO [id number] 07:01:00* Test Item Value Reference Range Interpretation Comments WHITE BLOOD CELL (test code = WBC) 5.4 K/mm3 4.5-12.5 N RED BLOOD CELL (test code = RBC) 2.02 mill/mm3 4.0-5.8 L HEMOGLOBIN (test code = HGB) 6.6 gram/dL 13.0-17.5 L HEMATOCRIT (test code = HCT) 19.4 % 42.0-52.0 Results called to [id number] by ANASTACIA 08/08/19 0701Critical results verified and read back by Nurse? Y MEAN CELL VOLUME (test code = MCV) 96.0 fL 80-98 N MEAN CELL HGB (test code = MCH) 32.7 picogram 27.0-33.0 N MEAN CELL HGB CONCETRATION (test code = MCHC) 34.0 gram/dL 33.0-36. 0 N RED CELL DISTRIBUTION WIDTH (test code = RDW) 21.6 % 11.6-16. 2 H RED CELL DISTRIBUTION WIDTH SD (test code = RDW-SD) 77.2 fL 37 .0-51.0 H PLATELET COUNT (test code = PLT) 91 K/mm3 150-450 L MEAN PLATELET VOLUME (test code = MPV) 12.3 fL 6.7-11.0 H NEUTROPHIL % (test code = NT%) 80.5 % 39.0-69.0 H IMMATURE GRANULOCYTE % (test code = IG%) 1.1 % 0.0-5.0 N LYMPHOCYTE % (test code = LY%) 5.8 % 25.0-55.0 L MONOCYTE % (test code = MO%) 9.6 % 0.0-10.0 N EOSINOPHIL % (test code = EO%) 2.4 % 0.0-5.0 N BASOPHIL % (test code = BA%) 0.6 % 0.0-1.0 N NUCLEATED RBC % (test code = NRBC%) 0.0 % 0-0 N NEUTROPHIL # (test code = NT#) 4.34 K/mm3 1.8-7.7 N IMMATURE GRANULOCYTE # (test code = IG#) 0.06 x10 3/uL 0-0.03 H LYMPHOCYTE # (test code = LY#) 0.31 K/mm3 1.0-5.0 L MONOCYTE # (test code = MO#) 0.52 K/mm3 0-0.8 N EOSINOPHIL # (test code = EO#) 0.13 K/mm3 0.0-0.5 N BASOPHIL # (test code = BA#) 0.03 K/mm3 0.0-0.2 N NUCLEATED RBC # (test code = NRBC#) 0.00 K/mm3 0.0-0.1 N MANUAL DIFF REQUIRED (test code = MDIFF) NO, ONLY SCAN NEEDED DIFFERENTIAL [id number] 07:01:00* Test Item Value Reference Range Interpretation Comments STAIN ACCEPTABILITY (test code = STN ACCEPTABLE) CABOT RINGS (test code = CAB) MORPHOLOGY COMMENT (test code = MOC) PLATELET ESTIMATE (test code = PLTEST) PLATELET MORPHOLOGY (test code = PLTMORPH) CBC W/AUTO [id number] 07:01:00* Test Item Value Reference Range Interpretation Comments WHITE BLOOD CELL (test code = WBC) 5.4 K/mm3 4.5-12.5 N RED BLOOD CELL (test code = RBC) 2.02 mill/mm3 4.0-5.8 L HEMOGLOBIN (test code = HGB) 6.6 gram/dL 13.0-17.5 L HEMATOCRIT (test code = HCT) 19.4 % 42.0-52.0 LL Results called to [id number] by ANASTACIA 08/08/19 0701Critical results verified and read back by Nurse? Y MEAN CELL VOLUME (test code = MCV) 96.0 fL 80-98 N MEAN CELL HGB (test code = MCH) 32.7 picogram 27.0-33.0 N MEAN CELL HGB CONCETRATION (test code = MCHC) 34.0 gram/dL 33.0-36. 0 N RED CELL DISTRIBUTION WIDTH (test code = RDW) 21.6 % 11.6-16. 2 H RED CELL DISTRIBUTION WIDTH SD (test code = RDW-SD) 77.2 fL 37 .0-51.0 H PLATELET COUNT (test code = PLT) 91 K/mm3 150-450 L MEAN PLATELET VOLUME (test code = MPV) 12.3 fL 6.7-11.0 H NEUTROPHIL % (test code = NT%) 80.5 % 39.0-69.0 H IMMATURE GRANULOCYTE % (test code = IG%) 1.1 % 0.0-5.0 N LYMPHOCYTE % (test code = LY%) 5.8 % 25.0-55.0 L MONOCYTE % (test code = MO%) 9.6 % 0.0-10.0 N EOSINOPHIL % (test code = EO%) 2.4 % 0.0-5.0 N BASOPHIL % (test code = BA%) 0.6 % 0.0-1.0 N NUCLEATED RBC % (test code = NRBC%) 0.0 % 0-0 N NEUTROPHIL # (test code = NT#) 4.34 K/mm3 1.8-7.7 N IMMATURE GRANULOCYTE # (test code = IG#) 0.06 x10 3/uL 0-0.03 H LYMPHOCYTE # (test code = LY#) 0.31 K/mm3 1.0-5.0 L MONOCYTE # (test code = MO#) 0.52 K/mm3 0-0.8 N EOSINOPHIL # (test code = EO#) 0.13 K/mm3 0.0-0.5 N BASOPHIL # (test code = BA#) 0.03 K/mm3 0.0-0.2 N NUCLEATED RBC # (test code = NRBC#) 0.00 K/mm3 0.0-0.1 N MANUAL DIFF REQUIRED (test code = MDIFF) NO, ONLY SCAN NEEDED DIFFERENTIAL [id number] 07:01:00* Test Item Value Reference Range Interpretation Comments STAIN ACCEPTABILITY (test code = STN ACCEPTABLE) CABOT RINGS (test code = CAB) MORPHOLOGY COMMENT (test code = MOC) PLATELET ESTIMATE (test code = PLTEST) PLATELET MORPHOLOGY (test code = PLTMORPH) CBC W/AUTO [id number] 07:01:00* Test Item Value Reference Range Interpretation Comments WHITE BLOOD CELL (test code = WBC) 5.4 K/mm3 4.5-12.5 N RED BLOOD CELL (test code = RBC) 2.02 mill/mm3 4.0-5.8 L HEMOGLOBIN (test code = HGB) 6.6 gram/dL 13.0-17.5 L HEMATOCRIT (test code = HCT) 19.4 % 42.0-52.0 LL Results called to [id number] by ANASTACIA 08/08/19 0701Critical results verified and read back by Nurse? Y MEAN CELL VOLUME (test code = MCV) 96.0 fL 80-98 N MEAN CELL HGB (test code = MCH) 32.7 picogram 27.0-33.0 N MEAN CELL HGB CONCETRATION (test code = MCHC) 34.0 gram/dL 33.0-36. 0 N RED CELL DISTRIBUTION WIDTH (test code = RDW) 21.6 % 11.6-16. 2 H RED CELL DISTRIBUTION WIDTH SD (test code = RDW-SD) 77.2 fL 37 .0-51.0 H PLATELET COUNT (test code = PLT) 91 K/mm3 150-450 L MEAN PLATELET VOLUME (test code = MPV) 12.3 fL 6.7-11.0 H NEUTROPHIL % (test code = NT%) 80.5 % 39.0-69.0 H IMMATURE GRANULOCYTE % (test code = IG%) 1.1 % 0.0-5.0 N LYMPHOCYTE % (test code = LY%) 5.8 % 25.0-55.0 L MONOCYTE % (test code = MO%) 9.6 % 0.0-10.0 N EOSINOPHIL % (test code = EO%) 2.4 % 0.0-5.0 N BASOPHIL % (test code = BA%) 0.6 % 0.0-1.0 N NUCLEATED RBC % (test code = NRBC%) 0.0 % 0-0 N NEUTROPHIL # (test code = NT#) 4.34 K/mm3 1.8-7.7 N IMMATURE GRANULOCYTE # (test code = IG#) 0.06 x10 3/uL 0-0.03 H LYMPHOCYTE # (test code = LY#) 0.31 K/mm3 1.0-5.0 L MONOCYTE # (test code = MO#) 0.52 K/mm3 0-0.8 N EOSINOPHIL # (test code = EO#) 0.13 K/mm3 0.0-0.5 N BASOPHIL # (test code = BA#) 0.03 K/mm3 0.0-0.2 N NUCLEATED RBC # (test code = NRBC#) 0.00 K/mm3 0.0-0.1 N MANUAL DIFF REQUIRED (test code = MDIFF) NO, ONLY SCAN NEEDED DIFFERENTIAL [id number] 07:01:00* Test Item Value Reference Range Interpretation Comments STAIN ACCEPTABILITY (test code = STN ACCEPTABLE) MORPHOLOGY COMMENT (test code = MOC) PLATELET ESTIMATE (test code = PLTEST) PLATELET MORPHOLOGY (test code = PLTMORPH) CBC W/AUTO [id number] 07:01:00* Test Item Value Reference Range Interpretation Comments WHITE BLOOD CELL (test code = WBC) 5.4 K/mm3 4.5-12.5 N RED BLOOD CELL (test code = RBC) 2.02 mill/mm3 4.0-5.8 L HEMOGLOBIN (test code = HGB) 6.6 gram/dL 13.0-17.5 L HEMATOCRIT (test code = HCT) 19.4 % 42.0-52.0 LL Results called to [id number] by ANASTACIA 08/08/19 0701Critical results verified and read back by Nurse? Y MEAN CELL VOLUME (test code = MCV) 96.0 fL 80-98 N MEAN CELL HGB (test code = MCH) 32.7 picogram 27.0-33.0 N MEAN CELL HGB CONCETRATION (test code = MCHC) 34.0 gram/dL 33.0-36. 0 N RED CELL DISTRIBUTION WIDTH (test code = RDW) 21.6 % 11.6-16. 2 H RED CELL DISTRIBUTION WIDTH SD (test code = RDW-SD) 77.2 fL 37 .0-51.0 H PLATELET COUNT (test code = PLT) 91 K/mm3 150-450 L MEAN PLATELET VOLUME (test code = MPV) 12.3 fL 6.7-11.0 H NEUTROPHIL % (test code = NT%) 80.5 % 39.0-69.0 H IMMATURE GRANULOCYTE % (test code = IG%) 1.1 % 0.0-5.0 N LYMPHOCYTE % (test code = LY%) 5.8 % 25.0-55.0 L MONOCYTE % (test code = MO%) 9.6 % 0.0-10.0 N EOSINOPHIL % (test code = EO%) 2.4 % 0.0-5.0 N BASOPHIL % (test code = BA%) 0.6 % 0.0-1.0 N NUCLEATED RBC % (test code = NRBC%) 0.0 % 0-0 N NEUTROPHIL # (test code = NT#) 4.34 K/mm3 1.8-7.7 N IMMATURE GRANULOCYTE # (test code = IG#) 0.06 x10 3/uL 0-0.03 H LYMPHOCYTE # (test code = LY#) 0.31 K/mm3 1.0-5.0 L MONOCYTE # (test code = MO#) 0.52 K/mm3 0-0.8 N EOSINOPHIL # (test code = EO#) 0.13 K/mm3 0.0-0.5 N BASOPHIL # (test code = BA#) 0.03 K/mm3 0.0-0.2 N NUCLEATED RBC # (test code = NRBC#) 0.00 K/mm3 0.0-0.1 N MANUAL DIFF REQUIRED (test code = MDIFF) NO, ONLY SCAN NEEDED DIFFERENTIAL [id number] 07:01:00* Test Item Value Reference Range Interpretation Comments STAIN ACCEPTABILITY (test code = STN ACCEPTABLE) CABOT RINGS (test code = CAB) MORPHOLOGY COMMENT (test code = MOC) PLATELET ESTIMATE (test code = PLTEST) PLATELET MORPHOLOGY (test code = PLTMORPH) [id number] 23:25:00* Test Item Value Reference Range Interpretation Comments GLUBED (test code = GLUBED) 187 mg/dL 74-106 H Performed by certified communications equipment operator at [facility] - US ABDOMEN [id number] 20:26:00 Name: WARD VILLA [facility] : 1965 Age/S: 54 / M [address] [facility] Unit #: [id number] Loc: [place] [address] Phys: Gerald Diaz MD Acct: [id number] Dis Date: Status: ADM IN PHONE #: [phone] Exam Date: 08/07/20192003 FAX #: [phone] Reason: jaundice EXAMS: CPT CODE: [id number] US ABDOMEN COMPLETE [id number] REASON FOR EXAM: jaundice EXAM ORDER DATE: 08/07/2019 7:23 PM Ordering: Gerald Diaz MD Attending:Gerald Diaz MD Location:[facility] PROCEDURE: - US ABDOMEN COMPLETE FINDINGS: The liver is mildly echogenic and nodular in contour. There is no evidence of focal mass identified. The pancreas is within normal limits. The right kidney measures 12.9 x 5.2 cm. The left kidney measures 13.3 x 6.5 cm. There is no evidence of hydronephrosis. There is no evidence of nephrolithiasis. There is no evidence of renal mass. The spleen measures 15.3 cm. The gallbladder is contracted without evidence of gallstone. No evidence of gallbladder wall thickening or pericholecystic fluid. The common bile duct measures 0.2 cm. The aorta and IVC are within normal limits. The portal vein is patent with hepatopetal flow IMPRESSION: Cirrhosis of the liver with portal hypertension, spl enomegaly and minimal ascites at 2025 Reported and signed by: Erik Toscano CC: Gerald Diaz MD; Rupesh Alcantara MD Technol ogist: Alexandr Spencer [facility] Date/Time: 08/07/2019 (2025) [email or web address] Orig Print D/T: S: 08/07/2019 (2028) Probe: PAGE 1 Signed Re port - XR CHEST 1 [id number] 20:24:00 FAX: Gerald Segundo MD [place]: St: [facility] FAX: Rupesh Rockwell MD [phone] Name: WARD VILLA [facility] : 1965 Age/S: 54/M [address] [facility] Unit #: [id number] Loc: [place] [address] Phys: Gerald Diaz MD Acct: [id number] Dis Date: Status: ADM IN PHONE #: [phone] Exam Date: 08/07/20192010 FAX #: [phone] Reason: h/o chf EXAMS: CPT CODE: [id number] XR CHEST 1 V [id number] REASON FOR EXAM: h/o chf EXAM ORDER DATE: 08/07/2019 7:34 PM Ordering: Gerald Diaz MD Attending:Jamilah Diaz MD Location: PROCEDURE: - XR CHEST 1 V COMPARISON: FINDINGS: Portable AP frontal view of the chest obtained at 8:11 PM shows clear lungs without evidence of consolidation. There is no evidence of effusion. The heart size is minimally enlarged. Pu lmonary vasculatures are minimally congested. Right IJ dialysis catheter tip is in the SVC. IMPRESSION: Minimal cardiomegaly and p ulmonary venous congestion at 2023 Reported and signed by: Sarthak Del Valle M.D. CC: Gerald Diaz MD; Rupesh Alcantara MD echnologist: Natalie Reyna RT(R); Jag Busch, RT(R Trnscrd Date /Time/By: 08/07/2019 (2023) : By: LeslieVTL Orig Print D/T: S: 020 (2026) PAGE 1 Signed Report FE W/TOTAL IRON BINDING CAP.2019-08-07 19:51:00* Test Item Value Reference Range Interpretation Comments SERUM IRON (test code = IRON) 87 ug/dL 50-175 N TOTAL IRON BINDING CAPACITY (test code = TIBC) 220 mcg/dL 250-450 L IRON SATURATION (test code = FESAT) 39.55 % 13-45 N HEPATIC FUNCTION [id number] 19:19:00* Test Item Value Reference Range Interpretation Comments TOTAL PROTEIN (test code = PROT) 7.3 gram/dL 6.4-8.2 N ALBUMIN (test code = ALB) 2.9 g/dL 3.4-5.0 L GLOBULIN (test code = GLOB) 4.4 gram/dL 2.7-4.2 H ALBUMIN/GLOBULIN RATIO (test code = A/G) 0.7 0.75-1.50 L BILIRUBIN TOTAL (test code = BILT) 10.80 mg/dL 0.0-1.0 H BILIRUBIN DIRECT (test code = BILD) 9.33 mg/dL 0.0-0.20 H SGOT/AST (test code = AST) 54 IUnit/L 15-37 H SGPT/ALT (test code = ALT) 64 IUnit/L 12-78 N ALKALINE PHOSPHATASE TOTAL (test code = ALKP) 941 IUnit/L 45-117 H Note change in reference range due to change in reagent. [id number] 19:19:00* Test Item Value Reference Range Interpretation Comments LIPASE (test code = LIP) 166 U/L 73.0-393.0 N [id number] 19:19:00* Test Item Value Reference Range Interpretation Comments TROPONIN-I (test code = TROPI) 0.030 ng/mL 0-0.045 N BASIC METABOLIC [id number] 18:22:00* Test Item Value Reference Range Interpretation Comments SODIUM (test code = NA) 138 mmol/L 136-145 N POTASSIUM (test code = K) 3.7 mmol/L 3.5-5.1 N CHLORIDE (test code = CL) 100.0 mmol/L 98-107 N CARBON DIOXIDE (test code = CO2) 29.0 mmol/L 21-32 N ANION GAP (test code = GAP) 12.7 10-20 N GLUCOSE (test code = GLU) 219 mg/dL 74-106 H BLOOD UREA NITROGEN (test code = BUN) 30 mg/dL 7-18 H GLOMERULAR FILTRATION RATE (test code = GFR) 20 mL/min >=60 Estimated GFR by using Modified MDRD formula.Chronic kidney disease is defined as either kidney damageor GFR <60 mL/min/1.73 m2 for >3 months. CREATININE (test code = CREAT) 3.20 mg/dL 0.7-1.3 H BUN/CREATININE RATIO (test code = BUN/CREA) 9.4 10-20 L CALCIUM (test code = CA) 8.8 mg/dL 8.5-10.1 N BASIC METABOLIC [id number] 18:18:00* Test Item Value Reference Range Interpretation Comments SODIUM (test code = NA) 138 mmol/L 136-145 N POTASSIUM (test code = K) 3.7 mmol/L 3.5-5.1 N CHLORIDE (test code = CL) 100.0 mmol/L 98-107 N CARBON DIOXIDE (test code = CO2) mmol/L 21-32 ANION GAP (test code = GAP) 10-20 GLUCOSE (test code = GLU) mg/dL 74-106 BLOOD UREA NITROGEN (test code = BUN) mg/dL 7-18 GLOMERULAR FILTRATION RATE (test code = GFR) mL/min >=60 CREATININE (test code = CREAT) mg/dL 0.7-1.3 BUN/CREATININE RATIO (test code = BUN/CREA) 10-20 CALCIUM (test code = CA) mg/dL 8.5-10.1 PROTHROMBIN [id number] 18:15:00* Test Item Value Reference Range Interpretation Comments PROTHROMBIN TIME PATIENT (test code = PTP) 12.0 seconds 9.0-14.0 N INTERNATIONAL NORMAL RATIO (test code = INR) 1.0 0.8-1.2 N The therapeutic range for oral anticoagulant therapy formost indications is an international normalized ratio (INR)of between 2.0 and 3.0. The recommended therapeutic INRrange for various clinical situations is listed below: Clinical Situation INR range Pulmonary e mbolism treatment (2.0-3.0)Venous thrombosis treatmentVenous thrombosis prophylaxis (high risk surgery)Prevention of systemic embolism from: Acute myocardial infarction Valvular heart disease Atrial fibrillation Mechanical prosthetic heart valves (2.5-3.5) IS PATIENT ON ANTICOAGULANTS? NTHROMBOPLASTIN TIME [id number] 18:15:00* Test Item Value Reference Range Interpretation Comments THROMBOPLASTIN TIME PARTIAL (test code = PTT) 34.2 seconds 25.0-36. 5 N IS PATIENT ON ANTICOAGULANTS? NCBC W/O [id number] 18:07:00* Test Item Value Reference Range Interpretation Comments WHITE BLOOD CELL (test code = WBC) 4.6 K/mm3 4.5-12.5 N RED BLOOD CELL (test code = RBC) 2.22 mill/mm3 4.0-5.8 L HEMOGLOBIN (test code = HGB) 7.2 gram/dL 13.0-17.5 L HEMATOCRIT (test code = HCT) 20.8 % 42.0-52.0 Results called to [id number] by VANCE 08/07/19 1804Critical results verified and read back by Nurse? Y MEAN CELL VOLUME (test code = MCV) 93.7 fL 80-98 N MEAN CELL HGB (test code = MCH) 32.4 picogram 27.0-33.0 N MEAN CELL HGB CONCETRATION (test code = MCHC) 34.6 gram/dL 33.0-36. 0 N RED CELL DISTRIBUTION WIDTH (test code = RDW) 21.2 % 11.6-16. 2 H PLATELET COUNT (test code = PLT) 99 K/mm3 150-450 L MEAN PLATELET VOLUME (test code = MPV) 12.1 fL 6.7-11.0 H [id number] 09:59:00* Test Item Value Reference Range Interpretation Comments GLUBED (test code = GLUBED) 100 mg/dL 74-106 N Performed by certified communications equipment operator at [facility] CBC W/AUTO [id number] 19:58:00* Test Item Value Reference Range Interpretation Comments WHITE BLOOD CELL (test code = WBC) 3.8 K/mm3 4.5-12.5 L RED BLOOD CELL (test code = RBC) 3.51 mill/mm3 4.0-5.8 L HEMOGLOBIN (test code = HGB) 11.1 gram/dL 13.0-17.5 L HEMATOCRIT (test code = HCT) 34.2 % 42.0-52.0 L MEAN CELL VOLUME (test code = MCV) 97.4 fL 80-98 N MEAN CELL HGB (test code = MCH) 31.6 picogram 27.0-33.0 N MEAN CELL HGB CONCETRATION (test code = MCHC) 32.5 gram/dL 33.0-36. 0 L RED CELL DISTRIBUTION WIDTH (test code = RDW) 16.9 % 11.6-16. 2 H RED CELL DISTRIBUTION WIDTH SD (test code = RDW-SD) 60.7 fL 37 .0-51.0 H PLATELET COUNT (test code = PLT) 95 K/mm3 150-450 L RESULT VERIFIED BY REPEAT ANALYSIS MEAN PLATELET VOLUME (test code = MPV) 11.8 fL 6.7-11.0 H NEUTROPHIL % (test code = NT%) 74.3 % 39.0-69.0 H IMMATURE GRANULOCYTE % (test code = IG%) 0.5 % 0.0-5.0 N LYMPHOCYTE % (test code = LY%) 9.0 % 25.0-55.0 L MONOCYTE % (test code = MO%) 11.1 % 0.0-10.0 H EOSINOPHIL % (test code = EO%) 4.0 % 0.0-5.0 N BASOPHIL % (test code = BA%) 1.1 % 0.0-1.0 H NUCLEATED RBC % (test code = NRBC%) 0.0 % 0-0 N NEUTROPHIL # (test code = NT#) 2.82 K/mm3 1.8-7.7 N IMMATURE GRANULOCYTE # (test code = IG#) 0.02 x10 3/uL 0-0.03 N LYMPHOCYTE # (test code = LY#) 0.34 K/mm3 1.0-5.0 L MONOCYTE # (test code = MO#) 0.42 K/mm3 0-0.8 N EOSINOPHIL # (test code = EO#) 0.15 K/mm3 0.0-0.5 N BASOPHIL # (test code = BA#) 0.04 K/mm3 0.0-0.2 N NUCLEATED RBC # (test code = NRBC#) 0.00 K/mm3 0.0-0.1 N MANUAL DIFF REQUIRED (test code = MDIFF) NO, ONLY SCAN NEEDED DIFFERENTIAL [id number] 19:58:00* Test Item Value Reference Range Interpretation Comments STAIN ACCEPTABILITY (test code = STN ACCEPTABLE) STAIN ACCEPTABLE ANISOCYTOSIS (test code = ANISO) 1+ PLATELET ESTIMATE (test code = PLTEST) DECREASED PLATELET MORPHOLOGY (test code = PLTMORPH) NORMAL COMPREHENSIVE METABOLIC [id number] 18:51:00* Test Item Value Reference Range Interpretation Comments SODIUM (test code = NA) 141 mmol/L 136-145 N POTASSIUM (test code = K) 3.9 mmol/L 3.5-5.1 N CHLORIDE (test code = CL) 104.0 mmol/L 98-107 N CARBON DIOXIDE (test code = CO2) 28.0 mmol/L 21-32 N ANION GAP (test code = GAP) 12.9 10-20 N GLUCOSE (test code = GLU) 111 mg/dL 74-106 H BLOOD UREA NITROGEN (test code = BUN) 31 mg/dL 7-18 H GLOMERULAR FILTRATION RATE (test code = GFR) 23 mL/min >=60 Estimated GFR by using Modified MDRD formula.Chronic kidney disease is defined as either kidney damageor GFR <60 mL/min/1.73 m2 for >3 months. CREATININE (test code = CREAT) 2.90 mg/dL 0.7-1.3 H BUN/CREATININE RATIO (test code = BUN/CREA) 10.7 10-20 N TOTAL PROTEIN (test code = PROT) 7.7 gram/dL 6.4-8.2 N ALBUMIN (test code = ALB) 3.3 g/dL 3.4-5.0 L GLOBULIN (test code = GLOB) 4.4 gram/dL 2.7-4.2 H ALBUMIN/GLOBULIN RATIO (test code = A/G) 0.8 0.75-1.50 N CALCIUM (test code = CA) 8.9 mg/dL 8.5-10.1 N BILIRUBIN TOTAL (test code = BILT) 4.80 mg/dL 0.0-1.0 H SGOT/AST (test code = AST) 71 IUnit/L 15-37 H SGPT/ALT (test code = ALT) 72 IUnit/L 12-78 N ALKALINE PHOSPHATASE TOTAL (test code = ALKP) 913 IUnit/L 45-117 H Note change in reference range due to change in reagent. LIPID PROFILE (CORONARY RISK)[id number] 18:51:00* Test Item Value Reference Range Interpretation Comments TRIGLYCERIDES (test code = TRIG) 83 mg/dL 20-150 N CHOLESTEROL (test code = CHOL) 261 mg/dL 0-200 H CHOLESTEROL/HDL RATIO (test code = CHOLHDL) 5.0 RATIO 0-4.9 H RISK ASSOCIATED WITH CHOL/HDL RATIOS: Risk Male Female1/2 AVERAGE 3.43 3.27AVERAGE 4.97 4.442X AVERAGE 9.55 7.053X AVERAGE 23.39 11.04 REFERENCE VALUE IS RELATED TO RISK LEVELS ASRECOMMENDED BY THE [facility]. HEART, LUNG, AND BLOOD INST. HDL CHOLESTEROL (test code = HDL) 45 mg/dL 40-60 N LIPOPROTEIN LDL (test code = LDL) 147 mg/dL 100-129 H RN PERSONNEL, CONTACT PHYSICIAN IMMEDIATELY IF THIS IS A STROKE, AMI OR CAROTID STENOSIS PATIENT WHEN THE LDL >100 (1ST OCCURENCE, THIS ADMISSION) Reference Interval: mg/dL mmol/L Optimal <100 <2.6Near/above optimal 100-129 2.6- 3.3Borderline High 130-159 3.4-4.1High 160-189 4.1-4.9Very High >=190 >=4.9========= This LDL result is a direct measurement.========= PROTHROMBIN [id number] 18:47:00* Test Item Value Reference Range Interpretation Comments PROTHROMBIN TIME PATIENT (test code = PTP) 11.4 seconds 9.0-14.0 N INTERNATIONAL NORMAL RATIO (test code = INR) 1.0 0.8-1.2 N The therapeutic range for oral anticoagulant therapy formost indications is an international normalized ratio (INR)of between 2.0 and 3.0. The recommended therapeutic INRrange for various clinical situations is listed below: Clinical Situation INR range Pulmonary e mbolism treatment (2.0-3.0)Venous thrombosis treatmentVenous thrombosis prophylaxis (high risk surgery)Prevention of systemic embolism from: Acute myocardial infarction Valvular heart disease Atrial fibrillation Mechanical prosthetic heart valves (2.5-3.5) THROMBOPLASTIN TIME [id number] 18:47:00* Test Item Value Reference Range Interpretation Comments THROMBOPLASTIN TIME PARTIAL (test code = PTT) 35.7 seconds 25.0-36. 5 N COMPREHENSIVE METABOLIC [id number] 18:43:00* Test Item Value Reference Range Interpretation Comments SODIUM (test code = NA) 141 mmol/L 136-145 N POTASSIUM (test code = K) 3.9 mmol/L 3.5-5.1 N CHLORIDE (test code = CL) 104.0 mmol/L 98-107 N CARBON DIOXIDE (test code = CO2) 28.0 mmol/L 21-32 N ANION GAP (test code = GAP) 12.9 10-20 N GLUCOSE (test code = GLU) mg/dL 74-106 BLOOD UREA NITROGEN (test code = BUN) 31 mg/dL 7-18 H GLOMERULAR FILTRATION RATE (test code = GFR) 23 mL/min >=60 Estimated GFR by using Modified MDRD formula.Chronic kidney disease is defined as either kidney damageor GFR <60 mL/min/1.73 m2 for >3 months. CREATININE (test code = CREAT) 2.90 mg/dL 0.7-1.3 H BUN/CREATININE RATIO (test code = BUN/CREA) 10.7 10-20 N TOTAL PROTEIN (test code = PROT) 7.7 gram/dL 6.4-8.2 N ALBUMIN (test code = ALB) 3.3 g/dL 3.4-5.0 L GLOBULIN (test code = GLOB) 4.4 gram/dL 2.7-4.2 H ALBUMIN/GLOBULIN RATIO (test code = A/G) 0.8 0.75-1.50 N CALCIUM (test code = CA) 8.9 mg/dL 8.5-10.1 N BILIRUBIN TOTAL (test code = BILT) 4.80 mg/dL 0.0-1.0 H SGOT/AST (test code = AST) 71 IUnit/L 15-37 H SGPT/ALT (test code = ALT) 72 IUnit/L 12-78 N ALKALINE PHOSPHATASE TOTAL (test code = ALKP) 913 IUnit/L 45-117 H Note change in reference range due to change in reagent. LIPID PROFILE (CORONARY RISK)2019-07-10 18:43:00* Test Item Value Reference Range Interpretation Comments TRIGLYCERIDES (test code = TRIG) 83 mg/dL 20-150 N CHOLESTEROL (test code = CHOL) 261 mg/dL 0-200 H CHOLESTEROL/HDL RATIO (test code = CHOLHDL) 5.0 RATIO 0-4.9 H RISK ASSOCIATED WITH CHOL/HDL RATIOS: Risk Male Female1/2 AVERAGE 3.43 3.27AVERAGE 4.97 4.442X AVERAGE 9.55 7.053X AVERAGE 23.39 11.04 REFERENCE VALUE IS RELATED TO RISK LEVELS ASRECOMMENDED BY THE [facility]. HEART, LUNG, AND BLOOD INST. HDL CHOLESTEROL (test code = HDL) 45 mg/dL 40-60 N LIPOPROTEIN LDL (test code = LDL) 147 mg/dL 100-129 H RN PERSONNEL, CONTACT PHYSICIAN IMMEDIATELY IF THIS IS A STROKE, AMI OR CAROTID STENOSIS PATIENT WHEN THE LDL >100 (1ST OCCURENCE, THIS ADMISSION) Reference Interval: mg/dL mmol/L Optimal <100 <2.6Near/above optimal 100-129 2.6- 3.3Borderline High 130-159 3.4-4.1High 160-189 4.1-4.9Very High >=190 >=4.9========= This LDL result is a direct measurement.========= CBC W/AUTO [id number] 18:39:00* Test Item Value Reference Range Interpretation Comments WHITE BLOOD CELL (test code = WBC) 3.8 K/mm3 4.5-12.5 L RED BLOOD CELL (test code = RBC) 3.51 mill/mm3 4.0-5.8 L HEMOGLOBIN (test code = HGB) 11.1 gram/dL 13.0-17.5 L HEMATOCRIT (test code = HCT) 34.2 % 42.0-52.0 L MEAN CELL VOLUME (test code = MCV) 97.4 fL 80-98 N MEAN CELL HGB (test code = MCH) 31.6 picogram 27.0-33.0 N MEAN CELL HGB CONCETRATION (test code = MCHC) 32.5 gram/dL 33.0-36. 0 L RED CELL DISTRIBUTION WIDTH (test code = RDW) 16.9 % 11.6-16. 2 H RED CELL DISTRIBUTION WIDTH SD (test code = RDW-SD) 60.7 fL 37 .0-51.0 H PLATELET COUNT (test code = PLT) 95 K/mm3 150-450 L RESULT VERIFIED BY REPEAT ANALYSIS MEAN PLATELET VOLUME (test code = MPV) 11.8 fL 6.7-11.0 H NEUTROPHIL % (test code = NT%) 74.3 % 39.0-69.0 H IMMATURE GRANULOCYTE % (test code = IG%) 0.5 % 0.0-5.0 N LYMPHOCYTE % (test code = LY%) 9.0 % 25.0-55.0 L MONOCYTE % (test code = MO%) 11.1 % 0.0-10.0 H EOSINOPHIL % (test code = EO%) 4.0 % 0.0-5.0 N BASOPHIL % (test code = BA%) 1.1 % 0.0-1.0 H NUCLEATED RBC % (test code = NRBC%) 0.0 % 0-0 N NEUTROPHIL # (test code = NT#) 2.82 K/mm3 1.8-7.7 N IMMATURE GRANULOCYTE # (test code = IG#) 0.02 x10 3/uL 0-0.03 N LYMPHOCYTE # (test code = LY#) 0.34 K/mm3 1.0-5.0 L MONOCYTE # (test code = MO#) 0.42 K/mm3 0-0.8 N EOSINOPHIL # (test code = EO#) 0.15 K/mm3 0.0-0.5 N BASOPHIL # (test code = BA#) 0.04 K/mm3 0.0-0.2 N NUCLEATED RBC # (test code = NRBC#) 0.00 K/mm3 0.0-0.1 N MANUAL DIFF REQUIRED (test code = MDIFF) NO, ONLY SCAN NEEDED DIFFERENTIAL [id number] 18:39:00* Test Item Value Reference Range Interpretation Comments STAIN ACCEPTABILITY (test code = STN ACCEPTABLE) CABOT RINGS (test code = CAB) MORPHOLOGY COMMENT (test code = MOC) PLATELET ESTIMATE (test code = PLTEST) PLATELET MORPHOLOGY (test code = PLTMORPH) CBC W/AUTO [id number] 18:39:00* Test Item Value Reference Range Interpretation Comments WHITE BLOOD CELL (test code = WBC) 3.8 K/mm3 4.5-12.5 L RED BLOOD CELL (test code = RBC) 3.51 mill/mm3 4.0-5.8 L HEMOGLOBIN (test code = HGB) 11.1 gram/dL 13.0-17.5 L HEMATOCRIT (test code = HCT) 34.2 % 42.0-52.0 L MEAN CELL VOLUME (test code = MCV) 97.4 fL 80-98 N MEAN CELL HGB (test code = MCH) 31.6 picogram 27.0-33.0 N MEAN CELL HGB CONCETRATION (test code = MCHC) 32.5 gram/dL 33.0-36. 0 L RED CELL DISTRIBUTION WIDTH (test code = RDW) 16.9 % 11.6-16. 2 H RED CELL DISTRIBUTION WIDTH SD (test code = RDW-SD) 60.7 fL 37 .0-51.0 H PLATELET COUNT (test code = PLT) 95 K/mm3 150-450 L RESULT VERIFIED BY REPEAT ANALYSIS MEAN PLATELET VOLUME (test code = MPV) 11.8 fL 6.7-11.0 H NEUTROPHIL % (test code = NT%) 74.3 % 39.0-69.0 H IMMATURE GRANULOCYTE % (test code = IG%) 0.5 % 0.0-5.0 N LYMPHOCYTE % (test code = LY%) 9.0 % 25.0-55.0 L MONOCYTE % (test code = MO%) 11.1 % 0.0-10.0 H EOSINOPHIL % (test code = EO%) 4.0 % 0.0-5.0 N BASOPHIL % (test code = BA%) 1.1 % 0.0-1.0 H NUCLEATED RBC % (test code = NRBC%) 0.0 % 0-0 N NEUTROPHIL # (test code = NT#) 2.82 K/mm3 1.8-7.7 N IMMATURE GRANULOCYTE # (test code = IG#) 0.02 x10 3/uL 0-0.03 N LYMPHOCYTE # (test code = LY#) 0.34 K/mm3 1.0-5.0 L MONOCYTE # (test code = MO#) 0.42 K/mm3 0-0.8 N EOSINOPHIL # (test code = EO#) 0.15 K/mm3 0.0-0.5 N BASOPHIL # (test code = BA#) 0.04 K/mm3 0.0-0.2 N NUCLEATED RBC # (test code = NRBC#) 0.00 K/mm3 0.0-0.1 N MANUAL DIFF REQUIRED (test code = MDIFF) NO, ONLY SCAN NEEDED DIFFERENTIAL [id number] 18:39:00* Test Item Value Reference Range Interpretation Comments STAIN ACCEPTABILITY (test code = STN ACCEPTABLE) MORPHOLOGY COMMENT (test code = MOC) PLATELET ESTIMATE (test code = PLTEST) PLATELET MORPHOLOGY (test code = PLTMORPH) CBC W/AUTO [id number] 18:39:00* Test Item Value Reference Range Interpretation Comments WHITE BLOOD CELL (test code = WBC) 3.8 K/mm3 4.5-12.5 L RED BLOOD CELL (test code = RBC) 3.51 mill/mm3 4.0-5.8 L HEMOGLOBIN (test code = HGB) 11.1 gram/dL 13.0-17.5 L HEMATOCRIT (test code = HCT) 34.2 % 42.0-52.0 L MEAN CELL VOLUME (test code = MCV) 97.4 fL 80-98 N MEAN CELL HGB (test code = MCH) 31.6 picogram 27.0-33.0 N MEAN CELL HGB CONCETRATION (test code = MCHC) 32.5 gram/dL 33.0-36. 0 L RED CELL DISTRIBUTION WIDTH (test code = RDW) 16.9 % 11.6-16. 2 H RED CELL DISTRIBUTION WIDTH SD (test code = RDW-SD) 60.7 fL 37 .0-51.0 H PLATELET COUNT (test code = PLT) 95 K/mm3 150-450 L RESULT VERIFIED BY REPEAT ANALYSIS MEAN PLATELET VOLUME (test code = MPV) 11.8 fL 6.7-11.0 H NEUTROPHIL % (test code = NT%) 74.3 % 39.0-69.0 H IMMATURE GRANULOCYTE % (test code = IG%) 0.5 % 0.0-5.0 N LYMPHOCYTE % (test code = LY%) 9.0 % 25.0-55.0 L MONOCYTE % (test code = MO%) 11.1 % 0.0-10.0 H EOSINOPHIL % (test code = EO%) 4.0 % 0.0-5.0 N BASOPHIL % (test code = BA%) 1.1 % 0.0-1.0 H NUCLEATED RBC % (test code = NRBC%) 0.0 % 0-0 N NEUTROPHIL # (test code = NT#) 2.82 K/mm3 1.8-7.7 N IMMATURE GRANULOCYTE # (test code = IG#) 0.02 x10 3/uL 0-0.03 N LYMPHOCYTE # (test code = LY#) 0.34 K/mm3 1.0-5.0 L MONOCYTE # (test code = MO#) 0.42 K/mm3 0-0.8 N EOSINOPHIL # (test code = EO#) 0.15 K/mm3 0.0-0.5 N BASOPHIL # (test code = BA#) 0.04 K/mm3 0.0-0.2 N NUCLEATED RBC # (test code = NRBC#) 0.00 K/mm3 0.0-0.1 N MANUAL DIFF REQUIRED (test code = MDIFF) NO, ONLY SCAN NEEDED DIFFERENTIAL [id number] 18:39:00* Test Item Value Reference Range Interpretation Comments STAIN ACCEPTABILITY (test code = STN ACCEPTABLE) MORPHOLOGY COMMENT (test code = MOC) PLATELET ESTIMATE (test code = PLTEST) PLATELET MORPHOLOGY (test code = PLTMORPH) CBC W/AUTO [id number] 18:39:00* Test Item Value Reference Range Interpretation Comments WHITE BLOOD CELL (test code = WBC) 3.8 K/mm3 4.5-12.5 L RED BLOOD CELL (test code = RBC) 3.51 mill/mm3 4.0-5.8 L HEMOGLOBIN (test code = HGB) 11.1 gram/dL 13.0-17.5 L HEMATOCRIT (test code = HCT) 34.2 % 42.0-52.0 L MEAN CELL VOLUME (test code = MCV) 97.4 fL 80-98 N MEAN CELL HGB (test code = MCH) 31.6 picogram 27.0-33.0 N MEAN CELL HGB CONCETRATION (test code = MCHC) 32.5 gram/dL 33.0-36. 0 L RED CELL DISTRIBUTION WIDTH (test code = RDW) 16.9 % 11.6-16. 2 H RED CELL DISTRIBUTION WIDTH SD (test code = RDW-SD) 60.7 fL 37 .0-51.0 H PLATELET COUNT (test code = PLT) 95 K/mm3 150-450 L RESULT VERIFIED BY REPEAT ANALYSIS MEAN PLATELET VOLUME (test code = MPV) 11.8 fL 6.7-11.0 H NEUTROPHIL % (test code = NT%) 74.3 % 39.0-69.0 H IMMATURE GRANULOCYTE % (test code = IG%) 0.5 % 0.0-5.0 N LYMPHOCYTE % (test code = LY%) 9.0 % 25.0-55.0 L MONOCYTE % (test code = MO%) 11.1 % 0.0-10.0 H EOSINOPHIL % (test code = EO%) 4.0 % 0.0-5.0 N BASOPHIL % (test code = BA%) 1.1 % 0.0-1.0 H NUCLEATED RBC % (test code = NRBC%) 0.0 % 0-0 N NEUTROPHIL # (test code = NT#) 2.82 K/mm3 1.8-7.7 N IMMATURE GRANULOCYTE # (test code = IG#) 0.02 x10 3/uL 0-0.03 N LYMPHOCYTE # (test code = LY#) 0.34 K/mm3 1.0-5.0 L MONOCYTE # (test code = MO#) 0.42 K/mm3 0-0.8 N EOSINOPHIL # (test code = EO#) 0.15 K/mm3 0.0-0.5 N BASOPHIL # (test code = BA#) 0.04 K/mm3 0.0-0.2 N NUCLEATED RBC # (test code = NRBC#) 0.00 K/mm3 0.0-0.1 N MANUAL DIFF REQUIRED (test code = MDIFF) NO, ONLY SCAN NEEDED DIFFERENTIAL [id number] 18:39:00* Test Item Value Reference Range Interpretation Comments STAIN ACCEPTABILITY (test code = STN ACCEPTABLE) CABOT RINGS (test code = CAB) MORPHOLOGY COMMENT (test code = MOC) PLATELET ESTIMATE (test code = PLTEST) PLATELET MORPHOLOGY (test code = PLTMORPH) COMPREHENSIVE METABOLIC [id number] 18:28:00* Test Item Value Reference Range Interpretation Comments SODIUM (test code = NA) 141 mmol/L 136-145 N POTASSIUM (test code = K) 3.9 mmol/L 3.5-5.1 N CHLORIDE (test code = CL) 104.0 mmol/L 98-107 N CARBON DIOXIDE (test code = CO2) mmol/L 21-32 ANION GAP (test code = GAP) 10-20 GLUCOSE (test code = GLU) mg/dL 74-106 BLOOD UREA NITROGEN (test code = BUN) mg/dL 7-18 GLOMERULAR FILTRATION RATE (test code = GFR) mL/min >=60 CREATININE (test code = CREAT) mg/dL 0.7-1.3 BUN/CREATININE RATIO (test code = BUN/CREA) 10-20 TOTAL PROTEIN (test code = PROT) gram/dL 6.4-8.2 ALBUMIN (test code = ALB) g/dL 3.4-5.0 GLOBULIN (test code = GLOB) gram/dL 2.7-4.2 ALBUMIN/GLOBULIN RATIO (test code = A/G) 0.75-1.50 CALCIUM (test code = CA) mg/dL 8.5-10.1 BILIRUBIN TOTAL (test code = BILT) mg/dL 0.0-1.0 SGOT/AST (test code = AST) IUnit/L 15-37 SGPT/ALT (test code = ALT) IUnit/L 12-78 ALKALINE PHOSPHATASE TOTAL (test code = ALKP) IUnit/L 45-117 LIPID PROFILE (CORONARY RISK)2019-07-10 18:28:00* Test Item Value Reference Range Interpretation Comments TRIGLYCERIDES (test code = TRIG) mg/dL 20-150 CHOLESTEROL (test code = CHOL) mg/dL 0-200 CHOLESTEROL/HDL RATIO (test code = CHOLHDL) RATIO 0-4.9 HDL CHOLESTEROL (test code = HDL) mg/dL 40-60 LIPOPROTEIN LDL (test code = LDL) mg/dL 100-129 Bedside [id number] 07:27:00* Test Item Value Reference Range Interpretation Comments Bedside Glucose (test code = 71493-9) 111 70-120 Meter ID: [id number] Surface Antibody, [id number] 10:55:00* Test Item Value Reference Range Interpretation Comments Hepatitis B Surface Antibody, Quant (test code = 5194-6) <3.0 Reference Range: Immunity>9.9 mIU/mLStatus of Immunity Anti-HBs Level Inconsistent with Immunity 0.0 - 9.9Consistent with Immunity >9.9[facility] Be [id number] 10:55:00* Test Item Value Reference Range Interpretation Comments Hepatitis Be Antigen (test code = 78617-9) Negative [facility] B Core Total [id number] 10:55:00* Test Item Value Reference Range Interpretation Comments Hepatitis B Core Total Antibody (test code = 23749-5) Negative [facility] B Core IgM [id number] 10:55:00* Test Item Value Reference Range Interpretation Comments Hepatitis B Core IgM Antibody (test code = 50289-7) Negative [facility] B Surface Antibody, Quant 2019-05-16 10:55:00* Test Item Value Reference Range Interpretation Comments Hepatitis B Surface Antibody, Quant (test code = 5194-6) <3.0 Reference Range: Immunity>9.9 mIU/mLStatus of Immunity Anti-HBs Level Inconsistent with Immunity 0.0 - 9.9Consistent with Immunity >9.9[facility] Be Tgccrey5580-03-09 10:55:00* Test Item Value Reference Range Interpretation Comments Hepatitis Be Antigen (test code = 49266-8) Negative [facility] B Surface [id number] 08:44:00* Test Item Value Reference Range Interpretation Comments Hepatitis B Surface Antigen (test code = 5196-1) Negative Negat lydia [facility] Be [id number] 22:26:00 * Test Item Value Reference Range Interpretation Comments Hepatitis Be Antibody (test code = 45358-1) Negative Negative Performed at: [address] [id number] Commodity Supervisor: Bozena Berg MD, Phone: [phone] Occult Fhjmm7953-03-25 09:51:00* Test Item Value Reference Range Interpretation Comments Stool Occult Blood (test code = 2335-8) NEGATIVE NEGATIVE [facility] Occult [id number] 09:51:00* Test Item Value Reference Range Interpretation Comments Stool Occult Blood (test code = 2335-8) [facility] Ybyso7186-[facility]-09 06:41:00* Test Item Value Reference Range Interpretation Comments Sodium Level (test code = 2951-2) 136 136-145 [facility]ennialPotassium [id number] 06:41:00* Test Item Value Reference Range Interpretation Comments Potassium Level (test code = 2823-3) 4.5 3.5-5.1 [facility]ennialChloride Bgkjm9879-25-90 06:41:00* Test Item Value Reference Range Interpretation Comments Chloride Level (test code = 2075-0) 102 98-107 [facility]ennialCarbon Dioxide Hpeaq9158-24-25 06:41:00* Test Item Value Reference Range Interpretation Comments Carbon Dioxide Level (test code = 2028-9) 23 22-29 [facility] CentennialAnion [id number] 06:41:00* Test Item Value Reference Range Interpretation Comments Anion Gap (test code = 58590-8) 15.5 8-16 [facility] CentennialBlood Urea Srppzzee6794-33-17 06:41:00* Test Item Value Reference Range Interpretation Comments Blood Urea Nitrogen (test code = 3094-0) 53 7-26 H [facility]ennialCreatinine2019-12-16 06:41:00* Test Item Value Reference Range Interpretation Comments Creatinine (test code = 2160-0) 4.01 0.72-1.25 H [facility]ennialBUN/Creatinine Tmetm6649-64-51 06:41:00* Test Item Value Reference Range Interpretation Comments BUN/Creatinine Ratio (test code = 3097-3) 13 6-25 [facility] CentennialEstimat Glomerular Filtration Rate 2019-05-15 06:41:00* Test Item Value Reference Range Interpretation Comments Estimat Glomerular Filtration Rate (test code = 365923036) 16 >60 L Ranges were taken from the National Kidney Disease Education Program and the [facility] literature.Reference ranges:60 or greater: Dyqnmu42-31 ( for 3 consecutive months): Chronic kidney disease 15 or less: Kidney failureBaylor Scott & [facility] – CentennialGlucose Puwue5935-25-47 06:41:00* Test Item Value Reference Range Interpretation Comments Glucose Level (test code = YQT5269) 184 74-118 H [facility] CentennialCalcium Smtqf0979-36-88 06:41:00* Test Item Value Reference Range Interpretation Comments Calcium Level (test code = 20048-5) 8.4 8.4-10.2 [facility] gastrointestinal hemoglobin zeaiwgpnb9725-34-31 05:30:00* Test Item Value Reference Range Interpretation Comments Stool Occult Blood (test code = 2335-8) NEGATIVE NEGATIVE [facility] gastrointestinal hemoglobin vndhlhbqm0760-64-69 05:30:00* Test Item Value Reference Range Interpretation Comments Stool Occult Blood (test code = 2335-8) NEGATIVE NEGATIVE [facility] gastrointestinal hemoglobin xsqlzgndq7361-99-97 05:30:00* Test Item Value Reference Range Interpretation Comments Stool Occult Blood (test code = 2335-8) NEGATIVE NEGATIVE [facility] gastrointestinal hemoglobin ocgstwjkn0258-07-14 05:30:00* Test Item Value Reference Range Interpretation Comments Stool Occult Blood (test code = 2335-8) NEGATIVE NEGATIVE [facility] gastrointestinal hemoglobin wkgjhludr6389-14-53 05:30:00* Test Item Value Reference Range Interpretation Comments Stool Occult Blood (test code = 2335-8) NEGATIVE NEGATIVE [facility] gastrointestinal hemoglobin reeajznxh3397-47-99 05:30:00* Test Item Value Reference Range Interpretation Comments Stool Occult Blood (test code = 2335-8) NEGATIVE NEGATIVE [facility] gastrointestinal hemoglobin vcbfoucct4222-45-34 05:30:00* Test Item Value Reference Range Interpretation Comments Stool Occult Blood (test code = 2335-8) NEGATIVE NEGATIVE [facility] CentennialWhite Blood [id number] 08:59:00* Test Item Value Reference Range Interpretation Comments White Blood Count (test code = 6690-2) 4.18 4.8-10.8 L [facility] CentennialRed Blood Bpfnr7658-06-51 08:59:00* Test Item Value Reference Range Interpretation Comments Red Blood Count (test code = 789-8) 2.65 4.3-5.7 L [facility]ennialHemoglobin2019-12-15 08:59:00* Test Item Value Reference Range Interpretation Comments Hemoglobin (test code = 35727-5) 8.2 14.0-18.0 L [facility]ennialHematocrit2019-12-15 08:59:00* Test Item Value Reference Range Interpretation Comments Hematocrit (test code = 4544-3) 26.0 38.2-49.6 L [facility] CentennialMean Corpuscular Dohyef2906-95-29 08:59:00* Test Item Value Reference Range Interpretation Comments Mean Corpuscular Volume (test code = 787-2) 98.1 81-99 [facility]ennialMean Corpuscular Shbfwqppfs8497-09-78 08:59:00* Test Item Value Reference Range Interpretation Comments Mean Corpuscular Hemoglobin (test code = 785-6) 30.9 28-32 [facility] CentennialMean Corpuscular Hemoglobin Concent 2019-05-14 08:59:00* Test Item Value Reference Range Interpretation Comments Mean Corpuscular Hemoglobin Concent (test code = 786-4) 31.5 31-35 [facility] CentennialRed Cell Distribution Kmpnl9288-37-19 08:59:00* Test Item Value Reference Range Interpretation Comments Red Cell Distribution Width (test code = 79903-3) 18.4 11.7 -14.4 H [facility] CentennialPlatelet Iovsc7084-10-92 08:59:00* Test Item Value Reference Range Interpretation Comments Platelet Count (test code = 777-3) 90 140-360 L [facility] CentennialNeutrophils (%) (Auto)2019-05-14 08:59:00 * Test Item Value Reference Range Interpretation Comments Neutrophils (%) (Auto) (test code = 02327-5) 72.3 38.7-80.0 [facility] CentennialLymphocytes (%) (Auto)2019-05-14 08:59:00 * Test Item Value Reference Range Interpretation Comments Lymphocytes (%) (Auto) (test code = 736-9) 12.2 18.0-39.1 L [facility] CentennialMonocytes (%) (Auto)2019-05-14 08:59:00* Test Item Value Reference Range Interpretation Comments Monocytes (%) (Auto) (test code = 5905-5) 10.3 4.4-11.3 [facility]ennialEosinophils (%) (Auto)2019-05-14 08:59:00 * Test Item Value Reference Range Interpretation Comments Eosinophils (%) (Auto) (test code = 713-8) 4.5 0.0-6.0 [facility]ennialBasophils (%) (Auto)2019-05-14 08:59:00* Test Item Value Reference Range Interpretation Comments Basophils (%) (Auto) (test code = 706-2) 0.5 0.0-1.0 [facility] CentennialIM GRANULOCYTES %2019-05-14 08:59:00* Test Item Value Reference Range Interpretation Comments IM GRANULOCYTES % (test code = IM GRANULOCYTES %) 0.2 0.0- 1.0 [facility] CentennialNeutrophils # (Auto)2019-05-14 08:59:00* Test Item Value Reference Range Interpretation Comments Neutrophils # (Auto) (test code = 751-8) 3.0 2.1-6.9 [facility] CentennialLymphocytes # (Auto)2019-05-14 08:59:00* Test Item Value Reference Range Interpretation Comments Lymphocytes # (Auto) (test code = 89243-1) 0.5 1.0-3.2 L [facility] CentennialMonocytes # (Auto)2019-05-14 08:59:00* Test Item Value Reference Range Interpretation Comments Monocytes # (Auto) (test code = 742-7) 0.4 0.2-0.8 [facility]ennialEosinophils # (Auto)2019-05-14 08:59:00* Test Item Value Reference Range Interpretation Comments Eosinophils # (Auto) (test code = 711-2) 0.2 0.0-0.4 [facility]ennialBasophils # (Auto)2019-05-14 08:59:00* Test Item Value Reference Range Interpretation Comments Basophils # (Auto) (test code = 704-7) 0.0 0.0-0.1 [facility] CentennialAbsolute Immature Granulocyte (auto 2019-05-14 08:59:00* Test Item Value Reference Range Interpretation Comments Absolute Immature Granulocyte (auto (omi t code = Absolute Immature Granulocyte (auto) 0.01 0-0.1 [facility] CentennialFerritin2019-12-14 09:20:00* Test Item Value Reference Range Interpretation Comments Ferritin (test code = 2276-4) 225.81 21.81-274.66 [facility] CentennialDifferential Total Cells Counted 2019-05-13 08:32:00* Test Item Value Reference Range Interpretation Comments Differential Total Cells Counted (test code = Differweston tial Total Cells Counted) 100 [facility] CentennialNeutrophils % (Manual)2019-05-13 08:32:00 * Test Item Value Reference Range Interpretation Comments Neutrophils % (Manual) (test code = 28153-6) 80 40-74 H [facility] CentennialBand Neutrophils %2019-05-13 08:32:00* Test Item Value Reference Range Interpretation Comments Band Neutrophils % (test code = 764-1) 1 [facility] CentennialLymphocytes % (Manual)2019-05-13 08:32:00 * Test Item Value Reference Range Interpretation Comments Lymphocytes % (Manual) (test code = 737-7) 12 19-48 L [facility] CentennialMonocytes % (Manual)2019-05-13 08:32:00* Test Item Value Reference Range Interpretation Comments Monocytes % (Manual) (test code = 744-3) 5 3.4-9.0 [facility]ennialEosinophils % (Manual)2019-05-13 08:32:00 * Test Item Value Reference Range Interpretation Comments Eosinophils % (Manual) (test code = 714-6) 2 0-7 [facility] CentennialPlatelet Gxgonhin0721-99-65 08:32:00* Test Item Value Reference Range Interpretation Comments Platelet Estimate (test code = 68107-5) MODERATELY DECREASED [facility] CentennialPlatelet Morphology Lycfbgl3176-38-71 08:32:00* Test Item Value Reference Range Interpretation Comments Platelet Morphology Comment (test code = 33366-0) NORMAL [facility]ennialRed Cell Morphology [id number] 08:32:00* Test Item Value Reference Range Interpretation Comments Red Cell Morphology Comment (test code = 6742-1) NORMAL [facility]ennialBand Neutrophils %2019-05-13 08:32:00* Test Item Value Reference Range Interpretation Comments Band Neutrophils % (test code = 764-1) 1 [facility]ennialIron [id number] 06:35:00* Test Item Value Reference Range Interpretation Comments Iron Level (test code = 2498-4) 37 65-175 L [facility] CentennialTotal Iron Binding Sujvaybi2737-03-61 06:35:00* Test Item Value Reference Range Interpretation Comments Total Iron Binding Capacity (test code = 2500-7) 246 261-4 78 L [facility] CentennialPercent Iron Fashsjprxf8429-05-47 06:35:00* Test Item Value Reference Range Interpretation Comments Percent Iron Saturation (test code = 2502-3) 15 15-50 [facility] CentennialTransferrin2019-12-14 06:35:00* Test Item Value Reference Range Interpretation Comments Transferrin (test code = 3034-6) 176 174-364 [facility] CentennialHemoglobin A1c Cocqyqo7802-68-47 06:33:00 * Test Item Value Reference Range Interpretation Comments Hemoglobin A1c Percent (test code = Hemoglobin A1c Percent) 6.7 4.0-7.0 [facility]Hem[facility] A1c Kyocjxp2947-92-33 06:33:00 * Test Item Value Reference Range Interpretation Comments Hemoglobin A1c Percent (test code = Hemoglobin A1c Percent) 6.7 4.0-7.0 [facility]ennialManual blood band neutrophils form/100 jqlcehjqve1156-84-09 04:15:00* Test Item Value Reference Range Interpretation Comments Band Neutrophils % (test code = 764-1) 1 [facility] CentennialFluoroscopic procedure less than one hour ewtlozth4573-25-23 04:15:00* Test Item Value Reference Range Interpretation Comments Hemoglobin A1c Percent (test code = Hemoglobin A1c Percent) 6.7 4.0-7.0 [facility]ennialManual blood band neutrophils form/100 wgotrltutp3190-55-29 04:15:00* Test Item Value Reference Range Interpretation Comments Band Neutrophils % (test code = 764-1) 1 [facility] CentennialFluoroscopic procedure less than one hour kgtvqsru9853-38-47 04:15:00* Test Item Value Reference Range Interpretation Comments Hemoglobin A1c Percent (test code = Hemoglobin A1c Percent) 6.7 4.0-7.0 [facility]ennialManual blood band neutrophils form/100 rpddvibxov1987-76-84 04:15:00* Test Item Value Reference Range Interpretation Comments Band Neutrophils % (test code = 764-1) 1 [facility]ennialFluoroscopic procedure less than one hour gqcczdza2717-33-68 04:15:00* Test Item Value Reference Range Interpretation Comments Hemoglobin A1c Percent (test code = Hemoglobin A1c Percent) 6.7 4.0-7.0 [facility]ennialManual blood band neutrophils form/100 qbmvcyfiuz7988-50-07 04:15:00* Test Item Value Reference Range Interpretation Comments Band Neutrophils % (test code = 764-1) 1 [facility]ennialFluoroscopic procedure less than one hour golinbqz0200-53-05 04:15:00* Test Item Value Reference Range Interpretation Comments Hemoglobin A1c Percent (test code = Hemoglobin A1c Percent) 6.7 4.0-7.0 [facility]ennialManual blood band neutrophils form/100 jtilgydemm0830-38-98 04:15:00* Test Item Value Reference Range Interpretation Comments Band Neutrophils % (test code = 764-1) 1 [facility]ennialFluoroscopic procedure less than one hour cqmazazk1794-90-30 04:15:00* Test Item Value Reference Range Interpretation Comments Hemoglobin A1c Percent (test code = Hemoglobin A1c Percent) 6.7 4.0-7.0 [facility]ennialManual blood band neutrophils form/100 dljbayobaw7566-33-89 04:15:00* Test Item Value Reference Range Interpretation Comments Band Neutrophils % (test code = 764-1) 1 [facility]ennialFluoroscopic procedure less than one hour chamrcfn4434-15-78 04:15:00* Test Item Value Reference Range Interpretation Comments Hemoglobin A1c Percent (test code = Hemoglobin A1c Percent) 6.7 4.0-7.0 [facility]ennialManual blood band neutrophils form/100 ddkenodzfq9282-63-17 04:15:00* Test Item Value Reference Range Interpretation Comments Band Neutrophils % (test code = 764-1) 1 [facility]ennialFluoroscopic procedure less than one hour okfxeyhu0912-69-59 04:15:00* Test Item Value Reference Range Interpretation Comments Hemoglobin A1c Percent (test code = Hemoglobin A1c Percent) 6.7 4.0-7.0 [facility] CentennialCT ABDOMEN/PELVIS [id number] 15:37:00 [place] [address] Patient Name: MARI VILLA MR #: [id number] : 1965 Age/Sex: 54/M Req #: [id number] Adm Physician: NICOLE HURTADO MD Ordered by: NICOLE HURTADO MD Report #: [id number] Location: MED/SURG3 Room/Bed: [facility] Procedure: 1213-[address]/CT ABDOMEN/PELVIS WO Exam Date: 12/13/19 Exam T machelle: 1444 REPORT STATUS: Signed CT of the chest, abdomen, and pelvis History: Shortness of breath, pain, an emia Comparison: None available. Technique: Multidetector CT scanning of the ch est, abdomen and pelvis was performed from the level of the thoracic inlet to the inferior pubic ramus, without contrast DOSE REDUCTION: The examinatio n was performed according to departmental dose-optimization program which incl udes automated exposure control, adjustment of the mA and/or kV according to p atient size and/or use of iterative reconstruction technique. Discussion: Chest f indings: There is no axillary, mediastinal, or hilar lymphadenopathy. The re is a right internal jugular hemodialysis catheter placed with the distal ca theter tip terminating at the cavoatrial junction. The heart is mildly enla rged. There is no pericardial effusion. Coronary artery calcifications are not ed. The thoracic aorta is of normal course and caliber. The trachea and blaire tral airways are clear. Small bilateral pleural effusions are present. There is mild interstitial edema. No focal consolidation is present. Dependent atelectasis is present in the bilateral lower lobes. A 6 mm pulmo nary nodule is identified in the right lower lobe on axial image 33/128. Abdomen and pelvis findings: No focal hepatic lesions are identified. The g allbladder is contracted. No radiopaque gallstones are identified. There is no intrahepatic or extrahepatic ductal dilatation. The spleen is mildly enl arged measuring 14 cm in craniocaudal dimension. The bilateral adrenal glan ds are normal. The pancreas is normal in attenuation. There is no pancreati c ductal dilatation. There is no hydroureteronephrosis bilaterally. No re nal stones are identified. The stomach, small, and large bowel are nondiste nded. There is no evidence of obstruction. The appendix is normal. The ab dominal aorta is of normal course and caliber and demonstrates moderate athero sclerotic calcifications. Moderate ascites is present. No free intraperiton eal air. The urinary bladder is normal. No acute osseous abnormalities are identified. There is diffuse soft tissue anasarca. IMPRESSION: 1. Mild cardiomegaly, interstitial edema, and small bilateral pleural effus ions. 2. Mild splenomegaly. The spleen measures 14 cm in craniocaudal dimensio n. 3. Moderate ascites. Diffuse soft tissue anasarca. 4. 6 mm right lower lo be pulmonary nodule. Recommend follow-up chest CT at 6-12 months and then at 1 8-24 months. Signed by: Kobe King MD on 05/12/2019 3:50 PM D ictated By: KOBE KING MD 755 COPY TO: NICOLE HURTADO MD CT CHEST [id number] 15:37:00 [place] [address] Patient Name: WARD VILLA MR #: [id number] : 1965 Age/Sex: 54/M Req #: [id number] Adm Physician: NICOLE HURTADO MD Ordered by: NICOLE HURTADO MD Report #: [id number] Location: [facility] Room/Bed: [facility] Procedure: 1213-[address]/CT CHEST WO Exam Date: 05/12/19 Exam Time: 1444 REPORT STATUS: Signed CT of the chest, abdomen, and pelvis History: Shortness of breath, pain, anemia Comparison: None available. Technique: Multidetector CT scanning of the chest, abdo men and pelvis was performed from the level of the thoracic inlet to the infer ior pubic ramus, without contrast DOSE REDUCTION: The examination was per formed according to departmental dose-optimization program which includes auto mated exposure control, adjustment of the mA and/or kV according to patient si ze and/or use of iterative reconstruction technique. Discussion: Chest findings: There is no axillary, mediastinal, or hilar lymphadenopathy. There is a r ight internal jugular hemodialysis catheter placed with the distal catheter ti p terminating at the cavoatrial junction. The heart is mildly enlarged. The re is no pericardial effusion. Coronary artery calcifications are noted. The t horacic aorta is of normal course and caliber. The trachea and central airw ays are clear. Small bilateral pleural effusions are present. There is mild interstitial edema. No focal consolidation is present. Dependent atelectasis is present in the bilateral lower lobes. A 6 mm pulmonary nodu le is identified in the right lower lobe on axial image 33/128. Abdomen a nd pelvis findings: No focal hepatic lesions are identified. The gallbladde r is contracted. No radiopaque gallstones are identified. There is no intrahep atic or extrahepatic ductal dilatation. The spleen is mildly enlarged rachel suring 14 cm in craniocaudal dimension. The bilateral adrenal glands are no rmal. The pancreas is normal in attenuation. There is no pancreatic ductal dilatation. There is no hydroureteronephrosis bilaterally. No renal stone s are identified. The stomach, small, and large bowel are nondistended. The re is no evidence of obstruction. The appendix is normal. The abdominal a hussain is of normal course and caliber and demonstrates moderate atherosclerotic calcifications. Moderate ascites is present. No free intraperitoneal air. The urinary bladder is normal. No acute osseous abnormalities are iden tified. There is diffuse soft tissue anasarca. IMPRESSION: 1. Mil d cardiomegaly, interstitial edema, and small bilateral pleural effusions. 2 . Mild splenomegaly. The spleen measures 14 cm in craniocaudal dimension. 3. M oderate ascites. Diffuse soft tissue anasarca. 4. 6 mm right lower lobe pulmon mitzy nodule. Recommend follow-up chest CT at 6-12 months and then at 18-24 nitish hs. Signed by: Kobe King MD on 05/12/2019 3:50 PM Dictated B y: KOBE KING MD 1550 COPY TO: NICOLE HURTADO MD Vitamin B12 [id number] 10:47:00* Test Item Value Reference Range Interpretation Comments Vitamin B12 Level (test code = 61443-9) 710 213-353 [facility]ennialThyroid Stimulating Hormone (TSH) 2019-05-12 10:29:00* Test Item Value Reference Range Interpretation Comments Thyroid Stimulating Hormone (TSH) (test code = 45766-0) 1.875 0.350-4.940 [facility]ennialThyroid Stimulating Hormone (TSH) 2019-05-12 10:29:00* Test Item Value Reference Range Interpretation Comments Thyroid Stimulating Hormone (TSH) (test code = 24460-3) 1.875 0.350-4.940 [facility] thyrotropin measurement by detection limit <= 0.005 miu/l (units/volume)2019-05-12 04:15:00* Test Item Value Reference Range Interpretation Comments Thyroid Stimulating Hormone (TSH) (test code = 87247-8) 1.875 0.350-4.940 [facility] or plasma thyrotropin measurement by detection limit <= 0.005 miu/l (units/volume)2019-05-12 04:15:00* Test Item Value Reference Range Interpretation Comments Thyroid Stimulating Hormone (TSH) (test code = 05322-7) 1.875 0.350-4.940 [facility] or plasma thyrotropin measurement by detection limit <= 0.005 miu/l (units/volume)2019-05-12 04:15:00* Test Item Value Reference Range Interpretation Comments Thyroid Stimulating Hormone (TSH) (test code = 78289-9) 1.875 0.350-4.940 [facility] or plasma thyrotropin measurement by detection limit <= 0.005 miu/l (units/volume)2019-05-12 04:15:00* Test Item Value Reference Range Interpretation Comments Thyroid Stimulating Hormone (TSH) (test code = 88421-3) 1.875 0.350-4.940 [facility] or plasma thyrotropin measurement by detection limit <= 0.005 miu/l (units/volume)2019-05-12 04:15:00* Test Item Value Reference Range Interpretation Comments Thyroid Stimulating Hormone (TSH) (test code = 57227-5) 1.875 0.350-4.940 [facility] or plasma thyrotropin measurement by detection limit <= 0.005 miu/l (units/volume)2019-05-12 04:15:00* Test Item Value Reference Range Interpretation Comments Thyroid Stimulating Hormone (TSH) (test code = 69672-2) 1.875 0.350-4.940 [facility] or plasma thyrotropin measurement by detection limit <= 0.005 miu/l (units/volume)2019-05-12 04:15:00* Test Item Value Reference Range Interpretation Comments Thyroid Stimulating Hormone (TSH) (test code = 32772-6) 1.875 0.350-4.940 [facility] CentennialTotal Mavfgpnbv8385-12-14 21:11:00* Test Item Value Reference Range Interpretation Comments Total Bilirubin (test code = 1975-2) 1.7 0.2-1.2 H [facility] CentennialDirect Wnvgtqozz5206-66-42 21:11:00* Test Item Value Reference Range Interpretation Comments Direct Bilirubin (test code = 57423-5) 1.4 0.0-0.5 H [facility] CentennialAspartate Amino Transf (AST/SGOT) 2019-05-11 21:11:00* Test Item Value Reference Range Interpretation Comments Aspartate Amino Transf (AST/SGOT) (test code = Aspartate Amino Transf (AST/SGOT)) 28 5-34 [facility] CentennialAlanine Aminotransferase (ALT/SGPT) 2019-05-11 21:11:00* Test Item Value Reference Range Interpretation Comments Alanine Aminotransferase (ALT/SGPT) (test code = 1742-6) 50 0-55 [facility]ennialTotal Qifqlsa9931-87-34 21:11:00* Test Item Value Reference Range Interpretation Comments Total Protein (test code = 2885-2) 6.5 6.5-8.1 [facility] CentennialAlbumin2019-12-12 21:11:00* Test Item Value Reference Range Interpretation Comments Albumin (test code = 1751-7) 2.7 3.5-5.0 L [facility] CentennialAlkaline Naunwbzsgco5281-42-89 21:11:00* Test Item Value Reference Range Interpretation Comments Alkaline Phosphatase (test code = 6768-6) 714 40-150 H [facility] hepatitis B virus surface antibody assay by radioimmunoassay (units/volume)2019-05-11 19:36:00* Test Item Value Reference Range Interpretation Comments Hepatitis B Surface Antibody, Quant (test code = 5194-6) <3.0 Reference Range: Immunity>9.9 mIU/mLStatus of Immunity Anti-HBs Level Inconsistent with Immunity 0.0 - 9.9Consistent with Immunity >9.9[facility] hepatitis B virus e antigen detection by enzyme immunoassay 2019-05-11 19:36:00* Test Item Value Reference Range Interpretation Comments Hepatitis Be Antigen (test code = 50498-5) Negative [facility] hepatitis B virus surface antibody assay by radioimmunoassay (units/volume)2019-05-11 19:36:00* Test Item Value Reference Range Interpretation Comments Hepatitis B Surface Antibody, Quant (test code = 5194-6) <3.0 Reference Range: Immunity>9.9 mIU/mLStatus of Immunity Anti-HBs Level Inconsistent with Immunity 0.0 - 9.9Consistent with Immunity >9.9[facility] hepatitis B virus e antigen detection by enzyme immunoassay 2019-05-11 19:36:00* Test Item Value Reference Range Interpretation Comments Hepatitis Be Antigen (test code = 15913-4) Negative [facility] hepatitis B virus surface antibody assay by radioimmunoassay (units/volume)2019-05-11 19:36:00* Test Item Value Reference Range Interpretation Comments Hepatitis B Surface Antibody, Quant (test code = 5194-6) <3.0 Reference Range: Immunity>9.9 mIU/mLStatus of Immunity Anti-HBs Level Inconsistent with Immunity 0.0 - 9.9Consistent with Immunity >9.9[facility] hepatitis B virus e antigen detection by enzyme immunoassay 2019-05-11 19:36:00* Test Item Value Reference Range Interpretation Comments Hepatitis Be Antigen (test code = 09490-3) Negative [facility] hepatitis B virus surface antibody assay by radioimmunoassay (units/volume)2019-05-11 19:36:00* Test Item Value Reference Range Interpretation Comments Hepatitis B Surface Antibody, Quant (test code = 5194-6) <3.0 Reference Range: Immunity>9.9 mIU/mLStatus of Immunity Anti-HBs Level Inconsistent with Immunity 0.0 - 9.9Consistent with Immunity >9.9[facility] hepatitis B virus e antigen detection by enzyme immunoassay 2019-05-11 19:36:00* Test Item Value Reference Range Interpretation Comments Hepatitis Be Antigen (test code = 90859-1) Negative [facility] hepatitis B virus surface antibody assay by radioimmunoassay (units/volume)2019-05-11 19:36:00* Test Item Value Reference Range Interpretation Comments Hepatitis B Surface Antibody, Quant (test code = 5194-6) <3.0 Reference Range: Immunity>9.9 mIU/mLStatus of Immunity Anti-HBs Level Inconsistent with Immunity 0.0 - 9.9Consistent with Immunity >9.9[facility] hepatitis B virus e antigen detection by enzyme immunoassay 2019-05-11 19:36:00* Test Item Value Reference Range Interpretation Comments Hepatitis Be Antigen (test code = 79875-0) Negative [facility] hepatitis B virus surface antibody assay by radioimmunoassay (units/volume)2019-05-11 19:36:00* Test Item Value Reference Range Interpretation Comments Hepatitis B Surface Antibody, Quant (test code = 5194-6) <3.0 Reference Range: Immunity>9.9 mIU/mLStatus of Immunity Anti-HBs Level Inconsistent with Immunity 0.0 - 9.9Consistent with Immunity >9.9[facility] hepatitis B virus e antigen detection by enzyme immunoassay 2019-05-11 19:36:00* Test Item Value Reference Range Interpretation Comments Hepatitis Be Antigen (test code = 72670-8) Negative [facility] surface antibody assay by radioimmunoassay (units/volume)2019-05-11 19:36:00* Test Item Value Reference Range Interpretation Comments Hepatitis B Surface Antibody, Quant (test code = 5194-6) <3.0 Reference Range: Immunity>9.9 mIU/mLStatus of Immunity Anti-HBs Level Inconsistent with Immunity 0.0 - 9.9Consistent with Immunity >9.9[facility] hepatitis B virus e antigen detection by enzyme immunoassay 2019-05-11 19:36:00* Test Item Value Reference Range Interpretation Comments Hepatitis Be Antigen (test code = 17539-3) Negative [facility] CentennialCreatine Kinase [id number] 12:55:00* Test Item Value Reference Range Interpretation Comments Creatine Kinase MB (test code = 84568-3) 4.00 0-5.0 [facility] CentennialTroponin [id number] 12:55:00* Test Item Value Reference Range Interpretation Comments Troponin I (test code = UVW4085) 0.032 0-0.300 [facility] CentennialB-Type Natriuretic Lygfxss8703-31-47 12:48:00* Test Item Value Reference Range Interpretation Comments B-Type Natriuretic Peptide (test code = 87671-2) 3663.2 0-100 H [facility] CentennialB-Type Natriuretic Rarfydn5647-40-12 12:48:00* Test Item Value Reference Range Interpretation Comments B-Type Natriuretic Peptide (test code = 01887-3) 3663.2 0-100 H [facility] CentennialUrine [id number] 12:46:00* Test Item Value Reference Range Interpretation Comments Urine WBC (test code = 5821-4) 6-10 0-5 H [facility] CentennialUrine [id number] 12:46:00* Test Item Value Reference Range Interpretation Comments Urine RBC (test code = 10825-7) 0-5 0-5 [facility] CentennialUrine Yqslgywo6891-32-42 12:46:00* Test Item Value Reference Range Interpretation Comments Urine Bacteria (test code = 70831-1) FEW NONE [facility] CentennialUrine Epithelial Qnztq8736-01-35 12:46:00 * Test Item Value Reference Range Interpretation Comments Urine Epithelial Cells (test code = 06862-0) FEW NONE [facility] CentennialUrine [id number] 12:46:00* Test Item Value Reference Range Interpretation Comments Urine WBC (test code = 5821-4) 6-10 0-5 H [facility]ennialUrine [id number] 12:46:00* Test Item Value Reference Range Interpretation Comments Urine RBC (test code = 77301-0) 0-5 0-5 [facility]ennialUrine Vjxciant4633-77-35 12:46:00* Test Item Value Reference Range Interpretation Comments Urine Bacteria (test code = 85464-8) FEW NONE [facility] CentennialUrine Epithelial Enkff4047-54-77 12:46:00 * Test Item Value Reference Range Interpretation Comments Urine Epithelial Cells (test code = 61198-6) FEW NONE [facility] CentennialUrine Igvas1352-64-43 12:43:00* Test Item Value Reference Range Interpretation Comments Urine Color (test code = 5778-6) YELLOW YELLOW [facility]ennialUrine Fiyprqm4478-18-57 12:43:00* Test Item Value Reference Range Interpretation Comments Urine Clarity (test code = 01214-0) SL CLOUDY CLEAR H [facility] CentennialUrine Specific Phqrnzv3564-86-91 12:43:00 * Test Item Value Reference Range Interpretation Comments Urine Specific [place] (test code = 5811-5) 1.025 1.010-1.02 5 [facility]ennialUrine [id number] 12:43:00* Test Item Value Reference Range Interpretation Comments Urine pH (test code = 07650-3) 6 5-7 [facility] Leukocyte Ecbqcbcd4712-22-31 12:43:00* Test Item Value Reference Range Interpretation Comments Urine Leukocyte Esterase (test code = 5799-2) MODERATE NEGATIVE [facility] Hyukwuv2336-91-80 12:43:00* Test Item Value Reference Range Interpretation Comments Urine Nitrite (test code = 48551-2) NEGATIVE NEGATIVE [facility]ennialUrine Tdwtbqf2025-33-51 12:43:00* Test Item Value Reference Range Interpretation Comments Urine Protein (test code = 5804-0) 2+ NEGATIVE H [facility] Glucose (UA)2019-05-11 12:43:00* Test Item Value Reference Range Interpretation Comments Urine Glucose (UA) (test code = 2349-9) 1+ NEGATIVE H [facility] Pgntjho6932-32-14 12:43:00* Test Item Value Reference Range Interpretation Comments Urine Ketones (test code = 10860-1) NEGATIVE NEGATIVE [facility] Vavlsyayvobj2277-04-14 12:43:00* Test Item Value Reference Range Interpretation Comments Urine Urobilinogen (test code = 13186-1) 0.2 0.2-1 [facility] Yesmabvml8555-01-69 12:43:00* Test Item Value Reference Range Interpretation Comments Urine Bilirubin (test code = 1978-6) SMALL NEGATIVE [facility]ennialUrine Bwfln6140-27-36 12:43:00* Test Item Value Reference Range Interpretation Comments Urine Blood (test code = 44527-1) MODERATE NEGATIVE [facility]ennialUrine Cdlzz7094-33-99 12:43:00* Test Item Value Reference Range Interpretation Comments Urine Color (test code = 5778-6) YELLOW YELLOW [facility]ennialU[facility] Uymwfdf5970-77-70 12:43:00* Test Item Value Reference Range Interpretation Comments Urine Clarity (test code = 32743-6) SL CLOUDY CLEAR H [facility]ennialUrine Specific Ylaxigc6875-94-68 12:43:00 * Test Item Value Reference Range Interpretation Comments Urine Specific [place] (test code = 5811-5) 1.025 1.010-1.02 5 [facility]ennialUrine oR8467-33-40 12:43:00* Test Item Value Reference Range Interpretation Comments Urine pH (test code = 33167-8) 6 5-7 [facility] Leukocyte Hbiwkuvg1398-87-72 12:43:00* Test Item Value Reference Range Interpretation Comments Urine Leukocyte Esterase (test code = 5799-2) MODERATE NEGATIVE [facility] Tglnpmj2234-84-44 12:43:00* Test Item Value Reference Range Interpretation Comments Urine Nitrite (test code = 26813-2) NEGATIVE NEGATIVE [facility] Eingydp3577-72-89 12:43:00* Test Item Value Reference Range Interpretation Comments Urine Protein (test code = 5804-0) 2+ NEGATIVE H [facility] Glucose (UA)2019-05-11 12:43:00* Test Item Value Reference Range Interpretation Comments Urine Glucose (UA) (test code = 2349-9) 1+ NEGATIVE H [facility] Hlneqem4623-34-26 12:43:00* Test Item Value Reference Range Interpretation Comments Urine Ketones (test code = 61531-7) NEGATIVE NEGATIVE [facility] [place] Qbthwspkgxzm1986-08-12 12:43:00* Test Item Value Reference Range Interpretation Comments Urine Urobilinogen (test code = 06272-3) 0.2 0.2-1 [facility] Pxguajkjt4625-84-66 12:43:00* Test Item Value Reference Range Interpretation Comments Urine Bilirubin (test code = 1978-6) SMALL NEGATIVE [facility] Bvkyd9939-14-68 12:43:00* Test Item Value Reference Range Interpretation Comments Urine Blood (test code = 34395-6) MODERATE NEGATIVE [facility]ennialInfluenza Virus Types A,B Antigen 2019-05-11 12:41:00* Test Item Value Reference Range Interpretation Comments Influenza Virus Types A,B Antigen (test code = 77884-8) NEGATIVE NEGATIVE [facility] CentennialMagnesium Iqbbg8927-68-01 12:41:00* Test Item Value Reference Range Interpretation Comments Magnesium Level (test code = 09099-9) 2.0 1.3-2.1 [facility]ennialGlobulin2019-12-12 12:41:00* Test Item Value Reference Range Interpretation Comments Globulin (test code = 76683-7) 3.9 2.3-3.5 H [facility] CentennialAlbumin/Globulin Qmwro4941-23-16 12:41:00 * Test Item Value Reference Range Interpretation Comments Albumin/Globulin Ratio (test code = 1759-0) 0.7 0.8-2.0 L [facility] CentennialCreatine Ovkydg3804-00-10 12:41:00* Test Item Value Reference Range Interpretation Comments Creatine Kinase (test code = 2157-6) 97 30-200 [facility] CentennialGroup A Streptococcus Plcncn5541-27-82 12:41:00* Test Item Value Reference Range Interpretation Comments Group A Streptococcus Screen (test code = 40604-6) NEGATIVE NEG ATIVE [facility] CentennialMagnesium Rzdeg2197-97-04 12:41:00* Test Item Value Reference Range Interpretation Comments Magnesium Level (test code = 69515-3) 2.0 1.3-2.1 [facility] CentennialGroup A Streptococcus Juedcp9041-62-41 12:41:00* Test Item Value Reference Range Interpretation Comments Group A Streptococcus Screen (test code = 38822-3) NEGATIVE NEG ATIVE [facility] CentennialProthrombin Tlis6996-55-84 12:22:00* Test Item Value Reference Range Interpretation Comments Prothrombin Time (test code = 5902-2) 14.6 11.9-14.5 H [facility] CentennialProthromb Time International Ratio 2019-05-11 12:22:00* Test Item Value Reference Range Interpretation Comments Prothromb Time International Ratio (test code = 6301-6) 1.09 Oral Anticoagulant Therapy INR Values:1. Low Intensity Therapy 1.5 - 2.02 . Moderate Intensity Therapy 2.0 - 3.03. High Intensity Therapy(1) 2.5 - 3. 54. High Intensity Therapy(2) 3.0 - 4.05. Panic Value INR > 5.0 [facility] CentennialActivated Partial Thromboplast Time 2019-05-11 12:22:00* Test Item Value Reference Range Interpretation Comments Activated Partial Thromboplast Time (test code = 99558-6) 28.9 23.8-35.5 [facility]ennialCHEST SINGLE (PORTABLE)2019-05-11 11:31:00 [place] [address] Patient Name: WARD VILLA MR #: [id number] : 1965 Age/Sex: 54/M Req #: [id number] Adm Physician: Ordered by: GILL CHAVEZ NP Report #: [id number] Location: ER Room/Bed: Procedure: DX/CHEST SINGLE (PORTABLE) Exam Date: 05/11/19 Exam Time: 1115 REPORT STATUS: S igned Chest, 1 view, 05/11/2019. History: Shortness of breath. Comparison: None available. Findings: The cardiomediastinal silhouette and pulmonary vasculature are prominent. There is no focal consolidation or pl eural effusion. Right IJ tunneled dialysis catheter is present terminating in the superior right atrium. Median sternotomy wires are present. There are no a cute osseous or soft tissue abnormalities. Impression: Cardiomegaly a nd pulmonary vascular congestion. Signed by: aJylan Dinh on 05/11/2019 11 :32 AM Dictated By: JAYLAN DINH MD 1132 Transcribed By: ASHLEY on 05/11/19 113 COPY TO : GILL CHAVEZ NP Serum or plasma magnesium measurement (mass/volume)2019-05-11 11:00:00* Test Item Value Reference Range Interpretation Comments Magnesium Level (test code = 94288-5) 2.0 1.3-2.1 [facility]2019-12-12 11:00:00* Test Item Value Reference Range Interpretation Comments B-Type Natriuretic Peptide (test code = 34110-2) 3663.2 0-100 [facility] antigen detection in whzrwu3754-62-60 11:00:00* Test Item Value Reference Range Interpretation Comments Group A Streptococcus Screen (test code = 87348-4) NEGATIVE NEG ATIVE [facility] Hospitalerum or plasma magnesium measurement (mass/volume)2019-05-11 11:00:00* Test Item Value Reference Range Interpretation Comments Magnesium Level (test code = 05911-1) 2.0 1.3-2.1 [facility]2019-12-12 11:00:00* Test Item Value Reference Range Interpretation Comments B-Type Natriuretic Peptide (test code = 79524-6) 3663.2 0-100 [facility]trept[facility] pyogenes antigen detection in sdroym4515-61-46 11:00:00* Test Item Value Reference Range Interpretation Comments Group A Streptococcus Screen (test code = 23931-5) NEGATIVE NEG ATIVE [facility] Hospitalerum or plasma magnesium measurement (mass/volume)2019-05-11 11:00:00* Test Item Value Reference Range Interpretation Comments Magnesium Level (test code = 39360-1) 2.0 1.3-2.1 [facility]2019-12-12 11:00:00* Test Item Value Reference Range Interpretation Comments B-Type Natriuretic Peptide (test code = 42866-3) 3663.2 0-100 [facility] Hospitaltreptococcus pyogenes antigen detection in crzrxb6914-74-54 11:00:00* Test Item Value Reference Range Interpretation Comments Group A Streptococcus Screen (test code = 42708-5) NEGATIVE NEG ATIVE [facility] Hospitalerum or plasma magnesium measurement (mass/volume)2019-05-11 11:00:00* Test Item Value Reference Range Interpretation Comments Magnesium Level (test code = 65113-0) 2.0 1.3-2.1 [facility]2019-12-12 11:00:00* Test Item Value Reference Range Interpretation Comments B-Type Natriuretic Peptide (test code = 36245-6) 3663.2 0-100 [facility] Hospitaltreptococcus pyogenes antigen detection in vyfepe4617-66-85 11:00:00* Test Item Value Reference Range Interpretation Comments Group A Streptococcus Screen (test code = 07136-6) NEGATIVE NEG ATIVE [facility] Hospitalerum or plasma magnesium measurement (mass/volume)2019-05-11 11:00:00* Test Item Value Reference Range Interpretation Comments Magnesium Level (test code = 93242-8) 2.0 1.3-2.1 [facility]2019-12-12 11:00:00* Test Item Value Reference Range Interpretation Comments B-Type Natriuretic Peptide (test code = 43092-9) 3663.2 0-100 [facility] Hospitaltrept[facility] pyogenes antigen detection in nczgdy6114-31-71 11:00:00* Test Item Value Reference Range Interpretation Comments Group A Streptococcus Screen (test code = 99073-8) NEGATIVE NEG ATIVE [facility] Hospitalerum or plasma magnesium measurement (mass/volume)2019-05-11 11:00:00* Test Item Value Reference Range Interpretation Comments Magnesium Level (test code = 63945-8) 2.0 1.3-2.1 [facility]2019-12-12 11:00:00* Test Item Value Reference Range Interpretation Comments B-Type Natriuretic Peptide (test code = 48656-0) 3663.2 0-100 [facility] Hospitaltrept[facility] pyogenes antigen detection in xxkwov3863-68-52 11:00:00* Test Item Value Reference Range Interpretation Comments Group A Streptococcus Screen (test code = 61183-2) NEGATIVE NEG ATIVE [facility] Hospitalerum or plasma magnesium measurement (mass/volume)2019-05-11 11:00:00* Test Item Value Reference Range Interpretation Comments Magnesium Level (test code = 06225-7) 2.0 1.3-2.1 [facility]ennialBNP Vuv-oCvx8194-60-12 11:00:00* Test Item Value Reference Range Interpretation Comments B-Type Natriuretic Peptide (test code = 91681-3) 3663.2 0-100 [facility] Hospitaltreptococcus pyogenes antigen detection in zuwieu8890-59-91 11:00:00* Test Item Value Reference Range Interpretation Comments Group A Streptococcus Screen (test code = 31923-0) NEGATIVE NEG ATIVE [facility] CentennialUrine color hakizfouwblin8926-12-81 10:51:00* Test Item Value Reference Range Interpretation Comments Urine Color (test code = 5778-6) YELLOW YELLOW [facility] CentennialUrine qpjnamn2319-95-97 10:51:00* Test Item Value Reference Range Interpretation Comments Urine Clarity (test code = 62156-9) SL CLOUDY CLEAR [facility] Hospitalpecific gravity of Urine by Test strip 2019-05-11 10:51:00* Test Item Value Reference Range Interpretation Comments Urine Specific [place] (test code = 5811-5) 1.025 1.010-1.02 5 [facility]ennialUrine pH measurement by automated test zohnb0559-89-47 10:51:00* Test Item Value Reference Range Interpretation Comments Urine pH (test code = 03912-9) 6 5-7 [facility] CentennialUrine leukocyte esterase detection by pjrocmom1706-04-69 10:51:00* Test Item Value Reference Range Interpretation Comments Urine Leukocyte Esterase (test code = 5799-2) MODERATE NEGATIVE [facility]ennialUrine nitrite hhucpjpnk2704-75-19 10:51:00* Test Item Value Reference Range Interpretation Comments Urine Nitrite (test code = 77402-8) NEGATIVE NEGATIVE [facility]ennialUrine protein measurement by test strip (mass/volume)2019-05-11 10:51:00* Test Item Value Reference Range Interpretation Comments Urine Protein (test code = 5804-0) 2+ NEGATIVE [facility]ennialUrine glucose jjmracoau4505-47-94 10:51:00* Test Item Value Reference Range Interpretation Comments Urine Glucose (UA) (test code = 2349-9) 1+ NEGATIVE [facility]ennialUrine ketones detection by automated test brisi5290-95-37 10:51:00* Test Item Value Reference Range Interpretation Comments Urine Ketones (test code = 62811-0) NEGATIVE NEGATIVE [facility]ennialUrine urobilinogen measurement by test strip (mass/volume)2019-05-11 10:51:00* Test Item Value Reference Range Interpretation Comments Urine Urobilinogen (test code = 18356-8) 0.2 0.2-1 [facility]ennialUrine total bilirubin measurement (mass/volume)2019-05-11 10:51:00* Test Item Value Reference Range Interpretation Comments Urine Bilirubin (test code = 1978-6) SMALL NEGATIVE [facility]ennialUrine erythrocytes avtzgikty5864-20-26 10:51:00* Test Item Value Reference Range Interpretation Comments Urine Blood (test code = 44784-6) MODERATE NEGATIVE [facility] CentennialAutomated urine sediment leukocyte count by microscopy (number/high power field)2019-05-11 10:51:00* Test Item Value Reference Range Interpretation Comments Urine WBC (test code = 5821-4) 6-10 0-5 [facility]ennialErythrocytes detection in urine sediment by light cohtlsxjvi4126-43-42 10:51:00* Test Item Value Reference Range Interpretation Comments Urine RBC (test code = 67699-7) 0-5 0-5 [facility]ennialBacteria detection in urine sediment by light kylmxxqufr0102-56-49 10:51:00* Test Item Value Reference Range Interpretation Comments Urine Bacteria (test code = 89569-3) FEW NONE [facility] CentennialEpithelial cells detection in urine sediment by light aguormhtxr5476-15-27 10:51:00* Test Item Value Reference Range Interpretation Comments Urine Epithelial Cells (test code = 23734-4) FEW NONE [facility]ennialUrine color vwwvssotjahuh6825-44-18 10:51:00* Test Item Value Reference Range Interpretation Comments Urine Color (test code = 5778-6) YELLOW YELLOW [facility]ennialUrine lylmckz6766-60-79 10:51:00* Test Item Value Reference Range Interpretation Comments Urine Clarity (test code = 46533-6) SL CLOUDY CLEAR [facility]pecific [facility] of Urine by Test strip 2019-05-11 10:51:00* Test Item Value Reference Range Interpretation Comments Urine Specific [place] (test code = 5811-5) 1.025 1.010-1.02 5 [facility]ennialUrine pH measurement by automated test umhmq4190-38-20 10:51:00* Test Item Value Reference Range Interpretation Comments Urine pH (test code = 53268-7) 6 5-7 [facility]ennialUrine leukocyte esterase detection by bhsobnyz0422-04-08 10:51:00* Test Item Value Reference Range Interpretation Comments Urine Leukocyte Esterase (test code = 5799-2) MODERATE NEGATIVE [facility]ennialUrine nitrite gukfceilv7926-04-92 10:51:00* Test Item Value Reference Range Interpretation Comments Urine Nitrite (test code = 48074-3) NEGATIVE NEGATIVE [facility]ennialUrine protein measurement by test strip (mass/volume)2019-05-11 10:51:00* Test Item Value Reference Range Interpretation Comments Urine Protein (test code = 5804-0) 2+ NEGATIVE [facility]ennialUrine glucose mofytthvp3973-52-74 10:51:00* Test Item Value Reference Range Interpretation Comments Urine Glucose (UA) (test code = 2349-9) 1+ NEGATIVE [facility]ennialUrine ketones detection by automated test ytqru5496-53-93 10:51:00* Test Item Value Reference Range Interpretation Comments Urine Ketones (test code = 39625-1) NEGATIVE NEGATIVE [facility]ennialUrine urobilinogen measurement by test strip (mass/volume)2019-05-11 10:51:00* Test Item Value Reference Range Interpretation Comments Urine Urobilinogen (test code = 11882-0) 0.2 0.2-1 [facility]ennialUrine total bilirubin measurement (mass/volume)2019-05-11 10:51:00* Test Item Value Reference Range Interpretation Comments Urine Bilirubin (test code = 1978-6) SMALL NEGATIVE [facility]ennialUrine erythrocytes nikoswnfh2056-35-96 10:51:00* Test Item Value Reference Range Interpretation Comments Urine Blood (test code = 10992-4) MODERATE NEGATIVE [facility] CentennialAutomated urine sediment leukocyte count by microscopy (number/high power field)2019-05-11 10:51:00* Test Item Value Reference Range Interpretation Comments Urine WBC (test code = 5821-4) 6-10 0-5 [facility]ennialErythrocytes detection in urine sediment by light otzibmhsly1920-56-24 10:51:00* Test Item Value Reference Range Interpretation Comments Urine RBC (test code = 74622-5) 0-5 0-5 [facility]ennialBacteria detection in urine sediment by light vhfjqprxef4126-31-17 10:51:00* Test Item Value Reference Range Interpretation Comments Urine Bacteria (test code = 88001-7) FEW NONE [facility] CentennialEpithelial cells detection in urine sediment by light ertatpzpvm8917-67-68 10:51:00* Test Item Value Reference Range Interpretation Comments Urine Epithelial Cells (test code = 27063-1) FEW NONE [facility]ennialUrine color zqksbudkypysm0918-39-28 10:51:00* Test Item Value Reference Range Interpretation Comments Urine Color (test code = 5778-6) YELLOW YELLOW [facility]ennialUrine vjvuiqu5841-88-29 10:51:00* Test Item Value Reference Range Interpretation Comments Urine Clarity (test code = 55169-5) SL CLOUDY CLEAR [facility]pecific [facility] Urine by Test strip 2019-05-11 10:51:00* Test Item Value Reference Range Interpretation Comments Urine Specific [place] (test code = 5811-5) 1.025 1.010-1.02 5 [facility]ennialUrine pH measurement by automated test prvor4174-64-16 10:51:00* Test Item Value Reference Range Interpretation Comments Urine pH (test code = 26884-6) 6 5-7 [facility]ennialUrine leukocyte esterase detection by kpofcksd2183-08-12 10:51:00* Test Item Value Reference Range Interpretation Comments Urine Leukocyte Esterase (test code = 5799-2) MODERATE NEGATIVE [facility]ennialUrine nitrite pbanixblb3551-36-50 10:51:00* Test Item Value Reference Range Interpretation Comments Urine Nitrite (test code = 36680-9) NEGATIVE NEGATIVE [facility]ennialUrine protein measurement by test strip (mass/volume)2019-05-11 10:51:00* Test Item Value Reference Range Interpretation Comments Urine Protein (test code = 5804-0) 2+ NEGATIVE [facility]ennialUrine glucose ozgdjsuxv4199-63-70 10:51:00* Test Item Value Reference Range Interpretation Comments Urine Glucose (UA) (test code = 2349-9) 1+ NEGATIVE [facility]ennialUrine ketones detection by automated test wzppt3679-02-47 10:51:00* Test Item Value Reference Range Interpretation Comments Urine Ketones (test code = 84291-6) NEGATIVE NEGATIVE [facility]ennialUrine urobilinogen measurement by test strip (mass/volume)2019-05-11 10:51:00* Test Item Value Reference Range Interpretation Comments Urine Urobilinogen (test code = 59399-2) 0.2 0.2-1 [facility]ennialUrine total bilirubin measurement (mass/volume)2019-05-11 10:51:00* Test Item Value Reference Range Interpretation Comments Urine Bilirubin (test code = 1978-6) SMALL NEGATIVE [facility]ennialUrine erythrocytes tvefisizt5810-28-45 10:51:00* Test Item Value Reference Range Interpretation Comments Urine Blood (test code = 59033-8) MODERATE NEGATIVE [facility]ennialAutomated urine sediment leukocyte count by microscopy (number/high power field)2019-05-11 10:51:00* Test Item Value Reference Range Interpretation Comments Urine WBC (test code = 5821-4) 6-10 0-5 [facility]ennialErythrocytes detection in urine sediment by light yytweqcxvv4634-91-68 10:51:00* Test Item Value Reference Range Interpretation Comments Urine RBC (test code = 92539-5) 0-5 0-5 [facility]ennialBacteria detection in urine sediment by light ugtckajvkr8646-17-72 10:51:00* Test Item Value Reference Range Interpretation Comments Urine Bacteria (test code = 61731-0) FEW NONE [facility] CentennialEpithelial cells detection in urine sediment by light bquloljnlj4384-46-55 10:51:00* Test Item Value Reference Range Interpretation Comments Urine Epithelial Cells (test code = 25179-4) FEW NONE [facility]ennialUrine color uvwxnbsqafyvn6912-50-74 10:51:00* Test Item Value Reference Range Interpretation Comments Urine Color (test code = 5778-6) YELLOW YELLOW [facility]ennialUrine bfypemb8212-29-18 10:51:00* Test Item Value Reference Range Interpretation Comments Urine Clarity (test code = 83336-9) SL CLOUDY CLEAR [facility] Urine by Test strip 2019-05-11 10:51:00* Test Item Value Reference Range Interpretation Comments Urine Specific [place] (test code = 5811-5) 1.025 1.010-1.02 5 [facility]ennialUrine pH measurement by automated test yclja0867-45-31 10:51:00* Test Item Value Reference Range Interpretation Comments Urine pH (test code = 43455-0) 6 5-7 [facility]ennialUrine leukocyte esterase detection by bmgmjred1638-32-71 10:51:00* Test Item Value Reference Range Interpretation Comments Urine Leukocyte Esterase (test code = 5799-2) MODERATE NEGATIVE [facility]ennialUrine nitrite jjjskcrju6719-50-49 10:51:00* Test Item Value Reference Range Interpretation Comments Urine Nitrite (test code = 71962-5) NEGATIVE NEGATIVE [facility]ennialUrine protein measurement by test strip (mass/volume)2019-05-11 10:51:00* Test Item Value Reference Range Interpretation Comments Urine Protein (test code = 5804-0) 2+ NEGATIVE [facility]ennialUrine glucose vwfiumjds1071-02-96 10:51:00* Test Item Value Reference Range Interpretation Comments Urine Glucose (UA) (test code = 2349-9) 1+ NEGATIVE [facility]ennialUrine ketones detection by automated test dctfx1039-00-76 10:51:00* Test Item Value Reference Range Interpretation Comments Urine Ketones (test code = 83190-9) NEGATIVE NEGATIVE [facility]ennialUrine urobilinogen measurement by test strip (mass/volume)2019-05-11 10:51:00* Test Item Value Reference Range Interpretation Comments Urine Urobilinogen (test code = 00798-7) 0.2 0.2-1 [facility]ennialUrine total bilirubin measurement (mass/volume)2019-05-11 10:51:00* Test Item Value Reference Range Interpretation Comments Urine Bilirubin (test code = 1978-6) SMALL NEGATIVE [facility]ennialUrine erythrocytes bdelwawck6916-53-97 10:51:00* Test Item Value Reference Range Interpretation Comments Urine Blood (test code = 10048-8) MODERATE NEGATIVE [facility]ennialAutomated urine sediment leukocyte count by microscopy (number/high power field)2019-05-11 10:51:00* Test Item Value Reference Range Interpretation Comments Urine WBC (test code = 5821-4) 6-10 0-5 [facility]ennialErythrocytes detection in urine sediment by light joqudmpvno1833-84-77 10:51:00* Test Item Value Reference Range Interpretation Comments Urine RBC (test code = 55375-9) 0-5 0-5 [facility]ennialBacteria detection in urine sediment by light rxmlkmggjs7333-89-11 10:51:00* Test Item Value Reference Range Interpretation Comments Urine Bacteria (test code = 62244-4) FEW NONE [facility] CentennialEpithelial cells detection in urine sediment by light iwgmcrzxqy8791-34-77 10:51:00* Test Item Value Reference Range Interpretation Comments Urine Epithelial Cells (test code = 81347-8) FEW NONE [facility]ennialUrine color zwvvfkrvhpnqe8903-46-32 10:51:00* Test Item Value Reference Range Interpretation Comments Urine Color (test code = 5778-6) YELLOW YELLOW [facility]ennialUrine wpewylg4326-63-55 10:51:00* Test Item Value Reference Range Interpretation Comments Urine Clarity (test code = 14183-6) SL CLOUDY CLEAR [facility] U[facility] by Test strip 2019-05-11 10:51:00* Test Item Value Reference Range Interpretation Comments Urine Specific [place] (test code = 5811-5) 1.025 1.010-1.02 5 [facility]ennialUrine pH measurement by automated test ylmrx8295-77-62 10:51:00* Test Item Value Reference Range Interpretation Comments Urine pH (test code = 03416-3) 6 5-7 [facility]ennialUrine leukocyte esterase detection by kpretihw8283-36-22 10:51:00* Test Item Value Reference Range Interpretation Comments Urine Leukocyte Esterase (test code = 5799-2) MODERATE NEGATIVE [facility]ennialUrine nitrite opqzrdpap8043-77-89 10:51:00* Test Item Value Reference Range Interpretation Comments Urine Nitrite (test code = 85000-6) NEGATIVE NEGATIVE [facility]ennialUrine protein measurement by test strip (mass/volume)2019-05-11 10:51:00* Test Item Value Reference Range Interpretation Comments Urine Protein (test code = 5804-0) 2+ NEGATIVE [facility]ennialUrine glucose jxljuvtym0733-04-31 10:51:00* Test Item Value Reference Range Interpretation Comments Urine Glucose (UA) (test code = 2349-9) 1+ NEGATIVE [facility]ennialUrine ketones detection by automated test ucdah2392-63-81 10:51:00* Test Item Value Reference Range Interpretation Comments Urine Ketones (test code = 40633-6) NEGATIVE NEGATIVE [facility] urobilinogen measurement by test strip (mass/volume)2019-05-11 10:51:00* Test Item Value Reference Range Interpretation Comments Urine Urobilinogen (test code = 30383-8) 0.2 0.2-1 [facility] total bilirubin measurement (mass/volume)2019-05-11 10:51:00* Test Item Value Reference Range Interpretation Comments Urine Bilirubin (test code = 1978-6) SMALL NEGATIVE [facility] erythrocytes [id number] 10:51:00* Test Item Value Reference Range Interpretation Comments Urine Blood (test code = 60717-1) MODERATE NEGATIVE [facility]ennialAutomated urine sediment leukocyte count by microscopy (number/high power field)2019-05-11 10:51:00* Test Item Value Reference Range Interpretation Comments Urine WBC (test code = 5821-4) 6-10 0-5 [facility]ennialErythrocytes detection in urine sediment by light [id number] 10:51:00* Test Item Value Reference Range Interpretation Comments Urine RBC (test code = 43028-1) 0-5 0-5 [facility]ennialBacteria detection in urine sediment by light dkzpcbxlwv8271-05-31 10:51:00* Test Item Value Reference Range Interpretation Comments Urine Bacteria (test code = 82991-1) FEW NONE [facility]ennialEpithelial cells detection in urine sediment by light iltcyzthwg0503-47-24 10:51:00* Test Item Value Reference Range Interpretation Comments Urine Epithelial Cells (test code = 83642-3) FEW NONE [facility] color dwmgtebkjqjfo2378-68-67 10:51:00* Test Item Value Reference Range Interpretation Comments Urine Color (test code = 5778-6) YELLOW YELLOW [facility]ennial[facility] vavlpse2272-03-39 10:51:00* Test Item Value Reference Range Interpretation Comments Urine Clarity (test code = 73353-4) SL CLOUDY [facility] by Test strip 2019-05-11 10:51:00* Test Item Value Reference Range Interpretation Comments Urine Specific [place] (test code = 5811-5) 1.025 1.010-1.02 5 [facility] pH measurement by automated test [id number] 10:51:00* Test Item Value Reference Range Interpretation Comments Urine pH (test code = 38087-8) 6 5-7 [facility]ennial[facility] leukocyte esterase detection by vizxevmi4332-60-89 10:51:00* Test Item Value Reference Range Interpretation Comments Urine Leukocyte Esterase (test code = 5799-2) MODERATE NEGATIVE [facility] nitrite sodzkewqh2084-62-80 10:51:00* Test Item Value Reference Range Interpretation Comments Urine Nitrite (test code = 63461-5) NEGATIVE NEGATIVE [facility] protein measurement by test strip (mass/volume)2019-05-11 10:51:00* Test Item Value Reference Range Interpretation Comments Urine Protein (test code = 5804-0) 2+ NEGATIVE [facility] glucose tkmxvdrzu8309-53-42 10:51:00* Test Item Value Reference Range Interpretation Comments Urine Glucose (UA) (test code = 2349-9) 1+ NEGATIVE [facility] ketones detection by automated test nwhdy4852-25-86 10:51:00* Test Item Value Reference Range Interpretation Comments Urine Ketones (test code = 24871-0) NEGATIVE NEGATIVE [facility] urobilinogen measurement by test strip (mass/volume)2019-05-11 10:51:00* Test Item Value Reference Range Interpretation Comments Urine Urobilinogen (test code = 23355-6) 0.2 0.2-1 [facility] total bilirubin measurement (mass/volume)2019-05-11 10:51:00* Test Item Value Reference Range Interpretation Comments Urine Bilirubin (test code = 1978-6) SMALL NEGATIVE [facility] erythrocytes cgrjmrjjp2347-01-19 10:51:00* Test Item Value Reference Range Interpretation Comments Urine Blood (test code = 09625-4) MODERATE NEGATIVE [facility]ennialAutomated urine sediment leukocyte count by microscopy (number/high power field)2019-05-11 10:51:00* Test Item Value Reference Range Interpretation Comments Urine WBC (test code = 5821-4) 6-10 0-5 [facility]ennialErythrocytes detection in urine sediment by light jxyzntnenz0731-92-65 10:51:00* Test Item Value Reference Range Interpretation Comments Urine RBC (test code = 09272-5) 0-5 0-5 [facility]ennialBacteria detection in urine sediment by light mncwykfloc7051-19-54 10:51:00* Test Item Value Reference Range Interpretation Comments Urine Bacteria (test code = 70023-3) FEW NONE [facility]ennialEpithelial cells detection in urine sediment by light hxqwususuu7569-10-78 10:51:00* Test Item Value Reference Range Interpretation Comments Urine Epithelial Cells (test code = 05752-8) FEW NONE [facility]ennial[facility] color whsezayafxjwr2984-78-67 10:51:00* Test Item Value Reference Range Interpretation Comments Urine Color (test code = 5778-6) YELLOW YELLOW [facility]ennialUrine rjuripf9873-87-17 10:51:00* Test Item Value Reference Range Interpretation Comments Urine Clarity (test code = 80617-6) SL CLOUDY CLEAR [facility] by Test strip 2019-05-11 10:51:00* Test Item Value Reference Range Interpretation Comments Urine Specific [place] (test code = 5811-5) 1.025 1.010-1.02 5 [facility] pH measurement by automated test [id number] 10:51:00* Test Item Value Reference Range Interpretation Comments Urine pH (test code = 98685-8) 6 5-7 [facility]ennialU[facility] leukocyte esterase detection by jtfrclco0397-01-96 10:51:00* Test Item Value Reference Range Interpretation Comments Urine Leukocyte Esterase (test code = 5799-2) MODERATE NEGATIVE [facility] nitrite ygtpfyfek7494-24-52 10:51:00* Test Item Value Reference Range Interpretation Comments Urine Nitrite (test code = 66813-5) NEGATIVE NEGATIVE [facility] protein measurement by test strip (mass/volume)2019-05-11 10:51:00* Test Item Value Reference Range Interpretation Comments Urine Protein (test code = 5804-0) 2+ NEGATIVE [facility] glucose mwkolgdnh2936-73-27 10:51:00* Test Item Value Reference Range Interpretation Comments Urine Glucose (UA) (test code = 2349-9) 1+ NEGATIVE [facility]ennialUrine ketones detection by automated test aumna7387-15-13 10:51:00* Test Item Value Reference Range Interpretation Comments Urine Ketones (test code = 42838-8) NEGATIVE NEGATIVE [facility]ennial[facility]rine urobilinogen measurement by test strip (mass/volume)2019-05-11 10:51:00* Test Item Value Reference Range Interpretation Comments Urine Urobilinogen (test code = 57560-3) 0.2 0.2-1 [facility] total bilirubin measurement (mass/volume)2019-05-11 10:51:00* Test Item Value Reference Range Interpretation Comments Urine Bilirubin (test code = 1978-6) SMALL NEGATIVE [facility]ennialU[facility] erythrocytes fjcxykrij9446-11-90 10:51:00* Test Item Value Reference Range Interpretation Comments Urine Blood (test code = 91040-3) MODERATE NEGATIVE [facility]ennialAutomated urine sediment leukocyte count by microscopy (number/high power field)2019-05-11 10:51:00* Test Item Value Reference Range Interpretation Comments Urine WBC (test code = 5821-4) 6-10 0-5 [facility]ennialErythrocytes detection in urine sediment by light jwxzbswxys5080-21-33 10:51:00* Test Item Value Reference Range Interpretation Comments Urine RBC (test code = 56173-7) 0-5 0-5 [facility]ennialBacteria detection in urine sediment by light nnapkclsda4515-10-58 10:51:00* Test Item Value Reference Range Interpretation Comments Urine Bacteria (test code = 55722-5) FEW NONE [facility]ennialEpithelial cells detection in urine sediment by light tpewkixdqm3299-18-63 10:51:00* Test Item Value Reference Range Interpretation Comments Urine Epithelial Cells (test code = 71338-2) FEW NONE [facility] Hospitalodium Traft0048-78-32 15:21:00* Test Item Value Reference Range Interpretation Comments Sodium Level (test code = 2951-2) 137 136-145 [facility]ennialPotassium Iuckn0387-22-68 15:21:00* Test Item Value Reference Range Interpretation Comments Potassium Level (test code = 2823-3) 3.8 3.5-5.1 [facility]ennialChloride Xnodh5808-90-39 15:21:00* Test Item Value Reference Range Interpretation Comments Chloride Level (test code = 2075-0) 97 98-107 L [facility]ennialCarbon Dioxide Qieyp6168-27-46 15:21:00* Test Item Value Reference Range Interpretation Comments Carbon Dioxide Level (test code = 2028-9) 29 22-29 [facility] CentennialAnion Jtn4105-62-02 15:21:00* Test Item Value Reference Range Interpretation Comments Anion Gap (test code = 71098-6) 14.8 8-16 [facility]ennialBlood Urea Cwzmruyb7581-65-85 15:21:00* Test Item Value Reference Range Interpretation Comments Blood Urea Nitrogen (test code = 3094-0) 28 7-26 H [facility]ennialCreatinine2019-11-18 15:21:00* Test Item Value Reference Range Interpretation Comments Creatinine (test code = 2160-0) 4.43 0.72-1.25 H [facility]ennialBUN/Creatinine Ajnhy5796-72-16 15:21:00* Test Item Value Reference Range Interpretation Comments BUN/Creatinine Ratio (test code = 3097-3) 6 6-25 [facility] CentennialEstimat Glomerular Filtration Rate 2019-04-17 15:21:00* Test Item Value Reference Range Interpretation Comments Estimat Glomerular Filtration Rate (test code = 660322474) 14 >60 L Ranges were taken from the National Kidney Disease Education Program and the [facility] [employer] literature.Reference ranges:60 or greater: Ngtbaz43-96 ( for 3 consecutive months): Chronic kidney disease 15 or less: Kidney failureB[facility] CentennialGlucose Wrnng2515-55-79 15:21:00* Test Item Value Reference Range Interpretation Comments Glucose Level (test code = GJA2240) 125 74-118 H [facility] CentennialCalcium Yxpvo3995-92-19 15:21:00* Test Item Value Reference Range Interpretation Comments Calcium Level (test code = 92119-6) 9.2 8.4-10.2 [facility]
--- NOTE | 2020-02-26 08:46 | Diagnostic Imaging Report ---
PROCEDURE: Ultrasound-guided paracentesis Procedural Personnel Attending physician(s): Ezio Keating MD Pre-procedure diagnosis: Ascites Post-procedure diagnosis: Unchanged Indication: Ascites with pain or pressure symptoms Additional clinical history: None Complications: No immediate complications. IMPRESSION: Ultrasound-guided paracentesis with drainage of 11,600 mL of serous fluid. Plan: Resume care by clinical team. PROCEDURE SUMMARY: - Limited abdominal ultrasound - Ultrasound-guided paracentesis - Additional procedure(s): None PROCEDURE DETAILS: Pre-procedure Consent: Informed consent for the procedure including risks, benefits and alternatives was obtained and time-out was performed prior to the procedure. Preparation: The site was prepared and draped using maximal sterile barrier technique including cutaneous antisepsis. Anesthesia/sedation Level of anesthesia/sedation: None Initial abdominal ultrasound Initial abdominal ultrasound was performed. Findings: Large ascites. A safe window for paracentesis was identified. Paracentesis Local anesthesia was administered. The peritoneal cavity was accessed and fluid return confirmed position. Ascites was drained. The catheter was then removed, and a sterile bandage was applied. Paracentesis access technique: Real-time ultrasound guidance. Catheter placed: 5Fr Yueh Post-drainage ultrasound: No visible ascites Additional Details Additional description of procedure: None Equipment details: None Specimens removed: Abdominal fluid Estimated blood loss (mL): Minimal (<10cc) Standardized report: [email or web address] Attestation Signer name: Ezio Keating MD I attest that I was present for the entire procedure. I reviewed the stored images and agree with the report as written. Signed by: Ezio Keating MD on 02/26/2020 8:42 AM
== END 2020-02-22 18:27 | disposition home or self-care (01) ==
LOC: ER 11:53 → ERHOLD 14:51 → MED/SURG2 19:39
PROVIDERS: ADMIT Internal Medicine; ATTEND Internal Medicine
DX: K74.60 Unspecified cirrhosis of liver (principal); R18.8 Other ascites; I12.0 Hypertensive chronic kidney disease with stage 5 chronic kidney disease or end stage renal disease; R79.89 Other specified abnormal findings of blood chemistry; I25.10 Atherosclerotic heart disease of native coronary artery without angina pectoris; Z95.1 Presence of aortocoronary bypass graft; E11.22 Type 2 diabetes mellitus with diabetic chronic kidney disease; N18.6 End stage renal disease; Z11.59 Encounter for screening for other viral diseases; Z79.4 Long term (current) use of insulin
CPT/HCPCS: 36415 ×2; 49083 ×2; 71045; 74177; 74470; 76705; 80053 ×2; 82150; 82550; 82553; 82948 ×2; 83690; 83880; 84484; 85025 ×2; 85610; 85730; 87070; 87205; 88112; 88305; 89051; 90970; 99284; G0378 ×2; J1644; J2405; J7030; Q9967; U0002